=== PATIENT | female | born 1945 | race Caucasian/White ===

== ENCOUNTER 2023-10-16 15:26 | Inpatient (IN) ==
[2023-10-16] MEDS ORDERED: ONDANSETRON INJ 2 MG/ML 2 ML VIAL IV STA (15:48)
[2023-10-16] MEDS ORDERED: SODIUM CHLORIDE 0.9% 1,000 ML IV ONE (15:48)
[2023-10-16] MEDS ORDERED: MoRPHine SULFATE 4 MG/ML 1 ML CARP\\VIAL IV STA (15:48)
--- OUTSIDE RECORDS SUMMARY | 2023-10-16 15:49 | External Medical Summary | Summary of Care ---
Author Name Unknown Organization [facility] Address [address] [place] [address] Phone [phone] Care Team Providers Care Carpenter Maintenance Name Role Phone Mary Ellen Melendez DO Primary Care Provider [phone] Reason for Visit * Reason Comments Physical-Exam Yearly exam, no spec ific complaints Encounter Details Date Type Department Care Team (Late st Contact Info) Description 10/12/2023 9:20 AM EST Office Visit Family Practice [facility] [address] [place] [phone] Mary Ellen Melendez, [address] [place] [address] Well adult exam*; HTN, goal below 140/90; Hypertensive kidney disease with stage 3a chronic kidney disease (HCC); Risk and functional assessment; High risk for fracture due to osteoporosis by DEXA scan Allergies No known active allergiesdocumented as of this encounter (statuses as of 10/12/2023) Medications Medication Sig Dispensed Refills Start Date End Date Status OMEGA-3 FATTY ACIDS 1000 MG PO CAPS two daily 0 Active ASPIRIN 81 MG PO TABS 1 tablet daily 0 Active HAIR/SKIN/NAILS/BIOTIN PO TABS 1 daily 0 Active Ascorbic Acid (VITAMIN C) 500 MG CAPS Take by mouth. 0 Active Vitamin D3 125 MCG (5000 UT) Oral Tablet Chewable Take by mouth . 0 Active Multivitamin Women 50+ Oral Tablet Take by mouth . 0 Active Zoster Vac Recomb Adjuvanted 50 MCG/0.5ML Intramuscular Suspension Reconstituted (Shingrix)Indications: Need for shingles vaccine Inject 0.5 mL into a large muscle now and repeat dose in 60 to 180 days 1 Each 1 10/06/2022 Active Calcium Carb-Cholecalciferol 500-10 MG-MCG Oral Tablet Take by mouth. 0 Active Magnesium 400 MG Oral Capsule Take 1 Capsule by mouth in the morning. 0 Active amLODIPine Besylate 5 MG Oral Tablet (Norvasc)Indications:H TN, goal below 140/90 Take 1 Tablet by mouth in the morning. 90 Tablet 1 10/06/2023 Active hydroCHLOROthiazide 25 MG Oral Tablet (Hydrodiuril)Indicatio ns:HTN, goal below 140/90 Take 1 Tablet by mouth in the morning. 90 Tablet 3 10/06/2023 Active Losartan Potassium 100 MG Oral Tablet (Cozaar)Indications:HT N, goal below 140/90 Take 1 Tablet by mouth in the morning. 90 Tablet 3 10/06/2023 Active documented as of this encounter (statuses as of 10/12/2023) Active Problems Problem Noted Date Diagnosed Date High risk for fracture due to osteoporosis by DE XA scan 01/12/2023 Hypertensive kidney disease with stage 3a chronic kidney disease 08/05/2020 Overview: Per CKD protocol History of colon polyps 09/07/2019 HTN, goal below 140/90 06/04/2017 Hx of actinic keratosis 07/12/2014 ADVANCE DIRECTIVE INFORMATION 10/28/2007 Overview: Yes, Patient instructed to provide copy of advance directive for provider to review and to be scanned into Electronic Medical Record FAM HX-DIABETES MELLITUS, mother, 2 brothers, si ster 01/10/2003 documented as of this encounter (statuses as of 10/12/2023) Resolved Problems Problem Noted Date Diagnosed Date Resolved Date Hypertensive kidney disease with stage 3a chronic kidney disease 08/05/2020 09/03/2020 Overview: Per CKD protocol Hypertensive kidney disease with chronic kidney disease stage III 09/15/2019 08/08/2020 Overview: Per CKD protocol Hypertensive kidney disease with chronic kidney disease stage III 09/07/2019 08/08/2020 Overview: Per CKD protocol Kidney disease, chronic, sta ge III (GFR 30-59 ml/min) 09/05/2018 10/12/2019 Overview: Per CKD protocol #1 Benign neoplasm of colon 05/03/200908/2019 Overview: adenomatous/repeat colonoscopy in 1 yr Malignant neoplasm of corpus uteri 06/26/2008 09/09/2018 Postartificial menopausal syndrome 11/05/2007 09/08/2018 Examination following surgery 11/05/2007 09/08/2018 NONE 04/20/2002 01/10/2003 documented as of this encounter (statuses as of 10/12/2023) Immunizations Name Administration Dates Next Due COVID-19 mRNA, LNP-s, No Pre serve, 2-Dose Series (Blueleaf) 07/29/2021,12/20/2020,11/29/2020 Covid-19, Mrna, Lnp-s, Pf, B ivalent, 30 Mcg, IM, 12 yrs and above (Pfizer) 08/05/2022 Pneumococcal Conjugate Vacc, 13 Valent (Prevnar) 04/14/2016 Pneumococcal Polysaccharide PPV23 (Pneumovax) 06/03/2010 Seasonal Influenza, PF, 6 M & above, IM , (FluLaval or Fluzone) 06/15/2020,06/24/2019,07/05/2018 Seasonal Influenza, Quadriva lent Hd (Fluzone Hd) 06/23/2023,06/13/2022,06/28/2021 Seasonal Influenza, Quadriva lent, No Preserve, IM 06/11/2017,06/26/2016,07/11/2015 Seasonal Influenza, Split, I IV3, With Preserve, Inj 06/28/2014,06/10/2013,08/15/2012,07/09 TDAP (age 10 and older)(Boostrix) 04/14/2016 documented as of this encounter Social History Tobacco Use Types Packs/Day Years Used Date Smoking Tobacco: Never Smokeless Tobacco: Never Alcohol Use Standard Drinks/Week Comments Yes 0 (1 standard drink = 0.6 oz pur e alcohol) rare wine PHQ-2 Answer Date Recorded PHQ Adult Total Score 0 10/06/2022 Hunger Vital Sign Answer Date Recorded Worried About Running Out of Food in the Last Ye ar Never true 09/15/2019 Ran Out of Food in the Last Year Never true 09/15/2019 Sex and Gender Information Value Date Recorded Sex Assigned at Not on file Gender Identity Not on file Sexual Orientation Not on file Job Start Date Occupation Industry Not on file Not on file Not on file documented as of this encounter Last Filed Vital Signs Vital Sign Reading Time Taken Comments Blood Pressure 132/62 10/12/2023 9:07 AM EST Pulse 68 10/12/2023 9:07 AM EST Temperature 37 C (98.6 F) 10/12/2023 9:07 AM EST Respiratory Rate 16 10/12/2023 9:07 AM EST Oxygen Saturation - - Inhaled Oxygen Concentration - - Weight 65.8 kg (145 lb) 10/12/2023 9:07 AM EST Height 153.7 cm (5' 0.5") 10/12/2023 9:07 AM EST Body Mass Index 27.85 10/12/2023 9:07 AM EST documented in this encounter Patient Instructions * Patient Instructions* Aaliyah Floyd RN - 10/12/2023 9:07 AM EST Patient Instructions - Fall Prevention (This education is for all patients over 65 regardless of symptoms) Remember to take your current medications as prescribed. In order to prevent falls, you are encouraged to: Exercise Utilize assistive/adaptive devices Avoid multifocal lenses when walking Avoid hazards in home Maintain a regular toileting schedule Any questions please contact our office. Preventing Falls in the Home (This education is for all patients over 65 regardless of symptoms) As you get older, falls are more likely. Thats because your reaction time slows. Your muscles and joints may also get stiffer, making them less flexible. Illness, medications, and vision changes can also affect your balance. A fall could leave you unable to live on your own. To make your home safer, follow these tips: Floors Put nonskid pads under area rugs Remove throw rugs Replace worn floor coverings Tack carpets firmly to each step on carpeted stairs. Put nonskid strips on the edges of uncarpeted stairs Keep floors and stairs free of clutter and cords Arrange furniture so there are clear pathways Clean up any spills right away Bathrooms Install grab bars in the tub or shower Apply nonskid strips or put a nonskid rubber mat in the tub or shower Sit on a bath chair to bathe Use bathmats with nonskid backing Lighting Keep a flashlight in each room Put a nightlight along the pathway between the bedroom and the bathroom Leo Patient Education Copyright 2008 - 2010 Leo except where otherwise noted Preventing Falls: Exercises to Improve Balance, Flexibility, Strength, and Staying Power (This education is for all patients over 65 regardless of symptoms) Certain types of exercises may help make you less likely to fall. Try the ones below. Or do other exercises that your healthcare provider suggests. Depending on your health, you may need to start slowly. Dont let that stop you. Even small amounts of exercise can help you. Be sure to talk to yourhealthcare provider before starting any exercise program. Improve Balance Many types of exercise can help improve balance. Emile chi and yoga are good examples. Heres another one to try. You can do it anytime and almost anywhere. Stand next to a counter or solid support. Push yourself up onto your tiptoes. Hold for 5 seconds. If you start to lose your balance, hold on to the counter. Rest and repeat 5 times. Work up to holding for 20 to 30 seconds, if you can. Increase Flexibility Being more flexible makes it easier for you to move around safely. Try exercises like the seated hamstring stretch. Sit in a chair and put one foot on a stool. Straighten your leg and reach with both hands down either side of your leg. Reach as far down your leg as you can. Hold for about 20 seconds. Go back to the starting position. Then repeat 5 times. Switch legs. Build Strength Resistance exercises help build strength. You can do them without equipment. Or you can use weights, elastic bands, or special machines. One such exercise is called the biceps curl. You can hold a 1 pound weight or even a can of soup. Do this exercise at least 3 times a week. Strive for everyday. Sit up straight in a chair. Keep your elbow close to your body and your wrist straight. Bend your arm, moving your hand up to your shoulder. Then slowly lower your arm. Repeat 5 times. Switch to the other arm. Build Your Staying Power Aerobic exercises make your heart and lungs stronger so you can keep moving longer. Walking and swimming are two of the best types of exercises you can do. Using a stationary bike is great, too. Find an aerobic exercise that you enjoy. Start slowly and build up. Even 5 minutes is helpful. Aimfor a goal of 30 minutes, at least 3 times a week. You dont have to do 30 minutes in one session. Break it up and walk a little throughout the day. More Helpful Tips Start easy. Slowly work up to doing more. Talk with your healthcare provider about the best exercises for you. Call senior centers or health clubs about exercise programs. If needed, have a family member watch you walk every so often to check your stability. Exercise with a friend. Choose an activity you both enjoy. Try exercises that you can do anytime, anywhere. Here are two examples. Have someone with you when you first try these: Practice walking by placing one foot right in front of the other. Stand up and sit down 10 times. Repeat this throughout the day. Leo Patient Education Copyright 2008 - 2010 Leo except where otherwise noted. Preventing Falls: Moving Safely Using a Cane or Walker (This education is for all patients over 65 regardless of symptoms) Keep the cane away from your feet so you dont trip. A walking aid, such as a cane or walker, can help you stay more independent and avoid falls. Remember to keep your walking aid within easy reach when youre in a chair or in bed. And learn how to use it safely so you dont injure yourself. Using a Cane If you have a stronger side, hold the cane on that side. Get your balance. Move the cane and your weaker leg forward. Support your weight on both the cane and your weaker side. Step with your stronger leg. Start again from step 1. If youre using a folding walker, be sure you know how to lock it open. Check that its locked open before each use. Using a Walker Roll the walker (or lift it, if youre using one without wheels) forward about 12 inches. Step forward with your weaker leg first. Use the walker to help keep your balance. Bring your other foot forward to the center of the walker. Start again from step 1. Helpful Tips Check with your healthcare provider about the right walking aid to use. Ask about a walker with a seat attached. Check the tips of your cane or walker to make sure they have nonskid covers. Move slowly from room to room. Dont perkins. Sit down to get dressed. Use a dionne pack or backpack to keep your hands free. Get help for jobs that mean climbing, even on a stepstool. Elenaabdulaziz Patient Education Copyright 2008 - 2010 Leo except where otherwise noted. Urinary Incontinence Plan of Care Documentation: (This education is for all patients over 65 regardless of symptoms) Current medications reconciled. Patient encouraged to: Practice kegal exercises Provide education materials Use the restroom every 2 hours throughout the day Limit caffeine, alcohol, spicy foods and acidic foods Keep a bladder diary Limit fluid intake 3-4 hours before bed Lose weight Prevent constipation Take fluid pills at a time when you can get to the bathroom quickly Control sugar better if diabetic Limit fluid intake to 60 oz. per day Wear support stockings (TEDs)if you have edema Aaliyah Floyd RN 10/12/2023 Kegel Exercises Kegel exercises dont require special clothing or equipment. Theyre easy to learn and simple to do. And if you do them right, no one can tell youre doing them, so they can be done almost anywhere. Your doctor, nurse, or physical therapist can answer any questions you have and help you get started. A Weak Pelvic Floor The pelvic floor muscles may weaken due to aging, and vaginal childbirth, injury, surgery, chronic cough, or lack of exercise. If the pelvic floor is weak, your bladder and other pelvic organs may sag out of place. The urethra may also open too easily and allow urine to leak out. Kegel exercises can help you strengthen your pelvic floor muscles so they can better support the pelvic organs and control urine flow. How Kegel Exercises Are Done Try each of the Kegel exercises described below. When youre doing them, try not to move your leg, buttock, or stomach muscles. While youre urinating, try to stop the flow of urine. Start and stop it as often as you can. Contract as if you were stopping your urine stream, but do it when youre not urinating. Tighten your rectum as if trying not to pass gas. Contract your anus, but dont move your buttocks. Helpful Hints Do your Kegels as often as you can. The more you do them, the faster youll feel the results. Pick an activity you do often as a reminder. For instance, do your Kegels every time you sit down. Tighten your pelvic floor before you sneeze, get up from a chair, cough, laugh, or lift. This protects your pelvic floor from injury and can help prevent urine leakage. Try to hold each Kegel for a slow count to five. You probably wont be able to hold them for thatlong at first, but keep practicing. It will get easier as your pelvic floor gets stronger. Eventually, special weights that you place in your vagina may be recommended to help make your Kegels even more effective. Leo Patient Education Copyright 2008 - 2010 Leo except where otherwise noted. Here are some helpful tips for your urinary incontinence: (This education is for all patients over 65 regardless of symptoms) Practice Kegel exercises Use the restroom every 2 hours throughout the day Limit caffeine, alcohol, spicy foods, and acidic foods Keep a bladder diary Limit fluid intake 3-4 hours before bed Lose weight Prevent constipation Take fluid pills at a time when can get to the bathroom quickly Control sugar better if diabetic Limit fluid intake to 60 oz. per day Any questions, please feel free to contact our office. documented in this encounter Progress Notes * Mary Ellen Melendez, - 10/12/2023 9:16 AM EST Subjective: Ailin Rodrigues is a 78 year old female. Chief Complaint Patient presents with Physical-Exam Yearly exam, no specific complaints HPI: Pt presents for physical today. Doing well, no complaints. PHM: Patient Active Problem List Diagnosis Code FAM HX-DIABETES MELLITUS, mother, 2 brothers, sister Z83.3 ADVANCE DIRECTIVE INFORMATION Hx of actinic keratosis Z87.2 HTN, goal below 140/90 I10 History of colon polyps Z86.010 Hypertensive kidney disease with stage 3a chronic kidney disease I12.9, N18.31 High risk for fracture due to osteoporosis by DEXA scan M81.0 Current Outpatient Medications Medication Sig Dispense Refill OMEGA-3 FATTY ACIDS 1000 MG PO CAPS two daily ASPIRIN 81 MG PO TABS 1 tablet daily HAIR/SKIN/NAILS/BIOTIN PO TABS 1 daily Ascorbic Acid (VITAMIN C) 500 MG CAPS Take by mouth. Vitamin D3 125 MCG (5000 UT) Oral Tablet Chewable Take by mouth . Multivitamin Women 50+ Oral Tablet Take by mouth . Zoster Vac Recomb Adjuvanted 50 MCG/0.5ML Intramuscular Suspension Reconstituted (Shingrix) Inject 0.5 mL into a large muscle now and repeat dose in 60 to 180 days 1 Each 1 Calcium Carb-Cholecalciferol 500-10 MG-MCG Oral Tablet Take by mouth. Magnesium 400 MG Oral Capsule Take 1 Capsule by mouth in the morning. amLODIPine Besylate 5 MG Oral Tablet (Norvasc) Take 1 Tablet by mouth in the morning. 90 Tablet 1 hydroCHLOROthiazide 25 MG Oral Tablet (Hydrodiuril) Take 1 Tablet by mouth in the morning. 90 Tablet 3 Losartan Potassium 100 MG Oral Tablet (Cozaar) Take 1 Tablet by mouth in the morning. 90 Tablet 3 No current facility-administered medications for this visit. Past Medical History: Diagnosis Date Benign neoplasm of colon 07/13/08 adenomatous/ repeat colonoscopy in 4 months Benign neoplasm of colon 05/03/09 adenomatous/repeat colonoscopy in 1 yr Benign neoplasm of colon 05/16/10 one 4mm polyp site was APC'D--no evidence of recurrent polyp tissue repeat exam in 3 years Dyslipidemia, goal LDL below 130 at goal, on omega-3 caps Hx of actinic keratosis 07/12/2014 Malignant neoplasm of corpus uteri (HCC) 2006 Menopause age 51 Varicella without complication Past Surgical History: Procedure Laterality Date COLONOSCOPY W/ LESION REMOVAL, SNARE 07/13/2008 10 mm polyp removed/adenomatous/repeat in 4 months COLONOSCOPY W/ LESION REMOVAL, SNARE 05/16/2010 one 4mm polyp site was APC'D--no evidence of recurrent polyp tissue repeat exam in 3 years COLONOSCOPY, DIAGNOSTIC (RECTUM) 05/03/2009 adenomatous/repeat colonoscopy in 1 yr COLONOSCOPY, DIAGNOSTIC (RECTUM) 04/19/2014 diverticulosis, repeat 5 yrs/COLONOSCOPY FLEXIBLE PROXIMAL DIAGNOSTIC performed by Charlene Ochoa DO at END[facility] COLONOSCOPY, DIAGNOSTIC (RECTUM) 12/19/2020 diverticulosis / COLONOSCOPY FLEXIBLE PROXIMAL DIAGNOSTIC performed by Charlene Ochoa DO at ENDOS[facility] COLONOSCOPY/REMOVE LESION 11/30/2008 alated , tatooed, path pending DEXA SCAN/BONE MINERAL AXIAL 12/24/1999 normal repeat in 2004 LIGATE/CUT OVIDUCT(S) age 28 tubal at age 28 MISCELLANEOUS ORDER cyst removed from right ovary at age 18 TOTAL ABD HYSTERECTOMY W/WO REMOVAL OF TUBE(S) 11/05/2007 TOTAL ABDOMINAL HYSTERECTOMY WITH OR WITHOUT TUBES AND OVARIES performed by MOHSEN MARIE [place] [facility] [place] Review of patient's allergies indicates: No Known Allergies Objective: BP 132/62 (BP Site: Left Arm, BP Position: Sitting, BP Cuff Size: Regular) | Pulse 68 | Temp 37 C(98.6 F) (Tympanic) | Resp 16 | Ht 1.537 m (5' 0.5") | Wt 65.8 kg (145 lb) | BMI 27.85 kg/m | BSA 1.68 m Review of Systems: As per HPI, all other ROS neg. Physical Exam: General: alert, healthy, no distress, well nourished and well developed Head: Normocephalic, No masses, lesions, tenderness or abnormalities Ears: External ears normal, Canals clear, TM's Normal Nose: no mucosal erythema, no mucosal edema, no purulent discharge, no septal hematoma Oropharynx: no exudate, no erythema, lips, buccal mucosa, and tongue normal and mucous membranes are moist Neck: supple, no adenopathy, thyroid normal size, non-tender, without nodularity Heart: regular rate & rhythm, no murmurs and no gallops Lungs: chest symmetric with normal AP diameter, no chest deformities noted, lungs clear to auscultation Abdomen: abdomen soft, non-tender, normal bowel sounds and no masses or organomegaly Extremities: no joint deformities, effusion, or inflammation, no edema, no clubbing, no cyanosis Well adult exam (Primary) all appropriate HM items addressed Including genitourinary (pap, mammo, psa), colon cancer screening and immunizations as indicated by patient sex, age and history HTN, goal below 140/90 Bp stable, cont losrtan, hctz and amlodipine Hypertensive kidney disease with stage 3a chronic kidney disease (HCC) Stable Risk and functional assessment High risk for fracture due to osteoporosis by DEXA scan Pt declines bispohosphonate Cont Ca/vit D Follow up: In 1 year Mary Ellen Melendez DO documented in this encounter Plan of Treatment Upcoming Encounters Date Type Department Care Team (Late st Contact Info) Description 12/10/2023 10:40 AM EDT Office Visit Dermatology [facility] [address] [place] [address] Yvette Rosen PA-C [address] [place] [phone] 10/17/2024 12:30 PM EST Imaging Radiology [facility] [address] [place] [id number] 10/17/2024 1:00 PM EST Office Visit Family Practice [facility] [address] [place] [address] Mary Ellen Melendez DO [address] [place] [address] Health Maintenance Due Date Last Done Comments Zoster Vaccines (1 of 2) 1993 COVID-19 Vaccine ( season) 2023 08/05/2022, 07/29/2021, 12/20/2020, Additional history exists Depression Screening 10/06/2023 10/06/2022 GFR 04/06/2024 10/07/2023, 02/2023, 10/22/2021, Additional history exists Albumin/Creatinine Ratio 10/07/2024 10/07/2023, 02/2023 CKD HGB USE SMARTSET 86871 10/07/202410/07, 10/02/2022, 10/22/2021, Additional history exists CKD PHOS USE SMARTSET 15501 10/07/202409/27, 10/02/2022, 10/22/2021, Additional history exists DXA Scan 12/02/2024 12/02/2022, 08/27, 07/27/2011, Additional history exists DTaP,Tdap,and Td Vaccines (2 - Td or Tdap) 04/14/2026 04/14/2016 VITAMIN D LEVEL ONCE IN A LIFETIME-USE SMARTSET# [id number] Completed 04/02/2015, 04/03/2010 Pneumococcal Vaccine: 65+ Years Completed 04/14/2016, 06/03/2010 COLONOSCOPY-EVERY 5 YRS AGES 18-100 Discontinued 12/19/2020, 12/19/2020, 04/19/2014, Additional history exists Influenza Vaccine (FLU shot) Completed 06/23/2023, 06/13/2022, 06/28/2021, Additional history exists GARDASIL-HPV IMMUNIZATION SERIES Aged Out No longer eligible based on patient's age to complete this topic Hepatitis B Aged Out No longer eligi ble based on patient's age to complete this topic MENINGOCOCCAL (MENACTRA/MENVEO) Aged Out No longer eligible based on patient's age to complete this topic documented as of this encounter Medical Devices Not on filedocumented as of this encounter Visit Diagnoses Diagnosis Well adult exam- Primary Routine general medical examination at a health care facility HTN, goal below 140/90 Unspecified essential hypertension Hypertensive kidney disease with stage 3a chronic kidney disease (HCC) Risk and functional assessment Screening for unspecified condition High risk for fracture due to osteoporosis by DEXA scan Osteoporosis, unspecified documented in this encounter Advance Directives Latest Code Status on File Code Status Date Activated Date Inactivated Comments Full Code 11/05/2007 8:48 PM 11/07/2007 8:37 PM Care Teams Carpenter Maintenance Relationship Specialty Start Date End Date Mary Ellen Melendez DO [address] [place] [address] PCP - General Family Medicine 04/14/16 documented as of this encounter
--- OUTSIDE RECORDS SUMMARY | 2023-10-16 15:49 | External Medical Summary | Summary of Care ---
Author Name Unknown Organization [facility] Address [address] [place] [address] Phone [phone] Care Team Providers Care Stock Dealer Name Role Phone Mary Ellen Melendez DO Primary Care Provider [phone] Encounter Details Date Type Department Care Team (Late st Contact Info) Description 10/13/2023 Orders Only Family Practice [facility] [address] [place] [address] Mary Ellen Melendez DO [address] [place] [address] Encounter for screening mammogram for breast cancer* Allergies No known active allergiesdocumented as of this encounter (statuses as of 10/13/2023) Medications Medication Sig Dispensed Refills Start Date [...] as of this encounter (statuses as of 10/13/2023) Active Problems Problem Noted Date Diagnosed Date [...] as of this encounter (statuses as of 10/13/2023) Resolved Problems Problem Noted Date Diagnosed Date [...] as of this encounter (statuses as of 10/13/2023) Immunizations Name Administration Dates Next Due COVID-19 mRNA, LNP-s, No Pre serve, 2-Dose Series ([employer]) 07/29/2021,12/20/2020,11/29/2020 Covid-19, Mrna, Lnp-s, Pf, B ivalent, 30 Mcg, IM, 12 yrs and above ([employer]) 08/05/2022 Pneumococcal Conjugate Vacc, 13 Valent (Prevnar) [...] on file documented as of this encounter Progress Notes * Mirna Monsalve RN - 10/13/2023 1:28 PM EST Provider to address: NA Reason for Call: No chief complaint on file. Contact: Telephone Call Contact Type: Orders Outcome: Normal Mammo result letter sent by radiology. Order placed for next year Face to face time spent with Patient (minutes): 0 Total Time including non face to face (minutes): 10 documented in this encounter Plan of Treatment Upcoming Encounters Date Type Department Care Team (Late st Contact Info) Description 12/10/2023 10:40 AM EDT Office Visit Dermatology [facility] [address] [facility] [place] [address] Yvette Rosen PA-C [address] [facility] [place] [phone] 10/17/2024 12:30 PM EST Imaging Radiology [address] [place] [address] 10/17/2024 1:00 PM EST Office Visit Family Practice [facility] [address] [place] [address] Mary Ellen Melendez DO [address] [facility] [place] [address] Scheduled Orders Name Type Priority Associated Diagnoses Orde r Schedule MAMMOGRAM SCREENING KAILA BILATERAL Medical Imaging Routine Encounter for screening mammogram for breast cancer Expected: 10/13/2024, Expires: 11/13/2024 Health Maintenance Due Date Last Done Comments Zoster Vaccines (1 of 2) 1993 COVID-19 Vaccine ( season) 2023 08/05/2022, 07/29/2021, 12/20/2020, Additional history exists GFR 04/06/2024 10/07/2023, 02/2023, 10/22/2021, Additional history exists Albumin/Creatinine Ratio 10/07/2024 10/07/2023, 02/2023 CKD HGB USE SMARTSET 62381 10/07/202410/07, 10/02/2022, 10/22/2021, Additional history exists CKD PHOS USE SMARTSET 14864 10/07/202409/27, 10/02/2022, 10/22/2021, Additional history exists Depression Screening 10/12/2024 10/12/2023 DXA Scan 12/02/2024 12/02/2022, 08/27, 07/27/2011, Additional history exists DTaP,Tdap,and Td Vaccines (2 - Td or Tdap) 04/14/2026 04/14/2016 VITAMIN D LEVEL ONCE IN A LIFETIME-USE SMARTSET# [id number] Completed 04/02/2015, 04/03/2010 Pneumococcal Vaccine: 65+ Years [...] as of this encounter Visit Diagnoses Diagnosis Encounter for screening mammogram for breast cancer- Primary documented in this encounter Advance Directives Latest Code Status on File Code Status Date Activated Date Inactivated Comments Full Code 11/05/2007 8:48 PM 11/07/2007 8:37 PM Care Teams Stock Dealer Relationship Specialty Start Date End Date Mary Ellen Melendez DO [address] [place] [address] PCP - General Family Medicine 04/14/16 documented as of this encounter
--- OUTSIDE RECORDS SUMMARY | 2023-10-16 15:50 | External Medical Summary | Summary of Care ---
Author Name Unknown Organization [facility] Address [address] [place] [address] Phone [phone] Care Team Providers Care Cna Ltc Name Role Phone JanakMary Ellen noriega Suyapa DO Primary Care Provider [phone] Reason for Visit * Reason Comments Outpatient Testing Encounter Details Date Type Department Care Team (Late st Contact Info) Description 10/07/2023 9:00 AM EST Laboratory Laboratory, [place] [address] [place] [address] [place] [address] [place] [address] Chronic kidney disease, unspecified CKD stage Allergies No known active allergiesdocumented as of this encounter (statuses as of 10/07/2023) Medications Medication Sig Dispensed Refills Start Date [...] as of this encounter (statuses as of 10/07/2023) Active Problems Problem Noted Date Diagnosed Date [...] as of this encounter (statuses as of 10/07/2023) Resolved Problems Problem Noted Date Diagnosed Date [...] as of this encounter (statuses as of 10/07/2023) Immunizations Name Administration Dates Next Due COVID-19 mRNA, LNP-s, No Pre serve, 2-Dose Series ([employer]) 07/29/2021,12/20/2020,11/29/2020 Covid-19, Mrna, Lnp-s, Pf, B ivalent, 30 Mcg, IM, 12 yrs and above ([employer]) 08/05/2022 Pneumococcal Conjugate Vacc, 13 Valent (Prevnar) [...] on file documented as of this encounter Plan of Treatment Upcoming Encounters Date Type Department Care Team (Late st Contact Info) Description 10/12/2023 9:00 AM EST Imaging Radiology [facility] [address] [place] [address] 10/12/2023 9:20 AM EST Office Visit Family Practice [facility] [address] [place] [address] Mary Ellen Mleendez DO [address] [place] [address] 12/10/2023 10:40 AM EDT Office Visit Dermatology [facility] [address] [place] [address] Yvette Rosen PA-C [address] [place] [phone] Pending Results Name Type Priority Associated Diagnoses Date /Time COMPREHENSIVE METABOLIC PANEL Lab Routine Chronic kidney disease, unspecified CKD stage 10/07/2023 9:03 AM EST PHOSPHORUS Lab Routine Chronic kidney disease, unspecified CKD stage 10/07/2023 9:03 AM EST ALBUMIN / CREATININE RATIO, URINE Lab Routine Chronic kidney disease, unspecified CKD stage 10/07/2023 9:54 AM EST CBC Lab Routine Chronic kidney disease, unspecified CKD stage 10/07/2023 9:03 AM EST Health Maintenance Due Date Last Done Comments Zoster Vaccines (1 of 2) 1993 *BISPHONATE OR OTHER ACCEPTABLE MEDICATION NEEDED FOR OSTEOPOROSIS (REFER TO SMARTSET #1146) 01/15/2023 GFR 04/01/2023 10/02/2022, 09/28, 09/17/2020, Additional history exists COVID-19 Vaccine ( season) 2023 08/05/2022, 07/29/2021, 12/20/2020, Additional history exists Albumin/Creatinine Ratio 10/02/2023 10/02/2022 CKD HGB USE SMARTSET 41864 10/02/202310/02, 10/22/2021, 09/17/2020, Additional history exists CKD PHOS USE SMARTSET 86121 10/02/2023/0 02/2023, 10/22/2021, 09/17/2020, Additional history exists Depression Screening 10/06/2023 10/06/2022 DXA Scan 12/02/2024 12/02/2022, 08/27, 07/27/2011, Additional history exists DTaP,Tdap,and Td Vaccines (2 - Td or Tdap) 04/14/2026 04/14/2016 VITAMIN D LEVEL ONCE IN A LIFETIME-USE SMARTSET# [id number] Completed 04/02/2015, 04/03/2010 Pneumococcal Vaccine: 65+ Years [...] as of this encounter Visit Diagnoses Diagnosis Chronic kidney disease, unspecified CKD stage documented in this encounter Advance Directives Latest Code Status on File Code Status Date Activated Date Inactivated Comments Full Code 11/05/2007 8:48 PM 11/07/2007 8:37 PM Care Teams Cna Ltc Relationship Specialty Start Date End Date Mary Ellen Melendez DO [address] [place] [address] PCP - General Family Medicine 04/14/16 documented as of this encounter
--- OUTSIDE RECORDS SUMMARY | 2023-10-16 15:50 | External Medical Summary | Summary of Care ---
Author Name Unknown Organization [facility] Address [address] [place] [address] Phone [phone] Care Team Providers Care Personal Financial Advisor Name Role Phone JanakMary Ellen noriega Suyapa DO Primary Care Provider [phone] Reason for Visit * Reason Comments Outpatient Testing Encounter Details Date Type Department Care Team (Late st Contact Info) Description 10/07/2023 9:00 AM EST Laboratory Laboratory, [place] [address] [place] [address] [place] [address] [place] [address] Chronic kidney disease, unspecified CKD [...] mRNA, LNP-s, No Pre serve, 2-Dose Series ([employer]) 07/29/2021,12/20/2020,11/29/2020 Covid-19, Mrna, Lnp-s, Pf, B ivalent, 30 Mcg, IM, 12 yrs and above ([employer]) 08/05/2022 Pneumococcal Conjugate Vacc, 13 Valent (Prevnar) [...] Description 10/12/2023 9:00 AM EST Imaging Radiology [address] [place] [address] 10/12/2023 9:20 AM EST Office Visit Family Practice [facility] [address] [place] [address] Mary Ellen Melendez DO [address] [place] [address] 12/10/2023 10:40 AM EDT Office Visit Dermatology [facility] [address] [place] [address] Yvette Rosen PA-C [address] [place] [phone] Pending Results Name Type Priority Associated Diagnoses Date /Time COMPREHENSIVE METABOLIC PANEL Lab Routine Chronic kidney disease, unspecified CKD stage 10/07/2023 9:03 AM EST PHOSPHORUS Lab Routine Chronic kidney disease, unspecified CKD stage 10/07/2023 9:03 AM EST CBC Lab Routine Chronic kidney [...] Ratio 10/02/2023 10/02/2022 CKD HGB USE SMARTSET 56430 10/02/202310/02, 10/22/2021, 09/17/2020, Additional history exists CKD PHOS USE SMARTSET 54268 10/02/202302/2023, 10/22/2021, 09/17/2020, Additional history exists Depression Screening 10/06/2023 10/06/2022 DXA Scan 12/02/2024 12/02/2022, 08/27, 07/27/2011, Additional history exists DTaP,Tdap,and Td Vaccines (2 - Td or Tdap) 04/14/2026 04/14/2016 VITAMIN D LEVEL ONCE IN A LIFETIME-USE SMARTSET# 96180 Completed 04/02/2015, 04/03/2010 Pneumococcal Vaccine: 65+ Years [...] 8:48 PM 11/07/2007 8:37 PM Care Teams Personal Financial Advisor Relationship Specialty Start Date End Date Mary Ellen Melendez DO [address] [place] [address] PCP - General Family Medicine 04/14/16 documented as of this encounter
--- OUTSIDE RECORDS SUMMARY | 2023-10-16 15:50 | External Medical Summary | Summary of Care ---
Author Name Unknown Organization [facility] Address [address] [place] [address] Phone [phone] Care Team Providers Care Tool Checker Name Role Phone Mary Ellen Melendez DO Primary Care Provider [phone] Reason for Visit * Reason Onset Date Comments Health Maintenance 09/08/2023 Encounter Details Date Type Department Care Team (Late st Contact Info) Description 09/08/2023 Telephone Family Practice [facility] [address] [facility] [place] [address] Mary Ellen Melendez DO [address] [facility] [address] Health Maintenance Allergies No known active allergiesdocumented as of this encounter (statuses as of 09/08/2023) Medications Medication Sig Dispensed Refills Start Date [...] Tablet Take by mouth . 0 Active amLODIPine Besylate 5 MG Oral Tablet (Norvasc)Indications:H TN, goal below 140/90 Take 1 Tablet by mouth in the morning. 90 Tablet 3 10/06/2022 Active hydroCHLOROthiazide 25 MG Oral Tablet (Hydrodiuril)Indicatio ns:HTN, goal below 140/90 Take 1 Tablet by mouth in the morning. 90 Tablet 3 10/06/2022 Active Losartan Potassium 100 MG Oral Tablet (Cozaar)Indications:HT N, goal below 140/90 Take 1 Tablet by mouth in the morning. 90 Tablet 3 10/06/2022 Active Zoster Vac Recomb Adjuvanted 50 MCG/0.5ML Intramuscular Suspension Reconstituted (Shingrix)Indications: Need for shingles vaccine Inject 0.5 mL into a large muscle now and repeat dose in 60 to 180 days 1 Each 1 10/06/2022 Active Calcium Carb-Cholecalciferol 500-10 MG-MCG Oral Tablet Take by mouth. 0 Active Magnesium 400 MG Oral Capsule Take 1 Capsule by mouth in the morning. 0 Active documented as of this encounter (statuses as of 09/08/2023) Active Problems Problem Noted Date Diagnosed Date [...] as of this encounter (statuses as of 09/08/2023) Resolved Problems Problem Noted Date Diagnosed Date [...] as of this encounter (statuses as of 09/08/2023) Immunizations Name Administration Dates Next Due COVID-19 mRNA, LNP-s, No Pre serve, 2-Dose Series ([employer]) 07/29/2021,12/20/2020,11/29/2020 Covid-19, Mrna, Lnp-s, Pf, B ivalent, 30 Mcg, IM, 12 yrs and above ([employer]OW) 08/05/2022 Pneumococcal Conjugate Vacc, 13 Valent (Prevnar) [...] on file documented as of this encounter Miscellaneous Notes * Addendum Note - Evelia Schaefer LPN - 09/08/2023 3:45 PM ESTAddended by: EVELIA SCHAEFER on: 09/08/2023 03:45 PM Modules accepted: Orders * Telephone Encounter - Evelia Schaefer LPN - 09/08/2023 3:44 PM EST Spoke to patient. Labs ordered and scheduled * Telephone Encounter - Evelia Schaefer LPN - 09/08/2023 12:06 PM EST Care Gaps Comprehensive Care Outreach Last Office/Telemedicine Visit: 01/12/2023 (in office), Visit date not found (telemedicine) Next Office Visit: 10/12/2023 Hemoglobin AIC Results: No results found for: "HEMOGLOBIN A1C" Reviewed Health Maintenance below: Health Maintenance Topic Date Due Hepatitis C Screening Never done Zoster Vaccines (1 of 2) Never done *BISPHONATE OR OTHER ACCEPTABLE MEDICATION NEEDED FOR OSTEOPOROSIS (REFER TO SMARTSET #1146) Never done GFR 04/01/2023 COVID-19 Vaccine ( season) 2023 Albumin/Creatinine Ratio 10/02/2023 CKD HGB USE SMARTSET 10492 10/02/2023 CKD PHOS USE SMARTSET 94667 10/02/2023 Urine/labs Mamm already scheduled. Order placed Care Gap Outreach Action Taken: Left message 1 documented in this encounter Plan of Treatment Upcoming Encounters Date Type Department Care Team (Late st Contact Info) Description 10/07/2023 9:00 AM EST Laboratory [facility] [place] [address] [facility] [place] [address] [place] [address] [place] [address] 10/12/2023 9:00 AM EST Imaging Radiology [facility] [address] [place] [address] 10/12/2023 9:20 AM EST Office Visit Family Practice [facility] [address] [place] [address] Mary Ellen Melendez DO [address] [place] [address] 12/10/2023 10:40 AM EDT Office Visit Dermatology [facility] [address] [place] [address] Yvette Rosen PA-C [address] [place] [phone] Scheduled Orders Name Type Priority Associated Diagnoses Orde r Schedule MAMMOGRAM SCREENING KAILA BILATERAL Medical Imaging Routine Encounter for screening mammogram for malignant neoplasm of breast Expected: 09/08/2023, Expires: 10/09/2024 COMPREHENSIVE METABOLIC PANEL Lab Routine Chronic kidney disease, unspecified CKD stage Expected: 09/08/2023, Expires: 09/08/2024 PHOSPHORUS Lab Routine Chronic kidney disease, unspecified CKD stage Expected: 09/08/2023, Expires: 09/08/2024 ALBUMIN / CREATININE RATIO, URINE Lab Routine Chronic kidney disease, unspecified CKD stage Expected: 09/08/2023 (Approximate), Expires: 09/08/2024 CBC Lab Routine Chronic kidney disease, unspecified CKD stage Expected: 09/08/2023, Expires: 09/08/2024 Health Maintenance Due Date Last Done Comments Hepatitis C Screening 1963 Zoster Vaccines (1 of 2) 1993 *BISPHONATE OR OTHER ACCEPTABLE MEDICATION NEEDED FOR OSTEOPOROSIS (REFER TO SMARTSET #1146) 01/15/2023 GFR 04/01/2023 10/02/2022, 09/28, 09/17/2020, Additional history exists COVID-19 Vaccine (2022- season) 2023 08/05/2022, 07/29/2021, 12/20/2020, Additional history exists Albumin/Creatinine Ratio 10/02/2023 10/02/2022 CKD HGB USE SMARTSET 98102 10/02/202310/02, 10/22/2021, 09/17/2020, Additional history exists CKD PHOS USE SMARTSET 73669 10/02/202302/2023, 10/22/2021, 09/17/2020, Additional history exists Depression Screening 10/06/2023 10/06/2022 DXA Scan 12/02/2024 12/02/2022, 08/27, 07/27/2011, Additional history exists DTaP,Tdap,and Td Vaccines (2 - Td or Tdap) 04/14/2026 04/14/2016 VITAMIN D LEVEL ONCE IN A LIFETIME-USE SMARTSET# 70973 Completed 04/02/2015, 04/03/2010 Pneumococcal Vaccine: 65+ Years [...] Diagnoses Diagnosis Encounter for screening mammogram for malignant neoplasm of breast- Primary Other screening mammogram Chronic kidney disease, unspecified CKD stage documented in this encounter Advance Directives Latest Code Status on File Code Status Date Activated Date Inactivated Comments Full Code 11/05/2007 8:48 PM 11/07/2007 8:37 PM Care Teams Tool Checker Relationship Specialty Start Date End Date Mary Ellen Melendez DO [address] [place] [address] PCP - General Family Medicine 04/14/16 documented as of this encounter
--- OUTSIDE RECORDS SUMMARY | 2023-10-16 15:50 | External Medical Summary ---
Author Name Unknown Address Unknown Organization K01:LABORATORY [facility] - [address] [place] [address] Laboratory Report Ordering Provider Test Date Status ORLANDOCHRISTIE 10/07/2023 09:54:48 Final Normal: <30 mg/g creatinine< br/>High: 30-300 mg/g creatinine
Very High: >300 mg/g creatinine
Nephrotic: >2200 mg/g creatinine Observation Date Value Abnormality Reference (Units ) Status Albumin, Urine 10/07/2023 09:54:48 4.03 (mg/dL) Final Creatinine, Urine 10/07/2023 09:54:48 162 (mg/dL) Final Albumin/Creatinine [Mass Ratio] in Urine 10/07/2023 09:54:48 25 <30 (mg/g Creat) Final Performing Location LABORATORY [facility] - [address] [place] [address]
--- OUTSIDE RECORDS SUMMARY | 2023-10-16 15:50 | External Medical Summary | Summary of Care ---
Author Name Unknown Organization [facility] Address [address] [place] [address] Phone [phone] Care Team Providers Care Sanitation Lead Name Role Phone Mary Ellen Melendez DO Primary Care Provider [phone] Reason for Visit * Reason Onset Date Comments Health Maintenance 09/08/2023 Encounter Details Date Type Department Care Team (Late st Contact Info) Description 09/08/2023 Telephone Family Practice [facility] [address] [facility] [place] [address] Mary Ellen Melendez DO [address] [facility] [place] [address] Health Maintenance Allergies No known active allergiesdocumented [...] mRNA, LNP-s, No Pre serve, 2-Dose Series ([employer]) 07/29/2021,12/20/2020,11/29/2020 Covid-19, Mrna, Lnp-s, Pf, B ivalent, 30 Mcg, IM, 12 yrs and above ([employer]) 08/05/2022 Pneumococcal Conjugate Vacc, 13 Valent (Prevnar) [...] as of this encounter Miscellaneous Notes * Telephone Encounter - Evelia Schaefer LPN [...] Albumin/Creatinine Ratio 10/02/2023 CKD HGB USE SMARTSET 57668 10/02/2023 CKD PHOS USE SMARTSET 82556 10/02/2023 Urine/labs Mamm already scheduled. Order placed Care Gap Outreach Action Taken: Left message 1 documented in this encounter Plan of Treatment Upcoming Encounters Date Type Department Care Team (Late st Contact Info) Description 10/12/2023 9:00 AM EST Imaging Radiology [address] [place] [address] 10/12/2023 9:20 AM EST Office Visit Family Practice [facility] [address] [place] [address] Mary Ellen Melendez, [address] [place] [address] 12/10/2023 10:40 AM EDT Office Visit Dermatology [facility] [address] [place] [address] Yvette Rosen PA-C [address] [facility] [place] [phone] Scheduled Orders Name Type Priority Associated Diagnoses Orde r Schedule MAMMOGRAM SCREENING KAILA BILATERAL Medical Imaging Routine Encounter for screening mammogram for malignant neoplasm of breast Expected: 09/08/2023, Expires: 10/09/2024 Health Maintenance Due Date Last Done Comments Hepatitis C Screening 1963 Zoster Vaccines (1 of 2) 1993 *BISPHONATE OR OTHER ACCEPTABLE MEDICATION NEEDED FOR OSTEOPOROSIS (REFER TO SMARTSET #1146) 01/15/2023 GFR 04/01/2023 10/02/2022, 09/28, 09/17/2020, Additional history exists COVID-19 Vaccine ( season) 2023 08/05/2022, 07/29/2021, 12/20/2020, Additional history exists Albumin/Creatinine Ratio 10/02/2023 10/02/2022 CKD HGB USE SMARTSET 48700 10/02/202310/02, 10/22/2021, 09/17/2020, Additional history exists CKD PHOS USE SMARTSET 02188 10/02/202302/2023, 10/22/2021, 09/17/2020, Additional history exists Depression Screening 10/06/2023 10/06/2022 DXA Scan 12/02/2024 12/02/2022, 08/27, 07/27/2011, Additional history exists DTaP,Tdap,and Td Vaccines (2 - Td or Tdap) 04/14/2026 04/14/2016 VITAMIN D LEVEL ONCE IN A LIFETIME-USE SMARTSET# 56934 Completed 04/02/2015, 04/03/2010 Pneumococcal Vaccine: 65+ Years [...] neoplasm of breast- Primary Other screening mammogram documented in this encounter Advance Directives Latest Code Status on File Code Status Date Activated Date Inactivated Comments Full Code 11/05/2007 8:48 PM 11/07/2007 8:37 PM Care Teams Sanitation Lead Relationship Specialty Start Date End Date Mary Ellen Melendez DO [address] [facility] [place] [address] PCP - General Family Medicine 04/14/16 documented as of this encounter
--- OUTSIDE RECORDS SUMMARY | 2023-10-16 15:50 | External Medical Summary | Summary of Care ---
Author Name Unknown Organization [facility] Address [address] [place] [address] Phone [phone] Care Team Providers Care Language Path Name Role Phone Orlando Soriano DO Primary Care Provider [phone] Reason for Visit * Reason Onset Date Comments Medication Refill 10/04/2023 Encounter Details Date Type Department Care Team (Late st Contact Info) Description 10/04/2023 Refill Family Practice [facility] [address] [facility] [place] [address] Orlando Soriano[facility] [address] [facility] [place] [address] HTN, goal below 140/90 Allergies No known active allergiesdocumented as of this encounter (statuses as of 10/06/2023) Medications Medication Sig Dispensed Refills Start Date End Date Status OMEGA-3 FATTY ACIDS 1000 MG PO CAPS two daily 0 Active ASPIRIN 81 MG PO TABS 1 tablet daily 0 Active HAIR/SKIN/NAILS/BIO TIN PO TABS 1 daily 0 Active Ascorbic Acid (VITAMIN C) 500 MG CAPS Take by mouth. 0 Active Vitamin D3 125 MCG (5000 UT) Oral Tablet Chewable Take by mouth . 0 Active Multivitamin Women 50+ Oral Tablet Take by mouth . 0 Active Zoster Vac Recomb Adjuvanted 50 MCG/0.5ML Intramuscular Suspension Reconstituted (Shingrix)Indicatio ns:Need for shingles vaccine Inject 0.5 mL into a large muscle now and repeat dose in 60 to 180 days 1 Each 1 10/06/2022 Active Calcium Carb-Cholecalcifero l 500-10 MG-MCG Oral Tablet Take by mouth. 0 Active Magnesium 400 MG Oral Capsule Take 1 Capsule by mouth in the morning. 0 Active amLODIPine Besylate 5 MG Oral Tablet (Norvasc)Indication s:HTN, goal below 140/90 Take 1 Tablet by mouth in the morning. 90 Tablet 1 10/06/2023 Active hydroCHLOROthiazide 25 MG Oral Tablet (Hydrodiuril)Indica tions:HTN, goal below 140/90 Take 1 Tablet by mouth in the morning. 90 Tablet 3 10/06/2023 Active Losartan Potassium 100 MG Oral Tablet (Cozaar)Indications :HTN, goal below 140/90 Take 1 Tablet by mouth in the morning. 90 Tablet 3 10/06/2023 Active amLODIPine Besylate 5 MG Oral Tablet (Norvasc)Indication s:HTN, goal below 140/90 Take 1 Tablet by mouth in the morning. 90 Tablet 3 10/06/2022 10/04/2023 Discontinued (Refill) hydroCHLOROthiazide 25 MG Oral Tablet (Hydrodiuril)Indica tions:HTN, goal below 140/90 Take 1 Tablet by mouth in the morning. 90 Tablet 3 10/06/2022 10/04/2023 Discontinued (Refill) Losartan Potassium 100 MG Oral Tablet (Cozaar)Indications :HTN, goal below 140/90 Take 1 Tablet by mouth in the morning. 90 Tablet 3 10/06/2022 10/04/2023 Discontinued (Refill) documented as of this encounter (statuses as of 10/06/2023) Active Problems Problem Noted Date Diagnosed Date [...] as of this encounter (statuses as of 10/06/2023) Resolved Problems Problem Noted Date Diagnosed Date [...] as of this encounter (statuses as of 10/06/2023) Immunizations Name Administration Dates Next Due COVID-19 mRNA, LNP-s, No Pre serve, 2-Dose Series ([employer]) 07/29/2021,12/20/2020,11/29/2020 Covid-19, Mrna, Lnp-s, Pf, B ivalent, [...] encounter Miscellaneous Notes * Telephone Encounter - Orlando Soriano DO - 10/06/2023 4:34 PM ESTSigned Prescriptions: Disp Refills amLODIPine Besylate 5 MG Oral Tablet (Norv*90 Tab*1 Sig: Take 1 Tablet by mouth in the morning. Authorizing Provider: ORLANDO SORIANO Ordering User: FRANK THAKKAR hydroCHLOROthiazide 25 MG Oral Tablet (Hyd*90 Tab*3 Sig: Take 1 Tablet by mouth in the morning. Authorizing Provider: ORLANDO SORIANO Losartan Potassium 100 MG Oral Tabl et (Coz*90 Tab*3 Sig: Take 1 Tablet by mouth in the morning. Authorizing Provider: ORLANDO SORIANO * Telephone Encounter - Frank Thakkar [facility] - 10/06/2023 7:29 AM ESTPending Prescriptions: Disp Refills hydroCHLOROthiazide 25 MG Oral Tablet (Hyd*90 Tab*3 Sig: Take 1 Tablet by mouth in the morning. Losartan Potassium 100 MG Oral Tablet (Coz*90 Tab*3 Sig: Take 1 Tablet by mouth in the morning. Signed Prescriptions: Disp Refills amLODIPine Besylate 5 MG Oral Tablet (Norv*90 Tab*1 Sig: Take 1 Tablet by mouth in the morning. Authorizing Provider: ORLANDO SORIANO User: FRANK THAKKAR * Telephone Encounter - Frank Thakkar RPh - 10/06/2023 7:28 AM EST Unable to authorize medication refills for pended medication(s) at this time. Part of the protocol criteria used for refill authorization was not satisfied. Patient needs updated BMP per refill protocol. Please approve if appropriate. Thanks, Dave Thakkar, PharmD Clinical Pharmacist [facility] ([facility]) (Formerly Telepharmacy) [phone] 10/06/2023 7:28 AM documented in this encounter Plan of Treatment Upcoming Encounters Date Type Department Care Team (Late st Contact Info) Description 10/07/2023 9:00 AM EST [facility] [place] [address] [facility] [place] [phone] [place] [address] [facility] [place] [id number] 10/12/2023 9:00 AM EST Imaging Radiology [facility] [facility], [address] [place] [address] 10/12/2023 9:20 AM EST Office Visit Family Practice [facility] [address] [place] [address] Orlando Soriano DO [address] [place] [address] 12/10/2023 10:40 AM EDT Office Visit Dermatology [facility] [address] [facility] [place] [address] Yvette Rosen PA-C [address] [facility] [place] [phone] Health Maintenance Due Date Last Done Comments Zoster Vaccines (1 of 2) 1993 *BISPHONATE OR OTHER ACCEPTABLE MEDICATION NEEDED FOR OSTEOPOROSIS (REFER TO SMARTSET #1146) 01/15/2023 GFR 04/01/2023 10/02/2022, 09/28, 09/17/2020, Additional history exists COVID-19 Vaccine (2022- season) 2023 08/05/2022, 07/29/2021, 12/20/2020, Additional history exists Albumin/Creatinine Ratio 10/02/2023 10/02/2022 CKD HGB USE SMARTSET 96347 10/02/202310/02, 10/22/2021, 09/17/2020, Additional history exists CKD PHOS USE SMARTSET 16661 10/02/202302/2023, 10/22/2021, 09/17/2020, Additional history exists Depression Screening 10/06/2023 10/06/2022 DXA Scan 12/02/2024 12/02/2022, 08/27, 07/27/2011, Additional history exists DTaP,Tdap,and Td Vaccines (2 - Td or Tdap) 04/14/2026 04/14/2016 VITAMIN D LEVEL ONCE IN A LIFETIME-USE SMARTSET# 14121 Completed 04/02/2015, 04/03/2010 Pneumococcal Vaccine: 65+ Years [...] as of this encounter Visit Diagnoses Diagnosis HTN, goal below 140/90 Unspecified essential hypertension documented in this encounter Advance Directives Latest Code Status on File Code Status Date Activated Date Inactivated Comments Full Code 11/05/2007 8:48 PM 11/07/2007 8:37 PM Care Teams Language Path Relationship Specialty Start Date End Date Orlando Soriano DO [address] [place] [address] PCP - General Family Medicine 04/14/16 documented as of this encounter
--- OUTSIDE RECORDS SUMMARY | 2023-10-16 15:50 | External Medical Summary ---
Author Name Unknown Address Unknown Organization K01:LABORATORY [facility] - [facility] [address] [facility] [address] Laboratory Report Ordering Provider Test Date Status CHRISTIE PERRY 10/07/2023 09:03:23 Final Observation Date Value Abnormality Reference (Units ) Status WBC, Total 10/07/2023 09:03:23 8.72 4.00-10.80 (K/uL) Final RBC 10/07/2023 09:03:23 4.04 3.85-5.15 (M/uL) Final Hemoglobin 10/07/2023 09:03:23 13.1 12.0-15.3 (g/dL) Final HCT 10/07/2023 09:03:23 39.9 36.0-45.2 (%) Final MCV 10/07/2023 09:03:23 98.8 81.5-97.5 (fL) Final MCH 10/07/2023 09:03:23 32.4 27.0-34.0 (pg) Final MCHC 10/07/2023 09:03:23 32.8 32.0-36.0 (g/dL) Final RDW 10/07/2023 09:03:23 12.8 11.5-15.5 (%) Final Platelets 10/07/2023 09:03:23 284 140-400 (K/uL) Final MPV 10/07/2023 09:03:23 10.3 6.6-11.1 (fL) Final Nucleated erythrocytes/100 leukocytes [Ratio] in Blood by Automated count 10/07/2023 09:03:23 0 <=0 (/100 WBCs) Final Performing Location LABORATORY [facility] - [address] [place] [address]
--- OUTSIDE RECORDS SUMMARY | 2023-10-16 15:50 | External Medical Summary | Summary of Care ---
Author Name Unknown Organization [facility] Address [address] [place] [address] Phone [phone] Care Team Providers Care Ripening Room Hand Name Role Phone JanakMary Ellen noriega DO Primary Care Provider [phone] Reason for Visit * Reason Onset Date Comments Medication Administration 06/23/2023 Flu an d/or Pneumo Inj Encounter Details Date Type Department Care Team Description 06/23/[address] [facility] [address] [facility] [place] [address] [facility] [address] [place] [address] Need for prophylactic vaccination and inoculation against influenza* Allergies No known active allergiesdocumented as of this encounter (statuses as of 06/23/2023) Medications Medication Sig Dispensed Refills Start Date [...] as of this encounter (statuses as of 06/23/2023) Active Problems Problem Noted Date High risk for fracture due to osteoporos is by DEXA scan 01/12/2023 Hypertensive kidney disease with stage 3 a chronic kidney disease 08/05/2020 Overview: Per CKD protocol History of colon polyps 09/07/2019 HTN, goal below 140/90 06/04/2017 Hx of actinic keratosis 07/12/2014 ADVANCE DIRECTIVE INFORMATION 10/28/2007 Overview: Yes, Patient instructed to provide copy of advance directive for provider to review and to be scanned into Electronic Medical Record FAM HX-DIABETES MELLITUS, mother, 2 brot hers, sister 01/10/2003 documented as of this encounter (statuses as of 06/23/2023) Resolved Problems Problem Noted Date Resolved Date Hypertensive kidney disease with stage 3a chronic kidney disease 08/05/2020 09/03/2020 Overview: Per CKD protocol Hypertensive kidney disease with chronic kidney disease stage III 09/15/2019 08/08/2020 Overview: Per CKD protocol Hypertensive kidney disease with chronic kidney disease stage III 09/07/2019 08/08/2020 Overview: Per CKD protocol Kidney disease, chronic, stage III (GFR 30-59 ml /min) 09/05/2018 10/12/2019 Overview: Per CKD protocol #1 Benign neoplasm of colon 05/03/2009 019 Overview: adenomatous/repeat colonoscopy in 1 yr Malignant neoplasm of corpus uteri 06/26/2008 09/09/2018 Postartificial menopausal syndrome 11/05/2007 09/08/2018 Examination following surgery 11/05/2007 NONE 04/20/2002 01/10/2003 documented as of this encounter (statuses as of 06/23/2023) Immunizations Name Administration Dates Next Due COVID-19 mRNA, LNP-s, No Pre serve, 2-Dose Series ([employer]) 07/29/2021,12/20/2020,11/29/2020 Covid-19, Mrna, Lnp-s, Pf, B ivalent, 30 Mcg, IM, 12 yrs and above ([employer]) 08/05/2022 Pneumococcal Conjugate Vacc, 13 Valent (Prevnar) 04/14/2016 Pneumococcal Polysaccharide PPV23 (Pneumovax) 06/03/2010 Seasonal Influenza, PF, 6 mo ns & Above, IM , (Flulaval) 06/15/2020,06/24/2019,07/05/2018 Seasonal Influenza, Quadriva lent Hd (Fluzone [...] 0.6 oz pur e alcohol) rare wine Food Insecurity Answer Date Recorded Within the past 12 months, y ou worried that your food would run out before you got money to buy more. Never true 09/15/2019 Within the past 12 months, t he food you bought just didn't last and you didn't have money to get more. Never true 09/15/2019 Sex Assigned at Date Recorded Not on file Job Start Date Occupation Industry Not on file Not on file Not on file documented as of this encounter Patient Instructions * Patient Instructions* Veronica Gomez LPN - 06/23/2023 1:43 PM EDT ~~PATIENT INSTRUCTIONS FOR FLU SHOT~~ Possible side effects of influenza vaccine, (flu shot), are usually mild and include: 1. Soreness or redness at injection site 2. Low grade fever 3. Body aches You may use Tylenol/Acetaminophen as needed for these symptoms. LET YOUR DOCTOR KNOW IMMEDIATELY IF YOU HAVE DIFFICULTY BREATHING OR SWALLOWING, EXPERIENCE ITCHINGOF FEET OR HANDS, HAVE SWELLING OF EYES, FACE OR INSIDE OF NOSE. documented in this encounter Progress Notes * Veronica Gomez LPN - 06/23/2023 1:43 PM EDT PRE - ADMINISTRATION DOCUMENTATION Are you experiencing any cold symptoms or fever? No Have you had Guillain-[place] Syndrome (an illness that causes paralysis) within the last 6 weeks? No Have you had the flu shot in the past? YES Have you ever had a reaction to the flu shot? No Veronica Gomez LPN, 06/23/2023 1:43 PM Immunization Administration Documentation Time Out Procedure Performed: Yes Patient Identified (Ask Name/Date of ): Yes Does the patient have a fever greater than 101 degrees today? No Patient allergic to latex? No C Stock: No Immunization(s) verified: Yes, Immunization Name: Flu, VIS Sheet(s) given: Yes Verified Side and Site: Yes Verified Shot(s) with Parent(s)/Patient: Yes documented in this encounter Plan of Treatment Upcoming Encounters Date Type Specialty Care Team Description 10/12/2023 Imaging Radiology 10/12/2023 Office Visit Family Medicine Mary Ellen Melendez, DO [address] [place] [address] 12/10/2023 Office Visit Dermatology Yvette Rosen PA-C [address] [facility] [place] [phone] Health Maintenance Due Date Last Done Comments Hepatitis C Screening 1963 Zoster Vaccines (1 of 2) 1993 *BISPHONATE OR OTHER ACCEPTABLE MEDICATION NEEDED FOR OSTEOPOROSIS (REFER TO SMARTSET #1146) 01/15/2023 GFR 04/01/2023 10/02/2022, 09/28, 09/17/2020, Additional history exists Albumin/Creatinine Ratio 10/02/2023 10/02/2022 CKD HGB USE SMARTSET 07771 10/02/202310/02, 10/22/2021, 09/17/2020, Additional history exists CKD PHOS USE SMARTSET 52322 10/02/202302/2023, 10/22/2021, 09/17/2020, Additional history exists Depression Screening 10/06/2023 10/06/2022 DXA Scan 12/02/2024 12/02/2022, 08/27, 07/27/2011, Additional history exists DTaP,Tdap,and Td Vaccines (2 - Td or Tdap) 04/14/2026 04/14/2016 VITAMIN D LEVEL ONCE IN A LIFETIME-USE SMARTSET# 01401 Completed 04/02/2015, 04/03/2010 Pneumococcal Vaccine: 65+ Years Completed 04/14/2016, 06/03/2010 COLONOSCOPY-EVERY 5 YRS AGES 18-100 Discontinued 12/19/2020, 12/19/2020, 04/19/2014, Additional history exists COVID-19 Vaccine Completed 08/05/2022, 10/2020, 12/20/2020, Additional history exists Influenza Vaccine (FLU shot) [...] as of this encounter Visit Diagnoses Diagnosis Need for prophylactic vaccination and inoculation against influenza- Primary documented in this encounter Advance Directives Latest Code Status on File Code Status Date Activated Date Inactivated Comments Full Code 11/05/2007 8:48 PM 11/07/2007 8:37 PM Care Teams Ripening Room Hand Relationship Specialty Start Date End Date Mary Ellen Melendez, DO [address] [place] [address] PCP - General Family Medicine 04/14/16 documented as of this encounter
--- OUTSIDE RECORDS SUMMARY | 2023-10-16 15:50 | External Medical Summary | Summary of Care ---
Author Name Unknown Organization [facility] Address [address] [place] [address] Phone [phone] Care Team Providers Care Resolution Manager Name Role Phone Mary Ellen Melendez DO Primary Care Provider [phone] Reason for Visit * Reason Comments Physical-Exam Yearly exam, no spec ific complaints Encounter Details Date Type Department Care Team (Late st Contact Info) Description 10/12/2023 9:20 AM EST Office Visit Family Practice [facility] [address] [place] [address] Mary Ellen Melendez, [address] [place] [address] Well adult exam*; HTN, goal below 140/90; [...] mRNA, LNP-s, No Pre serve, 2-Dose Series ([employer]) 07/29/2021,12/20/2020,11/29/2020 Covid-19, Mrna, Lnp-s, Pf, B ivalent, [...] that mean climbing, even on a stepstool. [employer]nea[employer]dul[employer] Patient Education Copyright 2008 - 2010 Leo [...] performed by Charlene Ochoa DO at [facility]COPY [facility] COLONOSCOPY, DIAGNOSTIC (RECTUM) 12/19/2020 diverticulosis / COLONOSCOPY FLEXIBLE PROXIMAL DIAGNOSTIC performed by Charlene Ochoa DO at [facility] COLONOSCOPY/REMOVE LESION 11/30/2008 alated , tatooed, path pending DEXA SCAN/BONE MINERAL AXIAL 12/24/1999 normal repeat in 2004 LIGATE/CUT OVIDUCT(S) age 28 tubal at age 28 MISCELLANEOUS ORDER cyst removed from right ovary at age 18 TOTAL ABD HYSTERECTOMY W/WO REMOVAL OF TUBE(S) 11/05/2007 TOTAL ABDOMINAL HYSTERECTOMY WITH OR WITHOUT TUBES AND OVARIES performed by MOHSEN MARIE at OR [facility] Review of patient's allergies indicates: No Known [...] 12/10/2023 10:40 AM EDT Office Visit Dermatology [facility] [address] [place] [address] Yvette Rosen PA-C [address] [place] [phone] 10/17/2024 12:30 PM EST Imaging Radiology [facility] [facility] [address] [place] [address] 10/17/2024 1:00 PM EST Office Visit Family Practice [facility] [address] [place] [address] Mary Ellen Melendez DO [address] [place] [address] Health Maintenance Due Date Last Done Comments Zoster Vaccines (1 of 2) 1993 COVID-19 Vaccine ( season) 2023 08/05/2022, 07/29/2021, 12/20/2020, Additional history exists Depression Screening 10/06/2023 10/06/2022 GFR 04/06/2024 10/07/2023, 02/2023, 10/22/2021, Additional history exists Albumin/Creatinine Ratio 10/07/2024 10/07/2023, 02/2023 CKD HGB USE SMARTSET 29640 10/07/202410/07, 10/02/2022, 10/22/2021, Additional history exists CKD PHOS USE SMARTSET 44897 10/07/202409/27, 10/02/2022, 10/22/2021, Additional history exists DXA Scan 12/02/2024 12/02/2022, 08/27, 07/27/2011, Additional history exists DTaP,Tdap,and Td Vaccines (2 - Td or Tdap) 04/14/2026 04/14/2016 VITAMIN D LEVEL ONCE IN A LIFETIME-USE SMARTSET# 54674 Completed 04/02/2015, 04/03/2010 Pneumococcal Vaccine: 65+ Years [...] 8:48 PM 11/07/2007 8:37 PM Care Teams Resolution Manager Relationship Specialty Start Date End Date Mary Ellen Melendez DO [address] [place] [address] PCP - General Family Medicine 04/14/16 documented as of this encounter
--- OUTSIDE RECORDS SUMMARY | 2023-10-16 15:50 | External Medical Summary ---
Author Name Unknown Address Unknown Organization K01:[facility] [address] [place] [address] Laboratory Report Ordering Provider Test Date Status CHRISTIE PERRY 10/07/2023 09:03:23 Final Observation Date Value Abnormality Reference (Units ) Status Phosphate 10/07/2023 09:03:23 2.9 2.5-4.8 (m g/dL) Final Performing Location [facility] - [address] [place] [address]
[2023-10-16] MEDS ORDERED: OPTIRAY 320 500ml IV ONE (15:59)
[2023-10-16 16:01] LABS: iSTAT Hemoglobin 13.6 g/dl (12.0-16.0); iSTAT Ionized Calcium 1.23 mmol/l (1.12-1.32); iSTAT Potassium 3.5 mmol/L (3.3-5.0)
--- NOTE | 2023-10-16 16:03 | Emergency Department Note ---
Impression & Plan Perforated appendix, Abdominal pain, Leukocytosis ED Provider Note NAME: ROLA GUAMAN AGE: 78 SEX: F : 1945 ARRIVES VIA: Walk-In INFORMANT: Patient ED PROVIDER(S): Ty Mayorga DO CHIEF COMPLAINT: abdominal pain HPI: Patient is an 78-year-old female who presents to the ER for severe abdominal pain which has present for the past 2 days. Pain is focal in the right lower quadrant but now has dispersed throughout the entire abdomen she notes that she had diarrhea Wednesday and had a bowel movement on . No dysuria, urgency, or frequency. Previous abdominal surgeries include total hysterectomy. Denies any vaginal bleeding vaginal discharge. Still has gallbladder and appendix. No other exacerbating or remitting factors. Any movement makes the pain significantly worse. ADDITIONAL HISTORY OBTAINED: Per HPI Chronic Medical/Social Conditions Affecting Care: Per HPI PAST MEDICAL HISTORY:See Below PAST SURGICAL HISTORY:See Below FAMILY HISTORY:See Below SOCIAL HISTORY:See Below HOME MEDICATIONS:See Below ALLERGIES:See Below VITALS:See Below PHYSICAL EXAMINATION: GENERAL: Sitting up in bed, alert, moderate distress holding right lower quadrant EYE EXAM: normal conjunctiva. OROPHARYNX: mucous membranes are moist NECK: supple, no nuchal rigidity, no adenopathy, non-tender LUNGS: Clear to auscultation. Normal chest wall mechanics HEART: no murmurs, S1 normal and S2 normal ABDOMEN: abdomen soft, acutely tender to palpation in the right lower quadrant with rebound and guarding, positive bowel sounds UPPER EXTREMITIES: upper extremities are grossly normal. LOWER EXTREMITIES: No pitting edema. NEURO EXAM: Normal sensorium, cranial nerves II-XII grossly intact, normal speech, no gross weakness of arms, no gross weakness of legs. MEDICAL DECISION MAKING: Patient is an 78-year-old female who presents to the ER for above-stated complaint. IV was established blood work is obtained. Labs show leukocytosis of 27,000. No significant anemia. BMP along with LFTs was fairly unremarkable. T. bili was elevated at nearly 5. Lipase was normal. Patient was given IV fluids, Zosyn, and morphine. CT abdomen pelvis confirmed perforated acute appendicitis. I discussed case with the hospitalist as well as general surgery. Dr. Gunter will evaluate the patient at bedside for further treatment and management. Currently he favors nonoperative treatment for the short-term. Consults/Care Managements Discussions: Per MDM Triage Nursing notes reviewed. Limited review of prior medical records performed Vital Signs: reviewed and remarkable for no significant abnormalities Differential diagnosis: Differential diagnoses includes but is not limited to gastritis, peptic ulcer disease, GERD, gallbladder disease, pancreatitis, small bowel obstruction, appendicitis, diverticulitis, hernia, urinary tract infection, torsion, perforation, trauma, infectious. ER treatment provided: See below Diagnostics interpreted by me include EKG and cardiac monitoring as listed below: -Cardiac Monitoring: An order was placed for continuous cardiac monitoring. The monitor shows a rate of 88 with sinus rhythm. -ECG: none -Laboratory studies:Interpreted by me as stated above in MDM and shown below. Imaging studies: Xrays: As interpreted by me:none CTs show: CT abdomen pelvis per my preliminary interpretation shows significant inflammation in the right lower quadrant CT shows perforated appendix Procedures:none Critical Care: None Past Med/Surg History Medical History (Updated 10/16/23 @ 18:25 by Ty Mayorga DO) Abdominal pain HTN (hypertension) Perforated appendix Surgical History (Updated 10/16/23 @ 17:20 by DENI Rivera) S/P OTTONIEL (total abdominal hysterectomy) Family History (Updated 10/16/23 @ 17:21 by DENI Rivera) Mother Coronary heart disease Social History Smoking Status: Never smoker Feels Safe at Home: Yes Allergies Allergies Allergy/AdvReac Type Severity Reaction Status Date / Time No Known Allergies Unverified 10/16/23 16:30 Home Meds Home Medications Medication Instructions Recorded Confirmed amlodipine 5 mg tablet 5 mg PO QAM 10/16/23 10/16/23 ascorbic acid (vitamin C) 500 mg 500 mg PO DAILY 10/16/23 10/16/23 tablet (Vitamin C) ascorbic acid 7.5 mg-vit E 7.5 1 tab PO DAILY 10/16/23 10/16/23 unit-biotin 1,250 mcg chewable tablet (Hair,Skin,Nails with Biotin) aspirin 81 mg tablet 81 mg PO DAILY 10/16/23 10/16/23 calcium carbonate 500 mg-vitamin 1 tab PO DAILY 10/16/23 10/16/23 D3 10 mcg (400 unit) tablet cholecalciferol (vitamin D3) 125 125 mcg PO DAILY 10/16/23 10/16/23 mcg (5,000 unit) tablet (Vitamin D3) hydrochlorothiazide 25 mg tablet 25 mg PO QAM 10/16/23 10/16/23 losartan 100 mg tablet 100 mg PO QAM 10/16/23 10/16/23 magnesium oxide 400 mg PO QAM 10/16/23 10/16/23 [id number] 8 mg-folic 400 1 tab PO DAILY 10/16/23 10/16/23 mcg-K 50 mcg-lutein 300 mcg tablet (Multivitamin Women 50 Plus) omega-3 fatty acids 1,000 mg 2,000 mg PO DAILY 10/16/23 10/16/23 capsule Results & Data (ED) Vital Signs Vital Signs - 24 hr 10/16/23 15:27 10/16/23 15:47 10/16/23 16:15 Temperature 37 C Temperature Source Temporal Artery Scan Pulse Rate 87 Pulse Rate from SpO2 Sensor Respiratory Rate 18 Respiratory Effort / Characteristics Non-Labored Respiratory Depth Normal Respiratory Pattern Regular Blood Pressure 131/55 L 132/54 L Blood Pressure Mean 80 88 Pulse Oximetry 96 94 Oxygen Delivery Method Room Air Room Air Sepsis Recent Fever Within 48 Hours No Sepsis New/Unexplained Change in Mental Status N/A Sepsis Action Taken by Nursing No Action Required 10/16/23 16:16 10/16/23 16:22 10/16/23 16:30 Temperature Temperature Source Pulse Rate 88 86 86 Pulse Rate from SpO2 Sensor 87 Respiratory Rate 18 22 Respiratory Effort / Characteristics Respiratory Depth Respiratory Pattern Blood Pressure 132/54 L 113/52 L Blood Pressure Mean 80 72 Pulse Oximetry 93 Oxygen Delivery Method Sepsis Recent Fever Within 48 Hours Sepsis New/Unexplained Change in Mental Status Sepsis Action Taken by Nursing 10/16/23 17:00 10/16/23 17:15 10/16/23 17:15 Temperature Temperature Source Pulse Rate 93 H 91 H Pulse Rate from SpO2 Sensor 88 91 H Respiratory Rate 24 30 H Respiratory Effort / Characteristics Respiratory Depth Respiratory Pattern Blood Pressure 107/43 L 131/74 132/66 Blood Pressure Mean 64 93 83 Pulse Oximetry 94 94 Oxygen Delivery Method Room Air Sepsis Recent Fever Within 48 Hours Sepsis New/Unexplained Change in Mental Status Sepsis Action Taken by Nursing 10/16/23 17:30 Temperature Temperature Source Pulse Rate 93 H Pulse Rate from SpO2 Sensor 94 H Respiratory Rate 27 H Respiratory Effort / Characteristics Respiratory Depth Respiratory Pattern Blood Pressure 132/59 L Blood Pressure Mean 83 Pulse Oximetry 92 Oxygen Delivery Method Sepsis Recent Fever Within 48 Hours Sepsis New/Unexplained Change in Mental Status Sepsis Action Taken by Nursing Laboratory Data 10/16/23 15:45 10/16/23 15:45 Lab Results 10/16/23 10/16/23 Range/Units 15:45 15:49 WBC 27.18 H (4.8-10.8) K/ul RBC 3.99 L (4.20-5.40) M/uL Hgb 12.7 (12.0-16.0) g/dl POC Hgb 13.6 (12.0-16.0) g/dl Hct 38.0 (37.0-47.0) % POC Hct 40 (37-47) % MCV 95.2 (80.0-100.0) fL MCH 31.8 (25.0-34.0) pg MCHC 33.4 (32.0-36.0) g/dL RDW Std Deviation 43.3 (36.4-46.3) fL RDW Coeff of Nicholas 12.4 (11.5-14.5) % Plt Count 247 (130-400) K/uL MPV 10.0 (9.4-12.4) fL Immature Gran % (Auto) 1.4 % Neut % (Auto) 78.0 % Lymph % (Auto) 9.3 % Dewey % (Auto) 11.0 % Eos % (Auto) 0.0 % Baso % (Auto) 0.3 % Neut # (Auto) 21.18 H (1.40-6.50) K/uL Lymph # (Auto) 2.53 (1.20-3.40) K/uL Dewey # (Auto) 2.99 H (0.11-0.59) K/uL Eos # (Auto) 0.01 (0.00-0.50) K/uL Baso # (Auto) 0.09 (0.00-0.20) K/uL Immature Gran # (Auto) 0.38 H (0.01-0.20) K/uL POC Sodium 134 L (135-144) mmol/L Sodium 132 L (136-145) mmol/L POC Potassium 3.5 (3.3-5.0) mmol/L Potassium 3.5 (3.5-5.1) mmol/L POC Chloride 97 L (101-112) mmol/L Chloride 97 L (98-107) mmol/L Carbon Dioxide 25 (21-32) mmol/L POC Total CO2 26 (24-31) mmol/L Anion Gap 10 (3-11) POC Anion Gap 15.0 L (16-25) mmol/L POC BUN 22 H (7-18) mg/dl BUN 24 H (6-23) mg/dl Creatinine 1.02 (0.6-1.2) mg/dl POC Creatinine 1.0 (0.6-1.3) mg/dl Est Cr Clr Drug Dosing Not Reportable Est GFR ( Amer) 60.2 ml/min Est GFR (Non-Af Amer) 51.9 ml/min BUN/Creatinine Ratio 23.5 H (10-20) Glucose 150 H (70-99(Fasting)) mg/dl POC Glucose (other) 153 H (70-99) mg/dl Calcium 9.9 (8.6-10.3) mg/dl POC Ioniz Calcium Wilder 1.23 (1.12-1.32) mmol/l Total Bilirubin 4.9 H (0.2-1.0) mg/dl AST 26 (13-39) U/L ALT 28 (7-52) U/L Alkaline Phosphatase 43 (34-104) U/L Total Protein 7.8 (6.0-8.3) gm/dl Albumin 4.3 (3.4-5.0) gm/dl Globulin 3.5 (2.5-4.0) gm/dl Albumin/Globulin Ratio 1.2 (0.9-2) Lipase 14 (11-82) U/L Administered Medications Discontinued Medications Sodium Chloride (Nss) 1,000 mls @ 999 mls/hr IV .Q1H1M ONE Stop: 10/16/23 16:48 Last Infusion: 10/16/23 16:56 Dose: Infused Documented By: Admin: 10/16/23 15:51 Dose: 999 mls/hr Documented By: FINN Piperacillin Sod/Tazobactam Sod (Zosyn) 4.5 gm in 100 mls @ 200 mls/hr IV NOW ONE Stop: 10/16/23 16:41 Last Infusion: 10/16/23 16:56 Dose: Infused Documented By: Admin: 10/16/23 16:25 Dose: 200 mls/hr Documented By: FINN Ioversol (Optiray 320 500ml) 87 ml IV ONCE ONE Stop: 10/16/23 16:00 Last Admin: 10/16/23 16:00 Dose: 87 ml Documented By: EDWIN Morphine Sulfate (Morphine Sulfate 4 Mg/Ml 1 Ml Carp\Vial) 4 mg IV NOW STA Stop: 10/16/23 15:49 Last Admin: 10/16/23 15:52 Dose: 4 mg Documented By: FINN Ondansetron HCl (Ondansetron Inj 2 Mg/Ml 2 Ml Vial) 4 mg IV NOW STA Stop: 10/16/23 15:49 Last Admin: 10/16/23 15:52 Dose: 4 mg Documented By: FINN Imaging Data Radiologist's Impression: Abdomen/Pelvis CT 10/16/23 15:[address] WITH IV CONTRAST CT DOSE: 946.33 mGy.cm HISTORY: rlq abd pain TECHNIQUE: Multiaxial CT images of the abdomen and pelvis were performed following the use of intravenous contrast. A dose lowering technique was utilized adhering to the principles of ALARA. COMPARISON STUDY: None. FINDINGS: The lung bases are clear. Small amount of pneumoperitoneum posterior to the liver. This is secondary to the perforated acute appendicitis. The appendix measures up to 15 mm in diameter. There is periappendiceal fat stranding and a small amount of extraluminal gas adjacent to the appendix and cecal base. Small amount of periappendiceal fluid/edema is also noted. However, no loculated fluid collections to suggest an abscess at this time. Thickening of the cecal base is likely reactive. There is a 7 mm appendicolith within the proximal appendix. Mild thickening within the distal ileal loops is likely reactive no dilated loops of bowel to suggest an obstruction. No acute fractures. Cholelithiasis. No gallbladder wall thickening. The liver, spleen, adrenal glands, and pancreas are unremarkable. The kidneys enhance normally. There are small bilateral peripelvic renal cysts. No hydronephrosis. The main portal vein is patent. Normal caliber abdominal aorta. No retroperitoneal lymphadenopathy. There is a left retroaortic renal vein. No pelvic lymphadenopathy. Normal bladder. Prior hysterectomy. Colonic diverticulosis. No evidence for acute diverticulitis. IMPRESSION: 1. Perforated acute appendicitis as described above demonstrating a small amount of pneumoperitoneum. No abscess identified at this time. 2. Mild thickening within the distal ileal loops. This is likely reactive. 3. Colonic diverticulosis. No evidence for acute diverticulitis. 4. Cholelithiasis. 5. Additional findings as described above. ACT 112: Negative or not required by law. Electronically signed by: Bert Nunez M.D. 10/16/2023 4:12 PM Discharge Plan Visit Data Chief Complaint: Abdominal Pain Stated Complaint: RT ABD PAIN ED Provider: Ty Mayorga Discharge Problem: Perforated appendix, Abdominal pain, Leukocytosis Patient Disposition: Admitted As Inpatient Discharge Instructions Interventions: ED Discharge Assessment Last Done: 10/16/23 17:51 Forms Stand Alone Forms: [email or web address] Prescriptions Prescriptions: No Action amlodipine 5 mg tablet 5 mg PO QAM hydrochlorothiazide 25 mg tablet 25 mg PO QAM losartan 100 mg tablet 100 mg PO QAM omega-3 fatty acids 1,000 mg Capsule 2,000 mg PO DAILY ascorbic acid (vitamin C) [Vitamin C] 500 mg Tablet 500 mg PO DAILY Hair, Skin, Nails with Biotin 7.5-7.5-1,250 mg-unit-mcg Tablet,Chewable 1 tab PO DAILY aspirin 81 mg Tablet 81 mg PO DAILY calcium carbonate-vitamin D3 500 mg-10 mcg (400 unit) Tablet 1 tab PO DAILY magnesium oxide 400 mg magnesium Capsule 400 mg PO QAM cholecalciferol (vitamin D3) [Vitamin D3] 125 mcg (5,000 unit) Tablet 125 mcg PO DAILY Multivitamin Women 50 Plus 8 mg iron-400 mcg-50 mcg Tablet 1 tab PO DAILY Referrals Referrals: Brea Newberry [Outside Practitioners] - Discharge Problem: Abdominal pain Qualifiers: Abdominal location: unspecified location Qualified Code(s): R10.9 - Unspecified abdominal pain Leukocytosis Qualifiers: Leukocytosis type: unspecified Qualified Code(s): D72.829 - Elevated white blood cell count, unspecified
[2023-10-16] MEDS ORDERED: PIPERACILLIN/TAZOBACTAM 4.5 GM/100 ML BAG IV ONE (16:12)
--- NOTE | 2023-10-16 16:14 | CT Scan Report ---
ABDOMEN AND PELVIS CT WITH IV CONTRAST CT DOSE: 946.33 mGy.cm HISTORY: rlq abd pain TECHNIQUE: Multiaxial CT images of the abdomen and pelvis were performed following the use of intrave nous contrast. A dose lowering technique was utilized adhering to the principles of ALARA. COMPARISON STUDY: None. FINDINGS: The lung bases are clear. Small amount of pneumoperitoneum posterior to the liver. This is secondary to the perforated acute appendicitis. The appendix measures up to 15 mm in diameter. There is periappendiceal fat stranding and a small amount of extraluminal gas adjacent to the appendix and cecal base. Small amount of periappendiceal fluid/edema is also noted. However, no loculated fluid co llections to suggest an abscess at this time. Thickening of the cecal base is likely reactive. There is a 7 mm appendicolith within the proximal appendix. Mild thickening within the distal ileal loops i s likely reactive no dilated loops of bowel to suggest an obstruction. No acute fractures. Cholelithi asis. No gallbladder wall thickening. The liver, spleen, adrenal glands, and pancreas are unremarkabl e. The kidneys enhance normally. There are small bilateral peripelvic renal cysts. No hydronephrosis. The main portal vein is patent. Normal caliber abdominal aorta. No retroperitoneal lymphadenopathy. There is a left retroaortic renal vein. No pelvic lymphadenopathy. Normal bladder. Prior hysterectomy . Colonic diverticulosis. No evidence for acute diverticulitis. IMPRESSION: 1. Perforated acute appendicitis as described above demonstrating a small amount of pneumoperitoneum. No abscess identified at this time. 2. Mild thickening within the distal ileal loops. This is likely reactive. 3. Colonic diverticulosis. No evidence for acute diverticulitis. 4. Cholelithiasis. 5. Additional findings as described above. ACT 112: Negative or not required by law. Electronically signed by: Bert Nunez M.D. 10/16/2023 4:12 PM
[2023-10-16 16:15] LABS: Hemoglobin 12.7 g/dl (12.0-16.0); Mean Corpuscular Hemoglobin 31.8 pg (25.0-34.0); Mean Corpuscular Hgb Conc 33.4 g/dL (32.0-36.0); Mean Corpuscular Volume 95.2 fL (80.0-100.0); Platelet Count 247 K/uL (130-400); RDW Coefficient of Variation 12.4 % (11.5-14.5); RDW Standard Deviation 43.3 fL (36.4-46.3); Red Blood Count 3.99 M/uL (4.20-5.40); White Blood Count 27.18 K/ul (4.8-10.8)
[2023-10-16 16:17] LABS: Alanine Aminotransferase 28 U/L (7-52); Albumin Globulin Ratio 1.2 (0.9-2); Albumin Level 4.3 gm/dl (3.4-5.0); Alkaline Phosphatase 43 U/L (34-104); Anion Gap 10 (3-11); Aspartate Aminotransferase 26 U/L (13-39); BUN Creatinine Ratio 23.5 (10-20); Bilirubin,Total 4.9 mg/dl (0.2-1.0); Blood Urea Nitrogen 24 mg/dl (6-23); Calcium 9.9 mg/dl (8.6-10.3); Carbon Dioxide 25 mmol/L (21-32); Chloride 97 mmol/L (98-107); Est GFR (African American) 60.2 ml/min; Est GFR (Non-African American) 51.9 ml/min; Globulin 3.5 gm/dl (2.5-4.0); Glucose 150 mg/dl (70-99(Fasting)); Lipase 14 U/L (11-82); Potassium 3.5 mmol/L (3.5-5.1); Sodium 132 mmol/L (136-145); Total Protein 7.8 gm/dl (6.0-8.3)
[2023-10-16] MEDS ORDERED: ALUMINUM/MAGNESIUM SUSP 30 ML UDC PO PRN (16:32)
[2023-10-16] MEDS ORDERED: MAGNESIUM HYDROXIDE SUSP 30 ML UDC PO PRN (16:32)
[2023-10-16] MEDS ORDERED: ACETAMINOPHEN 325 MG TAB PO PRN (16:32)
[2023-10-16 16:35] LABS: Basophils # (auto) 0.09 K/uL (0.00-0.20); Basophils % (auto) 0.3 %; Eosinophils # (auto) 0.01 K/uL (0.00-0.50); Immature Granulocytes # (auto) 0.38 K/uL (0.01-0.20); Immature Granulocytes % (auto) 1.4 %; Lymphocytes # (auto) 2.53 K/uL (1.20-3.40); Lymphocytes % (auto) 9.3 %; Monocytes # (auto) 2.99 K/uL (0.11-0.59); Neutrophils # (auto) 21.18 K/uL (1.40-6.50)
--- NOTE | 2023-10-16 16:39 | History & Physical Report ---
Date of Service October 16, 2023 Assessment & Plan (1) Perforated appendix: (2) HTN (hypertension): (3) Abdominal pain: Plan Ms. Rodrigues is an 78 year old female that presented to the ED today with RLQ constant abdominal pain that has been occurring for the past two days rating up to 8/10; currently 5/10 after pain medication. She reports an episode of diarrhea that occurred on Wednesday. Abdomen/Pelvis CT: 1. Perforated acute appendicitis as described above demonstrating a small amount of pneumoperitoneum. No abscess identified at this time. 2. Mild thickening within the distal ileal loops. This is likely reactive. 3. Colonic diverticulosis. No evidence for acute diverticulitis. 4. Cholelithiasis. Other abdominal surgery has included a OTTONIEL; still has her gallbladder and appendix. She followed with her PCP on Wednesday and was feeling well. Pt denies tobacco use, occasional wine; none recently. Denies recreational drug use. She was given 1 LNSB in the ED and started empirically on Zosyn. She is normotensive and does not appear toxic. Pt denies FONSECA, dizziness, visual or auditory changes, chest pain, shortness of breath, palpitations, dysuria, hematochezia, recent falls or trauma. Patient is visibly in pain and tender to any palpitation in the RLQ. Last time reported eating an egg sandwich at 0900 today. She did take her medications this morning. Will admit for continued abx, lactate, blood cultures, IV fluids, will hold antihypertensives for now, pain control and will keep NPO pending general surgery evaluation. Perforated Acute Appendicitis: Abdominal pain: Acute Abdomen/Pelvis CT: Perforated acute appendicitis as described above demonstrating a small amount of pneumoperitoneum. No abscess identified at this time. 2. Mild thickening within the distal ileal loops. This is likely reactive. 3. Colonic diverticulosis. No evidence for acute diverticulitis. 4. Cholelithiasis. WBC 27.18, afebrile; but has reported chills Last time reported eating an egg sandwich at 0900 today. + tenderness on exam Zosyn started in ED; continue for empiric coverage Obtain lactate and blood cultures; adjust antibiotics based on cultures Continue LR @ 100mL/hr Morphine PRN for pain control General Surgery consultation; discussed over the phone with chronic disease manager gen/surg; follow conservatively for now; he did discuss directly with the patient. HTN: Chronic Takes Amlodipine, Losartan and HCTZ; continue Disposition: PCP: Dr. Melendez Code Status: Full Code VTE Prophylaxis: Teds/SCDs for now I spent a total of 87 minutes coordinating, documenting, and providing care for this patient excluding time spent in the performance of separately billed services. All of the aforementioned completed while collaborating with the assigned attending physician for a full treatment plan. Please see their addendum for further details. History of Present Illness Chief Complaint: abdominal pain Primary Care Provider: Brea Newberry Ms. Rodrigues is an 78 year old female that presented to the ED today with RLQ constant abdominal pain that has been occurring for the past two days rating up to 8/10; currently 5/10 after pain medication. She reports an episode of diarrhea that occurred on Wednesday. Abdomen/Pelvis CT: 1. Perforated acute appendicitis as described above demonstrating a small amount of pneumoperitoneum. No abscess identified at this time. 2. Mild thickening within the distal ileal loops. This is likely reactive. 3. Colonic diverticulosis. No evidence for acute diverticulitis. 4. Cholelithiasis. Other abdominal surgery has included a OTTONIEL; still has her gallbladder and appendix. She followed with her PCP on Wednesday and was feeling well at that time. Pt denies tobacco use, occasional wine; none recently. Denies recreational drug use. Independent at baseline. She was given 1 LNSB in the ED and started empirically on Zosyn. She is normotensive at this time and does not appear toxic. Pt denies FONSECA, dizziness, visual or auditory changes, chest pain, shortness of breath, palpitations, dysuria, hematochezia, recent falls or trauma. Patient is visibly in pain and tender to any palpitation in the RLQ. Last time reported eating an egg sandwich at 0900 today. She did take her medications this morning. Will admit for continued abx, lactate, blood cultures, IV fluids, will hold antihypertensives for now, pain control and will keep NPO pending general surgery evaluation. Patient will be admitted for further evaluation and management. Allergies Allergy/AdvReac Type Severity Reaction Status Date / Time No Known Allergies Unverified 10/16/23 16:30 Home Medications Medication Instructions Recorded Confirmed Type amlodipine 5 mg tablet 5 mg PO QAM 10/16/23 10/16/23 History ascorbic acid (vitamin C) 500 mg 500 mg PO DAILY 10/16/23 10/16/23 History tablet (Vitamin C) ascorbic acid 7.5 mg-vit E 7.5 1 tab PO DAILY 10/16/23 10/16/23 History unit-biotin 1,250 mcg chewable tablet (Hair,Skin,Nails with Biotin) aspirin 81 mg tablet 81 mg PO DAILY 10/16/23 10/16/23 History calcium carbonate 500 mg-vitamin 1 tab PO DAILY 10/16/23 10/16/23 History D3 10 mcg (400 unit) tablet cholecalciferol (vitamin D3) 125 125 mcg PO DAILY 10/16/23 10/16/23 History mcg (5,000 unit) tablet (Vitamin D3) hydrochlorothiazide 25 mg tablet 25 mg PO QAM 10/16/23 10/16/23 History losartan 100 mg tablet 100 mg PO QAM 10/16/23 10/16/23 History magnesium oxide 400 mg PO QAM 10/16/23 10/16/23 History vhgygmdg-lwoe-fwku 8 mg-folic 400 1 tab PO DAILY 10/16/23 10/16/23 History mcg-K 50 mcg-lutein 300 mcg tablet (Multivitamin Women 50 Plus) omega-3 fatty acids 1,000 mg 2,000 mg PO DAILY 10/16/23 10/16/23 History capsule Past Med/Surg History Medical History (Updated 10/16/23 @ 16:37 by DENI Rivera) Abdominal pain HTN (hypertension) Perforated appendix Surgical History (Updated 10/16/23 @ 17:20 by DENI Rivera) S/P OTTONIEL (total abdominal hysterectomy) Family History (Updated 10/16/23 @ 17:21 by DENI Rivera) Mother Coronary heart disease Social History Smoking Status: Never smoker Feels Safe at Home: Yes Review of Systems Review of Systems: Neuro: (-) Falls, trauma, slurred speech HEENT: (-) FONSECA, dizziness, dysphagia, visual or auditory changes CV: (-) CP, palpitations, swelling Resp: (-) SOB GI: (-) appetite changes, N/V/D, bowel changes (+) abdominal pain : (-) urinary changes Skin: (-) rashes Psych: (-) anxiety, depression Physical Exam Physical Exam: See Dr. Sam's addendum for physical examination findings Results & Data Results & Data Vital Signs (Past 12 Hours) Vital Signs Temp Pulse Resp BP Pulse Ox O2 Del Method 10/16/23 16:22 86 10/16/23 15:47 94 Room Air 10/16/23 15:27 37 C 87 18 131/55 L 96 Room Air Laboratory Results Short CBC 10/16/23 Range/Units 15:45 WBC 27.18 H (4.8-10.8) K/ul Hgb 12.7 (12.0-16.0) g/dl Hct 38.0 (37.0-47.0) % Plt Count 247 (130-400) K/uL BMP 10/16/23 15:45 Sodium 132 L Potassium 3.5 Chloride 97 L Carbon Dioxide 25 BUN 24 H Creatinine 1.02 Glucose 150 H Calcium 9.9 Liver Function 10/16/23 Range/Units 15:45 Total Bilirubin 4.9 H (0.2-1.0) mg/dl AST 26 (13-39) U/L ALT 28 (7-52) U/L Alkaline Phosphatase 43 (34-104) U/L Albumin 4.3 (3.4-5.0) gm/dl Diagnostic Findings Abdomen/Pelvis CT 10/16/23 15:[address] WITH IV CONTRAST CT DOSE: 946.33 mGy.cm HISTORY: rlq abd pain TECHNIQUE: Multiaxial CT images of the abdomen and pelvis were performed following the use of intravenous contrast. A dose lowering technique was utilized adhering to the principles of ALARA. COMPARISON STUDY: None. FINDINGS: The lung bases are clear. Small amount of pneumoperitoneum posterior to the liver. This is secondary to the perforated acute appendicitis. The appendix measures up to 15 mm in diameter. There is periappendiceal fat str anding and a small amount of extraluminal gas adjacent to the appendix and cecal base. Small amount of periappendiceal fluid/edema is also noted. However, no loculated fluid collections to suggest an abscess at this time. Thickening of the cecal base is likely reactive. There is a 7 mm appendicolith within the proximal appendix. Mild thickening within the distal ileal loops is likely reactive no dilated loops of bowel to suggest an obstruction. No acute fractures. Cholelithiasis. No gallbladder wall thickening. The liver, spleen, adrenal glands, and pancreas are unremarkable. The kidneys enhance normally. There are small bilateral peripelvic renal cysts. No hydronephrosis. The main portal vein is patent. Normal caliber abdominal aorta. No retroperitoneal lymphadenopathy. There is a left retroaortic renal vein. No pelvic lymphadenopathy. Normal bladder. Prior hysterectomy. Colonic diverticulosis. No evidence for acute diverticulitis. IMPRESSION: 1. Perforated acute appendicitis as described above demonstrating a small amount of pneumoperitoneum. No abscess identified at this time. 2. Mild thickening within the distal ileal loops. This is likely reactive. 3. Colonic diverticulosis. No evidence for acute diverticulitis. 4. Cholelithiasis. 5. Additional findings as described above. ACT 112: Negative or not required by law. Electronically signed by: Bert Nunez M.D. 10/16/2023 4:12 PM Code Status & VTE Plan Code Status Full Code in the event of cardiac or respiratory arrest VTE Prophylaxis Plan VTE Prophylaxis will be ordered: Yes Supervising Physician Co-Signing Physician Notes 78 year old woman with history of HTN who presents with RLQ abdominal pain for the past 2 days. Reported diarrhea 4 days ago prior to onset of abd pain Pain is severe, occasionally referred to LLQ Associated with chills, low grade fever Denied nausea On exam, General: In painful distress Eyes: PERRL, conjunctivae normal, not pale, anicteric sclerae, EOM intact bilaterally ENMT: External ear and nose normal, oropharynx normal Respiratory: Normal respiratory effort, no respiratory distress, lungs clear to auscultation, no crackles and no wheezes Cardiovascular: RRR S1 S2 Gastrointestinal (Abdomen): Abdomen is soft, severe RLQ tenderness, no guarding, reduced bowel sounds Musculoskeletal: No pedal edema Neurologic: Alert and oriented x 3, No focal weakness, sensation grossly intact Psychiatric: Alert and oriented x 3, euthymic affect Labs notable for leukocytosis 27K CT Abdominal/Pelvis showed perforated acute appendicitis with a small amount of pneumoperitoneum. No abscess Perforated acute appendicitis Continue zosyn NPO IVF Discussed with Surgeon Dr Gunter about patient. He recommends continuing IVF, antibiotics. He will reassess patient later to determine management/surgical options Connected him to patient/family who wanted to speak with him as well Hold all antihypertensives Blood cultures, lactate Hold pharmacological DVT ppx for now in view of possible OR. Agree with plans as detailed by Ayaka CHEEMA I spent a total of 45 minutes coordinating, documenting and providing care for this patient excluding time spent in performance of separately billed services
[2023-10-16] MEDS: MoRPHine SULFATE 2 MG/ML CARP IV PRN (18:41)
[2023-10-16] MEDS: LACTATED RINGER'S 1,000 ML IV SCH (19:39)
[2023-10-16] MEDS ORDERED: ACETAMINOPHEN 1,000 MG/100 ML VIAL IV PRN (19:46)
[2023-10-16] MEDS ORDERED: LACTATED RINGER'S 500 ML IV ONE (19:48)
[2023-10-16] MEDS ORDERED: SODIUM CHLORIDE 0.9% 500 ML IV SCH (20:00)
--- NOTE | 2023-10-16 20:18 | Surgery Consultation ---
Date of Consultation October 16, 2023 Assessment & Plan (1) Perforated appendix: The patient has been admitted on the hospitalist service. From surgical perspective we recommend proceeding as follows: Provide analgesicsprovide antiemetics Implement n.p.o. status Provide IV fluid for hydration Antibiotics have been initiated in the form of Zosyn and he should continue Serial labs should be followed Serial abdominal exams will be followed Blood cultures have been sent and these results to be followed for I discussed with the patient that she does have a perforated appendix. I discussed her that we would ideally like to try to treat her in a conservative fashion as described above with n.p.o. status, fluids, and antibiotics. I did discuss with her that if we can successfully treat in the manner described above we can perform an interval appendectomy in several weeks which would be a much less risky operation. I did discuss with her that due to the perforated appendix if we would operate on her in a more emergent nature she may require more extensive operation such as an ileocecectomy. As noted above we will attempt conservative measures but I did discuss with the patient that if she does not clinically improve a more emergent operation may be required and she expressed her understanding. At the present time the patient is febrile, but she is normotensive with only slight tachycardiawe will follow her closely. Additional recommendations were forthcoming based on her clinical course as unfolds Supervising Physician Co-Signing Physician Notes I personally saw and evaluate the patient Graham Satya GEORGE and agree with his assessment and plan. 78-year-old female with perforated appendicitis Her CT images and results were personally reviewed and interpreted by myself, she has some scattered pneumoperitoneum likely from her perforated appendix with a fair amount of inflammation present in the right lower quadrant White blood cell count is 27 She is not overtly peritoneal on exam and she is being admitted to the hospitalist team We will try to treat the patient nonoperatively n.p.o. and IV antibiotics If she were to require surgery, it would have a much higher chance of being an open procedure and a larger bowel resection and a simple appendectomy Continue to evaluate the patient for high fevers, worsening abdominal pain I did discuss this plan with the patient and her family and they are comfortable with this History of Present Illness Reason for Consultation: Perforated appendix Attending Physician: Tianna Sam MD History of Present Illness This is an 78-year-old female who presented to the emergency department [facility] secondary to abdominal pain. Patient says that she has been having pain for approximately 2 to 3 days and is primary located in the right lower quadrant initially but is now generally present throughout her abdomen. She does not note any modifying factors. She denies any nausea or vomiting. She does report she is having fevers. She notes her most recent oral intake was at approximate 9:00 AM today. Over the past 24 hours she has not had a bowel movement and has not been passing flatus. She has had prior abdominal surgeries in the form of a hysterectomy, tubal ligation, and ovarian cyst removal. Since arrival to hospital patient has had labs and imaging which independent reviewed. Patient did have a CT scan of the abdomen pelvis. This showed findings concerning for a acute appendicitis with perforation. The appendix did measure approximately 15 mm with some periappendiceal fat stranding and a small amount of extraluminal gas adjacent to the appendix and cecal base. There is also small amount of pneumoperitoneum posterior to the liver. There is also small amount of periappendiceal fluid and edema noted. There were no loculations suggestive of an abscess. Labs include a CBC her white blood cell count is elevated at 27.1. Hemoglobin, hematocrit, and platelet count are normal. Chemistry profile shows sodium is 132. Her potassium and creatinine are normal. The BUN had a slight elevation of 24. She did have an elevated lactic acid level of 3.8. At the time of my interview the patient was resting comfortably in bed and she was in no distress. Allergies Allergy/AdvReac Type Severity Reaction Status Date / Time No Known Allergies Unverified 10/16/23 16:30 Home Medications Medication Instructions Recorded Confirmed Type amlodipine 5 mg tablet 5 mg PO QAM 10/16/23 10/16/23 History ascorbic acid (vitamin C) 500 mg 500 mg PO DAILY 10/16/23 10/16/23 History tablet (Vitamin C) ascorbic acid 7.5 mg-vit E 7.5 1 tab PO DAILY 10/16/23 10/16/23 History unit-biotin 1,250 mcg chewable tablet (Hair,Skin,Nails with Biotin) aspirin 81 mg tablet 81 mg PO DAILY 10/16/23 10/16/23 History calcium carbonate 500 mg-vitamin 1 tab PO DAILY 10/16/23 10/16/23 History D3 10 mcg (400 unit) tablet cholecalciferol (vitamin D3) 125 125 mcg PO DAILY 10/16/23 10/16/23 History mcg (5,000 unit) tablet (Vitamin D3) hydrochlorothiazide 25 mg tablet 25 mg PO QAM 10/16/23 10/16/23 History losartan 100 mg tablet 100 mg PO QAM 10/16/23 10/16/23 History magnesium oxide 400 mg PO QAM 10/16/23 10/16/23 History mgqmhpql-uasa-kzcz 8 mg-folic 400 1 tab PO DAILY 10/16/23 10/16/23 History mcg-K 50 mcg-lutein 300 mcg tablet (Multivitamin Women 50 Plus) omega-3 fatty acids 1,000 mg 2,000 mg PO DAILY 10/16/23 10/16/23 History capsule Patient History Medical History Abdominal pain HTN (hypertension) Perforated appendix Surgical History S/P OTTONIEL (total abdominal hysterectomy) Family History Mother Coronary heart disease Social History Smoking Status: Never smoker Hx Alcohol Use: No Hx Substance Use: No Preferred Language: Bulgarian Poll Clerk Required: No Beliefs That Will Affect Care: None Current Living Situation: Family Other Information That Helps Us Care for You: No Feels Safe at Home: Yes Safety Concerns: Feels Safe At This Time Assistive Devices: Glasses Review of Systems Constitutional: + fever Ear, Nose, Mouth, Throat: no hearing loss Respiratory: no cough Cardiovascular: no chest pain Gastrointestinal: as per Subjective / HPI Genitourinary: no dysuria Musculoskeletal: no back pain Integumentary: no rash Neurologic: no localized weakness Physical Exam Constitutional: WD/WN, vitals as above Eyes: no conjunctival abnormality ENMT: Ears: no hearing impairment and no external ear abnormality Mouth: no oropharynx abnormality Neck: trachea midline Respiratory: normal respiratory effort; no respiratory distress and no labored breathing Cardiovascular: Rate/Rhythm: regular rate and regular rhythm Vessels: dorsalis pedis pulses present and radial pulses present Gastrointestinal (Abdomen): Abdomen has mild to moderate distention and hypoactive bowel sounds. Patient did have generalized tenderness with palpation of her abdomen but this. Be greatest in the right lower quadrant over McBurney's point. There is no guarding or rebound tenderness at this point in time. Musculoskeletal: No calf tenderness Skin: no rashes Neurologic: moves all extremities Psychiatric: A+Ox3, euthymic affect Results & Data Vital Signs (Past 12 Hours) Vital Signs Temp Pulse Pulse Resp BP BP Pulse Ox 10/16/23 19:28 38.2 C H 92 H 18 107/66 92 10/16/23 18:49 38.1 C H 24 117/53 L 94 10/16/23 17:30 93 H 27 H 132/59 L 92 10/16/23 17:15 132/66 10/16/23 17:15 91 H 30 H 131/74 94 10/16/23 17:00 93 H 24 107/43 L 94 10/16/23 16:30 86 22 113/52 L 10/16/23 16:22 86 10/16/23 16:16 88 18 132/54 L 93 10/16/23 16:15 132/54 L 10/16/23 15:47 94 10/16/23 15:27 37 C 87 18 131/55 L 96 O2 Del Method 10/16/23 19:28 Room Air 10/16/23 18:49 Room Air 10/16/23 17:30 10/16/23 17:15 10/16/23 17:15 10/16/23 17:00 Room Air 10/16/23 16:30 10/16/23 16:22 10/16/23 16:16 10/16/23 16:15 10/16/23 15:47 Room Air 10/16/23 15:27 Room Air PG Care Time/CCT Total # of Minutes Spent Total Time Spent with Patient: Total time spent is greater than 50% in coordination of care (as documented) at patient's floor/unit and/or counseling patient: Coding Level of Care Code 56186 INT INP/OBS CARE 3/75MIN Diagnoses Perforated appendix K35.32
[2023-10-16] MEDS: PIPERACILLIN/TAZOBACTAM 4.5 GM in DEXTROSE 5% MINI-B 100 ML IV SCH (21:52)
[2023-10-17 03:54] LABS: Appearance Urine Clear (Clear); Bacteria Urine Automated Negative (Negative); Bilirubin Urine Negative (Negative); Blood Urine Negative (Negative); Color Urine Orange; Epithelial Cell Urine Auto 20-30 /lpf (0-5); Glucose Urine UA Negative (Negative); Ketones Urine Trace (Negative); Leukocyte Esterase Urine Negative (Negative); Nitrite Urine Negative (Negative); Protein Urine 1+ (Negative); RBC Urine Automated 0-4 /hpf (0-4); Specific Gravity Urine > 1.045 (1.000-1.030); Urobilinogen Urine Negative (Negative); pH Urine 5.5 (4.5-7.5)
[2023-10-17] MEDS: PIPERACILLIN/TAZOBACTAM 4.5 GM in DEXTROSE 5% MINI-B 100 ML IV SCH ×3 (05:38→22:55)
[2023-10-17] MEDS: LACTATED RINGER'S 1,000 ML IV SCH ×3 (05:38→22:55)
--- NOTE | 2023-10-17 05:59 | Surgery Progress Note ---
Date of Service October 17, 2023 Assessment & Plan (1) Perforated appendix: Plan: The patient has been admitted on the hospitalist service. Continue surgical care as follows: Continue to provide analgesics as needed Continue to provide antiemetics as needed Continue n.p.o. statusI did discuss with the patient that she is at risk for developing an ileus due to her ruptured appendix. I do feel this may be present as patient has absent bowel sounds in mild to moderate abdominal distention. Consideration can be given to advancing diet beginning with clear liquids as patient begins to show clinical improvement but not at this time. Provide IV fluid for hydration Continue antibiotics in the form of Zosyn Blood cultures have been sent with results pending Check a.m. labs when available Continue to follow serial abdominal exams As noted previously we will be preferable to treat the patient in a conservative fashion with measures noted above as surgery and her present condition may require more extensive measures and merely an appendectomy (possible ileocecectomy). If conservative measures are successful in interval appendectomy in several weeks can be considered. If patient fails to clinically improve or any clinical deterioration is noted a more emergent operation may be requiredthe patient's fevers have resolved and she has reported subjective clinical improvement. She did have an episode of hypotension but was asympt omatic in this regard. We will continue to monitor closely with measures as outlined above and further recommendations to follow based on her clinical course as it unfolds Admission and Anticipated Discharge Date Admission Date: October 16, 2023 Supervising Physician Co-Signing Physician Notes I personally saw and evaluate the patient Graham Hernadez PA-C and agree with his assessment and plan. 78-year-old female with perforated appendicitis White blood cell count is down to 14 She remains with pain in the right lower quadrant, however she is not overtly peritoneal throughout her abdomen We will continue to try to treat the patient nonoperatively with n.p.o. and IV antibiotics Will give her a 1 L bolus now as her creatinine did bump slightly and nursing communicated to me that her urine was concentrated Will also increase her basal rate of IV fluids No plans for surgery at this point Subjective Patient is currently resting comfortably in bed. She has noted some clinical improvement since admissionshe notes abdominal pain is less severe and confined primarily to the right lower quadrant. At the present time she denies any shakes or chills. She denies any nausea or vomiting. She has not had any bowel movement or passed flatus since admission. Patient previously noted to be febrile and this has resolvedmost recent fever noted to be at approximately 7:30 PM on 10/16/2023. Relative tachycardia has been noted at times with heart rate in the 90s. Patient has had an episode of hypotension last night with a blood pressure of 94/58, however the patient was asymptomatic. Most recent blood pressure has improved to 101/61. Physical Exam Gastrointestinal (Abdomen): Abdomen noted to have mild to moderate distention. Bowel sounds are absent. Patient does have pain with palpation in the right lower quadrant. Results & Data Vital Signs (Past 12 Hours) Vital Signs Temp Pulse Pulse Resp BP Pulse Ox O2 Del Method 10/17/23 03:30 37.1 C 94 H 18 101/61 94 Room Air 10/16/23 23:44 37.1 C 89 18 94/58 L 92 Room Air 10/16/23 22:58 85 10/16/23 19:28 38.2 C H 92 H 18 107/66 92 Room Air 10/16/23 18:49 38.1 C H 24 117/53 L 94 Room Air PG Care Time/CCT Total # of Minutes Spent Total Time Spent with Patient: Total time spent is greater than 50% in coordination of care (as documented) at patient's floor/unit and/or counseling patient: Coding Level of Care Code 10118 SUB INP/OBS CARE 10/21MIN Diagnoses Perforated appendix K35.32
[2023-10-17 06:39] LABS: Hematocrit (blood only) 31.9 % (37.0-47.0); Hemoglobin 10.8 g/dl (12.0-16.0); Mean Corpuscular Hgb Conc 33.9 g/dL (32.0-36.0); Mean Corpuscular Volume 94.7 fL (80.0-100.0); Mean Platelet Volume 9.9 fL (9.4-12.4); Platelet Count 187 K/uL (130-400); RDW Coefficient of Variation 12.4 % (11.5-14.5); Red Blood Count 3.37 M/uL (4.20-5.40); White Blood Count 14.84 K/ul (4.8-10.8)
[2023-10-17 06:57] LABS: Albumin Globulin Ratio 1.2 (0.9-2); Albumin Level 3.2 gm/dl (3.4-5.0); BUN Creatinine Ratio 20.9 (10-20); Bilirubin,Total 4.9 mg/dl (0.2-1.0); Creatinine Clr Calc Pharmacy 30.4 ml/min; Est GFR (African American) 45.3 ml/min; Est GFR (Non-African American) 39.1 ml/min; Globulin 2.7 gm/dl (2.5-4.0); Magnesium 1.4 mg/dl (1.7-2.4); Potassium 3.9 mmol/L (3.5-5.1); Total Protein 5.9 gm/dl (6.0-8.3)
--- NOTE | 2023-10-17 07:15 | Electrocardiogram Report ---
Test Reason : Blood Pressure : / mmHG Vent. Rate : 088 BPM Atrial Rate : 088 BPM P-R Int : 154 ms QRS Dur : 072 ms QT Int : 350 ms P-R-T Axes : 046 024 071 degrees QTc Int : 423 ms Normal sinus rhythm Nonspecific ST and T wave abnormality Abnormal ECG When compared with ECG of 27-MAY-2010 07:02, Nonspecific T wave abnormality now evident in Lateral leads Confirmed by Robbi William ([id number]) on 10/17/2023 7:14:56 AM Referred By: REFERRED SELF Confirmed By:Michael William
--- NOTE | 2023-10-17 08:57 | Hospitalist Progress Note ---
Date of Service October 17, 2023 Assessment & Plan (1) Perforated appendix: (2) HTN (hypertension): (3) Abdominal pain: Plan Ms. Rodrigues is an 78 year old female that presented to the ED today with RLQ constant abdominal pain that has been occurring for the past two days rating up to 8/10; currently 5/10 after pain medication. She reports an episode of diarrhea that occurred on Wednesday. Abdomen/Pelvis CT: 1. Perforated acute appendicitis as described above demonstrating a small amount of pneumoperitoneum. No abscess identified at this time. 2. Mild thickening within the distal ileal loops. This is likely reactive. 3. Colonic diverticulosis. No evidence for acute diverticulitis. 4. Cholelithiasis. Other abdominal surgery has included a OTTONIEL; still has her gallbladder and appendix. Perforated Acute Appendicitis: Abdominal pain: Acute Abdomen/Pelvis CT: Perforated acute appendicitis as described above demonstrating a small amount of pneumoperitoneum. No abscess identified at this time. 2. Mild thickening within the distal ileal loops. This is likely reactive. 3. Colonic diverticulosis. No evidence for acute diverticulitis. 4. Cholelithiasis. WBC 27.18 K on admission, fever 38.2 evening of admission + tenderness on exam Zosyn started in ED; continue for empiric coverage lactate 3.8 blood cultures pending Continue IVF replete electrolytes as needed Morphine PRN for pain control General Surgery consulted - conservative management for now - cont. IV abx, IVF, npo HTN: Takes Amlodipine, Losartan and HCTZ; hold for now monitor BP Disposition: PCP: Dr. Melendez Code Status: Full Code VTE Prophylaxis: Teds/SCDs for now Admission and Anticipated Discharge Date Admission Date: October 16, 2023 Subjective Pt seen in follow up of perforated appendicitis Surgery consulted - currently conservative management - cont IV abx/ zosyn, npo Patient is currently laying in bed, in no acute distress. She is mildly tachycardic, tachycardia improving with increased IV fluids. ECG obtained, showing sinus tachycardia. Magnesium low, replacing electrolytes as needed. Cr up from yesterday. Has some abdominal discomfort at the right lower quadrant. No fevers chills chest pain shortness of breath. Was febrile yesterday. WBC improved from yesterday. Review of Systems Review of Systems: All systems reviewed & are unremarkable except as noted in Subjective Physical Exam Physical Exam: General: WD/WN elderly F in NAD Eyes: NC/AT, PERRL,EOM intact bilaterally ENMT: External ear and nose normal, oropharynx normal Respiratory: Normal respiratory effort, no respiratory distress, lungs clear to auscultation, no crackles and no wheezes Cardiovascular: mildly tachycardic this AM Gastrointestinal (Abdomen): Abdomen is soft, +RLQ tenderness (improved from yesterday), no guarding, reduced bowel sounds Musculoskeletal: No pedal edema Neurologic: Alert and oriented x 3, speech fluent, no facial asymmetry, answers appropriately, moves extremities Results & Data Results & Data Vital Signs (Past 12 Hours) Vital Signs Temp Pulse Pulse Resp BP Pulse Ox O2 Del Method 10/17/23 08:42 37.4 C 100 H 18 106/58 L 90 Room Air 10/17/23 03:30 37.1 C 94 H 18 101/61 94 Room Air 10/16/23 23:44 37.1 C 89 18 94/58 L 92 Room Air 10/16/23 22:58 85 Laboratory Results 10/17/23 10/17/23 10/16/23 Range/Units 06:00 03:36 19:12 WBC 14.84 H D (4.8-10.8) K/ul RBC 3.37 L (4.20-5.40) M/uL Hgb 10.8 L (12.0-16.0) g/dl POC Hgb (12.0-16.0) g/dl Hct 31.9 L (37.0-47.0) % POC Hct (37-47) % MCV 94.7 (80.0-100.0) fL MCH 32.0 (25.0-34.0) pg MCHC 33.9 (32.0-36.0) g/dL RDW Std Deviation 43.0 (36.4-46.3) fL RDW Coeff of Nicholas 12.4 (11.5-14.5) % Plt Count 187 (130-400) K/uL MPV 9.9 (9.4-12.4) fL Immature Gran % (Auto) % Neut % (Auto) % Lymph % (Auto) % Williams % (Auto) % Eos % (Auto) % Baso % (Auto) % Neut # (Auto) (1.40-6.50) K/uL Lymph # (Auto) (1.20-3.40) K/uL Williams # (Auto) (0.11-0.59) K/uL Eos # (Auto) (0.00-0.50) K/uL Baso # (Auto) (0.00-0.20) K/uL Immature Gran # (Auto) (0.01-0.20) K/uL POC Sodium (135-144) mmol/L Sodium 135 L (136-145) mmol/L POC Potassium (3.3-5.0) mmol/L Potassium 3.9 (3.5-5.1) mmol/L POC Chloride (101-112) mmol/L Chloride 101 (98-107) mmol/L Carbon Dioxide 24 (21-32) mmol/L POC Total CO2 (24-31) mmol/L Anion Gap 10 (3-11) POC Anion Gap (16-25) mmol/L POC BUN (7-18) mg/dl BUN 27 H (6-23) mg/dl Creatinine 1.29 H (0.6-1.2) mg/dl POC Creatinine (0.6-1.3) mg/dl Est Cr Clr Drug Dosing 30.4 Est GFR ( Amer) 45.3 ml/min Est GFR (Non-Af Amer) 39.1 ml/min BUN/Creatinine Ratio 20.9 H (10-20) Glucose 104 H (70-99(Fasting)) mg/dl POC Glucose (other) (70-99) mg/dl Lactate 3.8 H* (0.4-2.0) mmol/L Calcium 9.0 (8.6-10.3) mg/dl POC Ioniz Calcium Wilder (1.12-1.32) mmol/l Phosphorus 3.0 (2.5-4.9) mg/dl Magnesium 1.4 L (1.7-2.4) mg/dl Total Bilirubin 4.9 H (0.2-1.0) mg/dl AST 16 (13-39) U/L ALT 18 (7-52) U/L Alkaline Phosphatase 27 L (34-104) U/L Total Protein 5.9 L D (6.0-8.3) gm/dl Albumin 3.2 L (3.4-5.0) gm/dl Globulin 2.7 (2.5-4.0) gm/dl Albumin/Globulin Ratio 1.2 (0.9-2) Lipase (11-82) U/L Urine Color [place] Urine Appearance Clear (Clear) Urine pH 5.5 (4.5-7.5) Ur Specific [place] > 1.045 H (1.000-1.030) Urine Protein 1+ H (Negative) Urine Glucose (UA) Negative (Negative) Urine Ketones Trace H (Negative) Urine Blood Negative (Negative) Urine Nitrite Negative (Negative) Urine Bilirubin Negative (Negative) Urine Urobilinogen Negative (Negative) Ur Leukocyte Esterase Negative (Negative) Urine WBC (Auto) 5-10 H (0-5) /hpf Urine RBC (Auto) 0-4 (0-4) /hpf U Hyaline Cast (Auto) 1-5 (0-5) /lpf U Epithel Cells (Auto) 20-30 H (0-5) /lpf Urine Bacteria (Auto) Negative (Negative) 10/16/23 10/16/23 Range/Units 15:49 15:45 WBC 27.18 H (4.8-10.8) K/ul RBC 3.99 L (4.20-5.40) M/uL Hgb 12.7 (12.0-16.0) g/dl POC Hgb 13.6 (12.0-16.0) g/dl Hct 38.0 (37.0-47.0) % POC Hct 40 (37-47) % MCV 95.2 (80.0-100.0) fL MCH 31.8 (25.0-34.0) pg MCHC 33.4 (32.0-36.0) g/dL RDW Std Deviation 43.3 (36.4-46.3) fL RDW Coeff of Nicholas 12.4 (11.5-14.5) % Plt Count 247 (130-400) K/uL MPV 10.0 (9.4-12.4) fL Immature Gran % (Auto) 1.4 % Neut % (Auto) 78.0 % Lymph % (Auto) 9.3 % Williams % (Auto) 11.0 % Eos % (Auto) 0.0 % Baso % (Auto) 0.3 % Neut # (Auto) 21.18 H (1.40-6.50) K/uL Lymph # (Auto) 2.53 (1.20-3.40) K/uL Williams # (Auto) 2.99 H (0.11-0.59) K/uL Eos # (Auto) 0.01 (0.00-0.50) K/uL Baso # (Auto) 0.09 (0.00-0.20) K/uL Immature Gran # (Auto) 0.38 H (0.01-0.20) K/uL POC Sodium 134 L (135-144) mmol/L Sodium 132 L (136-145) mmol/L POC Potassium 3.5 (3.3-5.0) mmol/L Potassium 3.5 (3.5-5.1) mmol/L POC Chloride 97 L (101-112) mmol/L Chloride 97 L (98-107) mmol/L Carbon Dioxide 25 (21-32) mmol/L POC Total CO2 26 (24-31) mmol/L Anion Gap 10 (3-11) POC Anion Gap 15.0 L (16-25) mmol/L POC BUN 22 H (7-18) mg/dl BUN 24 H (6-23) mg/dl Creatinine 1.02 (0.6-1.2) mg/dl POC Creatinine 1.0 (0.6-1.3) mg/dl Est Cr Clr Drug Dosing Not Reportable Est GFR ( Amer) 60.2 ml/min Est GFR (Non-Af Amer) 51.9 ml/min BUN/Creatinine Ratio 23.5 H (10-20) Glucose 150 H (70-99(Fasting)) mg/dl POC Glucose (other) 153 H (70-99) mg/dl Lactate (0.4-2.0) mmol/L Calcium 9.9 (8.6-10.3) mg/dl POC Ioniz Calcium Wilder 1.23 (1.12-1.32) mmol/l Phosphorus (2.5-4.9) mg/dl Magnesium (1.7-2.4) mg/dl Total Bilirubin 4.9 H (0.2-1.0) mg/dl AST 26 (13-39) U/L ALT 28 (7-52) U/L Alkaline Phosphatase 43 (34-104) U/L Total Protein 7.8 (6.0-8.3) gm/dl Albumin 4.3 (3.4-5.0) gm/dl Globulin 3.5 (2.5-4.0) gm/dl Albumin/Globulin Ratio 1.2 (0.9-2) Lipase 14 (11-82) U/L Urine Color Urine Appearance (Clear) Urine pH (4.5-7.5) Ur Specific [place] (1.000-1.030) Urine Protein (Negative) Urine Glucose (UA) (Negative) Urine Ketones (Negative) Urine Blood (Negative) Urine Nitrite (Negative) Urine Bilirubin (Negative) Urine Urobilinogen (Negative) Ur Leukocyte Esterase (Negative) Urine WBC (Auto) (0-5) /hpf Urine RBC (Auto) (0-4) /hpf U Hyaline Cast (Auto) (0-5) /lpf U Epithel Cells (Auto) (0-5) /lpf Urine Bacteria (Auto) (Negative) Medications Administered Current Inpatient Medications Al Hydrox/Mg Hydrox/Simethicone (Aluminum/Magnesium Susp 30 Ml Udc) 30 ml PO Q6H PRN PRN Reason: Dyspepsia Stop: 11/15/23 16:31 Lactated Ringer's (Lr) 1,000 mls @ 150 mls/hr IV .Q6H40M IBAN Stop: 11/15/23 17:14 Last Admin: 10/17/23 05:38 Dose: 100 mls/hr Piperacillin Sod/Tazobactam (Sod 4.5 gm/ Dextrose) 100 mls @ 25 mls/hr IV Q8H [facility]; Protocol Stop: 10/18/23 21:59 Last Admin: 10/17/23 05:38 Dose: 25 mls/hr Acetaminophen (Ofirmev) 1,000 mg in 100 mls @ 400 mls/hr IV Q8H PRN PRN Reason: Pain or Fever Stop: 10/19/23 19:45 Last Infusion: 10/16/23 20:15 Dose: Infused Magnesium Hydroxide (Magnesium Hydroxide Susp 30 Ml Udc) 30 ml PO Q6H PRN PRN Reason: Constipation Stop: 11/15/23 16:31 Morphine Sulfate (Morphine Sulfate 2 Mg/Ml Carp) 2 mg IV Q4H PRN PRN Reason: Pain Stop: 10/30/23 17:07 Last Admin: 10/16/23 18:41 Dose: 2 mg (3) Abdominal pain Abdominal location: unspecified location Qualified Code(s): R10.9 - Unspecified abdominal pain
[2023-10-17] MEDS ORDERED: SODIUM CHLORIDE 0.9% 1,000 ML IV ONE (09:54)
[2023-10-17] MEDS: MAGNESIUM SULFATE / D5W 1 GM/100 ML BAG IV SCH ×2 (11:03→12:50)
[2023-10-17] MEDS: MoRPHine SULFATE 2 MG/ML CARP IV PRN (15:07)
[2023-10-17] MEDS ORDERED: ACETAMINOPHEN 1,000 MG/100 ML VIAL IV STA (16:11)
[2023-10-18] MEDS: LACTATED RINGER'S 1,000 ML IV SCH (05:21)
[2023-10-18] MEDS: PIPERACILLIN/TAZOBACTAM 4.5 GM in DEXTROSE 5% MINI-B 100 ML IV SCH ×3 (05:22→22:20)
[2023-10-18 06:33] LABS: Hematocrit (blood only) 28.9 % (37.0-47.0); Hemoglobin 9.8 g/dl (12.0-16.0); Mean Corpuscular Hemoglobin 32.1 pg (25.0-34.0); Mean Corpuscular Hgb Conc 33.9 g/dL (32.0-36.0); Mean Corpuscular Volume 94.8 fL (80.0-100.0); Mean Platelet Volume 10.3 fL (9.4-12.4); Platelet Count 175 K/uL (130-400); RDW Coefficient of Variation 12.4 % (11.5-14.5); RDW Standard Deviation 43.3 fL (36.4-46.3); Red Blood Count 3.05 M/uL (4.20-5.40); White Blood Count 18.47 K/ul (4.8-10.8)
[2023-10-18 07:05] LABS: BUN Creatinine Ratio 24.2 (10-20); Calcium 8.8 mg/dl (8.6-10.3); Creatinine Clr Calc Pharmacy 41.7 ml/min; Est GFR (African American) 62.4 ml/min; Est GFR (Non-African American) 53.8 ml/min; Magnesium 1.9 mg/dl (1.7-2.4); Phosphorus 2.2 mg/dl (2.5-4.9); Potassium 3.5 mmol/L (3.5-5.1)
[2023-10-18] MEDS ORDERED: SODIUM CHLORIDE 0.9% 1,000 ML IV SCH (07:14)
--- NOTE | 2023-10-18 07:54 | Hospitalist Progress Note ---
Date of Service October 18, 2023 Assessment & Plan (1) Perforated appendix: (2) HTN (hypertension): (3) Abdominal pain: Plan Ms. Rodrigues is an 78 year old female that presented to the ED today with RLQ constant abdominal pain that has been occurring for the past two days rating up to 8/10; currently 5/10 after pain medication. She reports an episode of diarrhea that occurred on Wednesday. Abdomen/Pelvis CT: 1. Perforated acute appendicitis as described above demonstrating a small amount of pneumoperitoneum. No abscess identified at this time. 2. Mild thickening within the distal ileal loops. This is likely reactive. 3. Colonic diverticulosis. No evidence for acute diverticulitis. 4. Cholelithiasis. Other abdominal surgery has included a OTTONIEL; still has her gallbladder and appendix. Perforated Acute Appendicitis: Abdominal pain: Acute Abdomen/Pelvis CT: Perforated acute appendicitis as described above demonstrating a small amount of pneumoperitoneum. No abscess identified at this time. 2. Mild thickening within the distal ileal loops. This is likely reactive. 3. Colonic diverticulosis. No evidence for acute diverticulitis. 4. Cholelithiasis. WBC 27.18 K on admission, fever 38.2 evening of admission + tenderness on exam Zosyn started in ED; continue for empiric coverage lactate 3.8 blood cultures pending Continue IVF replete electrolytes as needed Morphine PRN for pain control General Surgery consulted - conservative management w/ IV abx, IVF, npo 10/17 - Pt tachycardic and even now in Afib w/ rvr. WBC increased. Afebrile this AM. No increased abd. pain. Had BM this AM. Surgeon contacted - plan for stat CT abd./pelvis Cont. IVF and IV abx in the meantime, replace electrolytes, get ECG, will alsofurther discuss w/ cardiology HTN: Takes Amlodipine, Losartan and HCTZ; hold for now monitor BP Disposition: PCP: Dr. Melendez Code Status: Full Code VTE Prophylaxis: Teds/SCDs for now Admission and Anticipated Discharge Date Admission Date: October 16, 2023 Subjective Pt seen in follow up of perforated appendicitis Surgery consulted - currently conservative management w/IV abx/ zosyn, npo Patient is currently laying in bed, in no acute distress. She is tachycardic. At first tachycardia improved w/ IVF however soon after my exam pt went into Afib w/ RVR. No increased abd. pain. No fevers chills chest pain shortness of breath. WBC increased from yesterday. Pt had a BM this AM. Surgeon contacted - plan for CT abd/ pelvis. Review of Systems Review of Systems: All systems reviewed & are unremarkable except as noted in Subjective Physical Exam Physical Exam: General: WD/WN elderly F in NAD Eyes: NC/AT, PERRL,EOM intact bilaterally ENMT: External ear and nose normal, oropharynx normal Respiratory: Normal respiratory effort, no respiratory distress, lungs clear to auscultation, no crackles and no wheezes Cardiovascular: mildly tachycardic this AM Gastrointestinal (Abdomen): Abdomen is soft, +mild RLQ tenderness, no guarding, +bowel sounds Musculoskeletal: No pedal edema Neurologic: Alert and oriented x 3, speech fluent, no facial asymmetry, answers appropriately, moves extremities Results & Data Results & Data Vital Signs (Past 12 Hours) Vital Signs Temp Pulse Pulse Resp BP Pulse Ox O2 Del Method 10/18/23 07:32 36.9 C 122 H 18 126/71 94 Nasal Cannula 10/18/23 03:06 37.1 C 97 H 18 97 Nasal Cannula 10/17/23 23:44 36.9 C 101 H 107/61 91 Room Air 10/17/23 21:45 90 O2 Flow Rate 10/18/23 07:32 3 10/18/23 03:06 2 10/17/23 23:44 10/17/23 21:45 Laboratory Results 10/18/23 Range/Units 06:07 WBC 18.47 H (4.8-10.8) K/ul RBC 3.05 L (4.20-5.40) M/uL Hgb 9.8 L (12.0-16.0) g/dl Hct 28.9 L (37.0-47.0) % MCV 94.8 (80.0-100.0) fL MCH 32.1 (25.0-34.0) pg MCHC 33.9 (32.0-36.0) g/dL RDW Std Deviation 43.3 (36.4-46.3) fL RDW Coeff of Nicholas 12.4 (11.5-14.5) % Plt Count 175 (130-400) K/uL MPV 10.3 (9.4-12.4) fL Sodium 136 (136-145) mmol/L Potassium 3.5 (3.5-5.1) mmol/L Chloride 103 (98-107) mmol/L Carbon Dioxide 23 (21-32) mmol/L Anion Gap 10 (3-11) BUN 24 H (6-23) mg/dl Creatinine 0.99 D (0.6-1.2) mg/dl Est Cr Clr Drug Dosing 41.7 ml/min Est GFR ( Amer) 62.4 ml/min Est GFR (Non-Af Amer) 53.8 ml/min BUN/Creatinine Ratio 24.2 H (10-20) Glucose 87 (70-99(Fasting)) mg/dl Calcium 8.8 (8.6-10.3) mg/dl Phosphorus 2.2 L (2.5-4.9) mg/dl Magnesium 1.9 (1.7-2.4) mg/dl Medications Administered Current Inpatient Medications Al Hydrox/Mg Hydrox/Simethicone (Aluminum/Magnesium Susp 30 Ml Udc) 30 ml PO Q6H PRN PRN Reason: Dyspepsia Stop: 11/15/23 16:31 Lactated Ringer's (Lr) 1,000 mls @ 150 mls/hr IV .Q6H40M IBAN Stop: 11/15/23 17:14 Last Admin: 10/18/23 05:21 Dose: 150 mls/hr Piperacillin Sod/Tazobactam (Sod 4.5 gm/ Dextrose) 100 mls @ 25 mls/hr IV Q8H IBAN; Protocol Stop: 10/18/23 21:59 Last Admin: 10/18/23 05:22 Dose: 25 mls/hr Acetaminophen (Ofirmev) 1,000 mg in 100 mls @ 400 mls/hr IV Q8H PRN PRN Reason: Pain or Fever Stop: 10/19/23 19:45 Last Infusion: 10/16/23 20:15 Dose: Infused Sodium Chloride (Nss) 1,000 mls @ 999 mls/hr IV .Q1H1M IBAN Stop: 10/18/23 08:14 Potassium Chloride (K Mathew / Wtr) 10 meq in 100 mls @ 100 mls/hr IV Q1H IBAN Stop: 10/18/23 09:14 Magnesium Hydroxide (Magnesium Hydroxide Susp 30 Ml Udc) 30 ml PO Q6H PRN PRN Reason: Constipation Stop: 11/15/23 16:31 Morphine Sulfate (Morphine Sulfate 2 Mg/Ml Carp) 2 mg IV Q4H PRN PRN Reason: Pain Stop: 10/30/23 17:07 Last Admin: 10/17/23 15:07 Dose: 2 mg (3) Abdominal pain Abdominal location: unspecified location Qualified Code(s): R10.9 - Unspecified abdominal pain
[2023-10-18] MEDS: POTASSIUM CHLORIDE / WTR 10 MEQ/100 ML PLCT IV SCH ×4 (08:32→14:43)
--- NOTE | 2023-10-18 08:51 | Surgery Progress Note ---
Date of Service October 18, 2023 Assessment & Plan (1) Perforated appendix: Plan: Her exam is actually slightly improved today, however with her slightly increased leukocytosis as well as some more tachycardia we will rescan her with p.o. and IV contrast to look for abscess There is no drainable collection, would like to proceed with operative intervention Further treatment plan pending her CT results Admission and Anticipated Discharge Date Admission Date: October 16, 2023 Subjective Patient seen and examined. She did have a large bowel movement this morning. Afebrile. She has been flipping in and out of sustained tachycardia up to 160. States her abdominal pain is no worse than yesterday. Denies any nausea or vomiting. Review of Systems Constitutional: no fever and no chills Cardiovascular: + palpitations; no chest pain Gastrointestinal: + abdominal pain; no nausea, no vomiting and no constipation Physical Exam Constitutional: WD/WN, vitals as above Gastrointestinal (Abdomen): Inspection/Auscultation: abdomen normal to inspection; abdomen not distended Percussion/Palpation: + abdomen tender (Right abdomen), + guarding and abdomen soft; abdomen not rigid and no hernia Results & Data Vital Signs (Past 12 Hours) Vital Signs Temp Pulse Pulse Resp BP Pulse Ox O2 Del Method 10/18/23 07:32 36.9 C 122 H 18 126/71 94 Nasal Cannula 10/18/23 03:06 37.1 C 97 H 18 97 Nasal Cannula 10/17/23 23:44 36.9 C 101 H 107/61 91 Room Air 10/17/23 21:45 90 O2 Flow Rate 10/18/23 07:32 3 10/18/23 03:06 2 10/17/23 23:44 10/17/23 21:45 PG Care Time/CCT Total # of Minutes Spent Total Time Spent with Patient: Total time spent is greater than 50% in coordination of care (as documented) at patient's floor/unit and/or counseling patient: Coding Level of Care Code 29927 SUB INP/OBS CARE 10/21MIN Diagnoses Perforated appendix K35.32
[2023-10-18] MEDS ORDERED: METOPROLOL TARTRATE 1 MG/ML VIAL IV STA (09:03)
[2023-10-18] MEDS: MoRPHine SULFATE 2 MG/ML CARP IV PRN (09:50)
--- NOTE | 2023-10-18 10:21 | Cardiology Consultation ---
Date of Consultation October 18, 2023 Assessment & Plan (1) Atrial fibrillation with RVR: (2) Perforated appendix: (3) HTN (hypertension): Plan IMPRESSION: Acutely-ill 78 year old female with a ruptures appendix. Telemetry revealing frequent PAT with conversion to atrial fibrillation RVR at approximately 830 this morning. New diagnosis. Patient symptomatic with mild dyspnea. Blood pressures on the softer side. Rates as high as 180s now in the 120s to 140s. PLAN: AFIB RVR: -Mild improvement in rates with the use of IV Lopressor. -Start amiodarone, will give IV bolus and drip with hopes to convert patient back to sinus rhythm. -Will need to consider anticoagulation however patient is tentatively being worked up for possible surgery--will hold off on IV heparin at this time. -Maintain appropriate electrolyte balance. Recommended potassium goal of 4.0 and mag goal of 2.0, patient is currently being supplemented. -Echo ordered, pending Ruptured appendix: -Care and management per primary team and general surgery. Hypertension: Patient borderline hypotensive. Home dose antihypertensives remain on hold. Case discussed with Dr. Peralta. Will follow I spent a total of 40 minutes on the date of service in preparation, delivery, and documentation of the care provided to the patient excluding any time spent in the performance of separately billed services. DENI Allison Department of Cardiology, [facility] This chart was completed in part utilizing Speech Voice Recognition Software. Grammatical errors, random word insertions, pronoun errors, and incomplete sentences are an occasional consequence of this system due to software limitations, ambient noise, and hardware issues. Any formal questions or concerns about the content, text, or information contained within the body of this dictation should be directly addressed to the provider for clarification. Supervising Physician Co-Signing Physician Notes Supervising Physician Attestation: I have personally performed a history and physical examination on the patient. I agree with the physician ssn/ssbn assistant navigator's findings and plan as documented with the following additions. Subjective: At the time of my assessment at just after 12 noon, the patient was back in sinus rhythm. Her ,daughter, and granddaughter are at the bedside. Present, the patient's chief complaint is shortness of breath which has been persistent since overnight last night. It has persisted since she has converted from atrial fibrillation back to sinus rhythm. Exam: Pulmonary :decreased breath sounds bilaterally at the bases Cardiovascular: Regular, no murmurs, no edema Abdomen: Diffuse mild tenderness on palpation Data: The patient underwent a CT of the abdomen and pelvis today in follow-up of abdominal pain. Radiology report describes redemonstration of appendicitis with free fluid or pneumoperitoneum. There is possible early encapsulation of a fluid collection about the rectum however no major abscess seen per radiology report. -- My personal review of the images, small bilateral pleural effusions are present which were not present on 11/16/2023 EKG performed at 10/18/2023 at 9:10 AM and interpret independently: Atrial fibrillation with rapid ventricular spots of 145 bpm, nonspecific repolarization abnormalities. Compared to previous, atrial fibrillation had replaced sinus rhythm Telemetry: New onset atrial fibrillation observed at 8:30 AM on 10/18/2023. To sinus rhythm on 10/18/2023 at 10:56 AM without conversion pauses Assessment and Plan: Sepsis Appendicitis Paroxysmal atrial fibrillation with rapid ventricular response Volume overload with small bilateral pleural effusions and resultant shortness of breath -As noted, patient converted back to sinus rhythm after receiving a dose of IV metoprolol this morning. Sinus rhythm before the amiodarone that had been ordered by the cardiology service was initiated. IV amiodarone however started in the meantime an effort to maintain sinus rhythm in this ill patient especially with concerns of possible need for operative intervention. -Recommend placing a Daniel catheter and proceeding with furosemide 20 mg IV x 1. Per review of her intake and output, her status is markedly positive having received IV fluid resuscitation during this hospital stay while NPO. An echocardiogram has been requested and will be reviewed. Currently patient hemodynamically stable. Holding off on anticoagulation with regards to the atrial fibrillation stroke prophylaxis due to concerns of intra-abdominal process and bleeding risk. DVT prophylaxis: SCDs I spent a total of 25 minutes on the date of service in preparation, delivery, and documentation of the care provided to this patient, excluding any time spent in the performance of separately billed services. William Peralta DO History of Present Illness Reason for Consultation: AFIB RVR Requesting Physician: Pedro Dillon Attending Physician: Leo Baptiste MD History of Present Illness 78 year old female who presented to the [facility] ED on 10/16/2023 secondary to RLQ abdominal pain. CT of the abdomen confirmed a perforated acute appendicitis. Started on IVF and IV antibiotics. Evaluated by general surgery on 10/16/2023 who felt that patient would be high risk for surgery due to her likely needing an "open procedure with a large bowel resection and a simple appendectomy". Overall recommended conservative measures as already implemented however patient developed worsening leukocytosis and tachycardia, surgery is now being considered pending CT of the abdomen results. Cardiology consulted due to concerns on telemetry. Overnight she was having frequent episodes of PAT with rates into the 160s. At 08:39 this an patient converted to atrial fibrillation RVR with rates as high as 180s and maintaining. Potassium low-- supplementation ordered. Upon entrance into the room patient resting in bed. and daughter at bedside. No chest pain, but mildly dyspneic. Feeling somewhat improved since receiving IV Lopressor. Will occasionally have palpitations at home, none currently. No lightheadedness or dizziness. No evidence of volume overload. Past medical history: Hypertension CKD Heart palpitations Allergies Allergy/AdvReac Type Severity Reaction Status Date / Time No Known Allergies Unverified 10/16/23 16:30 Home Medications Medication Instructions Recorded Confirmed Type amlodipine 5 mg tablet 5 mg PO QAM 10/16/23 10/16/23 History ascorbic acid (vitamin C) 500 mg 500 mg PO DAILY 10/16/23 10/16/23 History tablet (Vitamin C) ascorbic acid 7.5 mg-vit E 7.5 1 tab PO DAILY 10/16/23 10/16/23 History unit-biotin 1,250 mcg chewable tablet (Hair,Skin,Nails with Biotin) aspirin 81 mg tablet 81 mg PO DAILY 10/16/23 10/16/23 History calcium carbonate 500 mg-vitamin 1 tab PO DAILY 10/16/23 10/16/23 History D3 10 mcg (400 unit) tablet cholecalciferol (vitamin D3) 125 125 mcg PO DAILY 10/16/23 10/16/23 History mcg (5,000 unit) tablet (Vitamin D3) hydrochlorothiazide 25 mg tablet 25 mg PO QAM 10/16/23 10/16/23 History losartan 100 mg tablet 100 mg PO QAM 10/16/23 10/16/23 History magnesium oxide 400 mg PO QAM 10/16/23 10/16/23 History [id number] 8 mg-folic 400 1 tab PO DAILY 10/16/23 10/16/23 History mcg-K 50 mcg-lutein 300 mcg tablet (Multivitamin Women 50 Plus) omega-3 fatty acids 1,000 mg 2,000 mg PO DAILY 10/16/23 10/16/23 History capsule Patient History Medical History Abdominal pain HTN (hypertension) Perforated appendix Surgical History S/P OTTONIEL (total abdominal hysterectomy) Family History Mother Coronary heart disease Social History Smoking Status: Never smoker Hx Alcohol Use: No Hx Substance Use: No Preferred Language: Setswana [employer] Machine Operator Required: No Beliefs That Will Affect Care: None Current Living Situation: Family Other Information That Helps Us Care for You: No Feels Safe at Home: Yes Safety Concerns: Feels Safe At This Time Assistive Devices: Glasses Review of Systems Review of Systems: All systems reviewed & are unremarkable except as noted in HPI & below Physical Exam Constitutional: + ill appearing; no acute distress Neck: normal visual inspection and trachea midline Respiratory: normal respiratory effort, lungs clear to auscultation Auscultation: no rales, no rhonchi and no wheezes Cardiovascular: Rate/Rhythm: + tachycardic and + irregularly irregular Heart Sounds: normal S1 and normal S2 Vessels: no JVD Extremities: no edema Skin: no rashes, warm and dry Neurologic: PERRL, EOMI, accommodation nl, no face palsy, no dysarthria Psychiatric: Orientation: alert and oriented x 3 Results & Data Vital Signs (Past 12 Hours) Vital Signs Temp Pulse Resp BP Pulse Ox O2 Del Method O2 Flow Rate 10/18/23 07:32 36.9 C 122 H 18 126/71 94 Nasal Cannula 3 10/18/23 03:06 37.1 C 97 H 18 97 Nasal Cannula 2 10/17/23 23:44 36.9 C 101 H 107/61 91 Room Air Laboratory Results CBC 10/18/23 Range/Units 06:07 WBC 18.47 H (4.8-10.8) K/ul RBC 3.05 L (4.20-5.40) M/uL Hgb 9.8 L (12.0-16.0) g/dl Hct 28.9 L (37.0-47.0) % Plt Count 175 (130-400) K/uL Comprehensive Metabolic Panel 10/18/23 Range/Units 06:07 Sodium 136 (136-145) mmol/L Potassium 3.5 (3.5-5.1) mmol/L Chloride 103 (98-107) mmol/L Carbon Dioxide 23 (21-32) mmol/L BUN 24 H (6-23) mg/dl Creatinine 0.99 D (0.6-1.2) mg/dl Glucose 87 (70-99(Fasting)) mg/dl Calcium 8.8 (8.6-10.3) mg/dl Intake and Output 10/17/23 10/18/23 10/18/23 22:59 06:59 14:59 Intake Total 2200 / 4589.167 1100 / 4589.167 1300 / 1300 Output Total 250 / 450 Balance 2200 / 4139.167 850 / 4139.167 1300 / 1300 Intake: IV 2200 / 4589.167 1100 / 4589.167 1300 / 1300 Acetaminophen 1,000 mg In 100 100 / 100 ml @ 400 mls/hr IV NOW STA Rx#: [id number] Lactated Ringer's 1,000 ml @ 2000 / 3000 1000 / 3000 150 mls/hr IV .Q6H40M IBAN Rx#: [id number] Piperacillin/Tazobactam 4.5 gm 100 / 300 100 / 300 100 / 100 In Dextrose 5% Mini-B 100 ml @ 25 mls/hr IV Q8H IBAN Rx#: [id number] Potassium Chloride / Wtr 10 meq 200 / 200 In 100 ml @ 100 mls/hr IV Q1H IBAN Rx#:[id number] Sodium Chloride 0.9% 1,000 ml @ 1000 / 1000 999 mls/hr IV .Q1H1M IBAN Rx#: [id number] Output: Urine 250 / 450 Other: Other Intake Source NPO NPO # Unmeasured Voids 1 2 Weight 77.4 kg Weight Measurement Method Built in [facility] (3) HTN (hypertension) Hypertension type: primary hypertension Qualified Code(s): I10 - Essential (primary) hypertension
[2023-10-18] MEDS ORDERED: AMIODARONE IV BOLUS & DRIP IV STA (10:35)
[2023-10-18] MEDS ORDERED: STAT IV Infusion **Titration per Protocol STA (10:35)
[2023-10-18] MEDS ORDERED: AMIODARONE / D5W 150 MG/100 ML BAG IV STA (10:35)
[2023-10-18] MEDS ORDERED: 0.2 MICRON FILTER SET 1 EACH IV STA (10:35)
[2023-10-18] MEDS ORDERED: AMIODARONE / D5W 360 MG/200 ML BAG IV ONE (10:45)
[2023-10-18] MEDS ORDERED: OPTIRAY 320 500ml IV ONE (11:30)
[2023-10-18] MEDS ORDERED: FUROSEMIDE INJ 20 MG/2 ML VIAL IV ONE (12:21)
--- NOTE | 2023-10-18 12:24 | CT Scan Report ---
CT abd pelvis oral and IV con CLINICAL HISTORY: perforated appendix TECHNIQUE: Helical axial images of the abdomen and pelvis were obtained and displayed. Automated dose lowering techniques and/or adjustment according to patient size were utilized for this exam. This e xam was performed with intravenous contrast. CT DOSE: 1331.82 mGy.cm COMPARISON: Comparison is made to CT abdomen pelvis 10/16/2023 FINDINGS: Lower chest: Small bilateral pleural effusions are seen with underlying atelectasis. Liver: Hepatic steatosis is noted. Gallbladder and biliary tree: Cholelithiasis is seen without evidence of cholecystitis. No intra- or extrahepatic biliary ductal dilation. Pancreas: Unremarkable, no focal lesions. Spleen: Unremarkable. Adrenals: Unremarkable. Kidneys and ureters: Unremarkable. Bladder: Unremarkable. Reproductive organs: Patient is status post hysterectomy. Bowel: The appendix is markedly enlarged measuring up to 11 mm in diameter with surrounding fat stran ding. Periappendiceal lymph node is noted. A few diverticula are seen without evidence of diverticuli tis. Lymph nodes Retroperitoneal: Unremarkable. Pelvic: Unremarkable. Mesenteric: Unremarkable. Peritoneum: Small free fluid is noted in the pelvis and there is mild pneumoperitoneum. There is a pe rirectal collection measuring approximately 27 x 14 mm which demonstrates partially enhancing jsoeph w hich may represent the beginnings of encapsulation. Vessels: Atherosclerotic calcifications are seen. Abdominal wall: Unremarkable. Bones: Degenerative changes in the visualized spine. IMPRESSION: Redemonstration of appendicitis with free fluid or pneumoperitoneum. There is possible early encapsul ation of a fluid collection about the rectum, however no mature abscess is seen. ACT 112: Negative or not required by law. Electronically signed by: Alexy Ndiaye M.D. 10/18/2023 12:23 PM
--- NOTE | 2023-10-18 14:06 | Electrocardiogram Report ---
Test Reason : Blood Pressure : / mmHG Vent. Rate : 101 BPM Atrial Rate : 101 BPM P-R Int : 154 ms QRS Dur : 072 ms QT Int : 318 ms P-R-T Axes : 035 019 076 degrees QTc Int : 412 ms Sinus tachycardia Nonspecific ST and T wave abnormality Abnormal ECG When compared with ECG of 16-OCT-2023 16:08, Nonspecific T wave abnormality, worse in Inferior leads Confirmed by Robbi William ([id number]) on 10/18/2023 2:05:54 PM Referred By: REFERRED SELF Confirmed By:Michael William
--- NOTE | 2023-10-18 16:33 | Electrocardiogram Report ---
Test Reason : Blood Pressure : / mmHG Vent. Rate : 113 BPM Atrial Rate : 113 BPM P-R Int : 158 ms QRS Dur : 074 ms QT Int : 324 ms P-R-T Axes : 042 020 038 degrees QTc Int : 444 ms Sinus tachycardia with Premature atrial complexes Otherwise normal ECG When compared with ECG of 17-OCT-2023 10:37, (unconfirmed) Premature atrial complexes are now Present Confirmed by Robbi William ([id number]) on 10/18/2023 4:33:07 PM Referred By: REFERRED SELF Confirmed By:Michael William
[2023-10-18] MEDS: AMIODARONE / D5W 360 MG/200 ML BAG IV SCH (16:39)
--- NOTE | 2023-10-18 16:39 | Electrocardiogram Report ---
Test Reason : Blood Pressure : / mmHG Vent. Rate : 145 BPM Atrial Rate : 214 BPM P-R Int : 000 ms QRS Dur : 076 ms QT Int : 276 ms P-R-T Axes : 000 028 241 degrees QTc Int : 428 ms Atrial fibrillation with rapid ventricular response Nonspecific ST and T wave abnormality Abnormal ECG When compared with ECG of 18-OCT-2023 07:26, (unconfirmed) Atrial fibrillation has replaced Sinus rhythm Confirmed by Robbi William ([id number]) on 10/18/2023 4:38:38 PM Referred By: REFERRED SELF Confirmed By:Michael William
[2023-10-18] MEDS ORDERED: POTASSIUM CHLORIDE / WTR 10 MEQ/100 ML PLCT IV SCH (17:15)
[2023-10-19] MEDS: AMIODARONE / D5W 360 MG/200 ML BAG IV SCH ×2 (03:39→14:59)
[2023-10-19] MEDS: PIPERACILLIN/TAZOBACTAM 4.5 GM in DEXTROSE 5% MINI-B 100 ML IV SCH ×3 (05:45→21:07)
[2023-10-19 06:57] LABS: Hematocrit (blood only) 32.8 % (37.0-47.0); Hemoglobin 11.3 g/dl (12.0-16.0); Mean Corpuscular Hgb Conc 34.5 g/dL (32.0-36.0); Mean Corpuscular Volume 92.9 fL (80.0-100.0); Mean Platelet Volume 10.2 fL (9.4-12.4); Platelet Count 233 K/uL (130-400); RDW Coefficient of Variation 12.3 % (11.5-14.5); RDW Standard Deviation 41.7 fL (36.4-46.3); Red Blood Count 3.53 M/uL (4.20-5.40); White Blood Count 24.52 K/ul (4.8-10.8)
[2023-10-19 07:18] LABS: BUN Creatinine Ratio 29.3 (10-20); Calcium 9.1 mg/dl (8.6-10.3); Creatinine Clr Calc Pharmacy 48.8 ml/min; Est GFR (African American) 78.3 ml/min; Est GFR (Non-African American) 67.6 ml/min; Magnesium 1.8 mg/dl (1.7-2.4); Phosphorus 1.8 mg/dl (2.5-4.9); Potassium 3.2 mmol/L (3.5-5.1)
[2023-10-19] MEDS ORDERED: POTASSIUM PHOS 3 MMOL/1 ML INFUSION IV STA (07:24)
--- NOTE | 2023-10-19 07:27 | Hospitalist Progress Note ---
Date of Service October 19, 2023 Assessment & Plan (1) Perforated appendix: (2) HTN (hypertension): (3) Abdominal pain: Plan Ms. Rodrigues is an 78 year old female that presented to the ED today with RLQ constant abdominal pain that has been occurring for the past two days rating up to 8/10; currently 5/10 after pain medication. She reports an episode of diarrhea that occurred on Wednesday. Abdomen/Pelvis CT: 1. Perforated acute appendicitis as described above demonstrating a small amount of pneumoperitoneum. No abscess identified at this time. 2. Mild thickening within the distal ileal loops. This is likely reactive. 3. Colonic diverticulosis. No evidence for acute diverticulitis. 4. Cholelithiasis. Other abdominal surgery has included a OTTONIEL; still has her gallbladder and appendix. Perforated Acute Appendicitis: Abdominal pain: SIRS, sepsis Acute Abdomen/Pelvis CT: Perforated acute appendicitis as described above demonstrating a small amount of pneumoperitoneum. No abscess identified at this time. 2. Mild thickening within the distal ileal loops. This is likely reactive. 3. Colonic diverticulosis. No evidence for acute diverticulitis. 4. Cholelithiasis. WBC 27.18 K on admission, fever 38.2 evening of admission + tenderness on exam Zosyn started in ED; continue for empiric coverage lactate 3.8 blood cultures negat. for 48 hrs Continue IVF replete electrolytes as needed Morphine PRN for pain control General Surgery consulted - conservative management w/ IV abx, IVF, npo 10/17 - Pt tachycardic and even now in Afib w/ rvr. WBC increased. Afebrile this AM. No increased abd. pain. Had BM this AM. Surgeon contacted - stat CT abd./pelvis Re-demonstration of appendicitis with free fluid or pneumoperitoneum. There is possible early encapsulation of a fluid collection about the rectum, however no mature abscess is seen. Afib w/ RVR received iv metoprolol initially, ecg obtained, electrolytes replete, keep K at 4, Mg at 2 Amiodarone gtt started Cardiology consulted and following closely 10/19 currently in sinus rhythm No anticoagulation at this time, alfonso. as poss. needing surgery monitor fluid status HTN: Takes Amlodipine, Losartan and HCTZ; hold for now monitor BP Disposition: PCP: Dr. Melendez Code Status: Full Code VTE Prophylaxis: Teds/SCDs for now Admission and Anticipated Discharge Date Admission Date: October 16, 2023 Subjective Pt seen in follow up of perforated appendicitis Surgery consulted - currently conservative management w/IV abx/ zosyn, npo Patient is currently laying in bed, in no acute distress. Yesterday went into afib s/ rvr, amiodarone started and pt seen by cardiology. Today has nausea/vomiting, possibly from Po contrasst she had yesterday for repeat CT images. No increased abd. pain. No fevers chills chest pain shortness of breath. WBC increased from yesterday. Pt having multiple loose stools (possibly from po contrast, c. diff is negative) Surgery following closely Review of Systems Review of Systems: All systems reviewed & are unremarkable except as noted in Subjective Physical Exam Physical Exam: General: WD/WN elderly F in NAD Eyes: NC/AT, PERRL,EOM intact bilaterally ENMT: External ear and nose normal, oropharynx normal Respiratory: Normal respiratory effort, no respiratory distress, lungs clear to auscultation, no crackles and no wheezes Cardiovascular: HR now improved in 80s, rrr Gastrointestinal (Abdomen): Abdomen is soft, +mild RLQ tenderness, no guarding, +bowel sounds Musculoskeletal: No pedal edema Neurologic: Alert and oriented x 3, speech fluent, no facial asymmetry, answers appropriately, moves extremities Results & Data Results & Data Vital Signs (Past 12 Hours) Vital Signs Temp Pulse Resp BP Pulse Ox O2 Del Method O2 Flow Rate 10/19/23 03:00 36.6 C 77 26 H 144/71 H 94 Nasal Cannula 10/18/23 23:00 37.1 C 85 18 130/68 93 Nasal Cannula 10/18/23 20:00 Nasal Cannula 1 Laboratory Results 10/19/23 10/18/23 Range/Units 06:16 18:35 WBC 24.52 H (4.8-10.8) K/ul RBC 3.53 L (4.20-5.40) M/uL Hgb 11.3 L (12.0-16.0) g/dl Hct 32.8 L (37.0-47.0) % MCV 92.9 (80.0-100.0) fL MCH 32.0 (25.0-34.0) pg MCHC 34.5 (32.0-36.0) g/dL RDW Std Deviation 41.7 (36.4-46.3) fL RDW Coeff of Nicholas 12.3 (11.5-14.5) % Plt Count 233 (130-400) K/uL MPV 10.2 (9.4-12.4) fL Sodium 132 L (136-145) mmol/L Potassium 3.2 L (3.5-5.1) mmol/L Chloride 98 (98-107) mmol/L Carbon Dioxide 26 (21-32) mmol/L Anion Gap 8 (3-11) BUN 24 H (6-23) mg/dl Creatinine 0.82 (0.6-1.2) mg/dl Est Cr Clr Drug Dosing 48.8 ml/min Est GFR ( Amer) 78.3 ml/min Est GFR (Non-Af Amer) 67.6 ml/min BUN/Creatinine Ratio 29.3 H (10-20) Glucose 121 H (70-99(Fasting)) mg/dl Calcium 9.1 (8.6-10.3) mg/dl Phosphorus 1.8 L (2.5-4.9) mg/dl Magnesium 1.8 (1.7-2.4) mg/dl Stl C. diff Tox B Gene Negative Cdiff Gene (Neg) Medications Administered Current Inpatient Medications Al Hydrox/Mg Hydrox/Simethicone (Aluminum/Magnesium Susp 30 Ml Udc) 30 ml PO Q6H PRN PRN Reason: Dyspepsia Stop: 11/15/23 16:31 Piperacillin Sod/Tazobactam (Sod 4.5 gm/ Dextrose) 100 mls @ 25 mls/hr IV Q8H IBAN; Protocol Stop: 10/22/23 21:59 Last Admin: 10/19/23 05:45 Dose: 25 mls/hr Acetaminophen (Ofirmev) 1,000 mg in 100 mls @ 400 mls/hr IV Q8H PRN PRN Reason: Pain or Fever Stop: 10/19/23 19:45 Last Infusion: 10/16/23 20:15 Dose: Infused Amiodarone HCl/Dextrose (Nexterone / D5w) 360 mg in 200 mls @ 16.667 mls/hr IV .Q12H IBAN Stop: 11/17/23 16:44 Last Infusion: 10/19/23 07:09 Dose: 0.5 mg/min, 16.7 mls/hr Potassium Chloride (K Mathew / Wtr) 10 meq in 100 mls @ 100 mls/hr IV Q1H IBAN Stop: 10/19/23 09:29 Magnesium Hydroxide (Magnesium Hydroxide Susp 30 Ml Udc) 30 ml PO Q6H PRN PRN Reason: Constipation Stop: 11/15/23 16:31 Morphine Sulfate (Morphine Sulfate 2 Mg/Ml Carp) 2 mg IV Q4H PRN PRN Reason: Pain Stop: 10/30/23 17:07 Last Admin: 10/18/23 09:50 Dose: 2 mg Potassium Phosphate (Potassium Phos 3 Mmol/1 Ml Infusion) 15 mmol IV NOW STA Stop: 10/19/23 07:25 (2) HTN (hypertension) Hypertension type: primary hypertension Qualified Code(s): I10 - Essential (primary) hypertension (3) Abdominal pain Abdominal location: unspecified location Qualified Code(s): R10.9 - Unspecified abdominal pain
--- NOTE | 2023-10-19 07:28 | Cardiology Progress Note ---
Date of Service October 19, 2023 Assessment & Plan (1) Atrial fibrillation with RVR: (2) Perforated appendix: (3) HTN (hypertension): Plan IMPRESSION: Acutely-ill 78 year old female who presented to [facility] due to abdominal pain. Found to have a ruptured appendix. Telemetry revealing frequent PAT with conversion to atrial fibrillation RVR at approximately 8:30 AM on 10/18/2023. New diagnosis. Rates as high as 180s . Patient self converted to sinus rhythm at on 10/18/2023 at 10:56 AM without conversion pauses PLAN: AFIB RVR: -Continue IV amiodarone to help maintain sinus rhythm during acute illness phase especially with concerns of possible need for operative intervention. QTC stable on today's EKG. -Holding off on anticoagulation with regards to the atrial fibrillation stroke prophylaxis due to concerns of intra-abdominal process and bleeding risk. -Maintain appropriate electrolyte balance. Recommended potassium goal of 4.0 and mag goal of 2.0, patient is currently being supplemented. If nausea/vomiting resolves this afternoon consider supplementing potassium with PO/Elix. Ruptured appendix: -Care and management per primary team and general surgery. Most recent surgery note stating that surgery is not recommended at this time. Hypertension: -Initially borderline hypotensive. Home dose antihypertensives remain on hold-- BP improving. Case discussed with Dr. Peralta. Will follow I spent a total of 30 minutes on the date of service in preparation, delivery, and documentation of the care provided to the patient excluding any time spent in the performance of separately billed services. DENI Allison Department of Cardiology, [facility] This chart was completed in part utilizing Speech Voice Recognition Software. Grammatical errors, random word insertions, pronoun errors, and incomplete sentences are an occasional consequence of this system due to software limitations, ambient noise, and hardware issues. Any formal questions or concerns about the content, text, or information contained within the body of this dictation should be directly addressed to the provider for clarification. Admission and Anticipated Discharge Date Admission Date: October 16, 2023 Supervising Physician Co-Signing Physician Notes Supervising Physician Attestation: I have personally performed a history and physical examination on the patient. I agree with the physician circulation assistant's findings and plan as documented with the following additions. Subjective: Shortness of breath improved compared to 10/18/23. Remains in SR on an amiodarone infusion. Exam: Pulmonary :decreased breath sounds bilaterally at the bases Cardiovascular: Regular, no murmurs, no edema Data: Echocardiogram performed 10/18/2023 revealed mild concentric left ventricular hypertrophy, normal LVEF in the range of 55 to 60%, grade 2 diastolic dysfunction, no significant valvular pathology Assessment and Plan: Sepsis Appendicitis Paroxysmal atrial fibrillation with rapid ventricular response Volume overload with small bilateral pleural effusions and resultant shortness of breath -As noted, patient converted back to sinus rhythm after receiving a dose of IV metoprolol am of 10/18/23 having been in AF for about 2.5 hours. -Amiodarone added on 10/18/23 to help maintian SR. -Daniel catheter in place draining clear yellow urine. -No additional diuretics today. -Replace potassium . -Continue Zosyn and observation. DVT prophylaxis: Kari I spent a total of 25 minutes on the date of service in preparation, delivery, and documentation of the care provided to this patient, excluding any time spent in the performance of separately billed services. William Peralta, DO Subjective Acutely-ill 78 year old female who presented to [facility] due to abdominal pain. Found to have a ruptured appendix. Telemetry revealing frequent PAT with conversion to atrial fibrillation RVR at approximately 8:30 AM on 10/18/2023. New diagnosis. Rates as high as 180s . Patient self converted to sinus rhythm at on 10/18/2023 at 10:56 AM without conversion pauses Patient was notably dyspneic. CT showed small bilateral pleural effusions which were new. 10/18: Frequent PAT with conversion to atrial fibrillation RVR (@0830 am) with rates as high as 180s. Self converted to sinus rhythm at 10:56 AM without conversion pauses Amiodarone started when patient was in sinus rhythm. Anticoagulation on hold due to concerns of intra-abdominal process and bleeding risk. Hypervolemic on exam with evidence of small bilateral pleural effusions on CT , new compared to prior CT. Daniel catheter placed. Was given furosemide 20 mg IV x 1. Echo: LVEF 55 to 60%, grade 2 diastolic dysfunction, no wall motion abnormalities. No significant valvular pathology. 10/19: Upon entrance into the room patient resting in bed. Feeling poorly. Vomited bile after drinking contrast from CT. Given Pepcid and pantoprazole. + Zofran. No chest pain. Breathing improved. No palpitations or lightheadedness. Telemetry: SR 70-80s with PACs and short bursts of PAT. No PAF. Labs: Hyponatremia (? dilutional), Potassium low at 3.2, Mag 1.8. I&O: +8.5L Weight: 70.2 >>77.4 >> 73.1 kg Review of Systems Review of Systems: All systems reviewed & are unremarkable except as noted in HPI & below Physical Exam Constitutional: + ill appearing; no acute distress Neck: normal visual inspection and trachea midline Respiratory: normal respiratory effort, lungs clear to auscultation Auscultation: no rales, no rhonchi and no wheezes Cardiovascular: Rate/Rhythm: + tachycardic and + irregularly irregular Heart Sounds: normal S1 and normal S2 Vessels: no JVD Extremities: no edema Skin: no rashes, warm and dry Neurologic: PERRL, EOMI, accommodation nl, no face palsy, no dysarthria Psychiatric: Orientation: alert and oriented x 3 Results & Data Vital Signs (Past 12 Hours) Vital Signs Temp Pulse Resp BP Pulse Ox O2 Del Method O2 Flow Rate 10/19/23 03:00 36.6 C 77 26 H 144/71 H 94 Nasal Cannula 10/18/23 23:00 37.1 C 85 18 130/68 93 Nasal Cannula 10/18/23 20:00 Nasal Cannula 1 Laboratory Results CBC 10/19/23 Range/Units 06:16 WBC 24.52 H (4.8-10.8) K/ul RBC 3.53 L (4.20-5.40) M/uL Hgb 11.3 L (12.0-16.0) g/dl Hct 32.8 L (37.0-47.0) % Plt Count 233 (130-400) K/uL Comprehensive Metabolic Panel 10/19/23 Range/Units 06:16 Sodium 132 L (136-145) mmol/L Potassium 3.2 L (3.5-5.1) mmol/L Chloride 98 (98-107) mmol/L Carbon Dioxide 26 (21-32) mmol/L BUN 24 H (6-23) mg/dl Creatinine 0.82 (0.6-1.2) mg/dl Glucose 121 H (70-99(Fasting)) mg/dl Calcium 9.1 (8.6-10.3) mg/dl Intake and Output 10/18/23 10/19/23 10/19/23 22:59 06:59 14:59 Intake Total 439.675 / 4066.200 237.775 / 4066.200 258.45 / 258.45 Output Total 853 / 2157 251 / 2157 Balance -413.325 / 1909.200 -13.225 / 1909.200 258.45 / 258.45 Intake: IV 439.675 / 3066.200 237.775 / 3066.200 258.45 / 258.45 Amiodarone / D5w 360 mg In 200 245.925 / 383.700 137.775 / 383.700 58.45 / 58.45 ml @ 0.5 MG/MIN 16.667 mls/hr IV .Q12H IBAN Rx#:[id number] Piperacillin/Tazobactam 4.5 gm 93.75 / 300.00 100 / 300.00 In Dextrose 5% Mini-B 100 ml @ 25 mls/hr IV Q8H IBAN Rx#: [id number] Potassium Chloride / Wtr 10 meq 100 / 200.000 200 / 200 In 100 ml @ 100 mls/hr IV Q1H IBAN Rx#:[id number] Output: Emesis 250 / 250 Urine Amount (Catheter) 600 / 1900 250 / 1900 Daniel/Indwelling 600 / 1900 250 / 1900 # Bowel Movements Other: # Emeses 1 Weight 73.1 kg 73.1 kg Patient Weight 10/20/23 06:59 Weight 73.1 kg (3) HTN (hypertension) Hypertension type: primary hypertension Qualified Code(s): I10 - Essential (primary) hypertension
[2023-10-19] MEDS: POTASSIUM CHLORIDE / WTR 10 MEQ/100 ML PLCT IV SCH ×2 (07:45→09:19)
[2023-10-19] MEDS ORDERED: POTASSIUM PHOSPHATE 15 MMOL in SODIUM CHLORIDE 0.9% 250 ML IV ONE (07:45)
--- NOTE | 2023-10-19 08:39 | Surgery Progress Note ---
Date of Service October 19, 2023 Assessment & Plan (1) Perforated appendix: Plan: Her CT images and results from yesterday were personally viewed and interpreted by myself On my read she has much less pneumoperitoneum, but some new intraabdominal fluid, nothing to drain yet at this point She remains with an increased leukocytosis, but afebrile and her tachycardia is improved now that she is out of Afib I did discuss with her that she may still need operative intervention if she does not improve clinically, or develops fevers/chills, worsening pain (2) Atrial fibrillation with RVR: Admission and Anticipated Discharge Date Admission Date: October 16, 2023 Subjective Pt seen and examined. States she is feeling slightly better than yesterday. She did have one episode of emesis yesterday evening. Afebrile. Pain slightly improved. Review of Systems Constitutional: no fever and no chills Gastrointestinal: + abdominal pain, + nausea and + vomitin g Physical Exam Constitutional: WD/WN, vitals as above Gastrointestinal (Abdomen): Inspection/Auscultation: abdomen normal to inspection and + abdomen distended Percussion/Palpation: + abdomen tender (RLQ), + guarding and abdomen soft; abdomen not rigid Results & Data Vital Signs (Past 12 Hours) Vital Signs Temp Pulse Resp BP Pulse Ox O2 Del Method O2 Flow Rate 10/19/23 07:47 Nasal Cannula 2 10/19/23 03:00 36.6 C 77 26 H 144/71 H 94 Nasal Cannula 10/18/23 23:00 37.1 C 85 18 130/68 93 Nasal Cannula PG Care Time/CCT Total # of Minutes Spent Total Time Spent with Patient: Total time spent is greater than 50% in coordination of care (as documented) at patient's floor/unit and/or counseling patient: Coding Level of Care Code 59447 SUB INP/OBS CARE 10/21MIN Diagnoses Perforated appendix K35.32 Atrial fibrillation with RVR I48.91
[2023-10-19] MEDS: PANTOprazole 40 MG in SYRINGE 0 ML IV SCH ×2 (10:19→21:03)
[2023-10-19] MEDS: FAMOTIDINE 20 MG in SYRINGE 3 ML IV SCH ×2 (10:19→21:03)
[2023-10-19] MEDS ORDERED: POTASSIUM CHLORIDE 20 MEQ/15 ML UDC PO STA (10:27)
--- NOTE | 2023-10-19 12:25 | Electrocardiogram Report ---
Test Reason : Blood Pressure : / mmHG Vent. Rate : 079 BPM Atrial Rate : 079 BPM P-R Int : 142 ms QRS Dur : 074 ms QT Int : 374 ms P-R-T Axes : 002 004 022 degrees QTc Int : 428 ms Poor data quality, interpretation may be adversely affected Normal sinus rhythm Cannot rule out Inferior infarct , age undetermined Abnormal ECG When compared with ECG of 18-OCT-2023 09:10, Sinus rhythm has replaced Atrial fibrillation Vent. rate has decreased BY 66 BPM Confirmed by Robbi William ([id number]) on 10/19/2023 12:25:03 PM Referred By: REFERRED SELF Confirmed By:Michael William
[2023-10-19] MEDS: MoRPHine SULFATE 2 MG/ML CARP IV PRN (13:27)
[2023-10-19] MEDS: ONDANSETRON INJ 2 MG/ML 2 ML VIAL IV PRN (13:28)
[2023-10-19] MEDS ORDERED: POTASSIUM CHLORIDE PWD 20 MEQ PACK PO ONE (21:04)
[2023-10-20] MEDS: AMIODARONE / D5W 360 MG/200 ML BAG IV SCH ×3 (01:11→14:45)
[2023-10-20] MEDS: ONDANSETRON INJ 2 MG/ML 2 ML VIAL IV PRN (01:47)
[2023-10-20] MEDS: PIPERACILLIN/TAZOBACTAM 4.5 GM in DEXTROSE 5% MINI-B 100 ML IV SCH ×3 (05:41→21:14)
[2023-10-20 06:43] LABS: Hematocrit (blood only) 33.8 % (37.0-47.0); Hemoglobin 11.7 g/dl (12.0-16.0); Mean Corpuscular Hgb Conc 34.6 g/dL (32.0-36.0); Mean Corpuscular Volume 92.3 fL (80.0-100.0); Mean Platelet Volume 9.8 fL (9.4-12.4); Platelet Count 277 K/uL (130-400); RDW Coefficient of Variation 12.1 % (11.5-14.5); RDW Standard Deviation 41.1 fL (36.4-46.3); Red Blood Count 3.66 M/uL (4.20-5.40); White Blood Count 20.65 K/ul (4.8-10.8)
[2023-10-20] MEDS ORDERED: PROMETHAZINE HCL 12.5 MG in SODIUM CHLORIDE 0.9% 50 ML IV ONE (06:45)
[2023-10-20 07:26] LABS: Thyroid Stimulating Hormone 4.086 uIu/ml (0.300-4.500)
[2023-10-20 07:30] LABS: Calcium 8.6 mg/dl (8.6-10.3); Magnesium 1.7 mg/dl (1.7-2.4); Potassium 3.5 mmol/L (3.5-5.1)
[2023-10-20 07:36] LABS: BUN Creatinine Ratio 29.9 (10-20); Creatinine Clr Calc Pharmacy 51.9 ml/min; Est GFR (African American) 84.5 ml/min; Est GFR (Non-African American) 72.9 ml/min; Phosphorus 1.8 mg/dl (2.5-4.9)
[2023-10-20] MEDS: PANTOprazole 40 MG in SYRINGE 0 ML IV SCH ×2 (07:37→19:57)
[2023-10-20] MEDS: FAMOTIDINE 20 MG in SYRINGE 3 ML IV SCH ×2 (07:37→19:56)
--- NOTE | 2023-10-20 07:45 | Surgery Progress Note ---
Date of Service October 20, 2023 Assessment & Plan (1) Perforated appendix: Plan: Patient with emesis this AM Reports abdominal pain and SOB improving daily but still present Denies fever, chills SR on monitor rate at 80 abdomen soft, distended, TTP WBC 20 (24) BMP pending Patient scheduled for OR this AM with Dr. Gunter for Diagnostic laparoscopy, Possible Open Laparotomy, Possible Appendectomy, Possible Bowel Resection Admission and Anticipated Discharge Date Admission Date: October 16, 2023 Supervising Physician Co-Signing Physician Notes I personally saw and evaluate the patient Gualberto CHEEMA and agree with his assessment and plan. 78-year-old female with perforated appendicitis WBC improved, but clinically it seems she has developed an ileus and has not made much progress over the last two days We will proceed with a diagnostic laparoscopy, possible laparotomy, possible appendectomy, possible bowel resection Consent was obtained and risks discussed including bleeding, infection, abscess, anastomotic leak Subjective Patient with emesis this AM Reports abdominal pain and SOB improving daily Denies fever, chills Review of Systems Constitutional: no fever and no chills Ear, Nose, Mouth, Throat: no hearing loss Respiratory: + cough (reports productive cough) and + dyspnea Cardiovascular: no chest pain and no palpitations Gastrointestinal: + abdominal pain, + nausea and + vomitin g Genitourinary: Daniel cath Integumentary: no rash Neurologic: no confusion and no memory loss Physical Exam Physical Exam: alert oriented pleasant Constitutional: cooperative and comfortable; no acute distress ENMT: external ear and nose normal, oropharynx normal Neck: trachea midline, no thyromegaly Respiratory: + cough and able to speak in complete se ntences; no respiratory distress wearing O2 via NC Cardiovascular: Rate/Rhythm: regular rate monitor shows SR rate 80 Gastrointestinal (Abdomen): Inspection/Auscultation: + abdomen distended and + abdominal surgical scar Percussion/Palpation: + abdomen tender; abdomen not rigid Musculoskeletal: no cyanosis or clubbing, extremities motor strength 5/5 Skin: no rashes, warm and dry Neurologic: awake; not confused Psychiatric: A+Ox3, euthymic affect Results & Data Vital Signs (Past 12 Hours) Vital Signs Temp Pulse Resp BP Pulse Ox O2 Del Method O2 Flow Rate 10/20/23 03:00 98.6 F 80 19 156/73 H 96 Nasal Cannula 01/23/24 23:00 98.1 F 83 21 144/53 H 98 Nasal Cannula 10/19/23 21:17 148/83 H 10/19/23 20:04 Nasal Cannula 1 PG Care Time/CCT Total # of Minutes Spent Total Time Spent with Patient: Total time spent is greater than 50% in coordination of care (as documented) at patient's floor/unit and/or counseling patient: Coding Level of Care Code 13895 SUB INP/OBS CARE 10/21MIN Diagnoses Perforated appendix K35.32
[2023-10-20] MEDS ORDERED: fentaNYL citrate PF 100 MCG/2 ML VIAL ONE ×2 (09:57→12:02)
--- NOTE | 2023-10-20 10:29 | Anesthesiology Consultation ---
Date of Service October 20, 2023 Assessment & Plan (1) Encounter for pre-operative examination: Chart Review Chart Review: Acceptable Risk for Surgery History Surgery Operation Date: 10/20/23 10:45 Proposed Procedures p Diagnostic laparoscopy, Possible Open Laparotomy, Possible Appendectomy, Possible Bowel Resection - Jasiel Gunter DO Height/Weight Height: 5 ft Weight: 72.8 kg Allergies Allergy/AdvReac Type Severity Reaction Status Date / Time No Known Allergies Unverified 10/16/23 16:30 Medications Home Medications Medication Instructions Recorded Confirmed Last Taken amlodipine 5 mg tablet 5 mg PO QAM 10/16/23 10/16/23 Unknown ascorbic acid (vitamin C) 500 mg 500 mg PO DAILY 10/16/23 10/16/23 Unknown tablet (Vitamin C) ascorbic acid 7.5 mg-vit E 7.5 1 tab PO DAILY 10/16/23 10/16/23 Unknown unit-biotin 1,250 mcg chewable tablet (Hair,Skin,Nails with Biotin) aspirin 81 mg tablet 81 mg PO DAILY 10/16/23 10/16/23 Unknown calcium carbonate 500 mg-vitamin 1 tab PO DAILY 10/16/23 10/16/23 Unknown D3 10 mcg (400 unit) tablet cholecalciferol (vitamin D3) 125 125 mcg PO DAILY 10/16/23 10/16/23 Unknown mcg (5,000 unit) tablet (Vitamin D3) hydrochlorothiazide 25 mg tablet 25 mg PO QAM 10/16/23 10/16/23 Unknown losartan 100 mg tablet 100 mg PO QAM 10/16/23 10/16/23 Unknown magnesium oxide 400 mg PO QA 10/16/23 10/16/23 Unknown [id number] 8 mg-folic 400 1 tab PO DAILY 10/16/23 10/16/23 Unknown mcg-K 50 mcg-lutein 300 mcg tablet (Multivitamin Women 50 Plus) omega-3 fatty acids 1,000 mg 2,000 mg PO DAILY 10/16/23 10/16/23 Unknown capsule Active Medications Generic Name Dose Route Start Last Admin Trade Name Freq PRN Reason Stop Dose Admin Piperacillin Sod/Tazobactam 100 mls @ 25 mls/hr 10/16/23 22:00 10/20/23 09:49 Sod 4.5 gm/ Dextrose IV 10/22/23 21:59 Infused Q8H IBAN Infusion Protocol Amiodarone HCl/Dextrose 360 mg in 200 mls @ 16.667 mls/hr 10/18/23 16:45 10/20/23 07:08 Nexterone / D5w IV 11/17/23 16:44 0.5 mg/min .Q12H IBAN 16.7 mls/hr Infusion 0.5 MG/MIN Famotidine 20 mg/ Syringe 5 mls @ 2.5 mls/min 10/19/23 10:00 10/20/23 07:37 IV 11/18/23 09:59 2.5 mls/min BID IBAN Administration Pantoprazole Sodium 40 mg/ 10 mls @ 5 mls/min 10/19/23 10:00 10/20/23 07:37 Syringe IV 11/18/23 09:59 5 mls/min BID IBAN Administration Morphine Sulfate 2 mg 10/16/23 17:08 10/19/23 13:27 Morphine Sulfate 2 Mg/Ml Carp IV 10/30/23 17:07 2 mg Q4H PRN Administration Pain Ondansetron HCl 4 mg 10/19/23 09:58 10/20/23 01:47 Ondansetron Inj 2 Mg/Ml 2 Ml Vial IV 11/18/23 09:57 4 mg Q6H PRN Administration Nausea And Vomiting NPO Date Last Intake of Fluids: 10/19/23 Time Last Intake of Fluids: 20:00 Date Last Intake of Solids: 10/16/23 Past Medical History Medical History (Updated 10/20/23 @ 10:29 by Monroe Pink MD) Atrial fibrillation with RVR Abdominal pain HTN (hypertension) Perforated appendix Past Family History Family History Mother Coronary heart disease Past Surgical History Surgical History S/P OTTONIEL (total abdominal hysterectomy) Social History Smoking Status: Never smoker Hx Alcohol Use: No Hx Substance Use: No Physical Exam Vital Signs Last Vital Signs Temp 36.8 C 10/20/23 10:00 Pulse 78 10/20/23 10:00 Resp 18 10/20/23 10:00 BP 155/75 H 10/20/23 10:00 Pulse Ox 96 10/20/23 10:00 O2 Del Method Nasal Cannula 10/20/23 10:00 O2 Flow Rate 1 10/20/23 10:00 Testing Laboratory Results 10/20/23 05:59 10/20/23 05:59 Urine Color Corry 10/17/23 03:36 Urine Appearance Clear (Clear) 10/17/23 03:36 Urine pH 5.5 (4.5-7.5) 10/17/23 03:36 Ur Specific [place] > 1.045 (1.000-1.030) H 10/17/23 03:36 Urine Protein 1+ (Negative) H 10/17/23 03:36 Urine Glucose (UA) Negative (Negative) 10/17/23 03:36 Urine Ketones Trace (Negative) H 10/17/23 03:36 Urine Nitrite Negative (Negative) 10/17/23 03:36 Ur Leukocyte Esterase Negative (Negative) 10/17/23 03:36 Urine WBC (Auto) 5-10 /hpf (0-5) H 10/17/23 03:36 Urine RBC (Auto) 0-4 /hpf (0-4) 10/17/23 03:36 U Hyaline Cast (Auto) 1-5 /lpf (0-5) 10/17/23 03:36 U Epithel Cells (Auto) 20-30 /lpf (0-5) H 10/17/23 03:36 Urine Bacteria (Auto) Negative (Negative) 10/17/23 03:36 Blood Type A Negative 10/19/23 15:15 Antibody Screen NEGATIVE 10/19/23 15:15 10/16/23 19:12 Aerobic Blood Culture - Preliminary Blood No growth in Aerobic bottle after 48 hours. Anaerobic Blood Culture - Preliminary No growth in Anaerobic bottle after 48 hours. 10/16/23 19:24 Aerobic Blood Culture - Preliminary Blood No growth in Aerobic bottle after 48 hours. Anaerobic Blood Culture - Preliminary No growth in Anaerobic bottle after 48 hours. Electrocardiogram Date: 10/19/23 Findings: + NSR @ (79) possible inf MO Echocardiogram Date: 10/18/23 EF: 55-60% LV Function: normal Other Findings: + LVH and + diastolic dysfunction Valvular Disease: + no significant valvular disease
[2023-10-20] MEDS ORDERED: BUPIVACAINE 0.25% PF 30 ML VIAL ONE (10:56)
[2023-10-20] MEDS ORDERED: BUPIVACAINE/EPINEPHRINE 0.5% MPF 1:200,000 30 ML VIAL ONE (10:58)
[2023-10-20] MEDS ORDERED: PROMETHAZINE HCL 6.25 MG in SODIUM CHLORIDE 0.9% 50 ML IV PRN (11:09)
[2023-10-20] MEDS ORDERED: ATROPINE SULFATE 0.1 MG/ML 10ML SYR IV PRN (11:09)
[2023-10-20] MEDS ORDERED: ETOMIDATE 2 MG/ML 20 ML VIAL IV ONE (12:02)
[2023-10-20] MEDS ORDERED: SUCCINYLCHOLINE CHLORIDE 20 MG/ML 10 ML VIAL IV ONE (12:02)
[2023-10-20] MEDS ORDERED: ROCURONIUM BROMIDE 10 MG/ML 5 ML VIAL IV ONE (12:02)
[2023-10-20] MEDS ORDERED: PROPOFOL IV EMULSION 10 MG/ML 20 ML VIAL IV ONE (12:02)
[2023-10-20] MEDS ORDERED: ONDANSETRON INJ 2 MG/ML 2 ML VIAL ONE (12:02)
[2023-10-20] MEDS ORDERED: DEXAMETHASONE SOD INJ 4 MG/ML VIAL ONE (12:02)
--- NOTE | 2023-10-20 13:14 | Post Operative Brief Note ---
PG Immediate Post Op with CF Date of Surgery October 20, 2023 Pre & Post Diagnosis Operation Date: 10/20/23 10:45 Pre-Op Diagnosis: Perforated appendix Post-Op Diagnosis: Perforated appendix, Intra-abdominal abscess, Midline abdominal adhesions I identified the patient and participated in the time-out.: Yes Procedure Operation Date: 10/20/23 10:45 Actual Procedures p Diagnostic laparoscopy, Appendectomy, Drainage of intra-abdominal abscess, Extensive Lysis of Adhesions(Not Applicable) - Jasiel Gunter DO Surgeon Jasiel Gunter DO Event Planning Manager Gualberto CHEEMA Estimated Blood Loss 50 Findings See Below Perforated appendix just distal to the appendiceal base Intra-abdominal abscess in RLQ and right paracolic gutter Extensive intraabdominal adhesions to previous midline incision Specimens Specimen Description: A. appendix Drains Jasiel Drain and Daniel Catheter Anesthesia Type General Complications none Disposition Disposition: Recovery Room
--- NOTE | 2023-10-20 13:31 | Operative Report ---
PG Post Operative Report Pre & Post Diagnosis Operation Date: 10/20/23 10:45 Pre-Op Diagnosis: Perforated appendix Post-Op Diagnosis: Perforated appendix, intra-abdominal abscess, extensive abdominal adhesions I identified the patient and participated in the time-out.: Yes Procedure Operation Date: 10/20/23 10:45 Actual Procedures p Diagnostic laparoscopy,Appendectomy, Drainage of intra-abdominal abscess, Extensive Lysis of Adhesions(Not Applicable) - Jasiel Gunter DO Surgeon Jasiel Gunter DO [employer] Wireman Gualberto CHEEMA, Frank Che DO Estimated Blood Loss 50 Findings See Below Perforated appendix just distal to the appendiceal base Intra-abdominal abscess in RLQ and right paracolic gutter Extensive intraabdominal adhesions to previous midline incision Specimens Appendix to pathology Drains 19 Fr Jasiel drain in RLQ and paracolic gutter Anesthesia Type General Complications none Disposition Disposition: Recovery Room Indications 78 yo female with perforated appendix who failed non-operative management of her appendicitis Description of Procedure The patient was brought to the OR and placed in the supine position and SCD's placed. At this time she underwent general endotracheal anesthesia without incident. Daniel catheter was already inplace. Her abdomen was prepped and draped in the usual sterile fashion. She was given appropriate pre-operative antibiotics. A timeout was called, the procedure was verified as Diagnostic laparoscopy, possible appendectomy, possible open, possible bowel resection. Surgical, anesthesia and nursing teams agreed and the procedure was begun. After injection of 0.25% Marcaine with epinephrine, a LUQ incision was made using a #11 blade scalpel and carried down to the fascia with a hemostat. The abdomen was then elevated with towel clamps and entered using the Veress needle confirming position using the saline drop test. Pneumoperitoneum was established and 5mm trocar was placed. Laparoscope was introduced. No injury was seen from our entrance to the abdomen. At this time a two 5mm ports were placed under direct visualization flank and left lower quadrant. There were dense midline adhesions that were lysed using a combination of sharp and blunt dissection as well as using the harmonic scalpel. We freed these in the epigastrium down to the pelvis. At this time the patient was placed in Trendelenburg and rotated to the left. There was small bowel adhered to the lateral peritoneum that was freed up bluntly in the RLQ. Purulent fluid was encountered and drained. Omentum was also adhered to the right lateral peritoneum and this was also bluntly and purulent fluid encountered and drained. The right colon was then able to be identified and we followed this inferiorly where there seemed to be most of the inflammation. At this time the appendix was visualized and the tip was freed and elevated toward the abdominal wall. The appendix did have a perforation just distal to the base. The mesoappendix was completely obliterated. We then upsized the LLQ abdominal port to a 12mm port and a 45mm samuel load stapler was then fired across the base of the appendix which appeared healthy. The appendix was then placed in an Endocatch bag and removed through the LLQ port site. Staple line was inspected and was intact. Hemostasis was complete. A 19Fr Jasiel drain was introduced through the 12mm port and placed in the RLQ and right paracolic gutter and brought out through the suprapubic incision. The 12 mm port was then closed at the fascial level using a 0 Vicryl suture using the suture passer. All ports were removed under direct visualization and no bleeding was noted. The abdomen was desufflated and the skin was closed using 4-0 Monocryl in a subcuticular fashion. Sterile dressings were applied. Daniel catheter was removed. The patient was then awakened from anesthesia having remained stable throughout the entire case and transported to PACU. All needle and sponge counts were correct x 2. The nurse practitioner was present and scrubbed for the entire case. She was essential in positioning, prepping and draping the patient, retraction and exposure, driving the laparoscope, closure of the incisions and placement of the dressings. I attest to the content of the Intraoperative Record and any orders documented therein. Any exceptions are noted below.
[2023-10-20] MEDS: HYDROmorphone INJ 1 MG/ML SYRINGE IV PRN ×2 (13:42→13:47)
--- NOTE | 2023-10-20 14:05 | Anesthesiology Progress Note ---
Date of Service October 20, 2023 Anesthesia Post Procedure Vital Signs Vital Signs: Temp Pulse Pulse Pulse Resp BP BP 10/20/23 13:55 79 16 123/63 10/20/23 13:45 80 20 148/66 H 10/20/23 13:35 76 23 150/66 H 10/20/23 13:25 84 24 155/72 H 10/20/23 13:17 36.1 C L 93 H 24 160/66 H 10/20/23 10:00 36.8 C 78 18 155/75 H 10/20/23 09:37 80 10/20/23 09:08 10/20/23 08:39 37.0 C 78 17 154/77 H 10/20/23 03:00 37.0 C 80 19 156/73 H 10/19/23 23:00 36.7 C 83 21 144/53 H 10/19/23 21:17 148/83 H 10/19/23 20:04 10/19/23 19:29 36.4 C L 83 18 113/77 10/19/23 16:14 82 10/19/23 15:22 36.8 C 72 18 125/70 Pulse Ox O2 Del Method O2 Flow Rate 10/20/23 13:55 93 Oxymask 4 10/20/23 13:45 93 Oxymask 4 10/20/23 13:35 93 Oxymask 6 10/20/23 13:25 93 Oxymask 6 10/20/23 13:17 95 Oxymask 8 10/20/23 10:00 96 Nasal Cannula 1 10/20/23 09:37 10/20/23 09:08 Nasal Cannula 1 10/20/23 08:39 95 Nasal Cannula 2.0 10/20/23 03:00 96 Nasal Cannula 10/19/23 23:00 98 Nasal Cannula 10/19/23 21:17 10/19/23 20:04 Nasal Cannula 1 10/19/23 19:29 97 Nasal Cannula 1 10/19/23 16:14 10/19/23 15:22 96 Room Air Pain Intensity Right Abdomen: Pain Intensity: 4 Medial Back: Pain Intensity: 2 Transfer of Care Handoff Completed per policy Notes Mental Status: alert / awake / arousable Patient Amnestic to Procedure: Yes Nausea / Vomiting: adequately controlled Pain: adequately controlled Airway Patency, RR, SpO2: stable & adequate BP & HR: stable & adequate Hydration State: stable & adequate Anesthetic Complications: no major complications apparent
[2023-10-20] MEDS ORDERED: MoRPHine SULFATE 4 MG/ML 1 ML CARP\\VIAL IV PRN (14:28)
--- NOTE | 2023-10-20 16:31 | Hospitalist Progress Note ---
Date of Service October 20, 2023 Assessment & Plan (1) Perforated appendix: (2) HTN (hypertension): (3) Abdominal pain: Plan per Dr. Baptiste's notes with addendum: Ms. Rodrigues is an 78 year old female that presented to the ED today with RLQ constant abdominal pain that has been occurring for the past two days rating up to 8/10; currently 5/10 after pain medication. She reports an episode of diarrhea that occurred on Wednesday. Abdomen/Pelvis CT: 1. Perforated acute appendicitis as described above demonstrating a small amount of pneumoperitoneum. No abscess identified at this time. 2. Mild thickening within the distal ileal loops. This is likely reactive. 3. Colonic diverticulosis. No evidence for acute diverticulitis. 4. Cholelithiasis. Other abdominal surgery has included a OTTONIEL; still has her gallbladder and appendix. Perforated Acute Appendicitis: Abdominal pain: SIRS, sepsis Acute Abdomen/Pelvis CT: Perforated acute appendicitis as described above demonstrating a small amount of pneumoperitoneum. No abscess identified at this time. 2. Mild thickening within the distal ileal loops. This is likely reactive. 3. Colonic diverticulosis. No evidence for acute diverticulitis. 4. Cholelithiasis. WBC 27.18 K on admission, fever 38.2 evening of admission + tenderness on exam Zosyn started in ED; continue for empiric coverage lactate 3.8 blood cultures negat. for 48 hrs Continue IVF replete electrolytes as needed Morphine PRN for pain control General Surgery consulted - conservative management w/ IV abx, IVF, npo 10/17 - Pt tachycardic and even now in Afib w/ rvr. WBC increased. Afebrile this AM. No increased abd. pain. Had BM this AM. Surgeon contacted - stat CT abd./pelvis Re-demonstration of appendicitis with free fluid or pneumoperitoneum. There is possible early encapsulation of a fluid collection about the rectum, however no mature abscess is seen. 10/20 Diagnostic laparoscopy,Appendectomy, Extensive Lysis of Adhesions Stable overall Continue IV Zosyn Protonix, famotidine Advance diet per general surgery Afib w/ RVR received iv metoprolol initially, ecg obtained, electrolytes replete, keep K at 4, Mg at 2 Amiodarone gtt started Cardiology consulted and following closely 10/19 currently in sinus rhythm No anticoagulation at this time, alfonso. as poss. needing surgery monitor fluid status 10/20 In sinus rhythm Continue amiodarone drip HTN: Takes Amlodipine, Losartan and HCTZ; hold for now to prevent hypotension monitor BP Disposition: PCP: Dr. Melendez Code Status: Full Code VTE Prophylaxis: Teds/SCDs for now, Lovenox/heparin when okay with general surgery Admission and Anticipated Discharge Date Admission Date: October 16, 2023 Subjective ff up for acute appendicitis, etc. Status post surgery States she feels okay overall Surgical site sore but manageable no chest pain, dyspnea, palpitations, dizziness No nausea or vomiting, fevers or chills No other new symptoms Review of Systems Review of Systems: all noted and negative except for above Physical Exam Physical Exam: General- oriented x 3, not in distress, speaks in sentences with no effort or accessory muscle use Eyes- anicteric Neck- no JVD Lungs- clear breath sounds bilaterally, no rales/wheezes Heart- normal rate, regular rhythm; no murmurs Abdomen- normal bowel sounds, nondistended, soft, nontender Extremities- no pretibial edema, no calf tenderness Neuro- alert, oriented x 3; no gross focal neurologic deficits Skin- warm & dry Results & Data Results & Data Vital Signs (Past 12 Hours) Vital Signs Temp Pulse Pulse Pulse Resp BP BP 10/20/23 15:28 36.7 C 77 19 117/61 10/20/23 15:04 36.6 C 73 13 126/63 10/20/23 14:15 76 15 120/59 L 10/20/23 14:05 36.4 C L 78 18 128/82 10/20/23 13:55 79 16 123/63 10/20/23 13:45 80 20 148/66 H 10/20/23 13:35 76 23 150/66 H 10/20/23 13:25 84 24 155/72 H 10/20/23 13:17 36.1 C L 93 H 24 160/66 H 10/20/23 10:00 36.8 C 78 18 155/75 H 10/20/23 09:37 80 10/20/23 09:08 10/20/23 08:39 37.0 C 78 17 154/77 H Pulse Ox O2 Del Method O2 Flow Rate 10/20/23 15:28 95 Oxymask 3.0 10/20/23 15:04 93 Oxymask 3 10/20/23 14:15 94 Oxymask 3 10/20/23 14:05 94 Oxymask 3 10/20/23 13:55 93 Oxymask 4 10/20/23 13:45 93 Oxymask 4 10/20/23 13:35 93 Oxymask 6 10/20/23 13:25 93 Oxymask 6 10/20/23 13:17 95 Oxymask 8 10/20/23 10:00 96 Nasal Cannula 1 10/20/23 09:37 10/20/23 09:08 Nasal Cannula 1 10/20/23 08:39 95 Nasal Cannula 2.0 all noted and reviewed including below (2) HTN (hypertension) Hypertension type: primary hypertension Qualified Code(s): I10 - Essential (primary) hypertension (3) Abdominal pain Abdominal location: unspecified location Qualified Code(s): R10.9 - Unspecified abdominal pain
--- NOTE | 2023-10-20 16:37 | Cardiology Progress Note ---
Date of Service October 20, 2023 Assessment & Plan (1) Atrial fibrillation with RVR: Plan: Paroxysmal (2) Perforated appendix: (3) HTN (hypertension): Plan IMPRESSION: Acutely-ill 78 year old female who presented to [facility] due to abdominal pain. Found to have a ruptured appendix. Telemetry revealing frequent PAT with conversion to atrial fibrillation RVR at approximately 8:30 AM on 10/18/2023. New diagnosis. Rates as high as 180s . Patient self converted to sinus rhythm at on 10/18/2023 at 10:56 AM without conversion pauses PLAN: 1. Paroxysmal atrial fibrillation with rapid ventricular response: Maintaining sinus rhythm with IV amiodarone. Tolerated surgical procedure well. Will continue amiodarone drip. EKG in a.m. Convert to oral amiodarone once taking p.o. likely treat for 30 days as episode appears to be precipitated by acute illness Will follow Admission and Anticipated Discharge Date Admission Date: October 16, 2023 Subjective Patient seen and examined postoperatively. Recovering in hospital room Denies any current complaints. No nausea or vomiting. No chest pain or shortness of breath. No dizziness or lightheadedness. Tolerated surgical procedure well hemodynamically. No arrhythmia Review of Systems Review of Systems: All systems reviewed & are unremarkable except as noted in Subjective Physical Exam Constitutional: no acute distress Neck: normal visual inspection and trachea midline Respiratory: normal respiratory effort, lungs clear to auscultation Auscultation: no rales, no rhonchi and no wheezes Cardiovascular: Rate/Rhythm: regular rate and regular rhythm Heart Sounds: normal S1 and normal S2 Vessels: no JVD Extremities: no edema Skin: no rashes, warm and dry Neurologic: PERRL, EOMI, accommodation nl, no face palsy, no dysarthria Psychiatric: Orientation: alert and oriented x 3 Results & Data Vital Signs (Past 12 Hours) Vital Signs Temp Pulse Pulse Pulse Resp BP BP 10/20/23 16:34 71 10/20/23 15:28 36.7 C 77 19 117/61 10/20/23 15:04 36.6 C 73 13 126/63 10/20/23 14:15 76 15 120/59 L 10/20/23 14:05 36.4 C L 78 18 128/82 10/20/23 13:55 79 16 123/63 10/20/23 13:45 80 20 148/66 H 01/24/24 13:35 76 23 150/66 H 10/20/23 13:25 84 24 155/72 H 10/20/23 13:17 36.1 C L 93 H 24 160/66 H 10/20/23 10:00 36.8 C 78 18 155/75 H 10/20/23 09:37 80 10/20/23 09:08 10/20/23 08:39 37.0 C 78 17 154/77 H Pulse Ox O2 Del Method O2 Flow Rate 10/20/23 16:34 10/20/23 15:28 95 Oxymask 3.0 10/20/23 15:04 93 Oxymask 3 10/20/23 14:15 94 Oxymask 3 10/20/23 14:05 94 Oxymask 3 10/20/23 13:55 93 Oxymask 4 10/20/23 13:45 93 Oxymask 4 10/20/23 13:35 93 Oxymask 6 10/20/23 13:25 93 Oxymask 6 10/20/23 13:17 95 Oxymask 8 10/20/23 10:00 96 Nasal Cannula 1 10/20/23 09:37 10/20/23 09:08 Nasal Cannula 1 10/20/23 08:39 95 Nasal Cannula 2.0 (3) HTN (hypertension) Hypertension type: primary hypertension Qualified Code(s): I10 - Essential (primary) hypertension
[2023-10-20] MEDS: MoRPHine SULFATE 2 MG/ML CARP IV PRN ×2 (18:03→22:37)
[2023-10-21] MEDS: AMIODARONE / D5W 360 MG/200 ML BAG IV SCH ×2 (01:11→14:35)
[2023-10-21] MEDS: PIPERACILLIN/TAZOBACTAM 4.5 GM in DEXTROSE 5% MINI-B 100 ML IV SCH ×3 (05:47→21:33)
[2023-10-21 07:17] LABS: Basophils # (auto) 0.05 K/uL (0.00-0.20); Basophils % (auto) 0.3 %; Eosinophils # (auto) 0.09 K/uL (0.00-0.50); Eosinophils % (auto) 0.5 %; Immature Granulocytes # (auto) 0.53 K/uL (0.01-0.20); Lymphocytes # (auto) 1.56 K/uL (1.20-3.40); Lymphocytes % (auto) 8.9 %; Mean Corpuscular Hemoglobin 32.4 pg (25.0-34.0); Mean Corpuscular Hgb Conc 34.4 g/dL (32.0-36.0); Mean Corpuscular Volume 94.1 fL (80.0-100.0); Mean Platelet Volume 9.6 fL (9.4-12.4); Monocytes # (auto) 2.12 K/uL (0.11-0.59); Monocytes % (auto) 12.1 %; Neutrophils # (auto) 13.22 K/uL (1.40-6.50); Neutrophils % (auto) 75.2 %; Platelet Count 293 K/uL (130-400); RDW Coefficient of Variation 12.6 % (11.5-14.5); White Blood Count 17.57 K/ul (4.8-10.8)
[2023-10-21 07:35] LABS: BUN Creatinine Ratio 29.9 (10-20); Calcium 8.3 mg/dl (8.6-10.3); Creatinine Clr Calc Pharmacy 51.8 ml/min; Est GFR (African American) 84.5 ml/min; Est GFR (Non-African American) 72.9 ml/min; Potassium 3.6 mmol/L (3.5-5.1)
--- NOTE | 2023-10-21 08:47 | Cardiology Progress Note ---
Date of Service October 21, 2023 Assessment & Plan (1) Atrial fibrillation with RVR: Plan: Paroxysmal (2) Perforated appendix: (3) HTN (hypertension): Plan IMPRESSION: Acutely-ill 78 year old female who presented to [facility] due to abdominal pain. Found to have a ruptured appendix. S/p appendectomy 10/20/2023. Prior telemetry revealing frequent PAT with conversion to atrial fibrillation RVR at approximately 8:30 AM on 10/18/2023. New diagnosis. Rates as high as 180s . Patient self converted to sinus rhythm at on 10/18/2023 at 10:56 AM without conversion pauses. Maintaining NSR on tele without evidence of atrial arrythmias PLAN: 1. Paroxysmal atrial fibrillation with rapid ventricular response: Maintaining sinus rhythm with IV amiodarone. Tolerated surgical procedure well. Will continue amiodarone drip. EKG in a.m. PENDING. Convert to oral amiodarone once taking p.o. likely treat for 30 days as episode appears to be precipitated by acute illness. Case discussed with Dr. Santana. I spent a total of 30 minutes on the date of service in preparation, delivery, and documentation of the care provided to the patient excluding any time spent in the performance of separately billed services. DENI Allison Department of Cardiology, [facility] This chart was completed in part utilizing Speech Voice Recognition Software. Grammatical errors, random word insertions, pronoun errors, and incomplete sentences are an occasional consequence of this system due to software limitations, ambient noise, and hardware issues. Any formal questions or concerns about the content, text, or information contained within the body of this dictation should be directly addressed to the provider for clarification. Admission and Anticipated Discharge Date Admission Date: October 16, 2023 Supervising Physician Co-Signing Physician Notes Patient was seen and personally examined. Patient ambulatory in room Tolerated surgical procedure well. NG tube remains in place at time of exam No further arrhythmias on telemetry with IV amiodarone infusion Plan as outlined above. Paroxysmal atrial fibrillation likely exacerbated by acute illness. Will plan on transitioning to oral amiodarone once able to take p.o. Expect may be able to discontinue medication post hospital discharge. Discussed in detail with patient Subjective Acutely-ill 78 year old female who presented to [facility] due to abdominal pain. Found to have a ruptured appendix. S/p appendectomy 10/20/2023. Prior telemetry revealing frequent PAT with conversion to atrial fibrillation RVR at approximately 8:30 AM on 10/18/2023. New diagnosis. Rates as high as 180s . Patient self converted to sinus rhythm at on 10/18/2023 at 10:56 AM without conversion pauses Now maintaining NSR with IV amiodarone. EKG this am PENDING* Patient seen and examined. Recovering in hospital room-- no acute concerns. Sitting up in the chair. Still NPO-- has an NG tube. Denies any current complaints. No nausea or vomiting. No chest pain or shortness of breath. No dizziness or lightheadedness. Tolerated surgical procedure well hemodynamically. No arrhythmia on telemetry over night Telemetry: SR 60-70s. No PAF Labs: Renal function electrolytes stable. Review of Systems Review of Systems: All systems reviewed & are unremarkable except as noted in HPI & below Physical Exam Constitutional: no acute distress Neck: normal visual inspection and trachea midline Respiratory: normal respiratory effort, lungs clear to auscultation Auscultation: no rales, no rhonchi and no wheezes Cardiovascular: Rate/Rhythm: regular rate and regular rhythm Heart Sounds: normal S1 and normal S2 Vessels: no JVD Extremities: no edema Gastrointestinal (Abdomen): Inspection/Auscultation: + hypoactive bowel sounds Percussion/Palpation: abdomen soft; abdomen nontender Skin: no rashes, warm and dry Neurologic: PERRL, EOMI, accommodation nl, no face palsy, no dysarthria Psychiatric: Orientation: alert and oriented x 3 Results & Data Vital Signs (Past 12 Hours) Vital Signs Temp Pulse Pulse Resp BP Pulse Ox O2 Del Method 10/21/23 08:00 36.5 C 88 16 131/74 97 Nasal Cannula 10/21/23 03:00 36.6 C 75 18 127/68 96 Nasal Cannula 10/20/23 23:00 37.1 C 80 19 149/75 H 93 Nasal Cannula 10/20/23 21:58 74 O2 Flow Rate 10/21/23 08:00 3 10/21/23 03:00 10/20/23 23:00 10/20/23 21:58 Laboratory Results CBC 10/21/23 Range/Units 06:51 WBC 17.57 H (4.8-10.8) K/ul RBC 3.40 L (4.20-5.40) M/uL Hgb 11.0 L (12.0-16.0) g/dl Hct 32.0 L (37.0-47.0) % Plt Count 293 (130-400) K/uL Neut # (Auto) 13.22 H (1.40-6.50) K/uL Lymph # (Auto) 1.56 (1.20-3.40) K/uL [place] # (Auto) 2.12 H (0.11-0.59) K/uL Eos # (Auto) 0.09 (0.00-0.50) K/uL Baso # (Auto) 0.05 (0.00-0.20) K/uL Comprehensive Metabolic Panel 10/21/23 Range/Units 06:51 Sodium 136 (136-145) mmol/L Potassium 3.6 (3.5-5.1) mmol/L Chloride 102 (98-107) mmol/L Carbon Dioxide 28 (21-32) mmol/L BUN 23 (6-23) mg/dl Creatinine 0.77 (0.6-1.2) mg/dl Glucose 107 H (70-99(Fasting)) mg/dl Calcium 8.3 L (8.6-10.3) mg/dl Intake and Output 10/20/23 10/21/23 10/21/23 22:59 06:59 14:59 Intake Total 100 / 1292.328 292.328 / 1292.328 99.643 / 99.643 Output Total 265 / 695 150 / 695 Balance -165 / 597.328 142.328 / 597.328 99.643 / 99.643 Intake: IV 100 / 692.328 292.328 / 692.328 99.643 / 99.643 Amiodarone / D5w 360 mg In 200 192.328 / 392.328 99.643 / 99.643 ml @ 0.5 MG/MIN 16.667 mls/hr IV .Q12H IBAN Rx#:[id number] Piperacillin/Tazobactam 4.5 gm 100 / 300 100 / 300 In Dextrose 5% Mini-B 100 ml @ 25 mls/hr IV Q8H IBAN Rx#: [id number] Output: Urine Amount (Catheter) 200 / 300 Daniel/Indwelling 200 / 300 Drain Output 65 / 345 150 / 345 Lower Abdomen SHANNAN 65 / 345 150 / 345 Other: Weight 72.5 kg (3) HTN (hypertension) Hypertension type: primary hypertension Qualified Code(s): I10 - Essential (primary) hypertension
[2023-10-21] MEDS: PANTOprazole 40 MG in SYRINGE 0 ML IV SCH ×2 (08:49→21:33)
[2023-10-21] MEDS: FAMOTIDINE 20 MG in SYRINGE 3 ML IV SCH ×2 (08:49→21:33)
[2023-10-21] MEDS ORDERED: ACETAMINOPHEN 1,000 MG/100 ML VIAL IV PRN (09:54)
--- NOTE | 2023-10-21 09:54 | Surgery Progress Note ---
Date of Service October 21, 2023 Assessment & Plan (1) Perforated appendix: Plan: POD#1 lap appendectomy, lysis of adhesions, washout WBC 17, Cr 0.7 Vitals stable, pt afebrile Pt reports feeling much better after surgical intervention NGT with minimal output, SHANNAN drain serosang (150cc documented last 12 hours), daniel in place Abd soft, mild distention, expected david incisional discomfort IV zosyn ordered, prn pain meds Continue current management for now, will check on later today with surgeon Encourage OOB with assistance and pulmonary toilet Admission and Anticipated Discharge Date Admission Date: October 16, 2023 Supervising Physician Co-Signing Physician Notes I personally saw and evaluate the patient Heather Grewal PA-C and agree with his assessment and plan. 78-year-old female with perforated appendicitis, s/p diagnostic laparoscopy, extensive lysis of adhesions, appendectomy, drainage of intra-abdominal abscess She is doing well POD#1 Remove Daniel and NGT Sips/Chips only for today Continue IVF ABX and abdominal drain Encourage ambulation/IS Start DVT prophylaxis with Lovenox starting tomorrow Subjective Patient states she feels much better. Reports not requiring any pain meds since midnight. Denies nausea/vomiting. No flatus/BM yet but feels some rumblings. Physical Exam Physical Exam: awake/alert, no distress Respiratory: normal respiratory effort Gastrointestinal (Abdomen): Inspection/Auscultation: + abdomen distended (mild), + abdominal surgical incision (c/d/i) and + abdominal surgical drain present (serosang.) Percussion/Palpation: + abdomen tender (david incisional discomfort to palpation) and abdomen soft NGT with small brown output Results & Data Vital Signs (Past 12 Hours) Vital Signs Temp Pulse Pulse Resp BP Pulse Ox O2 Del Method 10/21/23 08:00 36.5 C 88 16 131/74 97 Nasal Cannula 10/21/23 03:00 36.6 C 75 18 127/68 96 Nasal Cannula 10/20/23 23:00 37.1 C 80 19 149/75 H 93 Nasal Cannula 10/20/23 21:58 74 O2 Flow Rate 10/21/23 08:00 3 10/21/23 03:00 10/20/23 23:00 10/20/23 21:58 PG Care Time/CCT Total # of Minutes Spent Total Time Spent with Patient: Total time spent is greater than 50% in coordination of care (as documented) at patient's floor/unit and/or counseling patient: Coding Level of Care Code 34107 Post Operative Follow-Up Diagnoses Perforated appendix K35.32
--- NOTE | 2023-10-21 13:04 | Hospitalist Progress Note ---
Date of Service October 21, 2023 Assessment & Plan (1) Perforated appendix: (2) HTN (hypertension): (3) Abdominal pain: Plan per Dr. Baptiste's notes with addendum: Ms. Rodrigues is an 78 year old female that presented to the ED today with RLQ constant abdominal pain that has been occurring for the past two days rating up to 8/10; currently 5/10 after pain medication. She reports an episode of diarrhea that occurred on Wednesday. Abdomen/Pelvis CT: 1. Perforated acute appendicitis as described above demonstrating a small amount of pneumoperitoneum. No abscess identified at this time. 2. Mild thickening within the distal ileal loops. This is likely reactive. 3. Colonic diverticulosis. No evidence for acute diverticulitis. 4. Cholelithiasis. Other abdominal surgery has included a OTTONIEL; still has her gallbladder and appendix. Perforated Acute Appendicitis: Abdominal pain: SIRS, sepsis Acute Abdomen/Pelvis CT: Perforated acute appendicitis as described above demonstrating a small amount of pneumoperitoneum. No abscess identified at this time. 2. Mild thickening within the distal ileal loops. This is likely reactive. 3. Colonic diverticulosis. No evidence for acute diverticulitis. 4. Cholelithiasis. WBC 27.18 K on admission, fever 38.2 evening of admission + tenderness on exam Zosyn started in ED; continue for empiric coverage lactate 3.8 blood cultures negat. for 48 hrs Continue IVF replete electrolytes as needed Morphine PRN for pain control General Surgery consulted - conservative management w/ IV abx, IVF, npo 10/17 - Pt tachycardic and even now in Afib w/ rvr. WBC increased. Afebrile this AM. No increased abd. pain. Had BM this AM. Surgeon contacted - stat CT abd./pelvis Re-demonstration of appendicitis with free fluid or pneumoperitoneum. There is possible early encapsulation of a fluid collection about the rectum, however no mature abscess is seen. 10/20 Diagnostic laparoscopy,Appendectomy, Extensive Lysis of Adhesions Stable overall Continue IV Zosyn Protonix, famotidine Advance diet per general surgery 10/21 remains stable continue IV ZOsyn Day 6 sip/chips per Gen Surg Afib w/ RVR received iv metoprolol initially, ecg obtained, electrolytes replete, keep K at 4, Mg at 2 Amiodarone gtt started Cardiology consulted and following closely 10/19 currently in sinus rhythm No anticoagulation at this time, alfonso. as poss. needing surgery monitor fluid status 10/21 In sinus rhythm Continue amiodarone drip, transition to PO when oral intake allowed by Gen Surg HTN: Takes Amlodipine, Losartan and HCTZ; hold for now to prevent hypotension monitor BP Disposition: PCP: Dr. Melendez Code Status: Full Code VTE Prophylaxis: Teds/SCDs for now, Lovenox/heparin when okay with general surgery Admission and Anticipated Discharge Date Admission Date: October 16, 2023 Subjective ff up for acute appendicitis with perforation, etc seen resting in chair, comfortable states she feels fine overall minimal discomfort over the surgical site no nausea/vomiting, fever/chills no flatus or BM yet no chest pain, dyspnea, palpitations, dizziness no other new symptoms Review of Systems Review of Systems: all noted and negative except for above Physical Exam Physical Exam: General- oriented x 3, not in distress, speaks in sentences with no effort or accessory muscle use Eyes- anicteric Neck- no JVD Lungs- clear breath sounds bilaterally, no crackles/wheezing Heart- normal rate, regular rhythm; no murmurs Abdomen- normal bowel sounds, nondistended, soft, nontender drain in place: sero sanguinous output Extremities- no pretibial edema, no calf tenderness Neuro- alert, oriented x 3; no gross focal neurologic deficits Skin- warm & dry Results & Data Results & Data Vital Signs (Past 12 Hours) Vital Signs Temp Pulse Resp BP Pulse Ox O2 Del Method O2 Flow Rate 10/21/23 08:00 36.5 C 88 16 131/74 97 Nasal Cannula 3 10/21/23 03:00 36.6 C 75 18 127/68 96 Nasal Cannula all noted and reviewed including below (2) HTN (hypertension) Hypertension type: primary hypertension Qualified Code(s): I10 - Essential (primary) hypertension (3) Abdominal pain Abdominal location: unspecified location Qualified Code(s): R10.9 - Unspecified abdominal pain
--- NOTE | 2023-10-21 19:59 | Electrocardiogram Report ---
Test Reason : Blood Pressure : / mmHG Vent. Rate : 074 BPM Atrial Rate : 074 BPM P-R Int : 150 ms QRS Dur : 080 ms QT Int : 410 ms P-R-T Axes : 009 011 039 degrees QTc Int : 455 ms Normal sinus rhythm Low voltage QRS Nonspecific ST abnormality Borderline ECG When compared with ECG of 19-OCT-2023 10:23, Minimal criteria for Inferior infarct are no longer Present Nonspecific T wave abnormality no longer evident in Lateral leads Confirmed by Robbi William ([id number]) on 10/21/2023 7:58:47 PM Referred By: REFERRED SELF Confirmed By:Michael William
[2023-10-22] MEDS: AMIODARONE / D5W 360 MG/200 ML BAG IV SCH ×2 (01:18→14:52)
[2023-10-22] MEDS: PIPERACILLIN/TAZOBACTAM 4.5 GM in DEXTROSE 5% MINI-B 100 ML IV SCH ×2 (05:24→14:40)
[2023-10-22 06:35] LABS: Hematocrit (blood only) 33.4 % (37.0-47.0); Hemoglobin 11.3 g/dl (12.0-16.0); Mean Corpuscular Hemoglobin 31.7 pg (25.0-34.0); Mean Corpuscular Hgb Conc 33.8 g/dL (32.0-36.0); Mean Corpuscular Volume 93.6 fL (80.0-100.0); Mean Platelet Volume 9.5 fL (9.4-12.4); Platelet Count 334 K/uL (130-400); RDW Coefficient of Variation 12.6 % (11.5-14.5); RDW Standard Deviation 43.6 fL (36.4-46.3); Red Blood Count 3.57 M/uL (4.20-5.40); White Blood Count 19.96 K/ul (4.8-10.8)
[2023-10-22 06:55] LABS: BUN Creatinine Ratio 27.8 (10-20); Calcium 8.3 mg/dl (8.6-10.3); Est GFR (African American) 81.9 ml/min; Est GFR (Non-African American) 70.7 ml/min
--- NOTE | 2023-10-22 07:26 | Cardiology Progress Note ---
Date of Service October 22, 2023 Assessment & Plan (1) Atrial fibrillation with RVR: Plan: Paroxysmal (2) Perforated appendix: (3) HTN (hypertension): Plan IMPRESSION: Acutely-ill 78 year old female who presented to [facility] due to abdominal pain. Found to have a ruptured appendix. S/p appendectomy 10/20/2023. Prior telemetry revealing frequent PAT with conversion to atrial fibrillation RVR at approximately 8:30 AM on 10/18/2023. New diagnosis. Rates as high as 180s . Patient self converted to sinus rhythm at on 10/18/2023 at 10:56 AM without conversion pauses. Maintaining NSR on tele without evidence of atrial arrhythmias PLAN: 1. Paroxysmal atrial fibrillation with rapid ventricular response: Maintaining sinus rhythm with IV amiodarone. Tolerated surgical procedure well. Will continue amiodarone drip. Repeat EKG PENDING. -Convert to oral amiodarone once taking p.o. likely treat for 30 days as episode appears to be precipitated by acute illness. -Hypokalemia noted on Tokays blood work (3.0)-- supplemented with 40 meq of KCL IV, consider oral supplementation when patient is able to take PO. Mag goal of 2.0. 2. Hypertension:Mildly hypertensive -Consider restarting Losartan when patient is able to take PO. 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 Santana. I spent a total of 30 minutes on the date of service in preparation, delivery, and documentation of the care provided to the patient excluding any time spent in the performance of separately billed services. DENI Allison Department of Cardiology, [facility] This chart was completed in part utilizing Speech Voice Recognition Software. Grammatical errors, random word insertions, pronoun errors, and incomplete sentences are an occasional consequence of this system due to software limitations, ambient noise, and hardware issues. Any formal questions or concerns about the content, text, or information contained within the body of this dictation should be directly addressed to the provider for clarification. Admission and Anticipated Discharge Date Admission Date: October 16, 2023 Supervising Physician Co-Signing Physician Notes Patient was seen and examined personally, chart, medications, telemetry reviewed. Assessment and plan as outlined above. Patient doing well postsurgery out of bed in chair ambulatory in room. NG removed No further atrial fibrillation Plan as above: Once able to take p.o. discontinue IV amiodarone begin amiodarone 200 mg twice per day follow-up cardiology 1 month post discharge Subjective Acutely-ill 78 year old female who presented to [facility] due to abdominal pain. Found to have a ruptured appendix. S/p appendectomy 10/20/2023. Prior telemetry revealing frequent PAT with conversion to atrial fibrillation RVR at approximately 8:30 AM on 10/18/2023. New diagnosis. Rates as high as 180s . Patient self converted to sinus rhythm at on 10/18/2023 at 10:56 AM without conversion pauses Now maintaining NSR with IV amiodarone. EKGs have showed stable QTc. Patient seen and examined. No acute concerns. Sitting up in the chair. NG tube removed, but patient remains NPO. Denies any current complaints. No nausea or vomiting. No chest pain or shortness of breath. No dizziness or lightheadedness. No arrhythmia on telemetry over night Telemetry: SR 70-80s No PAF Labs: Renal function stable. Hypokalemia noted (3.0)-- supplemented this am. Review of Systems Review of Systems: All systems reviewed & are unremarkable except as noted in HPI & below Physical Exam Constitutional: no acute distress Neck: normal visual inspection and trachea midline Respiratory: normal respiratory effort, lungs clear to auscultation Auscultation: no rales, no rhonchi and no wheezes Cardiovascular: Rate/Rhythm: regular rate and regular rhythm Heart Sounds: normal S1 and normal S2 Vessels: no JVD Extremities: no edema Gastrointestinal (Abdomen): Inspection/Auscultation: + hypoactive bowel sounds Percussion/Palpation: abdomen soft; abdomen nontender Skin: no rashes, warm and dry Neurologic: PERRL, EOMI, accommodation nl, no face palsy, no dysarthria Psychiatric: Orientation: alert and oriented x 3 Results & Data Vital Signs (Past 12 Hours) Vital Signs Temp Pulse Resp BP Pulse Ox O2 Del Method O2 Flow Rate 10/22/23 03:44 37.5 C 73 18 159/78 H 95 Nasal Cannula 1 10/21/23 22:26 37.6 C H 71 20 145/65 H 92 Nasal Cannula 1 10/21/23 20:37 36.8 C 83 18 152/70 H 91 Room Air, Nasal Cannula 1 10/21/23 20:00 Nasal Cannula 1 Laboratory Results CBC 10/22/23 Range/Units 05:58 WBC 19.96 H (4.8-10.8) K/ul RBC 3.57 L (4.20-5.40) M/uL Hgb 11.3 L (12.0-16.0) g/dl Hct 33.4 L (37.0-47.0) % Plt Count 334 (130-400) K/uL Neut # (Auto) 14.32 H (1.40-6.50) K/uL Lymph # (Auto) 1.85 (1.20-3.40) K/uL [place] # (Auto) 1.98 H (0.11-0.59) K/uL Eos # (Auto) 0.30 (0.00-0.50) K/uL Baso # (Auto) 0.11 (0.00-0.20) K/uL Comprehensive Metabolic Panel 10/22/23 Range/Units 05:58 Sodium 136 (136-145) mmol/L Potassium 3.0 L (3.5-5.1) mmol/L Chloride 100 (98-107) mmol/L Carbon Dioxide 28 (21-32) mmol/L BUN 22 (6-23) mg/dl Creatinine 0.79 (0.6-1.2) mg/dl Glucose 106 H (70-99(Fasting)) mg/dl Calcium 8.3 L (8.6-10.3) mg/dl Intake and Output 10/21/23 10/22/23 10/22/23 22:59 06:59 14:59 Intake Total 320 / 898.968 278.968 / 898.968 300 / 300 Output Total 350 / 900 125 / 125 Balance -30 / -1.032 278.968 / -1.032 175 / 175 Intake: IV 100 / 678.968 278.968 / 678.968 200 / 200 Amiodarone / D5w 360 mg In 200 178.968 / 378.968 ml @ 0.5 MG/MIN 16.667 mls/hr IV .Q12H [facility] Rx#:[id number] Piperacillin/Tazobactam 4.5 gm 100 / 300 100 / 300 100 / 100 In Dextrose 5% Mini-B 100 ml @ 25 mls/hr IV Q8H [facility] Rx#: [id number] Potassium Chloride / Wtr 10 meq 100 / 100 In 100 ml @ 100 mls/hr IV Q1H [facility] Rx#:[id number] Oral 220 / 220 100 / 100 Output: Urine Amount (Catheter) 200 / 550 Daniel/Indwelling 200 / 550 Drain Output 150 / 350 125 / 125 Lower Abdomen SHANNAN 150 / 350 125 / 125 Other: # Unmeasured Voids 1 Weight 74 kg Weight Measurement Method Built in [facility] (3) HTN (hypertension) Hypertension type: primary hypertension Qualified Code(s): I10 - Essential (primary) hypertension
[2023-10-22 07:51] LABS: Magnesium 1.8 mg/dl (1.7-2.4)
[2023-10-22] MEDS ORDERED: POTASSIUM CHLORIDE / WTR 10 MEQ/100 ML PLCT IV SCH (08:00)
[2023-10-22 08:08] LABS: Basophils # (auto) 0.11 K/uL (0.00-0.20); Basophils % (auto) 0.6 %; Eosinophils % (auto) 1.5 %; Lymphocytes # (auto) 1.85 K/uL (1.20-3.40); Lymphocytes % (auto) 9.3 %; Monocytes # (auto) 1.98 K/uL (0.11-0.59); Monocytes % (auto) 9.9 %; Neutrophils # (auto) 14.32 K/uL (1.40-6.50); Neutrophils % (auto) 71.7 %
--- NOTE | 2023-10-22 08:11 | Surgery Progress Note ---
Date of Service October 22, 2023 Assessment & Plan (1) Perforated appendix: Plan: POD#2 lap appendectomy, lysis of adhesions, washout WBC 19(17), Hbg 11 (11), Cr 0.7 Vitals stable, pt afebrile. On IV zosyn. SHANNAN serosang. Pt reports feeling overall well, pain controlled, no n/v. Awaiting return of bowel function NGT was removed yesterday, she is now on sips/chips. may consider clears possibly later today if continues to feel well Encourage OOB with assistance and pulmonary toilet [facility] covering the wknd Admission and Anticipated Discharge Date Admission Date: October 16, 2023 Supervising Physician Co-Signing Physician Notes I personally saw and evaluate the patient Heather Grewal PA-C and agree with his assessment and plan. 78-year-old female with perforated appendicitis, s/p diagnostic laparoscopy, extensive lysis of adhesions, appendectomy, drainage of intra-abdominal abscess Start clears Trend WBC Continue IVF ABX and abdominal drain Encourage ambulation/IS She is slowly improving Subjective Patient reports feeling well and a bit improved from yesterday. She denies any nausea/vomiting. Reports pain is well controlled. She has voided this AM. No flatus/BM thus far since surgery. Feels hungry. Physical Exam Physical Exam: awake/alert, no distress, sitting in chair Gastrointestinal (Abdomen): Inspection/Auscultation: + abdominal surgical incision (c/d/i with skin glue) and + abdominal surgical drain present (serosang. 125cc documented over last 12 hrs) Percussion/Palpation: abdomen soft; abdomen nontender Results & Data Vital Signs (Past 12 Hours) Vital Signs Temp Pulse Resp BP Pulse Ox O2 Del Method O2 Flow Rate 10/22/23 03:44 37.5 C 73 18 159/78 H 95 Nasal Cannula 1 10/21/23 22:26 37.6 C H 71 20 145/65 H 92 Nasal Cannula 1 10/21/23 20:37 36.8 C 83 18 152/70 H 91 Room Air, Nasal Cannula 1 PG Care Time/CCT Total # of Minutes Spent Total Time Spent with Patient: Total time spent is greater than 50% in coordination of care (as documented) at patient's floor/unit and/or counseling patient: Coding Level of Care Code 59358 Post Operative Follow-Up Diagnoses Perforated appendix K35.32
[2023-10-22] MEDS: ENOXAPARIN INJ 40 MG/0.4 ML SYR SQ SCH (08:13)
[2023-10-22] MEDS: POTASSIUM CHLORIDE / WTR 10 MEQ/100 ML PLCT IV SCH ×4 (08:13→12:40)
[2023-10-22] MEDS: PANTOprazole 40 MG in SYRINGE 0 ML IV SCH ×2 (08:14→21:07)
[2023-10-22] MEDS: FAMOTIDINE 20 MG in SYRINGE 3 ML IV SCH ×2 (09:25→21:09)
[2023-10-22] MEDS: NSS + 20MEQ KCL 20 MEQ/1,000 ML BAG IV SCH ×2 (12:45→22:55)
[2023-10-22] MEDS: AMIODARONE 200 MG TAB PO SCH (14:46)
--- NOTE | 2023-10-22 15:00 | Hospitalist Progress Note ---
Date of Service October 22, 2023 Assessment & Plan (1) Perforated appendix: (2) HTN (hypertension): (3) Abdominal pain: Plan per Dr. Baptiste's notes with addendum: Ms. Rodrigues is an 78 year old female that presented to the ED today with RLQ constant abdominal pain that has been occurring for the past two days rating up to 8/10; currently 5/10 after pain medication. She reports an episode of diarrhea that occurred on Wednesday. Abdomen/Pelvis CT: 1. Perforated acute appendicitis as described above demonstrating a small amount of pneumoperitoneum. No abscess identified at this time. 2. Mild thickening within the distal ileal loops. This is likely reactive. 3. Colonic diverticulosis. No evidence for acute diverticulitis. 4. Cholelithiasis. Other abdominal surgery has included a OTTONIEL; still has her gallbladder and appendix. Perforated Acute Appendicitis: Abdominal pain: SIRS, sepsis Acute Abdomen/Pelvis CT: Perforated acute appendicitis as described above demonstrating a small amount of pneumoperitoneum. No abscess identified at this time. 2. Mild thickening within the distal ileal loops. This is likely reactive. 3. Colonic diverticulosis. No evidence for acute diverticulitis. 4. Cholelithiasis. WBC 27.18 K on admission, fever 38.2 evening of admission + tenderness on exam Zosyn started in ED; continue for empiric coverage lactate 3.8 blood cultures negat. for 48 hrs Continue IVF replete electrolytes as needed Morphine PRN for pain control General Surgery consulted - conservative management w/ IV abx, IVF, npo 10/17 - Pt tachycardic and even now in Afib w/ rvr. WBC increased. Afebrile this AM. No increased abd. pain. Had BM this AM. Surgeon contacted - stat CT abd./pelvis Re-demonstration of appendicitis with free fluid or pneumoperitoneum. There is possible early encapsulation of a fluid collection about the rectum, however no mature abscess is seen. 10/20 Diagnostic laparoscopy,Appendectomy, Extensive Lysis of Adhesions Stable overall Continue IV Zosyn Protonix, famotidine Advance diet per general surgery 10/21 remains stable continue IV ZOsyn Day 6 sip/chips per Gen Surg Afib w/ RVR received iv metoprolol initially, ecg obtained, electrolytes replete, keep K at 4, Mg at 2 Amiodarone gtt started Cardiology consulted and following closely 10/19 currently in sinus rhythm No anticoagulation at this time, alfonso. as poss. needing surgery monitor fluid status 10/21 In sinus rhythm Continue amiodarone drip, transition to PO when oral intake allowed by Gen Surg Acute diastolic (congestive) heart failure, resolved Noted on October 18, 2019 Given IV Lasix Resolved HTN: Takes Amlodipine, Losartan and HCTZ; hold for now to prevent hypotension monitor BP Disposition: PCP: Dr. Melendez Code Status: Full Code VTE Prophylaxis: Teds/SCDs for now, Lovenox/heparin when okay with general surgery Admission and Anticipated Discharge Date Admission Date: October 16, 2023 Results & Data Results & Data Vital Signs (Past 12 Hours) Vital Signs Temp Pulse Pulse Resp BP Pulse Ox O2 Del Method 10/22/23 10:00 75 10/22/23 08:51 Room Air 10/22/23 08:00 37.3 C 75 92 H 139/69 93 Nasal Cannula 10/22/23 03:44 37.5 C 73 18 159/78 H 95 Nasal Cannula O2 Flow Rate 10/22/23 10:00 10/22/23 08:51 10/22/23 08:00 1 10/22/23 03:44 1 (2) HTN (hypertension) Hypertension type: primary hypertension Qualified Code(s): I10 - Essential (primary) hypertension (3) Abdominal pain Abdominal location: unspecified location Qualified Code(s): R10.9 - Unspecified abdominal pain
--- NOTE | 2023-10-22 16:06 | Hospitalist Progress Note ---
Date of Service October 22, 2023 Assessment & Plan (1) Perforated appendix: (2) HTN (hypertension): (3) Abdominal pain: Plan per Dr. Baptiste's notes with addendum: Ms. Rodrigues is an 78 year old female that presented to the ED today with RLQ constant abdominal pain that has been occurring for the past two days rating up to 8/10; currently 5/10 after pain medication. She reports an episode of diarrhea that occurred on Wednesday. Abdomen/Pelvis CT: 1. Perforated acute appendicitis as described above demonstrating a small amount of pneumoperitoneum. No abscess identified at this time. 2. Mild thickening within the distal ileal loops. This is likely reactive. 3. Colonic diverticulosis. No evidence for acute diverticulitis. 4. Cholelithiasis. Other abdominal surgery has included a OTTONIEL; still has her gallbladder and appendix. Perforated Acute Appendicitis: Abdominal pain: SIRS, sepsis Acute Abdomen/Pelvis CT: Perforated acute appendicitis as described above demonstrating a small amount of pneumoperitoneum. No abscess identified at this time. 2. Mild thickening within the distal ileal loops. This is likely reactive. 3. Colonic diverticulosis. No evidence for acute diverticulitis. 4. Cholelithiasis. WBC 27.18 K on admission, fever 38.2 evening of admission + tenderness on exam Zosyn started in ED; continue for empiric coverage lactate 3.8 blood cultures negat. for 48 hrs Continue IVF replete electrolytes as needed Morphine PRN for pain control General Surgery consulted - conservative management w/ IV abx, IVF, npo 10/17 - Pt tachycardic and even now in Afib w/ rvr. WBC increased. Afebrile this AM. No increased abd. pain. Had BM this AM. Surgeon contacted - stat CT abd./pelvis Re-demonstration of appendicitis with free fluid or pneumoperitoneum. There is possible early encapsulation of a fluid collection about the rectum, however no mature abscess is seen. 10/20 Diagnostic laparoscopy,Appendectomy, Extensive Lysis of Adhesions Stable overall Continue IV Zosyn Protonix, famotidine Advance diet per general surgery 10/21 remains stable continue IV ZOsyn Day 6 sip/chips per Gen Surg 10/22 stable overall continue IV Zosyn Day 7 continue above abx while admitted after discussion with ID Afib w/ RVR received iv metoprolol initially, ecg obtained, electrolytes replete, keep K at 4, Mg at 2 Amiodarone gtt started Cardiology consulted and following closely 10/19 currently in sinus rhythm No anticoagulation at this time, alfonso. as poss. needing surgery monitor fluid status 10/21 In sinus rhythm Continue amiodarone drip, transition to PO when oral intake allowed by Gen Surg 10/22 transitioned to PO Amiodarone Acute diastolic (congestive) heart failure, resolved Noted on October 18, 2019 Given IV Lasix Resolved HTN: Takes Amlodipine, Losartan and HCTZ; hold for now to prevent hypotension monitor BP Disposition: PCP: Dr. Melendez Code Status: Full Code VTE Prophylaxis: Teds/SCDs for now, Lovenox/heparin when okay with general surgery Admission and Anticipated Discharge Date Admission Date: October 16, 2023 Subjective ff up for perforated appendicitis, etc seen resting in bed, comfortable states she feels fine overall no abdominal pain tolerating clears well no chest pain, dyspnea, palpitations, dizziness no other new symptoms Review of Systems Review of Systems: all noted and negative except for above Physical Exam Physical Exam: General- oriented x 3, not in distress, speaks in sentences with no effort or accessory muscle use Eyes- anicteric Neck- no JVD Lungs- clear breath sounds bilaterally, no crackles/wheezing Heart- normal rate, regular rhythm; no murmurs Abdomen- normal bowel sounds, nondistended, soft, no tenderness Extremities- no pretibial edema, no calf tenderness Neuro- alert, oriented x 3; no gross focal neurologic deficits Skin- warm & dry Results & Data Results & Data Vital Signs (Past 12 Hours) Vital Signs Temp Pulse Pulse Resp BP Pulse Ox O2 Del Method 10/22/23 12:30 36.8 C 82 18 141/79 H 94 Nasal Cannula 10/22/23 10:00 75 10/22/23 08:51 Room Air 10/22/23 08:00 37.3 C 75 18 139/69 93 Nasal Cannula O2 Flow Rate 10/22/23 12:30 1 10/22/23 10:00 10/22/23 08:51 10/22/23 08:00 1 all noted and reviewed including below (2) HTN (hypertension) Hypertension type: primary hypertension Qualified Code(s): I10 - Essential (primary) hypertension (3) Abdominal pain Abdominal location: unspecified location Qualified Code(s): R10.9 - Unspecified abdominal pain
--- NOTE | 2023-10-23 06:32 | Cardiology Progress Note ---
Date of Service October 23, 2023 Assessment & Plan (1) Atrial fibrillation with RVR: Plan: Paroxysmal (2) Perforated appendix: (3) HTN (hypertension): Plan IMPRESSION: Acutely-ill 78 year old female who presented to [facility] due to abdominal pain. Found to have a ruptured appendix. S/p appendectomy 10/20/2023. Prior telemetry revealing frequent PAT with conversion to atrial fibrillation RVR at approximately 8:30 AM on 10/18/2023. New diagnosis. Rates as high as 180s . Patient self converted to sinus rhythm at on 10/18/2023 at 10:56 AM without conversion pauses. Maintaining NSR on tele without evidence of atrial arrhythmias. PLAN: 1. Paroxysmal atrial fibrillation with rapid ventricular response: Maintaining sinus rhythm with amiodarone, transitioned to oral on 10/22/2023. -EKG this morning showing sinus rhythm with a first-degree AV block, 80 bpm with a QTc of 477 ms, stable. Continue amiodarone 200 mg twice daily at discharge. Likely treat for 30 days as episode appears to be precipitated by acute illness. -No anticoagulation recommended at this time, Will plan on an outpatient ZIO monitor to assess for any recurrent PAF. Should A-fib be seen low threshold to initiate anticoagulation at that time. -Hypokalemia improved on today's blood work, 3.7 recommended goal of 4.0. Will give 40 mill equivalents of KCl this morning and start her on 20 mill equivalents daily tomorrow. As her appetite improves and she takes an more oral food hypokalemia issues may resolve. 2. Hypertension: Ongoing mild hypertension. -Restart losartan 25 mg daily, previously was on 100 mg daily at home. Titrate as appropriate. 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 Peralta. I spent a total of 30 minutes on the date of service in preparation, delivery, and documentation of the care provided to the patient excluding any time spent in the performance of separately billed services. DENI Allison Department of Cardiology, [facility] This chart was completed in part utilizing Speech Voice Recognition Software. Grammatical errors, random word insertions, pronoun errors, and incomplete sentences are an occasional consequence of this system due to software limitations, ambient noise, and hardware issues. Any formal questions or concerns about the content, text, or information contained within the body of this dictation should be directly addressed to the provider for clarification. Admission and Anticipated Discharge Date Admission Date: October 16, 2023 Supervising Physician Co-Signing Physician Notes Attending attestation: I have reviewed the advanced practitioner's documentation, and agree with, and take responsibility for the plan of care. Subjective: Patient much improved compared to when I had examined her earlier in the week. SR in the 70s to 80s present. Nausea noted per nursing. Exam: CV: regular rhythm, no murmurs, no edema Data: EKG performed 10/13/23: SR at 80 bpm , QTc 477 ms. Impression/ Plan: Episode of pAF in the setting of sepsis HTN -oral medications held this am due to nausea. Nursing is reaching out to general surgery for input before administering. Pt on liquid diet. Resume oral amiodarone and losartan when she tolerates. If necessary, can administer IV metoprolol for BP and heart rate in the interim. Outpt follow up to be arrnaged. I spent a total of 20 minutes coordinating, documenting, and providing care for this patient excluding time spent in the performance of separately billed services or time spent by another provider. William Peralta, DO Subjective 78 year old female who presented to [facility] due to abdominal pain. Found to have a ruptured appendix. S/p appendectomy 10/20/2023. Prior telemetry revealing frequent PAT with conversion to atrial fibrillation RVR at approximately 8:30 AM on 10/18/2023. New diagnosis. Rates as high as 180s . Patient self converted to sinus rhythm at on 10/18/2023 at 10:56 AM without conversion pauses Now maintaining NSR with IV amiodarone. Transitioned to PO 200 mg BID 10/22/2023. EKGs have showed stable QTc. Patient seen and examined. No acute concerns. Asleep in bed. Woke easily. No longer NPO- tolerated oral amio yesterday. Denies any current complaints. No nausea or vomiting. No chest pain or shortness of breath. No dizziness or lightheadedness. +gas, low appetite. No arrhythmia on telemetry over night Telemetry: SR 70-80s No PAF EKG 10/23: Normal sinus rhythm, 80 bpm, QTc 477 ms Labs: Renal function stable. Potassium 3.7 BP Hypertensive. Review of Systems Review of Systems: All systems reviewed & are unremarkable except as noted in HPI & below Physical Exam Constitutional: no acute distress Neck: normal visual inspection and trachea midline Respiratory: normal respiratory effort, lungs clear to auscultation Auscultation: no rales, no rhonchi and no wheezes Cardiovascular: Rate/Rhythm: regular rate and regular rhythm Heart Sounds: normal S1 and normal S2 Vessels: no JVD Extremities: no edema Gastrointestinal (Abdomen): Inspection/Auscultation: + hypoactive bowel sounds Percussion/Palpation: abdomen soft; abdomen nontender Skin: no rashes, warm and dry Neurologic: PERRL, EOMI, accommodation nl, no face palsy, no dysarthria Psychiatric: Orientation: alert and oriented x 3 Results & Data Vital Signs (Past 12 Hours) Vital Signs Temp Pulse Pulse Resp BP BP Pulse Ox 10/23/23 04:00 76 10/23/23 03:34 36.8 C 84 16 161/72 H 93 10/22/23 23:19 36.9 C 84 20 158/76 H 92 10/22/23 20:00 36.8 C 83 20 164/76 H 93 O2 Del Method 10/23/23 04:00 10/23/23 03:34 Room Air 10/22/23 23:19 Room Air 10/22/23 20:00 Room Air Laboratory Results CBC 10/22/23 10/23/23 Range/Units 05:58 06:30 WBC 20.19 H (4.8-10.8) K/ul RBC 3.42 L (4.20-5.40) M/uL Hgb 11.1 L (12.0-16.0) g/dl Hct 31.6 L (37.0-47.0) % Plt Count 384 (130-400) K/uL Neut # (Auto) 14.32 H (1.40-6.50) K/uL Lymph # (Auto) 1.85 (1.20-3.40) K/uL [place] # (Auto) 1.98 H (0.11-0.59) K/uL Eos # (Auto) 0.30 (0.00-0.50) K/uL Baso # (Auto) 0.11 (0.00-0.20) K/uL Intake and Output 10/22/23 10/23/2324 22:59 06:59 14:59 Intake Total 1340 / 2430 50 / 2430 Output Total 375 / 1070 420 / 1070 Balance 965 / 1360 -370 / 1360 Intake: IV 1100 / 1800 Nss + 20Meq KCl 20 meq In 1,000 1000 / 1000 ml @ 100 mls/hr IV .Q10H [facility] Rx#:[id number] Piperacillin/Tazobactam 4.5 gm 100 / 200 In Dextrose 5% Mini-B 100 ml @ 25 mls/hr IV Q8H [facility] Rx#: [id number] Oral 240 / 630 50 / 630 Output: Urine 300 / 500 200 / 500 Drain Output 75 / 570 220 / 570 Lower Abdomen SHANNAN 75 / 570 220 / 570 Other: Other Intake Source SIPS Weight 73.2 kg Weight Measurement Method Built in [facility] (3) HTN (hypertension) Hypertension type: primary hypertension Qualified Code(s): I10 - Essential (primary) hypertension
[2023-10-23 07:04] LABS: Hematocrit (blood only) 31.6 % (37.0-47.0); Hemoglobin 11.1 g/dl (12.0-16.0); Mean Corpuscular Hemoglobin 32.5 pg (25.0-34.0); Mean Corpuscular Hgb Conc 35.1 g/dL (32.0-36.0); Mean Corpuscular Volume 92.4 fL (80.0-100.0); Mean Platelet Volume 9.3 fL (9.4-12.4); Platelet Count 384 K/uL (130-400); RDW Coefficient of Variation 12.8 % (11.5-14.5); RDW Standard Deviation 43.3 fL (36.4-46.3); Red Blood Count 3.42 M/uL (4.20-5.40); White Blood Count 20.19 K/ul (4.8-10.8)
[2023-10-23 07:34] LABS: BUN Creatinine Ratio 27.1 (10-20); Calcium 8.1 mg/dl (8.6-10.3); Creatinine Clr Calc Pharmacy 57.3 ml/min; Est GFR (African American) 94.8 ml/min; Est GFR (Non-African American) 81.8 ml/min; Magnesium 1.8 mg/dl (1.7-2.4); Potassium 3.7 mmol/L (3.5-5.1)
[2023-10-23] MEDS ORDERED: POTASSIUM CHLORIDE CRTAB 20 MEQ TABCR PO STA (07:54)
[2023-10-23 07:59] LABS: Basophils # (auto) 0.12 K/uL (0.00-0.20); Basophils % (auto) 0.6 %; Eosinophils # (auto) 0.26 K/uL (0.00-0.50); Eosinophils % (auto) 1.3 %; Immature Granulocytes # (auto) 1.46 K/uL (0.01-0.20); Immature Granulocytes % (auto) 7.2 %; Lymphocytes # (auto) 1.84 K/uL (1.20-3.40); Lymphocytes % (auto) 9.1 %; Monocytes # (auto) 1.46 K/uL (0.11-0.59); Monocytes % (auto) 7.2 %; Neutrophils # (auto) 15.05 K/uL (1.40-6.50); Neutrophils % (auto) 74.6 %; Polychromasia 1+
[2023-10-23] MEDS: ONDANSETRON INJ 2 MG/ML 2 ML VIAL IV PRN (08:01)
[2023-10-23] MEDS: FAMOTIDINE 20 MG in SYRINGE 3 ML IV SCH ×2 (08:01→22:20)
[2023-10-23] MEDS: PANTOprazole 40 MG in SYRINGE 0 ML IV SCH ×2 (08:01→22:17)
[2023-10-23] MEDS ORDERED: PIPER/TAZO 4.5g in D5W MINI-B 100 ML IV ONE (08:45)
[2023-10-23] MEDS ORDERED: LOSARTAN POTASSIUM 25 MG TAB PO SCH (09:00)
[2023-10-23] MEDS: NSS + 20MEQ KCL 20 MEQ/1,000 ML BAG IV SCH ×2 (09:39→22:18)
[2023-10-23] MEDS: ENOXAPARIN INJ 40 MG/0.4 ML SYR SQ SCH (09:40)
[2023-10-23] MEDS: AMIODARONE 200 MG TAB PO SCH (10:05)
--- NOTE | 2023-10-23 10:24 | Electrocardiogram Report ---
Test Reason : Blood Pressure : / mmHG Vent. Rate : 080 BPM Atrial Rate : 080 BPM P-R Int : 148 ms QRS Dur : 072 ms QT Int : 414 ms P-R-T Axes : 047 017 078 degrees QTc Int : 477 ms Normal sinus rhythm Low voltage QRS Nonspecific T wave abnormality Abnormal ECG When compared with ECG of 21-OCT-2023 09:37, No significant change was found Confirmed by Washington Pineda ([id number]) on 10/23/2023 10:24:37 AM Referred By: REFERRED SELF Confirmed By:Washington Pineda
--- NOTE | 2023-10-23 13:08 | XRay Report ---
XR KUB/Abdomen 1 view CLINICAL HISTORY: s/p appendectomy, r/o ileus, obstruction TECHNIQUE: 1 view of the abdomen was obtained. Comparison: Comparison is made to CT abdomen pelvis 10/18/2023 FINDINGS: Lung bases are unremarkable. Degenerative changes are seen in the visualized skeleton. Multiple dilat ed loops of small bowel measure up to 50 mm. A moderate amount of stool is noted within the large bow el. IMPRESSION: Dilated loops of small bowel compatible with small bowel obstruction or ileus. ACT 112: Negative or not required by law. Electronically signed by: Alexy Ndiaye M.D. 10/23/2023 1:07 PM
--- NOTE | 2023-10-23 13:15 | Surgery Progress Note ---
Date of Service October 23, 2023 Assessment & Plan (1) Perforated appendix: Plan: POD#3 lap appendectomy, lysis of adhesions, washout WBC 20(19) Vitals stable, pt afebrile. On IV zosyn. SHANNAN serosang. still awaiting return of bowel function back to sips/chips due to nausea Encourage OOB with assistance and pulmonary toilet Admission and Anticipated Discharge Date Admission Date: October 16, 2023 Subjective More bloating this morning. Did have an episode of emesis. Denies flatus. Physical Exam Gastrointestinal (Abdomen): Inspection/Auscultation: + abdominal surgical incision (c/d/i with skin glue) and + abdominal surgical drain present (serosang. 125cc documented over last 12 hrs) Percussion/Palpation: abdomen soft; abdomen nontender Results & Data Vital Signs (Past 12 Hours) Vital Signs Temp Pulse Pulse Resp BP BP Pulse Ox 10/23/23 12:27 36.8 C 81 19 155/70 H 95 10/23/23 10:00 77 10/23/23 08:34 36.8 C 89 18 152/77 H 92 10/23/23 08:30 10/23/23 04:00 76 10/23/23 03:34 36.8 C 84 16 161/72 H 93 O2 Del Method 10/23/23 12:27 Room Air 10/23/23 10:00 10/23/23 08:34 Room Air 10/23/23 08:30 Room Air 10/23/23 04:00 10/23/23 03:34 Room Air
[2023-10-23] MEDS ORDERED: METOPROLOL TARTRATE 1 MG/ML VIAL IV STA (14:43)
[2023-10-23] MEDS: PIPERACILLIN/TAZOBACTAM 4.5 GM in DEXTROSE 5% MINI-B 100 ML IV SCH (15:28)
[2023-10-23] MEDS ORDERED: Nursing to Pharmacy Communication SCH (16:15)
--- NOTE | 2023-10-23 16:40 | Hospitalist Progress Note ---
Date of Service October 23, 2023 Assessment & Plan (1) Perforated appendix: (2) HTN (hypertension): (3) Abdominal pain: Plan per Dr. Baptiste's notes with addendum: Ms. Rodrigues is an 78 year old female that presented to the ED today with RLQ constant abdominal pain that has been occurring for the past two days rating up to 8/10; currently 5/10 after pain medication. She reports an episode of diarrhea that occurred on Wednesday. Abdomen/Pelvis CT: 1. Perforated acute appendicitis as described above demonstrating a small amount of pneumoperitoneum. No abscess identified at this time. 2. Mild thickening within the distal ileal loops. This is likely reactive. 3. Colonic diverticulosis. No evidence for acute diverticulitis. 4. Cholelithiasis. Other abdominal surgery has included a OTTONIEL; still has her gallbladder and appendix. Perforated Acute Appendicitis: Abdominal pain: SIRS, sepsis Acute Abdomen/Pelvis CT: Perforated acute appendicitis as described above demonstrating a small amount of pneumoperitoneum. No abscess identified at this time. 2. Mild thickening within the distal ileal loops. This is likely reactive. 3. Colonic diverticulosis. No evidence for acute diverticulitis. 4. Cholelithiasis. WBC 27.18 K on admission, fever 38.2 evening of admission + tenderness on exam Zosyn started in ED; continue for empiric coverage lactate 3.8 blood cultures negat. for 48 hrs Continue IVF replete electrolytes as needed Morphine PRN for pain control General Surgery consulted - conservative management w/ IV abx, IVF, npo 10/17 - Pt tachycardic and even now in Afib w/ rvr. WBC increased. Afebrile this AM. No increased abd. pain. Had BM this AM. Surgeon contacted - stat CT abd./pelvis Re-demonstration of appendicitis with free fluid or pneumoperitoneum. There is possible early encapsulation of a fluid collection about the rectum, however no mature abscess is seen. 10/20 Diagnostic laparoscopy,Appendectomy, Extensive Lysis of Adhesions Stable overall Continue IV Zosyn Protonix, famotidine Advance diet per general surgery 10/21 remains stable continue IV ZOsyn Day 6 sip/chips per Gen Surg 10/22 stable overall continue IV Zosyn Day 7 continue above abx while admitted after discussion with ID 10/23 KUB: Ileus versus small bowel obstruction N.p.o. for now IV fluids Continue IV Zosyn Monitor closely Afib w/ RVR received iv metoprolol initially, ecg obtained, electrolytes replete, keep K at 4, Mg at 2 Amiodarone gtt started Cardiology consulted and following closely 10/19 currently in sinus rhythm No anticoagulation at this time, alfonso. as poss. needing surgery monitor fluid status 10/21 In sinus rhythm Continue amiodarone drip, transition to PO when oral intake allowed by Gen Surg 10/22 transitioned to PO Amiodarone 10/23 N.p.o. at this time Amiodarone, losartan on hold IV metoprolol 2.5 mg every 6 hours for now Acute diastolic (congestive) heart failure, resolved Noted on October 18, 2019 Given IV Lasix Resolved HTN: Takes Amlodipine, Losartan and HCTZ; hold for now to prevent hypotension monitor BP Disposition: PCP: Dr. Melendez Code Status: Full Code VTE Prophylaxis: On Lovenox 40 mg subcu daily Admission and Anticipated Discharge Date Admission Date: October 16, 2023 Subjective ff up for acute appendicitis, etc seen resting in bedside chair, comfortable not in distress states she had nausea earlier No abdominal pain No fevers or chills No other new symptoms Review of Systems Review of Systems: all noted and negative except for above Physical Exam Physical Exam: General- oriented x 3, not in distress, speaks in sentences with no effort or accessory muscle use Eyes- anicteric Neck- no JVD Lungs- clear breath sounds bilaterally, no rales/wheezes Heart- normal rate, regular rhythm; no murmurs Abdomen-hypoactive bowel sounds, nondistended, dressing in place, no bleeding or discharge Extremities- no pretibial edema, no calf tenderness Neuro- alert, oriented x 3; no gross focal neurologic deficits Skin- warm & dry Results & Data Results & Data Vital Signs (Past 12 Hours) Vital Signs Temp Pulse Pulse Resp BP Pulse Ox O2 Del Method 10/23/23 15:42 73 10/23/23 12:27 36.8 C 81 19 155/70 H 95 Room Air 10/23/23 10:00 77 10/23/23 08:34 36.8 C 89 18 152/77 H 92 Room Air 10/23/23 08:30 Room Air all noted and reviewed including below (2) HTN (hypertension) Hypertension type: primary hypertension Qualified Code(s): I10 - Essential (primary) hypertension (3) Abdominal pain Abdominal location: unspecified location Qualified Code(s): R10.9 - Unspecified abdominal pain
[2023-10-23] MEDS ORDERED: METOPROLOL TARTRATE 1 MG/ML VIAL IV SCH (18:00)
[2023-10-23] MEDS: METOPROLOL TARTRATE 1 MG/ML VIAL IV SCH (22:20)
[2023-10-24] MEDS: PIPERACILLIN/TAZOBACTAM 4.5 GM in DEXTROSE 5% MINI-B 100 ML IV SCH ×3 (00:26→16:21)
[2023-10-24] MEDS: METOPROLOL TARTRATE 1 MG/ML VIAL IV SCH ×4 (03:23→20:24)
[2023-10-24 07:19] LABS: Hematocrit (blood only) 30.2 % (37.0-47.0); Hemoglobin 10.1 g/dl (12.0-16.0); Mean Corpuscular Hgb Conc 33.4 g/dL (32.0-36.0); Mean Corpuscular Volume 95.6 fL (80.0-100.0); Mean Platelet Volume 9.3 fL (9.4-12.4); Platelet Count 403 K/uL (130-400); RDW Coefficient of Variation 13.1 % (11.5-14.5); RDW Standard Deviation 45.6 fL (36.4-46.3); Red Blood Count 3.16 M/uL (4.20-5.40); White Blood Count 18.32 K/ul (4.8-10.8)
[2023-10-24 07:48] LABS: BUN Creatinine Ratio 23.9 (10-20); Calcium 7.8 mg/dl (8.6-10.3); Creatinine Clr Calc Pharmacy 56.5 ml/min; Est GFR (African American) 93.2 ml/min; Est GFR (Non-African American) 80.4 ml/min
[2023-10-24 08:02] LABS: Basophils # (auto) 0.08 K/uL (0.00-0.20); Basophils % (auto) 0.4 %; Eosinophils # (auto) 0.43 K/uL (0.00-0.50); Eosinophils % (auto) 2.3 %; Immature Granulocytes % (auto) 5.5 %; Lymphocytes # (auto) 1.51 K/uL (1.20-3.40); Lymphocytes % (auto) 8.2 %; Monocytes # (auto) 1.06 K/uL (0.11-0.59); Monocytes % (auto) 5.8 %; Neutrophils # (auto) 14.24 K/uL (1.40-6.50); Neutrophils % (auto) 77.8 %
[2023-10-24] MEDS: FAMOTIDINE 20 MG in SYRINGE 3 ML IV SCH ×2 (08:21→20:24)
[2023-10-24] MEDS: PANTOprazole 40 MG in SYRINGE 0 ML IV SCH ×2 (08:21→20:24)
[2023-10-24] MEDS: ENOXAPARIN INJ 40 MG/0.4 ML SYR SQ SCH (08:22)
[2023-10-24] MEDS ORDERED: POTASSIUM CHLORIDE CRTAB 20 MEQ TABCR PO SCH (09:00)
--- NOTE | 2023-10-24 10:06 | Electrocardiogram Report ---
Test Reason : Blood Pressure : / mmHG Vent. Rate : 072 BPM Atrial Rate : 072 BPM P-R Int : 150 ms QRS Dur : 074 ms QT Int : 438 ms P-R-T Axes : 036 012 047 degrees QTc Int : 479 ms Normal sinus rhythm Low voltage QRS Borderline ECG When compared with ECG of 23-OCT-2023 05:21, No significant change was found Confirmed by Washington Pineda ([id number]) on 10/24/2023 10:06:26 AM Referred By: REFERRED SELF Confirmed By:Washington Pineda
[2023-10-24] MEDS: NSS + 20MEQ KCL 20 MEQ/1,000 ML BAG IV SCH (11:54)
--- NOTE | 2023-10-24 12:13 | Cardiology Progress Note ---
Date of Service October 24, 2023 Assessment & Plan (1) Atrial fibrillation with RVR: Plan: Paroxysmal (2) Perforated appendix: (3) HTN (hypertension): Plan IMPRESSION: Acutely-ill 78 year old female who presented to [facility] due to abdominal pain. Found to have a ruptured appendix. S/p appendectomy 10/20/2023. Prior telemetry revealing frequent PAT with conversion to atrial fibrillation RVR at approximately 8:30 AM on 10/18/2023. New diagnosis. Rates as high as 180s . Patient self converted to sinus rhythm at on 10/18/2023 at 10:56 AM without conversion pauses. Maintaining NSR on tele without evidence of atrial arrhythmias. PLAN: Given n.p.o. status, continue IV metoprolol. Dose increased to 5 mg IV every 6 hours. Would recommend cutting back or discontinuing supplemental IV fluids. She currently has normal saline with 20 mill equivalents potassium chloride infusing at 100 mL/h. Previously during this hospital stay she had been on supplemental fluids at 150 mL an hour plus IV antibiotics and became volume overloaded. Oral losartan and amiodarone on hold. Continue Lovenox 40 mg subcu daily for DVT prophylaxis. This chart was completed in part utilizing Speech Voice Recognition Software. Grammatical errors, random word insertions, pronoun errors, and incomplete sentences are an occasional consequence of this system due to software limitations, ambient noise, and hardware issues. Any formal questions or concerns about the content, text, or information contained within the body of this dictation should be directly addressed to the provider for clarification. Admission and Anticipated Discharge Date Admission Date: October 16, 2023 Subjective Patient seen in cardiology follow-up. Bowel rest was initiated yesterday due to concerns of an ileus noted clinically and by KUB x-ray. She was actually performing exercises with her upper arms standing in her room when I walked in today. She states that she had a small bowel movement but does not feel that she has passed any gas. Telemetry reveals sinus rhythm in the 80s to 90s. Physical Exam Constitutional: + ill appearing; no acute distress Neck: normal visual inspection and trachea midline Respiratory: normal respiratory effort, lungs clear to auscultation Auscultation: no rales, no rhonchi and no wheezes Cardiovascular: Rate/Rhythm: regular rate, regular rhythm, + tachycardic and + irregularly irregular Heart Sounds: normal S1 and normal S2 Vessels: no JVD Extremities: no edema Gastrointestinal (Abdomen): Inspection/Auscultation: + hypoactive bowel sounds Percussion/Palpation: abdomen soft; abdomen nontender Skin: no rashes, warm and dry Neurologic: PERRL, EOMI, accommodation nl, no face palsy, no dysarthria Psychiatric: Orientation: alert and oriented x 3 Results & Data Vital Signs (Past 12 Hours) Vital Signs Temp Pulse Pulse Resp BP BP Pulse Ox 10/24/23 12:05 36.3 C L 77 19 156/72 H 95 10/24/23 08:43 83 10/24/23 08:28 76 10/24/23 08:10 36.5 C 76 19 148/68 H 94 10/24/23 07:00 71 10/24/23 04:20 36.8 C 71 16 142/69 H 94 10/24/23 03:38 69 146/65 H 10/24/23 03:23 73 139/82 10/24/23 03:00 69 O2 Del Method 10/24/23 12:05 Room Air 10/24/23 08:43 10/24/23 08:28 10/24/23 08:10 Room Air 10/24/23 07:00 10/24/23 04:20 Room Air 10/24/23 03:38 10/24/23 03:23 10/24/23 03:00 Laboratory Results CBC 10/24/23 Range/Units 06:52 WBC 18.32 H (4.8-10.8) K/ul RBC 3.16 L (4.20-5.40) M/uL Hgb 10.1 L (12.0-16.0) g/dl Hct 30.2 L (37.0-47.0) % Plt Count 403 H (130-400) K/uL Neut # (Auto) 14.24 H (1.40-6.50) K/uL Lymph # (Auto) 1.51 (1.20-3.40) K/uL [place] # (Auto) 1.06 H (0.11-0.59) K/uL Eos # (Auto) 0.43 (0.00-0.50) K/uL Baso # (Auto) 0.08 (0.00-0.20) K/uL Comprehensive Metabolic Panel 10/24/23 Range/Units 06:52 Sodium 136 (136-145) mmol/L Potassium 4.0 (3.5-5.1) mmol/L Chloride 108 H (98-107) mmol/L Carbon Dioxide 22 (21-32) mmol/L BUN 17 (6-23) mg/dl Creatinine 0.71 (0.6-1.2) mg/dl Glucose 85 (70-99(Fasting)) mg/dl Calcium 7.8 L (8.6-10.3) mg/dl (3) HTN (hypertension) Hypertension type: primary hypertension Qualified Code(s): I10 - Essential (primary) hypertension
--- NOTE | 2023-10-24 13:16 | Hospitalist Progress Note ---
Date of Service October 24, 2023 Assessment & Plan (1) Perforated appendix: (2) HTN (hypertension): (3) Abdominal pain: Plan per Dr. Baptiste's notes with addendum: Ms. Rodrigues is an 78 year old female that presented to the ED today with RLQ constant abdominal pain that has been occurring for the past two days rating up to 8/10; currently 5/10 after pain medication. She reports an episode of diarrhea that occurred on Wednesday. Abdomen/Pelvis CT: 1. Perforated acute appendicitis as described above demonstrating a small amount of pneumoperitoneum. No abscess identified at this time. 2. Mild thickening within the distal ileal loops. This is likely reactive. 3. Colonic diverticulosis. No evidence for acute diverticulitis. 4. Cholelithiasis. Other abdominal surgery has included a OTTONIEL; still has her gallbladder and appendix. Perforated Acute Appendicitis: Abdominal pain: SIRS, sepsis Acute Abdomen/Pelvis CT: Perforated acute appendicitis as described above demonstrating a small amount of pneumoperitoneum. No abscess identified at this time. 2. Mild thickening within the distal ileal loops. This is likely reactive. 3. Colonic diverticulosis. No evidence for acute diverticulitis. 4. Cholelithiasis. WBC 27.18 K on admission, fever 38.2 evening of admission + tenderness on exam Zosyn started in ED; continue for empiric coverage lactate 3.8 blood cultures negat. for 48 hrs Continue IVF replete electrolytes as needed Morphine PRN for pain control General Surgery consulted - conservative management w/ IV abx, IVF, npo 10/17 - Pt tachycardic and even now in Afib w/ rvr. WBC increased. Afebrile this AM. No increased abd. pain. Had BM this AM. Surgeon contacted - stat CT abd./pelvis Re-demonstration of appendicitis with free fluid or pneumoperitoneum. There is possible early encapsulation of a fluid collection about the rectum, however no mature abscess is seen. 10/20 Diagnostic laparoscopy,Appendectomy, Extensive Lysis of Adhesions Stable overall Continue IV Zosyn Protonix, famotidine Advance diet per general surgery 10/21 remains stable continue IV ZOsyn Day 6 sip/chips per Gen Surg 10/22 stable overall continue IV Zosyn Day 7 continue above abx while admitted after discussion with ID 10/23 KUB: Ileus versus small bowel obstruction N.p.o. for now IV fluids Continue IV Zosyn Monitor closely 10/24 Clear liquids diet started today Continue IV Zosyn day 7 out of 10 Monitor closely Afib w/ RVR received iv metoprolol initially, ecg obtained, electrolytes replete, keep K at 4, Mg at 2 Amiodarone gtt started Cardiology consulted and following closely 10/19 currently in sinus rhythm No anticoagulation at this time, alfonso. as poss. needing surgery monitor fluid status 10/21 In sinus rhythm Continue amiodarone drip, transition to PO when oral intake allowed by Gen Surg 10/22 transitioned to PO Amiodarone 10/23 N.p.o. at this time Amiodarone, losartan on hold IV metoprolol 2.5 mg every 6 hours for now 10/24 Increase IV metoprolol 5 mg every 6 hours Amiodarone, losartan on hold Acute diastolic (congestive) heart failure, resolved Noted on October 18, 2019 Given IV Lasix Resolved HTN: Takes Amlodipine, Losartan and HCTZ; hold for now to prevent hypotension monitor BP Disposition: PCP: Dr. Melendez Code Status: Full Code VTE Prophylaxis: On Lovenox 40 mg subcu daily Admission and Anticipated Discharge Date Admission Date: October 16, 2023 Subjective Follow-up status post surgery, perforated appendicitis, etc. Seen resting in bedside chair, comfortable -Clear liquid diet for lunch States she feels improved today No abdominal pain Positive BM this morning Tolerating clear liquid diet so far no chest pain, dyspnea, palpitations, dizziness No fevers or chills No other new symptom Review of Systems Review of Systems: all noted and negative except for above Physical Exam Physical Exam: General- oriented x 3, not in distress, speaks in sentences with no effort or accessory muscle use Eyes- anicteric Neck- no JVD Lungs- clear breath sounds bilaterally, no rales or Heart- normal rate, regular rhythm; no murmurs Abdomen- normal bowel sounds, nondistended, soft, no tenderness Extremities- no pretibial edema, no calf tenderness Neuro- alert, oriented x 3; no gross focal neurologic deficits Skin- warm & dry Results & Data Results & Data Vital Signs (Past 12 Hours) Vital Signs Temp Pulse Pulse Resp BP BP Pulse Ox 10/24/23 12:05 36.3 C L 77 19 156/72 H 95 10/24/23 08:43 83 10/24/23 08:28 76 10/24/23 08:10 36.5 C 76 19 148/68 H 94 10/24/23 07:00 71 10/24/23 04:20 36.8 C 71 16 142/69 H 94 10/24/23 03:38 69 146/65 H 10/24/23 03:23 73 139/82 10/24/23 03:00 69 O2 Del Method 10/24/23 12:05 Room Air 10/24/23 08:43 10/24/23 08:28 10/24/23 08:10 Room Air 10/24/23 07:00 10/24/23 04:20 Room Air 10/24/23 03:38 10/24/23 03:23 10/24/23 03:00 all noted and reviewed including below (2) HTN (hypertension) Hypertension type: primary hypertension Qualified Code(s): I10 - Essential (primary) hypertension (3) Abdominal pain Abdominal location: unspecified location Qualified Code(s): R10.9 - Unspecified abdominal pain
--- NOTE | 2023-10-24 13:38 | Surgery Progress Note ---
Date of Service October 24, 2023 Assessment & Plan (1) Perforated appendix: Plan: POD#4 lap appendectomy, lysis of adhesions, washout WBC 18(20) Vitals stable, pt afebrile. On IV zosyn. SHANNAN serosang. Positive BM, readvance diet to clears Encourage OOB with assistance and pulmonary toilet Admission and Anticipated Discharge Date Admission Date: October 16, 2023 Subjective Feeling somewhat better this morning. She did have a bowel movement. No nausea or vomiting. Still slightly bloated. Physical Exam Gastrointestinal (Abdomen): Inspection/Auscultation: + abdominal surgical incision (c/d/i with skin glue) and + abdominal surgical drain present (serosang. 125cc documented over last 12 hrs) Percussion/Palpation: abdomen soft; abdomen nontender Results & Data Vital Signs (Past 12 Hours) Vital Signs Temp Pulse Pulse Resp BP BP Pulse Ox 10/24/23 12:05 36.3 C L 77 19 156/72 H 95 10/24/23 08:43 83 10/24/23 08:28 76 10/24/23 08:10 36.5 C 76 19 148/68 H 94 10/24/23 07:00 71 10/24/23 04:20 36.8 C 71 16 142/69 H 94 10/24/23 03:38 69 146/65 H 10/24/23 03:23 73 139/82 10/24/23 03:00 69 O2 Del Method 10/24/23 12:05 Room Air 10/24/23 08:43 10/24/23 08:28 10/24/23 08:10 Room Air 10/24/23 07:00 10/24/23 04:20 Room Air 10/24/23 03:38 10/24/23 03:23 10/24/23 03:00 Laboratory Results 10/24/23 Range/Units 06:52 WBC 18.32 H (4.8-10.8) K/ul RBC 3.16 L (4.20-5.40) M/uL Hgb 10.1 L (12.0-16.0) g/dl Hct 30.2 L (37.0-47.0) % MCV 95.6 (80.0-100.0) fL MCH 32.0 (25.0-34.0) pg MCHC 33.4 (32.0-36.0) g/dL RDW Std Deviation 45.6 (36.4-46.3) fL RDW Coeff of Nicholas 13.1 (11.5-14.5) % Plt Count 403 H (130-400) K/uL MPV 9.3 L (9.4-12.4) fL Immature Gran % (Auto) 5.5 % Neut % (Auto) 77.8 % Lymph % (Auto) 8.2 % [place] % (Auto) 5.8 % Eos % (Auto) 2.3 % Baso % (Auto) 0.4 % Neut # (Auto) 14.24 H (1.40-6.50) K/uL Lymph # (Auto) 1.51 (1.20-3.40) K/uL [place] # (Auto) 1.06 H (0.11-0.59) K/uL Eos # (Auto) 0.43 (0.00-0.50) K/uL Baso # (Auto) 0.08 (0.00-0.20) K/uL Immature Gran # (Auto) 1.00 H (0.01-0.20) K/uL Sodium 136 (136-145) mmol/L Potassium 4.0 (3.5-5.1) mmol/L Chloride 108 H (98-107) mmol/L Carbon Dioxide 22 (21-32) mmol/L Anion Gap 6 (3-11) BUN 17 (6-23) mg/dl Creatinine 0.71 (0.6-1.2) mg/dl Est Cr Clr Drug Dosing 56.5 ml/min Est GFR ( Amer) 93.2 ml/min Est GFR (Non-Af Amer) 80.4 ml/min BUN/Creatinine Ratio 23.9 H (10-20) Glucose 85 (70-99(Fasting)) mg/dl Calcium 7.8 L (8.6-10.3) mg/dl
[2023-10-25] MEDS: PIPERACILLIN/TAZOBACTAM 4.5 GM in DEXTROSE 5% MINI-B 100 ML IV SCH ×4 (00:07→23:24)
[2023-10-25] MEDS: METOPROLOL TARTRATE 1 MG/ML VIAL IV SCH ×4 (03:13→20:48)
[2023-10-25] MEDS: ENOXAPARIN INJ 40 MG/0.4 ML SYR SQ SCH (08:48)
[2023-10-25] MEDS: PANTOprazole 40 MG in SYRINGE 0 ML IV SCH ×2 (08:48→20:48)
[2023-10-25] MEDS: FAMOTIDINE 20 MG in SYRINGE 3 ML IV SCH ×2 (08:50→20:48)
[2023-10-25 09:15] LABS: Basophils # (auto) 0.08 K/uL (0.00-0.20); Basophils % (auto) 0.4 %; Eosinophils # (auto) 0.41 K/uL (0.00-0.50); Eosinophils % (auto) 2.2 %; Hematocrit (blood only) 33.7 % (37.0-47.0); Hemoglobin 11.1 g/dl (12.0-16.0); Immature Granulocytes % (auto) 3.7 %; Lymphocytes # (auto) 1.23 K/uL (1.20-3.40); Lymphocytes % (auto) 6.5 %; Mean Corpuscular Hemoglobin 31.7 pg (25.0-34.0); Mean Corpuscular Hgb Conc 32.9 g/dL (32.0-36.0); Mean Corpuscular Volume 96.3 fL (80.0-100.0); Monocytes # (auto) 0.79 K/uL (0.11-0.59); Monocytes % (auto) 4.1 %; Neutrophils # (auto) 15.83 K/uL (1.40-6.50); Neutrophils % (auto) 83.1 %; Platelet Count 442 K/uL (130-400); RDW Coefficient of Variation 13.1 % (11.5-14.5); White Blood Count 19.04 K/ul (4.8-10.8)
[2023-10-25 09:25] LABS: Calcium 8.1 mg/dl (8.6-10.3); Creatinine Clr Calc Pharmacy 50.1 ml/min; Est GFR (African American) 80.7 ml/min; Est GFR (Non-African American) 69.6 ml/min; Potassium 3.3 mmol/L (3.5-5.1)
--- NOTE | 2023-10-25 11:05 | Surgery Progress Note ---
Date of Service October 25, 2023 Assessment & Plan (1) Perforated appendix: Plan: POD#5 lap appendectomy, lysis of adhesions, washout WBC 19 (18). Vitals stable and patient afebrile. will continue to trend SHANNAN drain serous Abd soft, incisions c/d/i. Denies pain or any nausea/vomiting since wknd + gas and BM today Will advance to full liquids recheck labs sarah. continues on IV zosyn encourage OOB and activity as tolerates Admission and Anticipated Discharge Date Admission Date: October 16, 2023 Subjective Patient reports feeling better since the wknd. Denies any nausea/vomiting/pain this AM. Tolerating clears. + gas and BM this AM. Physical Exam Physical Exam: awake/alert, no distress, sitting in chair Respiratory: normal respiratory effort Gastrointestinal (Abdomen): Inspection/Auscultation: + abdomen distended (mild), + abdominal surgical incision (c/d/i with skin glue) and + abdominal surgical drain present (serosang. 310cc documented over last 12 hrs) Percussion/Palpation: abdomen soft; abdomen nontender Results & Data Vital Signs (Past 12 Hours) Vital Signs Temp Pulse Pulse Resp BP BP Pulse Ox 10/25/23 09:03 70 10/25/23 08:48 83 138/58 L 10/25/23 07:54 36.9 C 83 18 138/78 97 10/25/23 03:25 63 139/67 10/25/23 03:13 74 139/66 10/25/23 02:48 36.8 C 72 18 139/66 96 O2 Del Method 10/25/23 09:03 10/25/23 08:48 10/25/23 07:54 Room Air 10/25/23 03:25 10/25/23 03:13 10/25/23 02:48 Room Air PG Care Time/CCT Total # of Minutes Spent Total Time Spent with Patient: Total time spent is greater than 50% in coordination of care (as documented) at patient's floor/unit and/or counseling patient: Coding Level of Care Code 86363 Post Operative Follow-Up Diagnoses Perforated appendix K35.32
--- NOTE | 2023-10-25 11:54 | Hospitalist Progress Note ---
Date of Service October 25, 2023 Assessment & Plan (1) Perforated appendix: (2) HTN (hypertension): (3) Abdominal pain: Plan per Dr. Baptiste's notes with addendum: Ms. Rodrigues is an 78 year old female that presented to the ED today with RLQ constant abdominal pain that has been occurring for the past two days rating up to 8/10; currently 5/10 after pain medication. She reports an episode of diarrhea that occurred on Wednesday. Abdomen/Pelvis CT: 1. Perforated acute appendicitis as described above demonstrating a small amount of pneumoperitoneum. No abscess identified at this time. 2. Mild thickening within the distal ileal loops. This is likely reactive. 3. Colonic diverticulosis. No evidence for acute diverticulitis. 4. Cholelithiasis. Other abdominal surgery has included a OTTONIEL; still has her gallbladder and appendix. Perforated Acute Appendicitis: Abdominal pain: SIRS, sepsis Acute Abdomen/Pelvis CT: Perforated acute appendicitis as described above demonstrating a small amount of pneumoperitoneum. No abscess identified at this time. 2. Mild thickening within the distal ileal loops. This is likely reactive. 3. Colonic diverticulosis. No evidence for acute diverticulitis. 4. Cholelithiasis. WBC 27.18 K on admission, fever 38.2 evening of admission + tenderness on exam Zosyn started in ED; continue for empiric coverage lactate 3.8 blood cultures negat. for 48 hrs Continue IVF replete electrolytes as needed Morphine PRN for pain control General Surgery consulted - conservative management w/ IV abx, IVF, npo 10/17 - Pt tachycardic and even now in Afib w/ rvr. WBC increased. Afebrile this AM. No increased abd. pain. Had BM this AM. Surgeon contacted - stat CT abd./pelvis Re-demonstration of appendicitis with free fluid or pneumoperitoneum. There is possible early encapsulation of a fluid collection about the rectum, however no mature abscess is seen. 10/20 Diagnostic laparoscopy,Appendectomy, Extensive Lysis of Adhesions Stable overall Continue IV Zosyn Protonix, famotidine Advance diet per general surgery 10/21 remains stable continue IV ZOsyn Day 6 sip/chips per Gen Surg 10/22 stable overall continue IV Zosyn Day 7 continue above abx while admitted after discussion with ID 10/23 KUB: Ileus versus small bowel obstruction N.p.o. for now IV fluids Continue IV Zosyn Monitor closely 10/24 Clear liquids diet started today Continue IV Zosyn day 7 out of 10 Monitor closely 10/25 Full liquid diet today Clinically improving but still having leukocytosis Continue IV Zosyn day 8 out of 10 Advance diet per general surgery recommendations Afib w/ RVR received iv metoprolol initially, ecg obtained, electrolytes replete, keep K at 4, Mg at 2 Amiodarone gtt started Cardiology consulted and following closely 10/19 currently in sinus rhythm No anticoagulation at this time, alfonso. as poss. needing surgery monitor fluid status 10/21 In sinus rhythm Continue amiodarone drip, transition to PO when oral intake allowed by Gen Surg 10/22 transitioned to PO Amiodarone 10/23 N.p.o. at this time Amiodarone, losartan on hold IV metoprolol 2.5 mg every 6 hours for now 10/24 Increase IV metoprolol 5 mg every 6 hours Amiodarone, losartan on hold 10/25 Heart rate controlled Currently on IV metoprolol until diet further advanced to solid Acute diastolic (congestive) heart failure, resolved Noted on October 18, 2019 Given IV Lasix Resolved HTN: Takes Amlodipine, Losartan and HCTZ; hold for now to prevent hypotension monitor BP Disposition: PCP: Dr. Melendez Code Status: Full Code VTE Prophylaxis: On Lovenox 40 mg subcu daily Disposition PT and OT evaluation: Recommend return home when medically stable Admission and Anticipated Discharge Date Admission Date: October 16, 2023 Subjective ff up for status post surgery secondary to peripheral appendicitis, etc. Seen resting in chair, talking on the phone with her friend, good spirits Comfortable States she feels fine overall No shortness of breath, chest pain, abrasions, dizziness Abdominal pain, nausea vomiting No fevers or chills Tolerating clear liquids well No other new symptoms Review of Systems Review of Systems: all noted and negative except for above Physical Exam Physical Exam: General- oriented x 3, not in distress, speaks in sentences with no effort or accessory muscle use Eyes- anicteric Neck- no JVD Lungs- clear breath sounds bilaterally, no rales/wheezes Heart- normal rate, regular rhythm; no murmurs Abdomen- normal bowel sounds, nondistended, soft, nontender Drain in place: Seros serosanguineous output Extremities-mild lower extremity edema bilateral, no erythema/tenderness Neuro- alert, oriented x 3; no gross focal neurologic deficits Skin- warm & dry Results & Data Results & Data Vital Signs (Past 12 Hours) Vital Signs Temp Pulse Pulse Resp BP BP Pulse Ox 10/25/23 09:03 70 10/25/23 08:48 83 138/58 L 10/25/23 07:54 36.9 C 83 18 138/78 97 10/25/23 03:25 63 139/67 10/25/23 03:13 74 139/66 10/25/23 02:48 36.8 C 72 18 139/66 96 O2 Del Method 10/25/23 09:03 10/25/23 08:48 10/25/23 07:54 Room Air 10/25/23 03:25 10/25/23 03:13 10/25/23 02:48 Room Air all noted and reviewed including below (2) HTN (hypertension) Hypertension type: primary hypertension Qualified Code(s): I10 - Essential (primary) hypertension (3) Abdominal pain Abdominal location: unspecified location Qualified Code(s): R10.9 - Unspecified abdominal pain
[2023-10-25] MEDS ORDERED: POTASSIUM CHLORIDE 20 MEQ/15 ML UDC PO STA (13:34)
[2023-10-25] MEDS ORDERED: FUROSEMIDE INJ 20 MG/2 ML VIAL IV ONE (13:35)
--- NOTE | 2023-10-25 13:35 | Cardiology Progress Note ---
Date of Service October 25, 2023 Assessment & Plan (1) Atrial fibrillation with RVR: Plan: Paroxysmal (2) Perforated appendix: (3) HTN (hypertension): Plan IMPRESSION: Acutely-ill 78 year old female who presented to [facility] due to abdominal pain. Found to have a ruptured appendix. S/p appendectomy 10/20/2023. Prior telemetry revealing frequent PAT with conversion to atrial fibrillation RVR at approximately 8:30 AM on 10/18/2023. New diagnosis. Rates as high as 180s . Patient self converted to sinus rhythm at on 10/18/2023 at 10:56 AM without conversion pauses. Maintaining NSR on tele without evidence of atrial arrhythmias. PLAN: Ongoing leukocytosis noted. Afebrile. Clinically feeling well.Remains on Zosyn. Oral losartan and amiodarone on hold. Continue metoprolol 5 mg IV every 6 hours. Supplement potassium with potassium elixir, 40 mill colons now and another dose at 1800 Proceed with the Lasix 10 mg IV x 1. Repeat CBC, BMP in AM. Continue Lovenox 40 mg subcu daily for DVT prophylaxis. This chart was completed in part utilizing Speech Voice Recognition Software. Grammatical errors, random word insertions, pronoun errors, and incomplete sentences are an occasional consequence of this system due to software limitations, ambient noise, and hardware issues. Any formal questions or concerns about the content, text, or information contained within the body of this dictation should be directly addressed to the provider for clarification. Admission and Anticipated Discharge Date Admission Date: October 16, 2023 Subjective Patient seen in follow-up of hypertension and an episode of atrial fibrillation. She had been on bowel rest for the last 2 days for postoperative ileus. She had liquids today at lunchtime and tolerated them well and had a bowel movement this morning. Telemetry reveals sinus rhythm in the 70s to 80s. Blood pressure under good control. Mild lower extremity edema noted. Physical Exam Constitutional: + ill appearing; no acute distress Neck: normal visual inspection and trachea midline Respiratory: normal respiratory effort, lungs clear to auscultation Auscultation: no rales, no rhonchi and no wheezes Cardiovascular: Rate/Rhythm: regular rate, regular rhythm, + tachycardic and + irregularly irregular Heart Sounds: normal S1 and normal S2 Vessels: no JVD Extremities: + edema (1+ bilateral LE edema ) Gastrointestinal (Abdomen): Inspection/Auscultation: + hypoactive bowel sounds Percussion/Palpation: abdomen soft; abdomen nontender Skin: no rashes, warm and dry Neurologic: PERRL, EOMI, accommodation nl, no face palsy, no dysarthria Psychiatric: Orientation: alert and oriented x 3 Results & Data Vital Signs (Past 12 Hours) Vital Signs Temp Pulse Pulse Resp BP BP Pulse Ox 10/25/23 11:00 36.8 C 72 16 130/68 98 10/25/23 09:03 70 10/25/23 08:48 83 138/58 L 10/25/23 08:00 68 10/25/23 07:54 36.9 C 83 18 138/78 97 10/25/23 03:25 63 139/67 10/25/23 03:13 74 139/66 10/25/23 02:48 36.8 C 72 18 139/66 96 O2 Del Method 10/25/23 11:00 Room Air 10/25/23 09:03 10/25/23 08:48 10/25/23 08:00 10/25/23 07:54 Room Air 10/25/23 03:25 10/25/23 03:13 10/25/23 02:48 Room Air Laboratory Results CBC 10/25/23 Range/Units 08:53 WBC 19.04 H (4.8-10.8) K/ul RBC 3.50 L (4.20-5.40) M/uL Hgb 11.1 L (12.0-16.0) g/dl Hct 33.7 L (37.0-47.0) % Plt Count 442 H (130-400) K/uL Neut # (Auto) 15.83 H (1.40-6.50) K/uL Lymph # (Auto) 1.23 (1.20-3.40) K/uL [place] # (Auto) 0.79 H (0.11-0.59) K/uL Eos # (Auto) 0.41 (0.00-0.50) K/uL Baso # (Auto) 0.08 (0.00-0.20) K/uL Comprehensive Metabolic Panel 10/25/23 Range/Units 08:53 Sodium 135 L (136-145) mmol/L Potassium 3.3 L (3.5-5.1) mmol/L Chloride 107 (98-107) mmol/L Carbon Dioxide 20 L (21-32) mmol/L BUN 16 (6-23) mg/dl Creatinine 0.80 (0.6-1.2) mg/dl Glucose 158 H (70-99(Fasting)) mg/dl Calcium 8.1 L (8.6-10.3) mg/dl Intake and Output 10/24/23 10/25/23 10/25/23 22:59 06:59 14:59 Intake Total 460 / 2810 250 / 2810 200 / 200 Output Total 270 / 1071 400 / 1071 80 / 80 Balance 190 / 1739 -150 / 1739 120 / 120 Intake: IV 100 / 2200 200 / 200 Piperacillin/Tazobactam 4.5 gm 100 / 200 200 / 200 In Dextrose 5% Mini-B 100 ml @ 25 mls/hr IV Q8H [facility] Rx#: [id number] Oral 360 / 610 250 / 610 Output: Urine 200 / 500 Drain Output 270 / 570 200 / 570 80 / 80 Lower Abdomen SHANNAN 270 / 570 200 / 570 80 / 80 Other: # Unmeasured Voids 2 Diagnostic Findings CBC 10/25/23 Range/Units 08:53 WBC 19.04 H (4.8-10.8) K/ul RBC 3.50 L (4.20-5.40) M/uL Hgb 11.1 L (12.0-16.0) g/dl Hct 33.7 L (37.0-47.0) % Plt Count 442 H (130-400) K/uL Neut # (Auto) 15.83 H (1.40-6.50) K/uL Lymph # (Auto) 1.23 (1.20-3.40) K/uL [place] # (Auto) 0.79 H (0.11-0.59) K/uL Eos # (Auto) 0.41 (0.00-0.50) K/uL Baso # (Auto) 0.08 (0.00-0.20) K/uL Comprehensive Metabolic Panel 10/25/23 Range/Units 08:53 Sodium 135 L (136-145) mmol/L Potassium 3.3 L (3.5-5.1) mmol/L Chloride 107 (98-107) mmol/L Carbon Dioxide 20 L (21-32) mmol/L BUN 16 (6-23) mg/dl Creatinine 0.80 (0.6-1.2) mg/dl Glucose 158 H (70-99(Fasting)) mg/dl Calcium 8.1 L (8.6-10.3) mg/dl (3) HTN (hypertension) Hypertension type: primary hypertension Qualified Code(s): I10 - Essential (primary) hypertension
--- NOTE | 2023-10-25 14:40 | Infectious Disease Consult ---
Date of Service October 25, 2023 Telehealth Information I performed this visit using a real-time telehealth connection between my location and the patients location ([facility]). After connecting through interactive tele-video, patient was identified by name and date of and/or wristband check.Patient (or authorized healthcare premium service representative) was informed that this was a telemedicine visit and it was being conducted confidentially over secure lines. My office door was closed and no one else was present in the room with me.Patient (or authorized healthcare premium service representative) provided consent to proceed with the visit, expressed an understanding of privacy and security of the telemedicine visit, and gave permission to have a hospital premium service representative in the room in order to assist with the visit and to conduct portions of the visit, as needed. I informed the patient (or authorized healthcare premium service representative) that I reviewed their record and presented the opportunity for them to ask any questions regarding the visit today. The patient agreed to participate. Assessment & Plan (1) Perforated appendix: Plan: 1. Continue Zosyn pending repeat imaging. Final plan TBD. The above recommendations are not final. ID coverage changes frequently. Use the on-call schedule to find out who is covering your facility. Then, contact ID for updated recommendations. History of Present Illness History of Present Illness The patient was admitted for abdominal pain. Workup revealed perforated appen dicitis. She was taken to the OR on 10/20 (findings included an abscess). Since the OR, the patient reports feeling better. WBC has not normalized, however. Allergies Allergy/AdvReac Type Severity Reaction Status Date / Time No Known Allergies Unverified 10/16/23 16:30 Home Medications Medication Instructions Recorded Confirmed Type amlodipine 5 mg tablet 5 mg PO QA 10/16/23 10/16/23 History ascorbic acid (vitamin C) 500 mg 500 mg PO DAILY 10/16/23 10/16/23 History tablet (Vitamin C) ascorbic acid 7.5 mg-vit E 7.5 1 tab PO DAILY 10/16/23 10/16/23 History unit-biotin 1,250 mcg chewable tablet (Hair,Skin,Nails with Biotin) aspirin 81 mg tablet 81 mg PO DAILY 10/16/23 10/16/23 History calcium carbonate 500 mg-vitamin 1 tab PO DAILY 10/16/23 10/16/23 History D3 10 mcg (400 unit) tablet cholecalciferol (vitamin D3) 125 125 mcg PO DAILY 10/16/23 10/16/23 History mcg (5,000 unit) tablet (Vitamin D3) hydrochlorothiazide 25 mg tablet 25 mg PO QAM 10/16/23 10/16/23 History losartan 100 mg tablet 100 mg PO QAM 10/16/23 10/16/23 History magnesium oxide 400 mg PO QAM 10/16/23 10/16/23 History [id number]-ogkj-dsli 8 mg-folic 400 1 tab PO DAILY 10/16/23 10/16/23 History mcg-K 50 mcg-lutein 300 mcg tablet (Multivitamin Women 50 Plus) omega-3 fatty acids 1,000 mg 2,000 mg PO DAILY 10/16/23 10/16/23 History capsule Patient History Medical History (Updated 10/20/23 @ 10:29 by Monroe Pink MD) Atrial fibrillation with RVR Abdominal pain HTN (hypertension) Perforated appendix Surgical History (Updated 10/21/23 @ 13:45 by Christal Fernandez RN) H/O abdominal surgery (10/20/23) Diagnostic laparoscopy,Appendectomy, Drainage of intra-abdominal abscess, Extensive Lysis of Adhesions(Not Applicable) - Jasiel Gunter DO S/P OTTONIEL (total abdominal hysterectomy) Family History Mother Coronary heart disease Social History Smoking Status: Never smoker Hx Alcohol Use: No Hx Substance Use: No Preferred Language: Urdu Communication Ability: Effective [employer] Required: No Beliefs That Will Affect Care: None Current Living Situation: Family Other Information That Helps Us Care for You: No Feels Safe at Home: Yes Safety Concerns: Feels Safe At This Time Assistive Devices: None Review of Systems As reviewed in HPI; a complete ROS was otherwise negative Physical Exam Vitals: see EMR Exam limited due to constraints of telemedicine Gen/Constitutional: appears at stated age, NAD, nontoxic Head: AT, NC Eyes: sclera anicteric, no conjunctival injection ENT: trachea midline Card: appears to be well-perfused Resp: not tachypneic, nml effort, symmetric chest rise, no accessory muscle useDerm: no visible diaphoresis, no visible rash, no visible jaundice Results & Data Vital Signs (Past 12 Hours) Vital Signs Temp Pulse Pulse Resp BP BP Pulse Ox 10/25/23 11:00 36.8 C 72 16 130/68 98 10/25/23 09:03 70 10/25/23 08:48 83 138/58 L 10/25/23 08:00 68 10/25/23 07:54 36.9 C 83 18 138/78 97 10/25/23 03:25 63 139/67 10/25/23 03:13 74 139/66 10/25/23 02:48 36.8 C 72 18 139/66 96 O2 Del Method 10/25/23 11:00 Room Air 10/25/23 09:03 10/25/23 08:48 10/25/23 08:00 10/25/23 07:54 Room Air 10/25/23 03:25 10/25/23 03:13 10/25/23 02:48 Room Air Laboratory Results Reviewed; see EMR Diagnostic Findings Reviewed; see EMR (no OR cultures)
[2023-10-25] MEDS ORDERED: POTASSIUM CHLORIDE 20 MEQ/15 ML UDC PO ONE (18:00)
[2023-10-26] MEDS: METOPROLOL TARTRATE 1 MG/ML VIAL IV SCH ×2 (03:30→09:13)
[2023-10-26 06:41] LABS: Basophils # (auto) 0.06 K/uL (0.00-0.20); Basophils % (auto) 0.4 %; Eosinophils # (auto) 0.46 K/uL (0.00-0.50); Eosinophils % (auto) 2.9 %; Hematocrit (blood only) 30.1 % (37.0-47.0); Hemoglobin 10.3 g/dl (12.0-16.0); Immature Granulocytes # (auto) 0.37 K/uL (0.01-0.20); Immature Granulocytes % (auto) 2.3 %; Lymphocytes # (auto) 1.81 K/uL (1.20-3.40); Lymphocytes % (auto) 11.4 %; Mean Corpuscular Hemoglobin 32.3 pg (25.0-34.0); Mean Corpuscular Hgb Conc 34.2 g/dL (32.0-36.0); Mean Corpuscular Volume 94.4 fL (80.0-100.0); Mean Platelet Volume 9.2 fL (9.4-12.4); Monocytes # (auto) 0.96 K/uL (0.11-0.59); Neutrophils # (auto) 12.21 K/uL (1.40-6.50); Platelet Count 398 K/uL (130-400); RDW Standard Deviation 44.5 fL (36.4-46.3); Red Blood Count 3.19 M/uL (4.20-5.40); White Blood Count 15.87 K/ul (4.8-10.8)
[2023-10-26 06:42] LABS: BUN Creatinine Ratio 13.8 (10-20); Calcium 7.8 mg/dl (8.6-10.3); Creatinine Clr Calc Pharmacy 46.7 ml/min; Est GFR (African American) 72.9 ml/min; Est GFR (Non-African American) 62.9 ml/min; Potassium 3.7 mmol/L (3.5-5.1)
--- NOTE | 2023-10-26 07:45 | Surgery Progress Note ---
Date of Service October 26, 2023 Assessment & Plan (1) Perforated appendix: Plan: POD#6 lap appendectomy, lysis of adhesions, washout WBC downtrending today 15(18). Vitals stable and patient afebrile Continue on Zosyn Abd soft, SHANNAN drain remains serous. Incisions c/d/i Denies pain or any nausea/vomiting. + gas and BM's Tolerating fulls. Will advance to low fiber encourage OOB and activity as tolerates Admission and Anticipated Discharge Date Admission Date: October 16, 2023 Supervising Physician Co-Signing Physician Notes I personally saw and evaluate the patient Heather Grewal PA-C and agree with his assessment and plan. 78-year-old female with perforated appendicitis, s/p diagnostic laparoscopy, extensive lysis of adhesions, appendectomy, drainage of intra-abdominal abscess She is clinically improved without fevers Her ileus has resolved, advance to low fiber diet Keep drain in place, she will go home with this As long as she tolerates her diet and continues to improve she will be stable for discharge home tomorrow Would give her two weeks of PO ABX upon discharge and I can see her next week fo r drain removal Subjective Patient reports feeling well. Denies abdominal pain/nausea/vomiting. She continues to pass flatus and is having some loose stools. Tolerating full liquids, hungry for more. Believes her bloating is improving some. Physical Exam Physical Exam: awake/alert, no distress. ambulating well in room Gastrointestinal (Abdomen): Inspection/Auscultation: + abdomen distended (mild), + abdominal surgical incision (c/d/i with skin glue, no signs of infection) and + abdominal surgical drain present (serous, 110cc documented over last 12 hrs) Percussion/Palpation: abdomen soft; abdomen nontender Results & Data Vital Signs (Past 12 Hours) Vital Signs Temp Pulse Pulse Resp BP BP BP 10/26/23 07:30 64 10/26/23 07:15 36.7 C 70 17 142/70 H 10/26/23 03:30 60 10/26/23 03:20 36.7 C 69 18 144/66 H 10/25/23 23:47 36.8 C 72 18 146/71 H 10/25/23 21:06 72 125/69 10/25/23 20:48 77 126/69 Pulse Ox O2 Del Method 10/26/23 07:30 10/26/23 07:15 96 Room Air 10/26/23 03:30 10/26/23 03:20 96 Room Air 10/25/23 23:47 95 Room Air 10/25/23 21:06 10/25/23 20:48 PG Care Time/CCT Total # of Minutes Spent Total Time Spent with Patient: Total time spent is greater than 50% in coordination of care (as documented) at patient's floor/unit and/or counseling patient: Coding Level of Care Code 75530 Post Operative Follow-Up Diagnoses Perforated appendix K35.32
[2023-10-26] MEDS: ENOXAPARIN INJ 40 MG/0.4 ML SYR SQ SCH (09:11)
[2023-10-26] MEDS: PANTOprazole 40 MG in SYRINGE 0 ML IV SCH ×2 (09:12→20:18)
[2023-10-26] MEDS: FAMOTIDINE 20 MG in SYRINGE 3 ML IV SCH ×2 (09:15→20:18)
[2023-10-26] MEDS: PIPERACILLIN/TAZOBACTAM 4.5 GM in DEXTROSE 5% MINI-B 100 ML IV SCH ×3 (09:16→23:02)
--- NOTE | 2023-10-26 11:25 | Cardiology Progress Note ---
Date of Service October 26, 2023 Assessment & Plan (1) Atrial fibrillation with RVR: Plan: Paroxysmal (2) Perforated appendix: (3) HTN (hypertension): Plan IMPRESSION: Acutely-ill 78 year old female who presented to [facility] due to abdominal pain. Found to have a ruptured appendix. S/p appendectomy 10/20/2023. Prior telemetry revealing frequent PAT with conversion to atrial fibrillation RVR at approximately 8:30 AM on 10/18/2023. New diagnosis. Rates as high as 180s . Patient self converted to sinus rhythm at on 10/18/2023 at 10:56 AM without conversion pauses. Maintaining NSR on tele without evidence of atrial arrhythmias. PLAN: Ongoing leukocytosis noted but improving. Afebrile. Clinically feeling well.Remains on Zosyn. Pt is now to receive regular diet. DC IV metoprolol. Start oral metoprolol. Lasix 10 mg IV x 1 for LE edema, along with KCL 10 mequ DC losartan for now. Will determine if she requires it for BP control. DC amiodarone, favoring metoprolol. SQ lovenox for DVT prophylaxis. Admission and Anticipated Discharge Date Admission Date: October 16, 2023 eBhzad Rodrigues is seen in cardiology follow up of atrial fibrillation and hypertension. Physical Exam Constitutional: + ill appearing; no acute distress Neck: normal visual inspection and trachea midline Respiratory: normal respiratory effort, lungs clear to auscultation Auscultation: no rales, no rhonchi and no wheezes Cardiovascular: Rate/Rhythm: regular rate, regular rhythm, + tachycardic and + irregularly irregular Heart Sounds: normal S1 and normal S2 Vessels: no JVD Extremities: + edema (1+ bilateral LE edema ) Gastrointestinal (Abdomen): Inspection/Auscultation: + hypoactive bowel sounds Percussion/Palpation: abdomen soft; abdomen nontender Skin: no rashes, warm and dry Neurologic: PERRL, EOMI, accommodation nl, no face palsy, no dysarthria Psychiatric: Orientation: alert and oriented x 3 Results & Data Vital Signs (Past 12 Hours) Vital Signs Temp Pulse Pulse Resp BP BP BP 10/26/23 11:08 36.6 C 78 18 139/69 10/26/23 09:13 80 142/70 H 10/26/23 07:30 64 10/26/23 07:15 36.7 C 70 17 142/70 H 10/26/23 03:30 60 10/26/23 03:20 36.7 C 69 18 144/66 H 10/25/23 23:47 36.8 C 72 18 146/71 H Pulse Ox O2 Del Method 10/26/23 11:08 99 Room Air 10/26/23 09:13 10/26/23 07:30 10/26/23 07:15 96 Room Air 10/26/23 03:30 10/26/23 03:20 96 Room Air 10/25/23 23:47 95 Room Air Laboratory Results CBC 10/26/23 Range/Units 05:46 WBC 15.87 H (4.8-10.8) K/ul RBC 3.19 L (4.20-5.40) M/uL Hgb 10.3 L (12.0-16.0) g/dl Hct 30.1 L (37.0-47.0) % Plt Count 398 (130-400) K/uL Neut # (Auto) 12.21 H (1.40-6.50) K/uL Lymph # (Auto) 1.81 (1.20-3.40) K/uL [place] # (Auto) 0.96 H (0.11-0.59) K/uL Eos # (Auto) 0.46 (0.00-0.50) K/uL Baso # (Auto) 0.06 (0.00-0.20) K/uL Comprehensive Metabolic Panel 10/26/23 Range/Units 05:46 Sodium 134 L (136-145) mmol/L Potassium 3.7 (3.5-5.1) mmol/L Chloride 105 (98-107) mmol/L Carbon Dioxide 23 (21-32) mmol/L BUN 12 (6-23) mg/dl Creatinine 0.87 (0.6-1.2) mg/dl Glucose 99 (70-99(Fasting)) mg/dl Calcium 7.8 L (8.6-10.3) mg/dl (3) HTN (hypertension) Hypertension type: primary hypertension Qualified Code(s): I10 - Essential (primary) hypertension
[2023-10-26] MEDS ORDERED: METOPROLOL TARTRATE 25 MG TAB PO ONE (11:26)
[2023-10-26] MEDS ORDERED: FUROSEMIDE INJ 20 MG/2 ML VIAL IV ONE (11:27)
[2023-10-26] MEDS ORDERED: POTASSIUM CHLORIDE 10 MEQ TABCR PO STA (11:27)
--- NOTE | 2023-10-26 14:34 | Hospitalist Progress Note ---
Date of Service October 26, 2023 Assessment & Plan (1) Perforated appendix: (2) HTN (hypertension): (3) Abdominal pain: Plan Ms. Rodrigues is an 78 year old female that presented to the ED today with RLQ constant abdominal pain that has been occurring for the past two days rating up to 8/10; currently 5/10 after pain medication. She reports an episode of diarrhea that occurred on Wednesday. Abdomen/Pelvis CT: 1. Perforated acute appendicitis as described above demonstrating a small amount of pneumoperitoneum. No abscess identified at this time. 2. Mild thickening within the distal ileal loops. This is likely reactive. 3. Colonic diverticulosis. No evidence for acute diverticulitis. 4. Cholelithiasis. Perforated Acute Appendicitis: Abdominal pain: SIRS, sepsis Acute Abdomen/Pelvis CT: Perforated acute appendicitis as described above demonstrating a small amount of pneumoperitoneum. No abscess identified at this time. 2. Mild thickening within the distal ileal loops. This is likely reactive. 3. Colonic diverticulosis. No evidence for acute diverticulitis. 4. Cholelithiasis. 10/20/23 Diagnostic laparoscopy,Appendectomy, Extensive Lysis of Adhesions Slowly improving after procedure Afebrile, leukocytosis improving Diet gradually advanced, today started on soft diet Maintained on IV Zosyn every 6 hours per ID recommendations-day 9 out of 10 Afib w/ RVR Cardiology consulted Initially placed on amiodarone drip, transition to p.o. amiodarone Heart rate has remained controlled Cardiology recommendations today: Start oral metoprolol. Lasix 10 mg IV x 1 for LE edema, along with KCL 10 mequ DC losartan for now. Will determine if she requires it for BP control. DC amiodarone, favoring metoprolol. Acute diastolic (congestive) heart failure, resolved Noted on October 18, 2019 Lasix 10 mg IV given today for lower extremity edema Monitor closely HTN: Takes Amlodipine, Losartan and HCTZ; hold for now to prevent hypotension monitor BP Disposition: PCP: Dr. Melendez Code Status: Full Code VTE Prophylaxis: On Lovenox 40 mg subcu daily Disposition PT and OT evaluation: Recommend return home when medically stable anticipate d/c home when medically stable Admission and Anticipated Discharge Date Admission Date: October 16, 2023 Subjective ff up for perforated acute appendicitis, status post surgery, etc. Seen sitting up in chair, comfortable, not in distress States she feels better overall Tolerating soft diet well so far Positive BM No nausea, abdominal pain no chest pain, dyspnea, palpitations, dizziness No other new symptoms Review of Systems Review of Systems: all noted and negative except for above Physical Exam Physical Exam: General- oriented x 3, not in distress, speaks in sentences with no effort or a ccessory muscle use Eyes- anicteric Neck- no JVD Lungs- clear breath sounds bilaterally, no rales/wheezes Heart- normal rate, regular rhythm; no murmurs Abdomen- normal bowel sounds, nondistended, soft, nontender Dressing in place, no bleeding or discharge Extremities- mild lower extremity edema Neuro- alert, oriented x 3; no gross focal neurologic deficits Skin- warm & dry Results & Data Results & Data Vital Signs (Past 12 Hours) Vital Signs Temp Pulse Pulse Resp BP BP BP 10/26/23 11:10 78 139/69 10/26/23 11:08 36.6 C 78 18 139/69 10/26/23 09:13 80 142/70 H 10/26/23 07:30 64 10/26/23 07:15 36.7 C 70 17 142/70 H 10/26/23 03:30 60 10/26/23 03:20 36.7 C 69 18 144/66 H Pulse Ox O2 Del Method 10/26/23 11:10 10/26/23 11:08 99 Room Air 10/26/23 09:13 10/26/23 07:30 10/26/23 07:15 96 Room Air 10/26/23 03:30 10/26/23 03:20 96 Room Air all noted and reviewed including below (2) HTN (hypertension) Hypertension type: primary hypertension Qualified Code(s): I10 - Essential (primary) hypertension (3) Abdominal pain Abdominal location: unspecified location Qualified Code(s): R10.9 - Unspecified abdominal pain
[2023-10-26] MEDS ORDERED: CHOLESTYRAMINE LIGHT 4 GM PKT PO SCH (16:55)
[2023-10-26] MEDS: METOPROLOL TARTRATE 25 MG TAB PO SCH (20:18)
[2023-10-27 06:58] LABS: Basophils # (auto) 0.06 K/uL (0.00-0.20); Basophils % (auto) 0.4 %; Eosinophils # (auto) 0.44 K/uL (0.00-0.50); Eosinophils % (auto) 3.2 %; Hematocrit (blood only) 29.2 % (37.0-47.0); Hemoglobin 9.5 g/dl (12.0-16.0); Immature Granulocytes # (auto) 0.26 K/uL (0.01-0.20); Immature Granulocytes % (auto) 1.9 %; Lymphocytes # (auto) 1.59 K/uL (1.20-3.40); Lymphocytes % (auto) 11.4 %; Mean Corpuscular Hemoglobin 31.5 pg (25.0-34.0); Mean Corpuscular Hgb Conc 32.5 g/dL (32.0-36.0); Mean Corpuscular Volume 96.7 fL (80.0-100.0); Mean Platelet Volume 9.3 fL (9.4-12.4); Monocytes # (auto) 1.08 K/uL (0.11-0.59); Monocytes % (auto) 7.8 %; Neutrophils # (auto) 10.48 K/uL (1.40-6.50); Neutrophils % (auto) 75.3 %; Platelet Count 364 K/uL (130-400); RDW Standard Deviation 45.1 fL (36.4-46.3); Red Blood Count 3.02 M/uL (4.20-5.40); White Blood Count 13.91 K/ul (4.8-10.8)
[2023-10-27 07:04] LABS: BUN Creatinine Ratio 16.7 (10-20); Calcium 7.8 mg/dl (8.6-10.3); Creatinine Clr Calc Pharmacy 43.4 ml/min; Est GFR (Non-African American) 60.4 ml/min; Potassium 3.5 mmol/L (3.5-5.1)
[2023-10-27] MEDS: ENOXAPARIN INJ 40 MG/0.4 ML SYR SQ SCH (08:11)
[2023-10-27] MEDS: PIPERACILLIN/TAZOBACTAM 4.5 GM in DEXTROSE 5% MINI-B 100 ML IV SCH (08:11)
[2023-10-27] MEDS: PANTOprazole 40 MG in SYRINGE 0 ML IV SCH (08:13)
[2023-10-27] MEDS: METOPROLOL TARTRATE 25 MG TAB PO SCH (08:13)
[2023-10-27] MEDS: FAMOTIDINE 20 MG in SYRINGE 3 ML IV SCH (08:15)
--- NOTE | 2023-10-27 08:57 | Surgery Progress Note ---
Date of Service October 27, 2023 Assessment & Plan (1) Perforated appendix: Plan: POD#7 lap appendectomy, lysis of adhesions, washout WBC downtrending today 13(15). Vitals stable and patient afebrile On IV Zosyn Abd soft, SHANNAN drain remains serous. Incisions c/d/i Denies pain or any nausea/vomiting. + gas and BM's Tolerating a low fiber diet From our standpoint patient is stable for discharge to home today pending medicine clearance. will dispo w/ SHANNAN drain and ask RN to provide teaching Please send home on 2wk course of PO abx to complete F/u in clinic with Dr. Gunter within 1 weeks time Admission and Anticipated Discharge Date Admission Date: October 16, 2023 Supervising Physician Co-Signing Physician Notes I personally saw and evaluate the patient Heather Grewal PA-C and agree with his assessment and plan. 78-year-old female with perforated appendicitis, s/p diagnostic laparoscopy, extensive lysis of adhesions, appendectomy, drainage of intra-abdominal abscess She is clinically improved without fevers Continue low fiber diet Keep drain in place, she will go home with this She is stable discharge home today Would give her two weeks of PO ABX upon discharge and I can see her next week for drain removal Subjective Patient reports feeling well. tolerating a diet, no pain/n/v. bloating improved. she is having + bowel function Physical Exam Physical Exam: awake/alert, no distress. ambulating well in room Respiratory: normal respiratory effort Gastrointestinal (Abdomen): Inspection/Auscultation: + abdomen distended (mild), + abdominal surgical incision (c/d/i with skin glue, no signs of infection) and + abdominal surgical drain present (serous, 170cc documented over last 12 hrs) Percussion/Palpation: abdomen soft; abdomen nontender Results & Data Vital Signs (Past 12 Hours) Vital Signs Temp Pulse Pulse Resp BP Pulse Ox O2 Del Method 10/27/23 07:54 36.6 C 77 18 128/56 L 98 Room Air 10/27/23 07:24 72 10/27/23 03:00 36.3 C L 73 18 131/60 96 Room Air 10/26/23 22:55 36.8 C 64 20 121/62 96 Room Air 10/26/23 21:57 73 PG Care Time/CCT Total # of Minutes Spent Total Time Spent with Patient: Total time spent is greater than 50% in coordination of care (as documented) at patient's floor/unit and/or counseling patient: Coding Level of Care Code 63270 Post Operative Follow-Up Diagnoses Perforated appendix K35.32
--- NOTE | 2023-10-27 12:39 | Hospitalist Progress Note ---
Date of Service October 27, 2023 Assessment & Plan (1) Perforated appendix: (2) HTN (hypertension): (3) Abdominal pain: Plan Ms. Rodrigues is an 78 year old female that presented to the 10/16 with RLQ constant abdominal pain that has been occurring for the past two days rating up to 8/10; currently 5/10 after pain medication. She reports an episode of diarrhea that occurred on Wednesday. Abdomen/Pelvis CT: 1. Perforated acute appendicitis as described above demonstrating a small amount of pneumoperitoneum. No abscess identified at this time. 2. Mild thickening within the distal ileal loops. This is likely reactive. 3. Colonic diverticulosis. No evidence for acute diverticulitis. 4. Cholelithiasis. #Perforated Acute Appendicitis s/p appendectomy #Abdominal pain: resolved #SIRS, possible sepsis: resolved Acute Abdomen/Pelvis CT: Perforated acute appendicitis as described above demonstrating a small amount of pneumoperitoneum. No abscess identified at this time. 2. Mild thickening within the distal ileal loops. This is likely reactive. 3. Colonic diverticulosis. No evidence for acute diverticulitis. 4. Cholelithiasis -10/20/23 Diagnostic laparoscopy,Appendectomy, Extensive Lysis of Adhesions POD#7 lap appendectomy, lysis of adhesions, washout WBC downtrending, Vitals stable, afebrile On IV Zosyn, EOT 10/28 Continue low fiber diet Per surgery: -will dispo w/ DENICE drain and ask RN to provide teaching -please send home on 2wk course of PO abx to complete -F/u in clinic with Dr. Gunter within 1 weeks time #Afib w/ RVR, resolved Cardiology consulted Initially placed on amiodarone drip, transition to p.o. amiodarone Heart rate has remained controlled Cardiology recommendations today: Start oral metoprolol. Lasix 10 mg IV x 1 for LE edema, along with KCL 10 mequ DC losartan for now. Will determine if she requires it for BP control. DC amiodarone, favoring metoprolol. #Acute diastolic (congestive) heart failure, resolved Noted on October 18, 2019 Lasix 10 mg IV given today for lower extremity edema Monitor closely HTN: Takes Amlodipine, Losartan and HCTZ; hold for now to prevent hypotension monitor BP Disposition: PCP: Dr. Melendez Code Status: Full Code VTE Prophylaxis: On Lovenox 40 mg subcu daily Disposition PT and OT evaluation: Recommend return home when medically stable anticipate d/c home when medically stable Admission and Anticipated Discharge Date Admission Date: October 16, 2023 Subjective Reports feeling great today, eating well, ambulating in room, denies any acute concerns including and chest pain, abdominal pain, fevers/chills Physical Exam Constitutional: WD/WN, vitals as above Respiratory: normal respiratory effort, lungs clear to auscultation Cardiovascular: RRR, no murmur, no edema Gastrointestinal (Abdomen): NTND, denice with serous output Musculoskeletal: no cyanosis or clubbing, extremities motor strength 5/5 Results & Data Results & Data Vital Signs (Past 12 Hours) Vital Signs Temp Pulse Pulse Resp BP Pulse Ox O2 Del Method 10/27/23 11:59 36.6 C 74 18 148/70 H 100 Room Air 10/27/23 07:54 36.6 C 77 18 128/56 L 98 Room Air 10/27/23 07:24 72 10/27/23 03:00 36.3 C L 73 18 131/60 96 Room Air Laboratory Results Short CBC 10/27/23 Range/Units 05:32 WBC 13.91 H (4.8-10.8) K/ul Hgb 9.5 L (12.0-16.0) g/dl Hct 29.2 L (37.0-47.0) % Plt Count 364 (130-400) K/uL BMP 10/27/23 05:32 Sodium 134 L Potassium 3.5 Chloride 104 Carbon Dioxide 24 BUN 15 Creatinine 0.90 Glucose 99 Calcium 7.8 L Medications Administered Home Medications Medication Instructions Recorded Confirmed Last Taken amlodipine 5 mg tablet 5 mg PO QAM 10/16/23 10/16/23 Unknown ascorbic acid (vitamin C) 500 mg 500 mg PO DAILY 10/16/23 10/16/23 Unknown tablet (Vitamin C) ascorbic acid 7.5 mg-vit E 7.5 1 tab PO DAILY 10/16/23 10/16/23 Unknown unit-biotin 1,250 mcg chewable tablet (Hair,Skin,Nails with Biotin) aspirin 81 mg tablet 81 mg PO DAILY 10/16/23 10/16/23 Unknown calcium carbonate 500 mg-vitamin 1 tab PO DAILY 10/16/23 10/16/23 Unknown D3 10 mcg (400 unit) tablet cholecalciferol (vitamin D3) 125 125 mcg PO DAILY 10/16/23 10/16/23 Unknown mcg (5,000 unit) tablet (Vitamin D3) hydrochlorothiazide 25 mg tablet 25 mg PO QAM 10/16/23 10/16/23 Unknown losartan 100 mg tablet 100 mg PO QAM 10/16/23 10/16/23 Unknown magnesium oxide 400 mg PO QAM 10/16/23 10/16/23 Unknown hucmbmyz-ymuc-cvtm 8 mg-folic 400 1 tab PO DAILY 10/16/23 10/16/23 Unknown mcg-K 50 mcg-lutein 300 mcg tablet (Multivitamin Women 50 Plus) omega-3 fatty acids 1,000 mg 2,000 mg PO DAILY 10/16/23 10/16/23 Unknown capsule Active Medications Generic Name Dose Route Start Last Admin Trade Name Freq PRN Reason Stop Dose Admin Enoxaparin Sodium 40 mg 10/22/23 09:00 10/27/23 08:11 Enoxaparin Inj 40 Mg/0.4 Ml Syr SQ 11/21/23 08:59 40 mg QAM IBAN Administration Famotidine 20 mg/ Syringe 5 mls @ 2.5 mls/min 10/19/23 10:00 10/27/23 08:15 IV 11/18/23 09:59 2.5 mls/min BID IBAN Administration Pantoprazole Sodium 40 mg/ 10 mls @ 5 mls/min 10/19/23 10:00 10/27/23 08:13 Syringe IV 11/18/23 09:59 5 mls/min BID IBAN Administration Piperacillin Sod/Tazobactam 100 mls @ 25 mls/hr 10/23/23 16:00 10/27/23 08:11 Sod 4.5 gm/ Dextrose IV 11/02/23 15:59 25 mls/hr Q8H IBAN Administration Protocol Metoprolol Tartrate 25 mg 10/26/23 21:00 10/27/23 08:13 Metoprolol Tartrate 25 Mg Tab PO 11/25/23 20:59 25 mg BID IBAN Administration Morphine Sulfate 2 mg 10/20/23 14:28 10/20/23 22:37 Morphine Sulfate 2 Mg/Ml Carp IV 11/03/23 14:27 2 mg Q3H PRN Administration Mild-Mod Pain (Scale 1-6) Ondansetron HCl 4 mg 10/19/23 09:58 10/23/23 08:01 Ondansetron Inj 2 Mg/Ml 2 Ml Vial IV 11/18/23 09:57 4 mg Q6H PRN Administration Nausea And Vomiting (2) HTN (hypertension) Hypertension type: primary hypertension Qualified Code(s): I10 - Essential (primary) hypertension (3) Abdominal pain Abdominal location: unspecified location Qualified Code(s): R10.9 - Unspecified abdominal pain
--- NOTE | 2023-10-27 14:37 | Discharge Summary ---
Discharge Summary Date of Service October 27, 2023 Notes For Next Care Provider Medication Changes From Visit Discontinued Losartan Discontinued HCTZ Discontinued Amlodipine Started Metorpolol 25mg BID Plan for 2 week course: Cipro 500mg BID, Flagyl 500mg BID Admission HPI Per Admitting Provider Ms. Rodrigues is an 78 year old female that presented to the ED today with RLQ constant abdominal pain that has been occurring for the past two days rating up to 8/10; currently 5/10 after pain medication. She reports an episode of diarrhea that occurred on Wednesday. Abdomen/Pelvis CT: 1. Perforated acute appendicitis as described above demonstrating a small amount of pneumoperitoneum. No abscess identified at this time. 2. Mild thickening within the distal ileal loops. This is likely reactive. 3. Colonic diverticulosis. No evidence for acute diverticulitis. 4. Cholelithiasis. Other abdominal surgery has included a OTTONIEL; still has her gallbladder and appendix. She followed with her PCP on Wednesday and was feeling well at that time. Pt denies tobacco use, occasional wine; none recently. Denies recreational drug use. Independent at baseline. She was given 1 LNSB in the ED and started empirically on Zosyn. She is normotensive at this time and does not appear toxic. Pt denies FONSECA, dizziness, visual or auditory changes, chest pain, shortness of breath, palpitations, dysuria, hematochezia, recent falls or trauma. Patient is visibly in pain and tender to any palpitation in the RLQ. Last time reported eating an egg sandwich at 0900 today. She did take her medications this morning. Will admit for continued abx, lactate, blood cultures, IV fluids, will hold antihypertensives for now, pain control and will keep NPO pending general surgery evaluation. Patient will be admitted for further evaluation and management. Admission Exam Per Admitting Provider General: In painful distress Eyes: PERRL, conjunctivae normal, not pale, anicteric sclerae, EOM intact bilaterally ENMT: External ear and nose normal, oropharynx normal Respiratory: Normal respiratory effort, no respiratory distress, lungs clear to auscultation, no crackles and no wheezes Cardiovascular: RRR S1 S2 Gastrointestinal (Abdomen): Abdomen is soft, severe RLQ tenderness, no guarding, reduced bowel sounds Musculoskeletal: No pedal edema Neurologic: Alert and oriented x 3, No focal weakness, sensation grossly intact Psychiatric: Alert and oriented x 3, euthymic affect Principal Dx & Hospital Course #1 = Principal Diagnosis (1) Perforated appendix: (2) HTN (hypertension): (3) Abdominal pain: Plan Ms. Rodrigues is an 78 year old female that presented to the 10/16 with RLQ constant abdominal pain that has been occurring for the past two days rating up to 8/10; currently 5/10 after pain medication. She reports an episode of diarrhea that occurred on Wednesday. Abdomen/Pelvis CT: 1. Perforated acute appendicitis as described above demonstrating a small amount of pneumoperitoneum. No abscess identified at this time. 2. Mild thickening within the distal ileal loops. This is likely reactive. 3. Colonic diverticulosis. No evidence for acute diverticulitis. 4. Cholelithiasis. In addition to perforated appendix, patient was found to have PAT with conversion to atrial fibrillation with RVR on 10/18, with spontaneous conversion to NSR. Cardiology consulted at that time. Patient underwent appendectomy on 10/20. Patient's post-operative course complicated by ileus. PAT/A fib controlled with IV metoprolol. Patient began passing flatus and stool, as well as tolerating appetite. On day of discharge, patient passed stool, eating well, and denying any pain. #Perforated Acute Appendicitis s/p appendectomy #Abdominal pain: resolved #SIRS, possible sepsis: resolved Acute Abdomen/Pelvis CT: Perforated acute appendicitis as described above demonstrating a small amount of pneumoperitoneum. No abscess identified at this time. 2. Mild thickening within the distal ileal loops. This is likely reactive. 3. Colonic diverticulosis. No evidence for acute diverticulitis. 4. Cholelithiasis -10/20/23 Diagnostic laparoscopy,Appendectomy, Extensive Lysis of Adhesions POD#7 lap appendectomy, lysis of adhesions, washout WBC downtrending, Vitals stable, afebrile On IV Zosyn, EOT 10/28 Continue low fiber diet Per surgery: -will dispo w/ SHANNAN drain and ask RN to provide teaching -please send home on 2wk course of PO abx to complete -F/u in clinic with Dr. Gunter within 1 weeks time #Afib w/ RVR, resolved Cardiology consulted Initially placed on amiodarone drip, transition to p.o. amiodarone Heart rate has remained controlled Cardiology recommendations today: Start oral metoprolol. Lasix 10 mg IV x 1 for LE edema, along with KCL 10 mequ DC losartan for now. Will determine if she requires it for BP control. DC amiodarone, favoring metoprolol. #Acute diastolic (congestive) heart failure, resolved Noted on October 18, 2019 Lasix 10 mg IV x1 Monitor closely No further lasix administered #HTN: Takes Amlodipine, Losartan and HCTZ; discontinued 2/2 hypotension monitor BP, plan for OP BP follow up Discharge Exam Constitutional WD/WN, vitals as above Respiratory normal respiratory effort, lungs clear to auscultation Cardiovascular RRR, no murmur, no edema Gastrointestinal (Abdomen) normal bowel sounds, soft, nontender, no hepatosplenomegaly SHANNAN in place, serous output Musculoskeletal no cyanosis or clubbing, extremities motor strength 5/5 Updated Medication List Medication Instructions Recorded Confirmed Type ascorbic acid (vitamin C) 500 mg 500 mg PO DAILY 10/16/23 10/16/23 History tablet (Vitamin C) ascorbic acid 7.5 mg-vit E 7.5 1 tab PO DAILY 10/16/23 10/16/23 History unit-biotin 1,250 mcg chewable tablet (Hair,Skin,Nails with Biotin) aspirin 81 mg tablet 81 mg PO DAILY 10/16/23 10/16/23 History calcium carbonate 500 mg-vitamin 1 tab PO DAILY 10/16/23 10/16/23 History D3 10 mcg (400 unit) tablet cholecalciferol (vitamin D3) 125 125 mcg PO DAILY 10/16/23 10/16/23 History mcg (5,000 unit) tablet (Vitamin D3) magnesium oxide 400 mg PO QAM 10/16/23 10/16/23 History ecngyrxy-ljys-rhue 8 mg-folic 400 1 tab PO DAILY 10/16/23 10/16/23 History mcg-K 50 mcg-lutein 300 mcg tablet (Multivitamin Women 50 Plus) omega-3 fatty acids 1,000 mg 2,000 mg PO DAILY 10/16/23 10/16/23 History capsule ciprofloxacin HCl 500 mg tablet 500 mg PO BID #28 tabs 10/27/23 Rx metoprolol tartrate 25 mg tablet 25 mg PO BID 30 days #60 tabs 10/27/23 Rx metronidazole 500 mg tablet 500 mg PO BID 14 days #28 tabs 10/27/23 Rx Hospital Stay Data Consultations 10/16/23 16:18 Consult General Surgery Stat ED Decision to Admit Stat 10/18/23 09:02 Consult Cardiology Routine 10/22/23 09:09 Consult Infectious Diseases Routine Procedures Performed Operation Date: 10/20/23 10:45 Actual Procedures p Diagnostic laparoscopy,Appendectomy, Extensive Lysis of Adhesions(Not Applicable) - Jasiel Gunter, DO Diagnostic Imagining Performed 10/16/23 15:39 CT Abd and Pelvis [CT abd pelvis IV con only] Stat 10/18/23 11:30 CT Abd and Pelvis [CT abd pelvis oral and IV con] Stat Pending Results Patient Have Any Pending Studies at Discharge: Yes Discharge Instructions Given to Patient (Per Discharging Provider) You have skin glue over your incisions called dermabond. you may shower with thi s on. It will tend to dissolve and fall off within a couple weeks. Do not pick at the skin glue You will be sent home with a surgical drain. Please care for drain as you have been instructed prior to discharge. Empty drain 2-3x/daily and record output, bring log to the office. Call to schedule follow up in clinic next week for drain removal . You may change the dressing around your drain daily with dry gauze and medical tape. Total Time Total Time Spent Total Time Spent (In Minutes): 45
[2023-10-27] MEDS ORDERED: FAMOTIDINE 20 MG TAB PO SCH (21:00)
[2023-10-27] MEDS ORDERED: PANTOprazole 40 MG TAB PO SCH (21:00)
== END 2023-10-27 15:25 | disposition home or self-care (01) | DRG 853 ==
LOC: ED 15:26 → SUATTDRO 16:32 → 2E 16:32
DX: I50.31 Acute diastolic (congestive) heart failure; I48.0 Paroxysmal atrial fibrillation; K80.20 Calculus of gallbladder without cholecystitis without obstruction; I11.0 Hypertensive heart disease with heart failure; K66.0 Peritoneal adhesions (postprocedural) (postinfection); K57.30 Diverticulosis of large intestine without perforation or abscess without bleeding; K35.33 Acute appendicitis with perforation, localized peritonitis, and gangrene, with abscess; E87.6 Hypokalemia; A41.9 Sepsis, unspecified organism

== ENCOUNTER 2025-04-10 11:58 | Inpatient (IN) ==
--- NOTE | 2025-04-10 12:35 | Emergency Department Note ---
Impression & Plan At high risk for tick borne illness, Fatigue, Atypical chest pain ED Provider Note Provider: Cleveland Marquez MD CHIEF COMPLAINT: Abnormal blood work, fatigue and weakness, shoulder pain HISTORY OF PRESENT ILLNESS: Patient is a 79-year-old female past medical history of hypertension, history of A-fib not on anticoagulation presenting here today referred by the outpatient clinic. Patient is reported be quite active normally. Over the past week is noted been more fatigued and sleeping a lot and still waking fatigued. States when she has been trying to mow the lawn or weed reducing she is been getting some pains in the upper shoulders and the back. Does not have this currently. Is transient. No anterior chest pain or abdominal pain reported. Denies any bladder or bowel issues to me. Maybe a slight cough according to family but patient denies any shortness of breath to me. No syncope or dizziness. No history of stents before. Patient evidently contacted by the clinic from blood work obtained yesterday afternoon referred here for further testing. No significant leg swelling reported. Has had a little bit of fullness of the right ear but was advised to start Flonase yesterday. PAST MEDICAL HISTORY: As noted above MEDICATIONS: Reviewed no medication list. SOCIAL HISTORY: Non-smoker PHYSICAL EXAM: GENERAL: alert and oriented in no acute distress on stretcher Head: normocephalic and atraumatic EYES: No injection, discharge or icterus. PERRL, EOMI. NECK: Trachea midline. Supple. ENT: Mucous membranes pink and moist. Pharynx without erythema or exudate. TMs clear bilaterally LUNGS: Airway patent. No retractions. Breath sounds clear with good air entry bilaterally. HEART: Regular rate and rhythm. No chest wall tenderness ABDOMEN: Soft and non-tender, without guarding or rebound. SKIN: Acyanotic, warm, dry, without rashes EXTREMITIES: Without tenderness or deformity with perhaps trace edema NEUROLOGICAL: No focal deficits. No aphasia. No facial droop or slurred speech. Normal strength and tone in the extremities. Sensation to gross touch normal. Ambulatory. EK bpm normal sinus rhythm. No PVC or PAC. No acute ST segment elevation or depression with QTc of 417. CONTINUOUS CARDIAC MONITORING: was ordered and showed a heart rate of 70s to 80s bpm in normal sinus rhythm Patient's laboratory studies and imaging reviewed. Differential includes Infection, dehydration, metabolic abnormality, hypo/hyperglycemia, electrolyte disturbance, anemia, hypoxia, cardiac sources including ACS, intracerebral event, toxicologic, neurologic, as well as other pathologies. IMPRESSION/MEDICAL DECISION MAKING: Case management assisted obtaining outpatient records. Blood work was concerning for new anemia and low platelets as well as kidney dysfunction, liver dysfunction, and a minimally elevated troponin of 20 in the outpatient labs and thus was referred here for evaluation. Patient again has been experiencing some shoulder discomfort that could be a cardiac mimic. Not having active pain currently. Not hypoxic. Lower suspicion this represents PE as she is not feeling short of breath. COVID and flu test is send. Basic blood work is repeated here as well to see levels today. Does have evidence of some elevated creatinine 1.5 today from baseline around 1. AST is 60 and ALT of 40 yesterday within bilirubin 2.5 are noted but she is not having significant abdominal pain or discomfort. Lower suspicion for cholecystitis. Patient did have elevated BNP in the outpatient setting as well. Does not seem significantly fluid overloaded lower extremities at this time. Lyme and anaplasmosis screen sent given the thrombocytopenia noted and slight transaminitis. Has had tick bites in the past and treated for Lyme disease she believes last year. Chest x-ray completed without evidence of fluid overload or pneumonia. Is somewhat anemic at 9.9 but no leukocytosis. Thrombocytopenia confirmed. Slight AST elevation and mildly elevated bilirubin but 9 abdomen. Positive Lyme screen and do question while the smear is negative if this represents anaplasmosis. Procalcitonin minimally elevated at 0.56. Given her constellation of symptoms will cover with a dose of ceftriaxone and start on doxycycline. Negative flu COVID and RSV. Troponin here 5.7 compared to 20 in the outpatient [facility] assay. Has had some exertional shoulder discomfort; no significant cardiac history or evidence of STEMI but question if this is a cardiac equivalent. Discussed with her and family in feel it is reasonable to observe her while starting antibiotic therapy to ensure no further developing cardiac symptoms occur and to ensure improvement. Again not having chest pain or shortness of breath and doubt PE/dissection. In discussion with family they are in agreement with this plan. Did order a single blood culture given no definite source at this time although again strong suspicion for tickborne illness. DIAGNOSIS: Fatigue, tickborne illness, atypical chest pain DISPOSITION: Hospitalist will evaluate Patient was agreeable with this plan. Past Med/Surg History Problem List (Updated 04/10/25 @ 14:49 by Pari Gonzalez PA-C) Hyponatremia Anemia Thrombocytopenia Positive Lyme disease serology Atypical chest pain (Acute) Fatigue (Acute) At high risk for tick borne illness (Acute) Atrial fibrillation with RVR HTN (hypertension) Medical History Encounter for pre-operative examination Leukocytosis Abdominal pain Perforated appendix Surgical History H/O abdominal surgery (10/20/23) Diagnostic laparoscopy,Appendectomy, Drainage of intra-abdominal abscess, Extensive Lysis of Adhesions(Not Applicable) - Jasiel Gunter DO S/P OTTONIEL (total abdominal hysterectomy) Family History Mother Coronary heart disease Social History Smoking Status: Never smoker Hx Alcohol Use: No Hx Substance Use: No Preferred Language: Swedish Communication Ability: Effective [employer] Representative Required: No Beliefs That Will Affect Care: None Current Living Situation: Family Feels Safe at Home: Yes Assistive Devices: None Allergies Allergies Allergy/AdvReac Type Severity Reaction Status Date / Time No Known Allergies Unverified 04/10/25 14:39 Home Meds Home Medications Medication Instructions Recorded Confirmed ascorbic acid (vitamin C) 500 mg 500 mg PO QAM 10/16/23 04/10/25 tablet (Vitamin C) aspirin 81 mg tablet 81 mg PO QAM 10/16/23 04/10/25 omega-3 fatty acids 1,000 mg 2,000 mg PO QAM 10/16/23 04/10/25 capsule amlodipine 5 mg tablet 5 mg PO QAM 04/10/25 04/10/25 fish, borage, flaxseed oils-omega 1,200 cap PO QAM 04/10/25 04/10/25 3,6,9 comb no.1 1,200 mg capsule (Ingram 3-6-9) losartan 100 mg tablet 100 mg PO QAM 04/10/25 04/10/25 metoprolol succinate 50 mg 50 mg PO QAM 04/10/25 04/10/25 tablet,extended release 24 hr Results & Data (ED) Vital Signs Vital Signs - 24 hr 04/10/25 12:00 04/10/25 12:13 04/10/25 12:59 Temperature 36.4 C L Temperature Source Temporal Artery Scan Pulse Rate 88 78 Pulse Rate [Apical] 78 Pulse Rate from SpO2 Sensor Respiratory Rate 20 20 Respiratory Effort / Characteristics Non-Labored Spontaneous Non-Labored Spontaneous Respiratory Depth Normal Normal Respiratory Pattern Regular Blood Pressure 95/54 L Blood Pressure [Right Arm] 138/61 Blood Pressure Mean 67 Blood Pressure Mean [Right Arm] 86 Blood Pressure Position [Right Arm] Semi-fowlers Pulse Oximetry 96 97 Oxygen Delivery Method Room Air Room Air Sepsis Recent Fever Within 48 Hours No Sepsis New/Unexplained Change in Mental Status N/A Sepsis Action Taken by Nursing No Action Required 04/10/25 13:00 04/10/25 13:09 04/10/25 13:12 Temperature Temperature Source Pulse Rate 74 76 Pulse Rate [Apical] Pulse Rate from SpO2 Sensor 74 77 Respiratory Rate 17 17 Respiratory Effort / Characteristics Respiratory Depth Respiratory Pattern Blood Pressure Blood Pressure [Right Arm] Blood Pressure Mean Blood Pressure Mean [Right Arm] Blood Pressure Position [Right Arm] Pulse Oximetry 97 96 97 Oxygen Delivery Method Room Air Sepsis Recent Fever Within 48 Hours Sepsis New/Unexplained Change in Mental Status Sepsis Action Taken by Nursing 04/10/25 13:24 04/10/25 13:39 04/10/25 13:45 Temperature Temperature Source Pulse Rate 79 78 78 Pulse Rate [Apical] Pulse Rate from SpO2 Sensor 77 78 78 Respiratory Rate 21 22 26 H Respiratory Effort / Characteristics Respiratory Depth Respiratory Pattern Blood Pressure Blood Pressure [Right Arm] Blood Pressure Mean Blood Pressure Mean [Right Arm] Blood Pressure Position [Right Arm] Pulse Oximetry 97 96 96 Oxygen Delivery Method Sepsis Recent Fever Within 48 Hours Sepsis New/Unexplained Change in Mental Status Sepsis Action Taken by Nursing 04/10/25 13:51 04/10/25 14:15 04/10/25 14:30 Temperature Temperature Source Pulse Rate 79 80 78 Pulse Rate [Apical] Pulse Rate from SpO2 Sensor 78 82 77 Respiratory Rate 30 H 29 H 24 Respiratory Effort / Characteristics Respiratory Depth Respiratory Pattern Blood Pressure Blood Pressure [Right Arm] Blood Pressure Mean Blood Pressure Mean [Right Arm] Blood Pressure Position [Right Arm] Pulse Oximetry 97 98 97 Oxygen Delivery Method Sepsis Recent Fever Within 48 Hours Sepsis New/Unexplained Change in Mental Status Sepsis Action Taken by Nursing 04/10/25 14:30 04/10/25 14:31 04/10/25 15:00 Temperature Temperature Source Pulse Rate Pulse Rate [Apical] 77 Pulse Rate from SpO2 Sensor Respiratory Rate 29 H Respiratory Effort / Characteristics Non-Labored Spontaneous Respiratory Depth Normal Respiratory Pattern Blood Pressure 126/55 L 127/60 Blood Pressure [Right Arm] 126/55 L Blood Pressure Mean 87 89 Blood Pressure Mean [Right Arm] 78 Blood Pressure Position [Right Arm] Semi-fowlers Pulse Oximetry 96 Oxygen Delivery Method Room Air Sepsis Recent Fever Within 48 Hours Sepsis New/Unexplained Change in Mental Status Sepsis Action Taken by Nursing 04/10/25 15:00 04/10/25 15:00 04/10/25 15:18 Temperature Temperature Source Pulse Rate 79 80 Pulse Rate [Apical] Pulse Rate from SpO2 Sensor 76 80 Respiratory Rate 24 24 Respiratory Effort / Characteristics Respiratory Depth Respiratory Pattern Blood Pressure 127/60 127/60 Blood Pressure [Right Arm] Blood Pressure Mean 89 82 Blood Pressure Mean [Right Arm] Blood Pressure Position [Right Arm] Pulse Oximetry 98 96 Oxygen Delivery Method Sepsis Recent Fever Within 48 Hours Sepsis New/Unexplained Change in Mental Status Sepsis Action Taken by Nursing 04/10/25 15:33 Temperature Temperature Source Pulse Rate 79 Pulse Rate [Apical] Pulse Rate from SpO2 Sensor Respiratory Rate 22 Respiratory Effort / Characteristics Respiratory Depth Respiratory Pattern Blood Pressure 139/65 Blood Pressure [Right Arm] Blood Pressure Mean 89 Blood Pressure Mean [Right Arm] Blood Pressure Position [Right Arm] Pulse Oximetry 97 Oxygen Delivery Method Sepsis Recent Fever Within 48 Hours Sepsis New/Unexplained Change in Mental Status Sepsis Action Taken by Nursing Laboratory Data 04/10/25 12:37 04/10/25 12:37 Lab Results 04/10/25 04/10/25 04/10/25 Range/Units 12:37 14:44 15:36 WBC 5.59 (4.8-10.8) K/ul RBC 3.18 L (4.20-5.40) M/uL Hgb 9.9 L (12.0-16.0) g/dl Hct 28.7 L (37.0-47.0) % MCV 90.3 (80.0-100.0) fL MCH 31.1 (25.0-34.0) pg MCHC 34.5 (32.0-36.0) g/dL RDW Std Deviation 45.4 (36.4-46.3) fL RDW Coeff of Nicholas 13.7 (11.5-14.5) % Plt Count 79 L (130-400) K/uL MPV 11.1 (9.4-12.4) fL Immature Gran % (Auto) 1.1 % Neut % (Auto) 54.2 % Lymph % (Auto) 24.2 % [place] % (Auto) 19.9 % Eos % (Auto) 0.2 % Baso % (Auto) 0.4 % Neut # (Auto) 3.04 (1.40-6.50) K/uL Lymph # (Auto) 1.35 (1.20-3.40) K/uL [place] # (Auto) 1.11 H (0.11-0.59) K/uL Eos # (Auto) 0.01 (0.00-0.50) K/uL Baso # (Auto) 0.02 (0.00-0.20) K/uL Immature Gran # (Auto) 0.06 (0.01-0.20) K/uL RBC Morphology Unremarkable PT 11.8 (9.0-12.0) Seconds INR 1.1 (0.9-1.1) APTT 28 (21-31) Seconds PTT Ratio 1.0 Sodium 131 L (136-145) mmol/L Potassium 4.3 (3.5-5.1) mmol/L Chloride 100 (98-107) mmol/L Carbon Dioxide 24 (21-32) mmol/L Anion Gap 7 (3-11) BUN 34 H (6-23) mg/dl Creatinine 1.18 (0.6-1.2) mg/dl Est Cr Clr Drug Dosing 32.9 ml/min eGFR 46.40 BUN/Creatinine Ratio 28.8 H (10-20) Glucose 99 (70-99(Fasting)) mg/dl Calcium 8.7 (8.6-10.3) mg/dl Magnesium 1.9 (1.7-2.4) mg/dl Iron 19 L (35-150) mcg/dl TIBC 252 (250-450) mcg/dl Transferrin 180 L (200-360) mg/dl Transferrin % Sat 8 L (15-50) % Ferritin 867.0 H (8-388) ng/ml Total Bilirubin 2.8 H (0.2-1.0) mg/dl AST 52 H (13-39) U/L ALT 34 (7-52) U/L Alkaline Phosphatase 54 (34-104) U/L Troponin I High Sens 5.7 (0-14) pg/ml Total Protein 7.0 (6.0-8.3) gm/dl Albumin 3.2 L (3.4-5.0) gm/dl Globulin 3.8 (2.5-4.0) gm/dl Albumin/Globulin Ratio 0.8 L (0.9-2) Lipase 35 (11-82) U/L Vitamin B12 569 (180-914) pg/ml Folate > 22.30 (>5.38) ng/ml Procalcitonin 0.56 H (0-0.5) ng/ml TSH 2.451 (0.300-4.500) uIu/ml Urine Color Dark Yellow Urine Appearance Clear (Clear) Urine pH 6.0 (4.5-7.5) Ur Specific [place] 1.019 (1.000-1.030) Urine Protein 1+ H (Negative) Urine Glucose (UA) Negative (Negative) Urine Ketones 1+ H (Negative) Urine Blood Negative (Negative) Urine Nitrite Negative (Negative) Urine Bilirubin Negative (Negative) Urine Urobilinogen Negative (Negative) Ur Leukocyte Esterase Negative (Negative) Urine WBC (Auto) 0-5 (0-5) /hpf Urine RBC (Auto) 0-2 (0-2) /hpf U Hyaline Cast (Auto) 0-2 (0-2) /lpf U Epithel Cells (Auto) 0-2 (0-2) /hpf Urine Bacteria (Auto) None Seen (None Seen) Urine Comment Anaplasma Smear See Comment [place] Smear See Comment Lyme Disease Screen Positive H (Negative) SARS-CoV-2 (PCR) NEGATIVE (Negative) Influenza Type A (PCR) Negative (Neg) Influenza Type B (PCR) Negative (Neg) RSV (RT-PCR) Negative (Neg) Administered Medications Ceftriaxone Sodium (Rocephin) 2,000 mg in 50 mls @ 100 mls/hr IV Q24H IBAN Stop: 04/12/25 14:14 Last Admin: 04/10/25 15:10 Dose: 100 mls/hr Documented By: NEELA Discontinued Medications Doxycycline Hyclate (Doxycycline Hyclate 100 Mg Cap) 100 mg PO NOW STA Stop: 04/10/25 14:12 Last Admin: 04/10/25 15:10 Dose: 100 mg Documented By: NEELA Imaging Data Radiologist's Impression: Chest X-Ray 04/10/25 12:24 XR chest 1V portable CLINICAL HISTORY: shoulder pain, nonspecific COMPARISON STUDY: 05/27/2010 FINDINGS: Heart size and pulmonary vasculature are normal. No consolidation or pleural effusion. No pneumothorax. IMPRESSION: No acute findings. ACT 112: Negative or not required by law. Electronically signed by: Harlan Muniz M.D. 04/10/2025 12:54 PM Discharge Plan Visit Data Chief Complaint: Abnormal Labs/Diagnostic Testing Stated Complaint: LETHARGIC, ABN BLOOD TEST ED Provider: Cleveland Marquez Discharge Problem: At high risk for tick borne illness, Fatigue, Atypical chest pain Patient Disposition: Being Evaluated by Hospitalist Condition: Fair Forms Stand Alone Forms: My [facility] Prescriptions Prescriptions: No Action omega-3 fatty acids 1,000 mg Capsule 2,000 mg PO QAM ascorbic acid (vitamin C) [Vitamin C] 500 mg Tablet 500 mg PO QAM aspirin 81 mg Tablet 81 mg PO QAM metoprolol succinate 50 mg tablet extended release 24 hr 50 mg PO QAM amlodipine 5 mg tablet 5 mg PO QAM losartan 100 mg tablet 100 mg PO QAM Ingram 3-6-9 1,200 mg Capsule 1,200 cap PO QAM Referrals Referrals: Mary Ellen Melendez DO [Primary Care Provider] - Discharge Problem: Fatigue Qualifiers: Fatigue type: unspecified Qualified Code(s): R53.83 - Other fatigue
--- NOTE | 2025-04-10 12:56 | XRay Report ---
XR chest 1V portable CLINICAL HISTORY: shoulder pain, nonspecific COMPARISON STUDY: 05/27/2010 FINDINGS: Heart size and pulmonary vasculature are normal. No consolidation or pleural effusion. No p neumothorax. IMPRESSION: No acute findings. ACT 112: Negative or not required by law. Electronically signed by: Harlan Muniz M.D. 04/10/2025 12:54 PM
[2025-04-10 13:30] LABS: Alanine Aminotransferase 34.0 U/L (7-52); Albumin Globulin Ratio 0.8 (0.9-2); Alkaline Phosphatase 54.0 U/L (34-104); Anion Gap 7.0 (3-11); Bilirubin,Total 2.8 mg/dl (0.2-1.0); Blood Urea Nitrogen 34.0 mg/dl (6-23); Calcium 8.7 mg/dl (8.6-10.3); Carbon Dioxide 24.0 mmol/L (21-32); Chloride 100.0 mmol/L (98-107); Creatinine Clr Calc Pharmacy 32.9 ml/min; Globulin 3.8 gm/dl (2.5-4.0); Glucose 99.0 mg/dl (70-99(Fasting)); Lipase 35.0 U/L (11-82); Magnesium 1.9 mg/dl (1.7-2.4); Potassium 4.3 mmol/L (3.5-5.1); Sodium 131.0 mmol/L (136-145); Total Protein 7.0 gm/dl (6.0-8.3)
[2025-04-10 13:33] LABS: Hematocrit (blood only) 28.7 % (37.0-47.0); Hemoglobin 9.9 g/dl (12.0-16.0); Mean Corpuscular Hemoglobin 31.1 pg (25.0-34.0); Mean Corpuscular Volume 90.3 fL (80.0-100.0); Platelet Count 79 K/uL (130-400); RDW Standard Deviation 45.4 fL (36.4-46.3); Red Blood Count 3.18 M/uL (4.20-5.40); White Blood Count 5.59 K/ul (4.8-10.8)
[2025-04-10 13:35] LABS: Procalcitonin 0.56 ng/ml (0-0.5)
[2025-04-10 13:38] LABS: Immature Granulocytes # (auto) 0.06 K/uL (0.01-0.20); Immature Granulocytes % (auto) 1.1 %
[2025-04-10 13:44] LABS: Thyroid Stimulating Hormone 2.451 uIu/ml (0.300-4.500)
[2025-04-10 13:50] LABS: Influenza A virus by PCR Negative (Neg); Influenza B virus by PCR Negative (Neg); SARS CoV2 RNA(COVID-19) Ceph NEGATIVE (Negative)
[2025-04-10 14:00] LABS: Lyme Screen Rflx Confirmation Positive (Negative)
[2025-04-10 14:12] LABS: INR 1.1 (0.9-1.1); Partial Thromboplastin Time 28 Seconds (21-31); Prothrombin Time 11.8 Seconds (9.0-12.0)
--- NOTE | 2025-04-10 14:38 | History & Physical Report ---
Date of Service April 10, 2025 Assessment & Plan (1) Fatigue: (2) Positive Lyme disease serology: (3) Anemia: (4) Thrombocytopenia: (5) Hyponatremia: (6) Elevated LFTs: Plan Patient is an 79-year-old female with past medical history significant for PAF [single provoked episode lasting 2.5hr ISO sepsis related to appendicitis in September 2023; not on chemical AC - f/u Zio patch monitoring in October 2023 with no evidence of recurrent atrial fibrillation], HTN, heart palpitations, CKD stage IIIa, diverticulosis, fatty liver, history of colonic polyps and other problems listed below who presented to the ED with complaint of worsening fatigue over the past week and a half. Was seen and evaluated by PCP yesterday for this same complaint and had lab work completed which revealed anemia with Hgb 10.2, elevated BNP of 612, elevated Cr of 1.5 and elevated troponin of 20. Given her abnormal lab work and ongoing complaint of worsening fatigue, her PCP referred her to the ED for further evaluation. Will repeat BNP Trop x 1 WNL today, pt denies any cardiac complaints --> EKG appears benign, EKG w/ CP PRN -TTE, 09/2023: LVEF 55-60%, mild concentric LVH, grade II DD, no significant valvular pathology -Appears euvolemic on exam -Will hold off on TTE for now unless pt develops cardiac sxs #Progressive fatigue #Positive Lyme disease screen -->Lyme confirmatory testing pending Anaplasma, Babesia smears both negative Babesia DNA PCR pending A. phagocytophilum DNA testing pending RVP negative TSH WNL Procal slightly elevated at 0.56, WBC WNL UA grossly unremarkable IV Rocephin started in ED --> will continue Follow blood cx #Anemia Hgb 9.9 on admission No s/sx of bleeding per d/w pt Prior Hgb 13.6 as of 10/10/24 per outpt chart review Likely contributing to fatigue as well Check iron panel/ferritin/vit B12/folate Follow CBC trend #Thrombocytopenia Plt ct 79k on admission --> no prior hx per outpt chart review ? related to Lyme Fall precautions, continue to monitor #Hyponatremia Na 131 on admission Likely 2/2 poor po intake ISO poor appetite >1wk Check serum osm, urine osm, urine Na Continue to monitor #Elevated LFTs #H/o fatty liver disease T bili 2.8, AST 52 ALT, alk phos WNL T bili appears somewhat chronically elevated ~1-3 per outpt chart review Prior h/o elevated AST, ALT per outpt chart review -Possibly related to underlying fatty liver/gallbladder disease -Check RUQ US, follow LFT trend #CKD stage IIIa Cr appears stable Baseline Cr 0.8-1.1 per outpt chart review Avoid nephrotoxic agents as able Continue to monitor #HTN Hold amlodipine, losartan for now 2/2 marginal BP --> resume when able Routine BP monitoring #H/o palpitations Will resume BB for now w/ hold parameters Routine BP monitoring DVT Prophylaxis: SCDs/TEDs only given anemia, thrombocytopenia Disposition: Admit to med/tele Patient seen in collaboration with Dr. Rodas. Please see addendum. I spent a total of 50 minutes coordinating, documenting, and providing care for this patient excluding time spent in the performance of separately billed services or time spent by another provider/QHP. This included personally reviewing all current laboratories and imaging studies, medical reconciliation, outpatient chart review and discussion with specialists. This chart was completed in part utilizing Speech Voice Recognition Software. Grammatical errors, random word insertions, pronoun errors, and incomplete se ntences are an occasional consequence of this system due to software limitations, ambient noise, and hardware issues. Any formal questions or concerns about the content, text, or information contained within the body of this dictation should be directly addressed to the provider for clarification. History of Present Illness Chief Complaint: Worsening fatigue Primary Care Provider: Mary Ellen Melendez DO Patient is an 79-year-old female with past medical history significant for PAF [single provoked episode lasting 2.5hr ISO sepsis related to appendicitis in September 2023; not on chemical AC - f/u Zio patch monitoring in October 2023 with no evidence of recurrent atrial fibrillation], HTN, heart palpitations, CKD stage IIIa [baseline Cr 0.8-1.1], diverticulosis, fatty liver, history of colonic polyps and other problems listed below who presented to the ED with complaint of worsening fatigue. History obtained from the patient, discussion with ED provider and associated chart review. Patient endorses worsening fatigue over the past week and a half. Was seen and evaluated by PCP yesterday for this same complaint and had lab work completed which revealed anemia with Hgb 10.2, elevated BNP of 612, elevated Cr of 1.5 and elevated troponin of 20. Given her abnormal lab work and ongoing complaint of worsening fatigue, her PCP referred her to the ED for further evaluation. Patient endorses somewhat of a poor appetite in addition to her fatigue. No falls or trauma reported. No fevers at home. Denies any myalgias however did experience some pain in her shoulders a few days ago while completing chores outside - this now has subsided. Denies any headaches or lightheadedness/dizziness. Initial laboratory evaluation notable for anemia, thrombocytopenia, hyponatremia, elevated BUN and elevated total bilirubin/AST. Lyme disease screening came back positive, confirmatory testing pending. RVP negative. CXR without any acute findings. No known tick bites per patient; however, she is frequently outside and [place]. Mentions she was previously diagnosed with Lyme disease a few years ago and treated with oral doxycycline. Allergies Allergy/AdvReac Type Severity Reaction Status Date / Time No Known Allergies Unverified 04/10/25 14:39 Home Medications Medication Instructions Recorded Confirmed Type ascorbic acid (vitamin C) 500 mg 500 mg PO QAM 10/16/23 04/10/25 History tablet (Vitamin C) aspirin 81 mg tablet 81 mg PO QAM 10/16/23 04/10/25 History omega-3 fatty acids 1,000 mg 2,000 mg PO QAM 10/16/23 04/10/25 History capsule amlodipine 5 mg tablet 5 mg PO QAM 04/10/25 04/10/25 History fish, borage, flaxseed oils-omega 1,200 cap PO QAM 04/10/25 04/10/25 History 3,6,9 comb no.1 1,200 mg capsule ([place] 3-6-9) losartan 100 mg tablet 100 mg PO QAM 04/10/25 04/10/25 History metoprolol succinate 50 mg 50 mg PO QAM 04/10/25 04/10/25 History tablet,extended release 24 hr Past Med/Surg History Problem List Elevated LFTs Hyponatremia Anemia Thrombocytopenia Positive Lyme disease serology Atypical chest pain (Acute) Fatigue (Acute) At high risk for tick borne illness (Acute) Atrial fibrillation with RVR HTN (hypertension) Medical History Encounter for pre-operative examination Leukocytosis Abdominal pain Perforated appendix Surgical History H/O abdominal surgery (10/20/23) Diagnostic laparoscopy,Appendectomy, Drainage of intra-abdominal abscess, Extensive Lysis of Adhesions(Not Applicable) - Jasiel Gunter, S/P OTTONIEL (total abdominal hysterectomy) Family History Mother Coronary heart disease Social History Smoking Status: Never smoker Hx Alcohol Use: No Hx Substance Use: No Preferred Language: Nepali Communication Ability: Effective Yard Cleaner Required: No Beliefs That Will Affect Care: None Current Living Situation: Family Feels Safe at Home: Yes Assistive Devices: None Review of Systems Review of Systems: At least ten systems reviewed and negative, except as noted in the HPI. Physical Exam Physical Exam: General: WD/WN, elderly F, NAD, sitting up in bed, pleasant, conversing appropriately, A+Ox3, daughter at bedside HEENT: Normocephalic, atraumatic, external ear and nose normal, oropharynx normal Respiratory: Normal respiratory effort, lungs clear to auscultation bilaterally Cardiovascular: Regular rate/rhythm, normal peripheral pulses, trace LLE edema Abdomen/GI: Normal bowel sounds, soft, nontender to palpation in all quadrants Extremities/Musculoskeletal: No cyanosis or clubbing, extremities motor strength intact, moves all extremities Neurologic: No overt focal deficits, CN's II-XI not formally tested but appear grossly intact bilaterally Results & Data Results & Data Vital Signs (Past 12 Hours) Vital Signs Temp Pulse Pulse Resp BP BP Pulse Ox 04/10/25 13:09 96 04/10/25 12:59 78 04/10/25 12:13 78 20 138/61 97 04/10/25 12:00 36.4 C L 88 20 95/54 L 96 O2 Del Method 04/10/25 13:09 Room Air 04/10/25 12:59 04/10/25 12:13 Room Air 04/10/25 12:00 Room Air Laboratory Results Short CBC 04/10/25 Range/Units 12:37 WBC 5.59 (4.8-10.8) K/ul Hgb 9.9 L (12.0-16.0) g/dl Hct 28.7 L (37.0-47.0) % Plt Count 79 L (130-400) K/uL BMP 04/10/25 12:37 Sodium 131 L Potassium 4.3 Chloride 100 Carbon Dioxide 24 BUN 34 H Creatinine 1.18 Glucose 99 Calcium 8.7 Liver Function 04/10/25 Range/Units 12:37 Total Bilirubin 2.8 H (0.2-1.0) mg/dl AST 52 H (13-39) U/L ALT 34 (7-52) U/L Alkaline Phosphatase 54 (34-104) U/L Albumin 3.2 L (3.4-5.0) gm/dl Diagnostic Findings Chest X-Ray 04/10/25 12:24 XR chest 1V portable CLINICAL HISTORY: shoulder pain, nonspecific COMPARISON STUDY: 05/27/2010 FINDINGS: Heart size and pulmonary vasculature are normal. No consolidation or pleural effusion. No pneumothorax. IMPRESSION: No acute findings. ACT 112: Negative or not required by law. Electronically signed by: Harlan Muniz M.D. 04/10/2025 12:54 PM Code Status & VTE Plan Code Status FULL CODE Supervising Physician Co-Signing Physician Notes Attending addendum: The patient was seen and examined in the emergency room in presence of the daughter She has been complaining of fatigue for the last 1 week without any fever and/or chills and no cough and no shortness of breath Denies any abdominal pain, nausea and/or vomiting no problem with urine or bowel habit On examination Lying in bed without any acute distress Hemodynamically stable and is afebrile Chest was clear to auscultate bilaterally HeartS1-S2, regular Abdomenbenign Extremitiestrace edema of the left Her admission labs, EKG and imaging studies reviewed Assessment and plan Generalized weakness likely secondary to tickborne disease with Lyme positive # Thrombocytopenia and mildly abnormal LFTs Anaplasma smear has been negative but awaiting definitive test Mildly anemic but hemoglobin remains stable compared with September 2023 Iron level is low and that will be supplemented Agree with assessment and plan as outlined above by Pari Moss PA-C and take the full responsibility of care in the hospital Dr Suyapa Rodas (1) Fatigue Fatigue type: unspecified Qualified Code(s): R53.83 - Other fatigue (3) Anemia Anemia type: unspecified type Qualified Code(s): D64.9 - Anemia, unspecified
--- NOTE | 2025-04-10 15:01 | Electrocardiogram Report ---
Test Reason : Blood Pressure : */* mmHG Vent. Rate : 79 BPM Atrial Rate : 79 BPM P-R Int : 152 ms QRS Dur : 68 ms QT Int : 364 ms P-R-T Axes : * -12 -22 degrees QTcB Int : 417 ms Normal sinus rhythm Inferior infarct , age undetermined Cannot rule out Anterior infarct , age undetermined Abnormal ECG When compared with ECG of 24-Oct-2023 06:47, Inferior infarct is now Present Inverted T waves have replaced nonspecific T wave abnormality in Inferior leads QT has shortened Confirmed by Washington Pineda ([id number]) on 04/10/2025 3:01:16 PM Referred By: REFERRED SELF Confirmed By: Washington Pineda
[2025-04-10] MEDS: DOXYCYCLINE HYCLATE 100 MG CAP PO STA (15:10)
[2025-04-10] MEDS: cefTRIAXone SODIUM 2,000 MG/50 ML BAG IV SCH (15:10)
[2025-04-10 15:20] LABS: Iron 19.0 mcg/dl (35-150); Total Iron Binding Cap Calc 252.0 mcg/dl (250-450); Transferrin 180.0 mg/dl (200-360); Transferrin (FE) Percent Satur 8.0 % (15-50)
[2025-04-10 15:40] LABS: Ferritin 867.0 ng/ml (8-388)
[2025-04-10 15:45] LABS: Folate (Folic Acid),Ser orPlas > 22.30 ng/ml (>5.38)
[2025-04-10 15:46] LABS: Vitamin B12 569 pg/ml (180-914)
[2025-04-10 15:52] LABS: Appearance Urine Clear (Clear); Bacteria Urine Automated None Seen (None Seen); Cast Urine Automated 0-2 /lpf (0-2); Epithelial Cell Urine Auto 0-2 /hpf (0-2); Glucose Urine UA Negative (Negative); RBC Urine Automated 0-2 /hpf (0-2); WBC Urine Automated 0-5 /hpf (0-5)
[2025-04-10] MEDS ORDERED: PROMETHAZINE 6.25 MG/50.25 ML BAG IV PRN (18:25)
[2025-04-10] MEDS ORDERED: ACETAMINOPHEN 325 MG TAB PO PRN (18:25)
[2025-04-10] MEDS ORDERED: POLYETHYLENE (MIRALAX) 17 GM PACK PO PRN (18:25)
[2025-04-10] MEDS ORDERED: MAGNESIUM HYDROXIDE SUSP 30 ML UDC PO PRN (18:25)
[2025-04-10 18:29] LABS: Lyme Ab IgG 2nd Tier Confirm Positive (Negative)
[2025-04-10 18:30] LABS: Lyme Ab IgM 2nd Tier Confirm Positive (Negative)
--- NOTE | 2025-04-11 05:10 | Ultrasound Report ---
EXAM: US liver CLINICAL HISTORY: Elevated LFTs. TECHNIQUE: Ultrasound examination of the RUQ was performed using a [high-frequency transducer]. Scanning was performed with the patient in supine position. The following structures were specifically evaluated: COMPARISON: None available. FINDINGS: Liver: Liver size: 156 mm. Liver appears normal in size. There is diffuse increase in echotexture, denoting grade II steatosis. No evidence of focal lesions, cysts, or masses. Hepatic vasculature appears normal. Gallbladder: Gallbladder size: 75 x 25 x 24 mm. There is diffuse thickening of the wall of the gallbladder, measuring 3.5 mm. There is increased trabeculation of the gallbladder joseph. No pericholecystic free fluid. No increased vascularization at and around the gallbladder. These findings are suggestive of adenomyomatosis of the gallbladder. There is a 2 cm stone in the gallbladder lumen. Biliary Tree: Common bile duct diameter: 4.9 mm. Common bile duct is within normal limits in caliber and not dilated. No evidence of choledocholithiasis or biliary obstruction. Pancreas: The tail of the pancreas is not seen due to gas superposition. The remaining pancreas is normal in size and echogenicity. No focal lesion. Right Kidney: Right kidney size: 96 x 45 x 40 mm. The parenchymal thickness: 11 mm. Right kidney appears normal in size with preserved corticomedullary differentiation. No evidence of hydronephrosis or masses. No stone. There is a 6 mm cortical cyst in the middle zone of the right kidney. There is an elongated hypoechoic structure, measuring 1.1 x 1x1 x 2.3 mm, in the sinus fat tissue of the right kidney, which is compatible with a mildly prominent collecting system, likely pelvis. Right Adrenal Gland: Right adrenal gland: No sizable mass at the adrenal gland location. Additional Findings: None. IMPRESSION: 1. Grade 2 hepatosteatosis. 2. Cholecystolithiasis without a sign of cholecystitis. 3. Adenomyomatosis of the gallbladder wall. 4. Simple right renal cortical cyst. RECOMMENDATIONS: Clinical correlation with symptoms and further evaluation as indicated. Electronically signed by Luis Ayala 04-11-2025 05:09 AM
[2025-04-11 07:51] LABS: Hematocrit (blood only) 26.7 % (37.0-47.0); Hemoglobin 9.2 g/dl (12.0-16.0); Mean Corpuscular Hemoglobin 31.2 pg (25.0-34.0); Mean Corpuscular Volume 90.5 fL (80.0-100.0); Platelet Count 71 K/uL (130-400); RDW Standard Deviation 45.4 fL (36.4-46.3); Red Blood Count 2.95 M/uL (4.20-5.40); White Blood Count 4.72 K/ul (4.8-10.8)
[2025-04-11 08:12] LABS: Alanine Aminotransferase 30.0 U/L (7-52); Albumin Globulin Ratio 0.8 (0.9-2); Alkaline Phosphatase 47.0 U/L (34-104); Anion Gap 4.0 (3-11); Bilirubin,Total 1.9 mg/dl (0.2-1.0); Blood Urea Nitrogen 27.0 mg/dl (6-23); Calcium 8.2 mg/dl (8.6-10.3); Carbon Dioxide 24.0 mmol/L (21-32); Chloride 102.0 mmol/L (98-107); Creatinine Clr Calc Pharmacy 39.2 ml/min; Globulin 3.6 gm/dl (2.5-4.0); Glucose 94.0 mg/dl (70-99(Fasting)); Magnesium 1.8 mg/dl (1.7-2.4); Potassium 4.4 mmol/L (3.5-5.1); Sodium 130.0 mmol/L (136-145); Total Protein 6.5 gm/dl (6.0-8.3)
[2025-04-11] MEDS: ASPIRIN 81 MG ECTAB PO SCH (08:50)
[2025-04-11] MEDS: METOPROLOL SUCC 50MG EXT REL TAB PO SCH (08:50)
[2025-04-11] MEDS: ASCORBIC ACID 500 MG TAB PO SCH (08:51)
--- NOTE | 2025-04-11 09:30 | Hospitalist Progress Note ---
Date of Service April 11, 2025 Assessment & Plan (1) Fatigue: (2) Positive Lyme disease serology: (3) Anemia: (4) Thrombocytopenia: (5) Hyponatremia: (6) Elevated LFTs: Plan Patient is an 79-year-old female with past medical history significant for PAF [single provoked episode lasting 2.5hr ISO sepsis related to appendicitis in September 2023; not on chemical AC - f/u Zio patch monitoring in October 2023 with no evidence of recurrent atrial fibrillation], HTN, heart palpitations, CKD stage IIIa, diverticulosis, fatty liver, history of colonic polyps and other problems listed below who presented to the ED with complaint of worsening fatigue over the past week and a half. Was seen and evaluated by PCP yesterday for this same complaint and had lab work completed which revealed anemia with Hgb 10.2, elevated BNP of 612, elevated Cr of 1.5 and elevated troponin of 20. Given her abnormal lab work and ongoing complaint of worsening fatigue, her PCP referred her to the ED for further evaluation. BNP 60 in ED Trop x 1 WNL on admission, pt denies any cardiac complaints --> EKG appears benign, EKG w/ CP PRN -TTE, 09/2023: LVEF 55-60%, mild concentric LVH, grade II DD, no significant valvular pathology -Appears euvolemic on exam -Will hold off on TTE for now unless pt develops cardiac sxs #Progressive fatigue #Positive Lyme disease screen -- IgG and IgM for Lyme positive Anaplasma, Babesia smears both negative Babesia DNA PCR pending Anaplasma. phagocytophilum DNA testing pending RVP negative TSH WNL Procal slightly elevated at 0.56, WBC WNL UA grossly unremarkable IV Rocephin started in ED --> will continue Follow blood cx #Anemia Hgb 9.9 on admission No s/sx of bleeding per d/w pt Prior Hgb 13.6 as of 10/10/24 per outpt chart review Likely contributing to fatigue as well Checked iron panel/ferritin/vit B12/folate, iron level found low at 19, transferrin sat 8% Follow CBC trend #Thrombocytopenia Plt ct 79k on admission --> no prior hx per outpt chart review ? related to Lyme Fall precautions, continue to monitor #Hyponatremia Na 131 on admission Likely 2/2 poor po intake ISO poor appetite >1wk serum osm, urine osm, urine Na Continue to monitor #Elevated LFTs #H/o fatty liver disease T bili 2.8, AST 52 ALT, alk phos WNL T bili appears somewhat chronically elevated ~1-3 per outpt chart review Prior h/o elevated AST, ALT per outpt chart review -Possibly related to underlying fatty liver/gallbladder disease -Check RUQ US, follow LFT trend US liver - 1. Grade 2 hepatosteatosis. 2. Cholecystolithiasis without a sign of cholecystitis. 3. Adenomyomatosis of the gallbladder wall. 4. Simple right renal cortical cyst. - current Tbili down to 1.9 (2.8), AST 50 (52), ALT 30 (34) - pt also denies any RUQ pain or any abd. pain #CKD stage IIIa Cr appears stable Baseline Cr 0.8-1.1 per outpt chart review Avoid nephrotoxic agents as able Continue to monitor #HTN Hold amlodipine, losartan for now 2/2 marginal BP --> resume when able Routine BP monitoring #H/o palpitations Continue BB for now w/ hold parameters Routine BP monitoring DVT Prophylaxis: SCDs/TEDs only given anemia, thrombocytopenia Disposition: med/tele Admission and Anticipated Discharge Date Admission Date: April 10, 2025 Subjective Pt seen in follow up of weakness/ fatigue + Lyme + thrombocytopenia + anemia, w/ low iron + elev. LFTs Currently lying in bed in NAD but does not feel improved from yesterday No fever, chills, chest pain, shortness of breath, no abd. pain, n/v. Also specifically denies any RUQ pain Review of Systems Review of Systems: All systems reviewed & are unremarkable except as noted in Subjective Physical Exam Physical Exam: General: WD/WN, elderly F, NAD, sitting up in bed, pleasant, conversing appropriately, A+Ox3 HEENT: Normocephalic, atraumatic, external ear and nose normal, oropharynx normal Respiratory: Normal respiratory effort, lungs clear to auscultation bilaterally Cardiovascular: Regular rate/rhythm Abdomen/GI: Normal bowel sounds, soft, nontender to palpation in all quadrants Extremities/Musculoskeletal: No cyanosis or clubbing, extremities motor strength intact, moves all extremities Neurologic: Awake, alert, answers appropriately, no facial asymmetry, speech fluent, moves extremities Results & Data Results & Data Vital Signs (Past 12 Hours) Vital Signs Temp Pulse Pulse Pulse Resp BP Pulse Ox 04/11/25 07:46 36.6 C 90 20 113/70 96 04/11/25 07:04 73 04/11/25 03:10 37.1 C 79 20 109/60 94 04/10/25 23:43 36.5 C 80 18 100/51 L 92 04/10/25 21:59 75 04/10/25 21:31 36.8 C 85 20 127/67 98 O2 Del Method 04/11/25 07:46 Room Air 04/11/25 07:04 04/11/25 03:10 Room Air 04/10/25 23:43 Room Air 04/10/25 21:59 04/10/25 21:31 Room Air Laboratory Results 04/11/25 04/11/25 04/10/25 Range/Units Unknown 07: 20:15 WBC 4.72 L (4.8-10.8) K/ul RBC 2.95 L (4.20-5.40) M/uL Hgb 9.2 L (12.0-16.0) g/dl Hct 26.7 L (37.0-47.0) % MCV 90.5 (80.0-100.0) fL MCH 31.2 (25.0-34.0) pg MCHC 34.5 (32.0-36.0) g/dL RDW Std Deviation 45.4 (36.4-46.3) fL RDW Coeff of Nicholas 13.8 (11.5-14.5) % Plt Count 71 L (130-400) K/uL MPV 10.6 (9.4-12.4) fL Immature Gran % (Auto) % Neut % (Auto) % Lymph % (Auto) % [place] % (Auto) % Eos % (Auto) % Baso % (Auto) % Neut # (Auto) (1.40-6.50) K/uL Lymph # (Auto) (1.20-3.40) K/uL [place] # (Auto) (0.11-0.59) K/uL Eos # (Auto) (0.00-0.50) K/uL Baso # (Auto) (0.00-0.20) K/uL Immature Gran # (Auto) (0.01-0.20) K/uL RBC Morphology PT (9.0-12.0) Seconds INR (0.9-1.1) APTT (21-31) Seconds PTT Ratio Sodium 130 L (136-145) mmol/L Potassium 4.4 (3.5-5.1) mmol/L Chloride 102 (98-107) mmol/L Carbon Dioxide 24 (21-32) mmol/L Anion Gap 4 (3-11) BUN 27 H (6-23) mg/dl Creatinine 0.97 (0.6-1.2) mg/dl Est Cr Clr Drug Dosing 39.2 ml/min eGFR 58.71 BUN/Creatinine Ratio 27.8 H (10-20) Glucose 94 (70-99(Fasting)) mg/dl Osmolality (280-300) mOsm/kg Calcium 8.2 L (8.6-10.3) mg/dl Phosphorus 2.7 (2.5-4.9) mg/dl Magnesium 1.8 (1.7-2.4) mg/dl Iron (35-150) mcg/dl TIBC (250-450) mcg/dl Transferrin (200-360) mg/dl Transferrin % Sat (15-50) % Ferritin (8-388) ng/ml Total Bilirubin 1.9 H (0.2-1.0) mg/dl AST 50 H (13-39) U/L ALT 30 (7-52) U/L Alkaline Phosphatase 47 (34-104) U/L Troponin I High Sens (0-14) pg/ml B-Natriuretic Peptide 60 (0-100) pg/ml Total Protein 6.5 (6.0-8.3) gm/dl Albumin 2.9 L (3.4-5.0) gm/dl Globulin 3.6 (2.5-4.0) gm/dl Albumin/Globulin Ratio 0.8 L (0.9-2) Lipase (11-82) U/L Vitamin B12 (180-914) pg/ml Folate (>5.38) ng/ml Procalcitonin (0-0.5) ng/ml TSH (0.300-4.500) uIu/ml Urine Color Urine Appearance (Clear) Urine pH (4.5-7.5) Ur Specific [place] (1.000-1.030) Urine Protein (Negative) Urine Glucose (UA) (Negative) Urine Ketones (Negative) Urine Blood (Negative) Urine Nitrite (Negative) Urine Bilirubin (Negative) Urine Urobilinogen (Negative) Ur Leukocyte Esterase (Negative) Urine WBC (Auto) (0-5) /hpf Urine RBC (Auto) (0-2) /hpf U Hyaline Cast (Auto) (0-2) /lpf U Epithel Cells (Auto) (0-2) /hpf Urine Bacteria (Auto) (None Seen) Urine Osmolality 630 (500-800) mOsm/kg Ur Random Sodium 45 mmol/L Urine Comment Anaplasma Smear A. phagocytophilum DNA Babesia Smear Babesia microti DNA PCR Lyme Disease Screen (Negative) Lyme Tier 2 IgG Confirm (Negative) Lyme Tier 2 IgM Confirm (Negative) SARS-CoV-2 (PCR) (Negative) Influenza Type A (PCR) (Neg) Influenza Type B (PCR) (Neg) RSV (RT-PCR) (Neg) 04/10/25 04/10/25 04/10/25 Range/Units 15:36 14:48 14:44 WBC (4.8-10.8) K/ul RBC (4.20-5.40) M/uL Hgb (12.0-16.0) g/dl Hct (37.0-47.0) % MCV (80.0-100.0) fL MCH (25.0-34.0) pg MCHC (32.0-36.0) g/dL RDW Std Deviation (36.4-46.3) fL RDW Coeff of Nicholas (11.5-14.5) % Plt Count (130-400) K/uL MPV (9.4-12.4) fL Immature Gran % (Auto) % Neut % (Auto) % Lymph % (Auto) % [place] % (Auto) % Eos % (Auto) % Baso % (Auto) % Neut # (Auto) (1.40-6.50) K/uL Lymph # (Auto) (1.20-3.40) K/uL [place] # (Auto) (0.11-0.59) K/uL Eos # (Auto) (0.00-0.50) K/uL Baso # (Auto) (0.00-0.20) K/uL Immature Gran # (Auto) (0.01-0.20) K/uL RBC Morphology PT (9.0-12.0) Seconds INR (0.9-1.1) APTT (21-31) Seconds PTT Ratio Sodium (136-145) mmol/L Potassium (3.5-5.1) mmol/L Chloride (98-107) mmol/L Carbon Dioxide (21-32) mmol/L Anion Gap (3-11) BUN (6-23) mg/dl Creatinine (0.6-1.2) mg/dl Est Cr Clr Drug Dosing ml/min eGFR BUN/Creatinine Ratio (10-20) Glucose (70-99(Fasting)) mg/dl Osmolality 279 L (280-300) mOsm/kg Calcium (8.6-10.3) mg/dl Phosphorus (2.5-4.9) mg/dl Magnesium (1.7-2.4) mg/dl Iron 19 L (35-150) mcg/dl TIBC 252 (250-450) mcg/dl Transferrin 180 L (200-360) mg/dl Transferrin % Sat 8 L (15-50) % Ferritin 867.0 H (8-388) ng/ml Total Bilirubin (0.2-1.0) mg/dl AST (13-39) U/L ALT (7-52) U/L Alkaline Phosphatase (34-104) U/L Troponin I High Sens (0-14) pg/ml B-Natriuretic Peptide (0-100) pg/ml Total Protein (6.0-8.3) gm/dl Albumin (3.4-5.0) gm/dl Globulin (2.5-4.0) gm/dl Albumin/Globulin Ratio (0.9-2) Lipase (11-82) U/L Vitamin B12 569 (180-914) pg/ml Folate > 22.30 (>5.38) ng/ml Procalcitonin (0-0.5) ng/ml TSH (0.300-4.500) uIu/ml Urine Color Dark Yellow Urine Appearance Clear (Clear) Urine pH 6.0 (4.5-7.5) Ur Specific [place] 1.019 (1.000-1.030) Urine Protein 1+ H (Negative) Urine Glucose (UA) Negative (Negative) Urine Ketones 1+ H (Negative) Urine Blood Negative (Negative) Urine Nitrite Negative (Negative) Urine Bilirubin Negative (Negative) Urine Urobilinogen Negative (Negative) Ur Leukocyte Esterase Negative (Negative) Urine WBC (Auto) 0-5 (0-5) /hpf Urine RBC (Auto) 0-2 (0-2) /hpf U Hyaline Cast (Auto) 0-2 (0-2) /lpf U Epithel Cells (Auto) 0-2 (0-2) /hpf Urine Bacteria (Auto) None Seen (None Seen) Urine Osmolality (500-800) mOsm/kg Ur Random Sodium mmol/L Urine Comment Anaplasma Smear A. phagocytophilum DNA Pending Babesia Smear Babesia microti DNA PCR Lyme Disease Screen (Negative) Lyme Tier 2 IgG Confirm (Negative) Lyme Tier 2 IgM Confirm (Negative) SARS-CoV-2 (PCR) (Negative) Influenza Type A (PCR) (Neg) Influenza Type B (PCR) (Neg) RSV (RT-PCR) (Neg) 04/10/25 Range/Units 12:37 WBC 5.59 (4.8-10.8) K/ul RBC 3.18 L (4.20-5.40) M/uL Hgb 9.9 L (12.0-16.0) g/dl Hct 28.7 L (37.0-47.0) % MCV 90.3 (80.0-100.0) fL MCH 31.1 (25.0-34.0) pg MCHC 34.5 (32.0-36.0) g/dL RDW Std Deviation 45.4 (36.4-46.3) fL RDW Coeff of Nicholas 13.7 (11.5-14.5) % Plt Count 79 L (130-400) K/uL MPV 11.1 (9.4-12.4) fL Immature Gran % (Auto) 1.1 % Neut % (Auto) 54.2 % Lymph % (Auto) 24.2 % [place] % (Auto) 19.9 % Eos % (Auto) 0.2 % Baso % (Auto) 0.4 % Neut # (Auto) 3.04 (1.40-6.50) K/uL Lymph # (Auto) 1.35 (1.20-3.40) K/uL [place] # (Auto) 1.11 H (0.11-0.59) K/uL Eos # (Auto) 0.01 (0.00-0.50) K/uL Baso # (Auto) 0.02 (0.00-0.20) K/uL Immature Gran # (Auto) 0.06 (0.01-0.20) K/uL RBC Morphology Unremarkable PT 11.8 (9.0-12.0) Seconds INR 1.1 (0.9-1.1) APTT 28 (21-31) Seconds PTT Ratio 1.0 Sodium 131 L (136-145) mmol/L Potassium 4.3 (3.5-5.1) mmol/L Chloride 100 (98-107) mmol/L Carbon Dioxide 24 (21-32) mmol/L Anion Gap 7 (3-11) BUN 34 H (6-23) mg/dl Creatinine 1.18 (0.6-1.2) mg/dl Est Cr Clr Drug Dosing 32.9 ml/min eGFR 46.40 BUN/Creatinine Ratio 28.8 H (10-20) Glucose 99 (70-99(Fasting)) mg/dl Osmolality (280-300) mOsm/kg Calcium 8.7 (8.6-10.3) mg/dl Phosphorus (2.5-4.9) mg/dl Magnesium 1.9 (1.7-2.4) mg/dl Iron (35-150) mcg/dl TIBC (250-450) mcg/dl Transferrin (200-360) mg/dl Transferrin % Sat (15-50) % Ferritin (8-388) ng/ml Total Bilirubin 2.8 H (0.2-1.0) mg/dl AST 52 H (13-39) U/L ALT 34 (7-52) U/L Alkaline Phosphatase 54 (34-104) U/L Troponin I High Sens 5.7 (0-14) pg/ml B-Natriuretic Peptide (0-100) pg/ml Total Protein 7.0 (6.0-8.3) gm/dl Albumin 3.2 L (3.4-5.0) gm/dl Globulin 3.8 (2.5-4.0) gm/dl Albumin/Globulin Ratio 0.8 L (0.9-2) Lipase 35 (11-82) U/L Vitamin B12 (180-914) pg/ml Folate (>5.38) ng/ml Procalcitonin 0.56 H (0-0.5) ng/ml TSH 2.451 (0.300-4.500) uIu/ml Urine Color Urine Appearance (Clear) Urine pH (4.5-7.5) Ur Specific [place] (1.000-1.030) Urine Protein (Negative) Urine Glucose (UA) (Negative) Urine Ketones (Negative) Urine Blood (Negative) Urine Nitrite (Negative) Urine Bilirubin (Negative) Urine Urobilinogen (Negative) Ur Leukocyte Esterase (Negative) Urine WBC (Auto) (0-5) /hpf Urine RBC (Auto) (0-2) /hpf U Hyaline Cast (Auto) (0-2) /lpf U Epithel Cells (Auto) (0-2) /hpf Urine Bacteria (Auto) (None Seen) Urine Osmolality (500-800) mOsm/kg Ur Random Sodium mmol/L Urine Comment Anaplasma Smear See Comment A. phagocytophilum DNA Babesia Smear See Comment Babesia microti DNA PCR Pending Lyme Disease Screen Positive H (Negative) Lyme Tier 2 IgG Confirm Positive H (Negative) Lyme Tier 2 IgM Confirm Positive H (Negative) SARS-CoV-2 (PCR) NEGATIVE (Negative) Influenza Type A (PCR) Negative (Neg) Influenza Type B (PCR) Negative (Neg) RSV (RT-PCR) Negative (Neg) Medications Administered Current Inpatient Medications Acetaminophen (Acetaminophen 325 Mg Tab) 650 mg PO Q4H PRN PRN Reason: Pain or Fever Stop: 05/10/25 18:24 Ascorbic Acid (Ascorbic Acid 500 Mg Tab) [facility] Stop: 05/11/25 08:59 Last Admin: 04/11/25 08:51 Dose: 500 mg Aspirin (Aspirin 81 Mg Ectab) 81 [facility] [place] [facility] [place] Stop: 05/11/25 08:59 Last Admin: 04/11/25 08:50 Dose: 81 mg Ceftriaxone Sodium (Rocephin) 2,000 mg in 50 mls @ 100 mls/hr IV Q24H [facility] Stop: 04/12/25 14:14 Last Infusion: 04/10/25 17:23 Dose: Infused Promethazine HCl (Phenergan) 6.25 mg in 50.25 mls @ 201 mls/hr IV Q6H PRN PRN Reason: Nausea And Vomiting Stop: 05/10/25 18:24 Magnesium Hydroxide (Magnesium Hydroxide Susp 30 Ml Udc) 30 ml PO Q12H PRN PRN Reason: Constipation Stop: 05/10/25 18:24 Metoprolol Succinate (Metoprolol Succ 50mg Ext Rel Tab) 50 mg PO QAM [facility] Stop: 05/11/25 08:59 Last Admin: 04/11/25 08:50 Dose: 50 mg Polyethylene Glycol (Polyethylene (Miralax) 17 Gm Pack) 17 gm PO DAILY PRN PRN Reason: Constipation Stop: 05/10/25 18:24 (1) Fatigue Fatigue type: unspecified Qualified Code(s): R53.83 - Other fatigue (3) Anemia Anemia type: unspecified type Qualified Code(s): D64.9 - Anemia, unspecified
[2025-04-11 09:31] LABS: Immature Granulocytes # (auto) 0.04 K/uL (0.01-0.20); Immature Granulocytes % (auto) 0.8 %
[2025-04-11 09:57] LABS: Anisocytosis Present; Polychromasia 1+
[2025-04-12 05:53] LABS: Hematocrit (blood only) 24.0 % (37.0-47.0); Hemoglobin 8.3 g/dl (12.0-16.0); Mean Corpuscular Hemoglobin 31.0 pg (25.0-34.0); Mean Corpuscular Volume 89.6 fL (80.0-100.0); Platelet Count 69 K/uL (130-400); RDW Standard Deviation 45.2 fL (36.4-46.3); Red Blood Count 2.68 M/uL (4.20-5.40); White Blood Count 5.23 K/ul (4.8-10.8)
[2025-04-12 06:10] LABS: Alanine Aminotransferase 26.0 U/L (7-52); Albumin Globulin Ratio 0.8 (0.9-2); Alkaline Phosphatase 46.0 U/L (34-104); Anion Gap 5.0 (3-11); Bilirubin,Total 1.6 mg/dl (0.2-1.0); Blood Urea Nitrogen 22.0 mg/dl (6-23); Calcium 7.8 mg/dl (8.6-10.3); Carbon Dioxide 22.0 mmol/L (21-32); Chloride 102.0 mmol/L (98-107); Creatinine Clr Calc Pharmacy 40.0 ml/min; Globulin 3.2 gm/dl (2.5-4.0); Glucose 99.0 mg/dl (70-99(Fasting)); Magnesium 1.8 mg/dl (1.7-2.4); Potassium 4.0 mmol/L (3.5-5.1); Sodium 129.0 mmol/L (136-145); Total Protein 5.8 gm/dl (6.0-8.3)
[2025-04-12 06:48] LABS: Immature Granulocytes # (auto) 0.06 K/uL (0.01-0.20); Immature Granulocytes % (auto) 1.1 %
--- NOTE | 2025-04-12 08:19 | Hospitalist Progress Note ---
Date of Service April 12, 2025 Assessment & Plan (1) Fatigue: (2) Positive Lyme disease serology: (3) Anemia: (4) Thrombocytopenia: (5) Hyponatremia: (6) Elevated LFTs: Plan Patient is an 79-year-old female with past medical history significant for PAF [single provoked episode lasting 2.5hr ISO sepsis related to appendicitis in September 2023; not on chemical AC - f/u Zio patch monitoring in October 2023 with no evidence of recurrent atrial fibrillation], HTN, heart palpitations, CKD stage IIIa, diverticulosis, fatty liver, history of colonic polyps and other problems listed below who presented to the ED with complaint of worsening fatigue over the past week and a half. Was seen and evaluated by PCP yesterday for this same complaint and had lab work completed which revealed anemia with Hgb 10.2, elevated BNP of 612, elevated Cr of 1.5 and elevated troponin of 20. Given her abnormal lab work and ongoing complaint of worsening fatigue, her PCP referred her to the ED for further evaluation. BNP 60 in ED Trop x 1 WNL on admission, pt denies any cardiac complaints --> EKG appears benign, EKG w/ CP PRN -TTE, 09/2023: LVEF 55-60%, mild concentric LVH, grade II DD, no significant valvular pathology -Appears euvolemic on exam -Will hold off on TTE for now unless pt develops cardiac sxs #Progressive fatigue #Positive Lyme disease screen -- IgG and IgM for Lyme positive Anaplasma, Babesia smears initially read as negative however now poss. Babesia - will start atovaquone and azithromycin, will consult w/ ID Babesia DNA PCR pending Anaplasma. phagocytophilum DNA testing pending RVP negative TSH WNL Procal slightly elevated at 0.56, WBC WNL UA grossly unremarkable IV Rocephin started in ED --> will continue Follow blood cx #Anemia Hgb 9.9 on admission No s/sx of bleeding per d/w pt Prior Hgb 13.6 as of 10/10/24 per outpt chart review Likely contributing to fatigue as well Checked iron panel/ferritin/vit B12/folate, iron level found low at 19, transferrin sat 8% Follow CBC trend #Thrombocytopenia Plt ct 79k on admission --> no prior hx per outpt chart review ? related to Lyme / tickborne dz Fall precautions, continue to monitor #Hyponatremia Na 131 on admission Likely 2/2 poor po intake ISO poor appetite >1wk serum osm, urine osm, urine Na Continue to monitor #Elevated LFTs #H/o fatty liver disease T bili 2.8, AST 52 ALT, alk phos WNL T bili appears somewhat chronically elevated ~1-3 per outpt chart review Prior h/o elevated AST, ALT per outpt chart review -Possibly related to underlying fatty liver/gallbladder disease -Check RUQ US, follow LFT trend US liver - 1. Grade 2 hepatosteatosis. 2. Cholecystolithiasis without a sign of cholecystitis. 3. Adenomyomatosis of the gallbladder wall. 4. Simple right renal cortical cyst. - current Tbili down to 1.6 (1.9 < 2.8), AST 51 (50, 52), ALT 26 (30<34) - pt also denies any RUQ pain or any abd. pain #CKD stage IIIa Cr appears stable Baseline Cr 0.8-1.1 per outpt chart review Avoid nephrotoxic agents as able Continue to monitor #HTN Hold amlodipine, losartan for now 2/2 marginal BP --> resume when able Routine BP monitoring #H/o palpitations Continue BB for now w/ hold parameters Routine BP monitoring DVT Prophylaxis: SCDs/TEDs only given anemia, thrombocytopenia Disposition: med/tele Admission and Anticipated Discharge Date Admission Date: April 10, 2025 Subjective Pt seen in follow up of weakness/ fatigue + Lyme + thrombocytopenia + anemia, w/ low iron + elev. LFTs Currently sitting up in bed in NAD, eating breakfast, says she has better appetite today and feels little more energy Febrile overnight No chest pain, shortness of breath, no abd. pain, n/v. Also specifically denies any RUQ pain Poss. Babesia in addition to Lyme Pt's daughter updated over the phone Review of Systems Review of Systems: All systems reviewed & are unremarkable except as noted in Subjective Physical Exam Physical Exam: General: WD/WN, elderly F, NAD, sitting up in bed, pleasant, conversing appropriately, A+Ox3 HEENT: Normocephalic, atraumatic, external ear and nose normal, oropharynx normal Respiratory: Normal respiratory effort, lungs clear to auscultation bilaterally Cardiovascular: Regular rate/rhythm Abdomen/GI: Normal bowel sounds, soft, nontender to palpation in all quadrants Extremities/Musculoskeletal: extremities motor strength intact, moves all extremities Neurologic: Awake, alert, answers appropriately, no facial asymmetry, speech f luent, moves extremities Results & Data Results & Data Vital Signs (Past 12 Hours) Vital Signs Temp Pulse Pulse Resp BP Pulse Ox O2 Del Method 04/12/25 07:09 66 04/12/25 03:12 37.2 C 74 20 105/64 93 Room Air 04/11/25 23:58 38.1 C H 83 20 106/59 L 94 Room Air 04/11/25 21:45 74 Laboratory Results 04/12/25 04/11/25 04/11/25 Range/Units 05:35 Unknown 07:23 WBC 5.23 (4.8-10.8) K/ul RBC 2.68 L (4.20-5.40) M/uL Hgb 8.3 L (12.0-16.0) g/dl Hct 24.0 L (37.0-47.0) % MCV 89.6 (80.0-100.0) fL MCH 31.0 (25.0-34.0) pg MCHC 34.6 (32.0-36.0) g/dL RDW Std Deviation 45.2 (36.4-46.3) fL RDW Coeff of Nicholas 13.8 (11.5-14.5) % Plt Count 69 L (130-400) K/uL MPV 10.4 (9.4-12.4) fL Immature Gran % (Auto) 1.1 0.8 % Neut % (Auto) 41.8 45.5 % Lymph % (Auto) 31.0 32.4 % [place] % (Auto) 24.7 20.3 % Eos % (Auto) 1.0 0.6 % Baso % (Auto) 0.4 0.4 % Neut # (Auto) 2.19 2.14 (1.40-6.50) K/uL Lymph # (Auto) 1.62 1.53 (1.20-3.40) K/uL [place] # (Auto) 1.29 H 0.96 H (0.11-0.59) K/uL Eos # (Auto) 0.05 0.03 (0.00-0.50) K/uL Baso # (Auto) 0.02 0.02 (0.00-0.20) K/uL Immature Gran # (Auto) 0.06 0.04 (0.01-0.20) K/uL Blood Smear Review RBC Morphology Polychromasia 1+ Anisocytosis Present Peripher Smr Path Cons Sodium 129 L 130 L (136-145) mmol/L Potassium 4.0 4.4 (3.5-5.1) mmol/L Chloride 102 102 (98-107) mmol/L Carbon Dioxide 22 24 (21-32) mmol/L Anion Gap 5 4 (3-11) BUN 22 27 H (6-23) mg/dl Creatinine 0.95 0.97 (0.6-1.2) mg/dl Est Cr Clr Drug Dosing 40.0 39.2 ml/min eGFR 60.19 58.71 BUN/Creatinine Ratio 23.2 H 27.8 H (10-20) Glucose 99 94 (70-99(Fasting)) mg/dl Calcium 7.8 L 8.2 L (8.6-10.3) mg/dl Phosphorus 2.5 2.7 (2.5-4.9) mg/dl Magnesium 1.8 1.8 (1.7-2.4) mg/dl Total Bilirubin 1.6 H 1.9 H (0.2-1.0) mg/dl AST 51 H 50 H (13-39) U/L ALT 26 30 (7-52) U/L Alkaline Phosphatase 46 47 (34-104) U/L Total Protein 5.8 L 6.5 (6.0-8.3) gm/dl Albumin 2.6 L 2.9 L (3.4-5.0) gm/dl Globulin 3.2 3.6 (2.5-4.0) gm/dl Albumin/Globulin Ratio 0.8 L 0.8 L (0.9-2) Urine Osmolality 630 (500-800) mOsm/kg Ur Random Sodium 45 mmol/L Babesia Smear Blood Parasites ID Present 04/10/25 Range/Units 12:37 WBC (4.8-10.8) K/ul RBC (4.20-5.40) M/uL Hgb (12.0-16.0) g/dl Hct (37.0-47.0) % MCV (80.0-100.0) fL MCH (25.0-34.0) pg MCHC (32.0-36.0) g/dL RDW Std Deviation (36.4-46.3) fL RDW Coeff of Nicholas (11.5-14.5) % Plt Count (130-400) K/uL MPV (9.4-12.4) fL Immature Gran % (Auto) % Neut % (Auto) % Lymph % (Auto) % [place] % (Auto) % Eos % (Auto) % Baso % (Auto) % Neut # (Auto) (1.40-6.50) K/uL Lymph # (Auto) (1.20-3.40) K/uL [place] # (Auto) (0.11-0.59) K/uL Eos # (Auto) (0.00-0.50) K/uL Baso # (Auto) (0.00-0.20) K/uL Immature Gran # (Auto) (0.01-0.20) K/uL Blood Smear Review RBC Morphology Polychromasia Anisocytosis Peripher Smr Path Cons Sodium (136-145) mmol/L Potassium (3.5-5.1) mmol/L Chloride (98-107) mmol/L Carbon Dioxide (21-32) mmol/L Anion Gap (3-11) BUN (6-23) mg/dl Creatinine (0.6-1.2) mg/dl Est Cr Clr Drug Dosing ml/min eGFR BUN/Creatinine Ratio (10-20) Glucose (70-99(Fasting)) mg/dl Calcium (8.6-10.3) mg/dl Phosphorus (2.5-4.9) mg/dl Magnesium (1.7-2.4) mg/dl Total Bilirubin (0.2-1.0) mg/dl AST (13-39) U/L ALT (7-52) U/L Alkaline Phosphatase (34-104) U/L Total Protein (6.0-8.3) gm/dl Albumin (3.4-5.0) gm/dl Globulin (2.5-4.0) gm/dl Albumin/Globulin Ratio (0.9-2) Urine Osmolality (500-800) mOsm/kg Ur Random Sodium mmol/L Babesia Smear See Comment Blood Parasites ID Present Medications Administered Current Inpatient Medications Acetaminophen (Acetaminophen 325 Mg Tab) 650 mg PO Q4H PRN PRN Reason: Pain or Fever Stop: 05/10/25 18:24 Ascorbic Acid (Ascorbic Acid 500 Mg Tab) [facility] [place] Stop: 05/11/25 08:59 Last Admin: 04/11/25 08:51 Dose: 500 mg Aspirin (Aspirin 81 Mg Ectab) 81 [facility] [place] Stop: 05/11/25 08:59 Last Admin: 04/11/25 08:50 Dose: 81 mg Atovaquone (Atovaquone 750 Mg/5 Ml Udc) 750 mg PO Q12H [facility] Stop: 05/12/25 08:14 Ceftriaxone Sodium (Rocephin) 2,000 mg in 50 mls @ 100 mls/hr IV Q24H [facility] Stop: 04/12/25 14:14 Last Infusion: 04/11/25 14:58 Dose: Infused Promethazine HCl (Phenergan) 6.25 mg in 50.25 mls @ 201 mls/hr IV Q6H PRN PRN Reason: Nausea And Vomiting Stop: 05/10/25 18:24 Azithromycin (Zithromax) 500 mg in 255 mls @ 127.5 mls/hr IV Q24H [facility] Stop: 04/19/25 08:14 Sodium Chloride (Nss) 500 mls @ 80 mls/hr IV .[id number] [facility] Stop: 04/12/25 14:25 Magnesium Hydroxide (Magnesium Hydroxide Susp 30 Ml Udc) 30 ml PO Q12H PRN PRN Reason: Constipation Stop: 05/10/25 18:24 Metoprolol Succinate (Metoprolol Succ 50mg Ext Rel Tab) 50 mg PO [facility] Stop: 05/11/25 08:59 Last Admin: 04/11/25 08:50 Dose: 50 mg Polyethylene Glycol (Polyethylene (Miralax) 17 Gm Pack) 17 gm PO DAILY PRN PRN Reason: Constipation Stop: 05/10/25 18:24 (1) Fatigue Fatigue type: unspecified Qualified Code(s): R53.83 - Other fatigue (3) Anemia Anemia type: unspecified type Qualified Code(s): D64.9 - Anemia, unspecified
[2025-04-12] MEDS: AZITHROMYCIN 500 MG/255 ML BAG IV SCH (09:18)
[2025-04-12] MEDS: SODIUM CHLORIDE 0.9% 500 ML IV ONE ×2 (09:19→19:15)
[2025-04-12] MEDS: ATOVAQUONE 750 MG/5 ML UDC PO SCH (09:19)
[2025-04-12] MEDS: MAGNESIUM SULFATE / D5W 1 GM/100 ML BAG IV ONE (09:27)
[2025-04-12] MEDS: DOXYCYCLINE HYCLATE 100 MG in DEXTROSE 5% MINI-B 100 ML IV SCH (14:19)
--- NOTE | 2025-04-12 18:04 | Infectious Disease Consult ---
Date of Service April 12, 2025 Telehealth Information I performed this visit using a real-time telehealth connection between my location and the patients location ([facility]). After connecting through interactive tele-video, patient was identified by name and date of and/or wristband check.Patient (or authorized healthcare sales representative raw fibers) was informed that this was a telemedicine visit and it was being conducted confidentially over secure lines. My office door was closed and no one else was present in the room with me.Patient (or authorized healthcare sales representative raw fibers) provided consent to proceed with the visit, expressed an understanding of privacy and security of the telemedicine visit, and gave permission to have a hospital sales representative raw fibers in the room in order to assist with the visit and to conduct portions of the visit, as needed. I informed the patient (or authorized healthcare sales representative raw fibers) that I reviewed their record and presented the opportunity for them to ask any questions regarding the visit today. The patient agreed to participate. Assessment & Plan (1) Babesiosis: (2) Acute Lyme disease: (3) Thrombocytopenia: Plan I agree with oral atovaquone 750 mg twice daily and azithromycin 500 mg IV daily. If not done yet, please send for hemolysis workup. If the patient remained afebrile until tomorrow and hemoglobin stabilized, consider stepping down IV azithromycin to oral azithromycin 250 mg once daily. Please discontinue IV ceftriaxone and start on oral doxycycline 100 mg twice daily. Thank you for consulting Infectious Disease. History of Present Illness History of Present Illness Ms. Rodrigues is a pleasant 79-year-old woman with medical history of HTN, type 2 diabetes, atrial fibrillation, CKD stage IIIA, and fatty liver who was admitted to [facility] on 04/10/2025 because of generalized fatigue and fever for around 10 days prior to presentation. On admission, she was afebrile; however, the next day she spiked a fever of 38.2. The rest of the vitals were within normal limits. Initial workup showed normocytic anemia of 9.9 with a thrombocytopenia of 79, hyponatremia of 131, mildly elevated AST of 52 and elevated bilirubin of 2.8, Lyme screen with IgM and IgG were positive, and blood smear showing ring shaped inclusions within the erythrocytes (around 1 - 2%) compatible with Babesia. ID team was consulted for further recommendations and to help guide antibiotic treatment. Allergies Allergy/AdvReac Type Severity Reaction Status Date / Time No Known Allergies Unverified 04/10/25 14:39 Home Medications Medication Instructions Recorded Confirmed Type ascorbic acid (vitamin C) 500 mg 500 mg PO QAM 10/16/23 04/10/25 History tablet (Vitamin C) aspirin 81 mg tablet 81 mg PO QAM 10/16/23 04/10/25 History omega-3 fatty acids 1,000 mg 2,000 mg PO QAM 10/16/23 04/10/25 History capsule amlodipine 5 mg tablet 5 mg PO QAM 04/10/25 04/10/25 History fish, borage, flaxseed oils-omega 1,200 cap PO QAM 04/10/25 04/10/25 History 3,6,9 comb no.1 1,200 mg capsule ([place] 3-6-9) losartan 100 mg tablet 100 mg PO QAM 04/10/25 04/10/25 History metoprolol succinate 50 mg 50 mg PO QAM 04/10/25 04/10/25 History tablet,extended release 24 hr Patient History Medical History Encounter for pre-operative examination Leukocytosis Abdominal pain Perforated appendix Surgical History H/O abdominal surgery (10/20/23) Diagnostic laparoscopy,Appendectomy, Drainage of intra-abdominal abscess, Extensive Lysis of Adhesions(Not Applicable) - Jasiel Gunter, S/P OTTONIEL (total abdominal hysterectomy) Family History Mother Coronary heart disease Social History Smoking Status: Never smoker Hx Alcohol Use: No Hx Substance Use: No Preferred Language: [place] Communication Ability: Effective Sewing Line Baler Required: No Beliefs That Will Affect Care: None Current Living Situation: Spouse Feels Safe at Home: Yes Safety Concerns: Feels Safe At This Time Assistive Devices: None Review of Systems Negative except for what was mentioned in the H&P. Physical Exam Could not be performed given that the encounter was conducted via TeleMed. Results & Data Vital Signs (Past 12 Hours) Vital Signs Temp Pulse Pulse Resp BP Pulse Ox O2 Del Method 04/12/25 15:53 36.7 C 80 20 117/63 98 Room Air 04/12/25 12:01 36.7 C 79 20 103/56 L 95 Room Air 04/12/25 08:21 37.3 C 78 16 113/53 L 94 Room Air 04/12/25 07:09 66 Laboratory Results Microbiology: 04/10: 1 set of blood culture negative to date
[2025-04-13 06:54] LABS: Hematocrit (blood only) 23.2 % (37.0-47.0); Hemoglobin 8.1 g/dl (12.0-16.0); Mean Corpuscular Hemoglobin 31.4 pg (25.0-34.0); Mean Corpuscular Volume 89.9 fL (80.0-100.0); Platelet Count 71 K/uL (130-400); RDW Standard Deviation 45.6 fL (36.4-46.3); Red Blood Count 2.58 M/uL (4.20-5.40); White Blood Count 4.78 K/ul (4.8-10.8)
[2025-04-13 07:25] LABS: Alanine Aminotransferase 24.0 U/L (7-52); Albumin Globulin Ratio 0.8 (0.9-2); Alkaline Phosphatase 44.0 U/L (34-104); Anion Gap 4.0 (3-11); Bilirubin,Total 1.9 mg/dl (0.2-1.0); Blood Urea Nitrogen 17.0 mg/dl (6-23); Calcium 7.5 mg/dl (8.6-10.3); Carbon Dioxide 22.0 mmol/L (21-32); Chloride 104.0 mmol/L (98-107); Creatinine Clr Calc Pharmacy 46.5 ml/min; Globulin 3.2 gm/dl (2.5-4.0); Glucose 100.0 mg/dl (70-99(Fasting)); Magnesium 1.8 mg/dl (1.7-2.4); Potassium 4.1 mmol/L (3.5-5.1); Sodium 130.0 mmol/L (136-145); Total Protein 5.8 gm/dl (6.0-8.3)
--- NOTE | 2025-04-13 07:49 | Hospitalist Progress Note ---
Date of Service April 13, 2025 Assessment & Plan (1) Fatigue: (2) Positive Lyme disease serology: (3) Anemia: (4) Thrombocytopenia: (5) Hyponatremia: (6) Elevated LFTs: Plan Patient is an 79-year-old female with past medical history significant for PAF [single provoked episode lasting 2.5hr ISO sepsis related to appendicitis in September 2023; not on chemical AC - f/u Zio patch monitoring in October 2023 with no evidence of recurrent atrial fibrillation], HTN, heart palpitations, CKD stage IIIa, diverticulosis, fatty liver, history of colonic polyps and other problems listed below who presented to the ED with complaint of worsening fatigue over the past week and a half. Was seen and evaluated by PCP yesterday for this same complaint and had lab work completed which revealed anemia with Hgb 10.2, elevated BNP of 612, elevated Cr of 1.5 and elevated troponin of 20. Given her abnormal lab work and ongoing complaint of worsening fatigue, her PCP referred her to the ED for further evaluation. BNP 60 in ED Trop x 1 WNL on admission, pt denies any cardiac complaints --> EKG appears benign, EKG w/ CP PRN -TTE, 09/2023: LVEF 55-60%, mild concentric LVH, grade II DD, no significant valvular pathology -Appears euvolemic on exam -Will hold off on TTE for now unless pt develops cardiac sxs #Progressive fatigue #Positive Lyme disease screen -- IgG and IgM for Lyme positive Anaplasma, Babesia smears initially read as negative however now poss. Babesia - started atovaquone and azithromycin, consult w/ ID -> cont. on doxy, azithro, atovaquone Babesia DNA PCR pending Anaplasma. phagocytophilum DNA testing pending RVP negative TSH WNL Procal slightly elevated at 0.56, WBC WNL UA grossly unremarkable IV Rocephin started in ED --> continued, now switched to doxy, as above Follow blood cx #Anemia Hgb 9.9 on admission, now down to ~8 No s/sx of bleeding per d/w pt Prior Hgb 13.6 as of 10/10/24 per outpt chart review Likely contributing to fatigue as well Checked iron panel/ferritin/vit B12/folate, iron level found low at 19, transferrin sat 8% Follow CBC trend #Thrombocytopenia Plt ct 79k on admission --> no prior hx per outpt chart review ? related to Lyme / tickborne dz Fall precautions, continue to monitor #Hyponatremia Na 131 on admission Likely 2/2 poor po intake ISO poor appetite >1wk serum osm, urine osm, urine Na Continue to monitor #Elevated LFTs #H/o fatty liver disease T bili 2.8, AST 52 ALT, alk phos WNL T bili appears somewhat chronically elevated ~1-3 per outpt chart review Prior h/o elevated AST, ALT per outpt chart review -Possibly related to underlying fatty liver/gallbladder disease -Check RUQ US, follow LFT trend US liver - 1. Grade 2 hepatosteatosis. 2. Cholecystolithiasis without a sign of cholecystitis. 3. Adenomyomatosis of the gallbladder wall. 4. Simple right renal cortical cyst. - current Tbili (1.9 < 2.8), AST 51 (50, 52), ALT 26 (30<34) - pt also denies any RUQ pain or any abd. pain #CKD stage IIIa Cr appears stable Baseline Cr 0.8-1.1 per outpt chart review Avoid nephrotoxic agents as able Continue to monitor #HTN Hold amlodipine, losartan for now 2/2 marginal BP --> resume when able Routine BP monitoring #H/o palpitations Continue BB for now w/ hold parameters Routine BP monitoring DVT Prophylaxis: SCDs/TEDs only given anemia, thrombocytopenia Disposition: med/tele Admission and Anticipated Discharge Date Admission Date: April 10, 2025 Subjective Pt seen in follow up of weakness/ fatigue + Lyme + thrombocytopenia + anemia, w/ low iron + elev. LFTs Currently sitting up in chair in NAD No longer febrile No chest pain, shortness of breath, no abd. pain, n/v. Also specifically denies any RUQ pain Poss. Babesia in addition to Lyme Seen by ID yesterday as well Review of Systems Review of Systems: All systems reviewed & are unremarkable except as noted in Subjective Physical Exam Physical Exam: General: WD/WN, elderly F, NAD, sitting up in chair, pleasant, conversing appropriately, A+Ox3 HEENT: Normocephalic, atraumatic, external ear and nose brie Respiratory: Normal respiratory effort, lungs clear to auscultation bilaterally Cardiovascular: Regular rate/rhythm Abdomen/GI: Normal bowel sounds, soft, nontender to palpation in all quadrants Extremities/Musculoskeletal: extremities motor strength intact, moves all extremities Neurologic: Awake, alert, answers appropriately, no facial asymmetry, speech fluent, moves extremities Results & Data Results & Data Vital Signs (Past 12 Hours) Vital Signs Temp Pulse Pulse Resp BP Pulse Ox O2 Del Method 04/13/25 07:37 37.3 C 76 18 103/60 95 Room Air 04/13/25 07:36 71 04/13/25 02:21 36.9 C 75 16 107/58 L 96 Room Air 04/12/25 22:47 36.9 C 72 18 117/53 L 95 Room Air 04/12/25 22:04 76 Laboratory Results 04/13/25 Range/Units 06:04 WBC 4.78 L (4.8-10.8) K/ul RBC 2.58 L (4.20-5.40) M/uL Hgb 8.1 L (12.0-16.0) g/dl Hct 23.2 L (37.0-47.0) % MCV 89.9 (80.0-100.0) fL MCH 31.4 (25.0-34.0) pg MCHC 34.9 (32.0-36.0) g/dL RDW Std Deviation 45.6 (36.4-46.3) fL RDW Coeff of Nicholas 14.1 (11.5-14.5) % Plt Count 71 L (130-400) K/uL MPV 10.8 (9.4-12.4) fL Sodium 130 L (136-145) mmol/L Potassium 4.1 (3.5-5.1) mmol/L Chloride 104 (98-107) mmol/L Carbon Dioxide 22 (21-32) mmol/L Anion Gap 4 (3-11) BUN 17 (6-23) mg/dl Creatinine 0.82 (0.6-1.2) mg/dl Est Cr Clr Drug Dosing 46.5 ml/min eGFR 71.82 BUN/Creatinine Ratio 20.7 H (10-20) Glucose 100 H (70-99(Fasting)) mg/dl Calcium 7.5 L (8.6-10.3) mg/dl Phosphorus 1.9 L (2.5-4.9) mg/dl Magnesium 1.8 (1.7-2.4) mg/dl Total Bilirubin 1.9 H (0.2-1.0) mg/dl AST 48 H (13-39) U/L ALT 24 (7-52) U/L Alkaline Phosphatase 44 (34-104) U/L Total Protein 5.8 L (6.0-8.3) gm/dl Albumin 2.6 L (3.4-5.0) gm/dl Globulin 3.2 (2.5-4.0) gm/dl Albumin/Globulin Ratio 0.8 L (0.9-2) Medications Administered Current Inpatient Medications Acetaminophen (Acetaminophen 325 Mg Tab) 650 mg PO Q4H PRN PRN Reason: Pain or Fever Stop: 05/10/25 18:24 Ascorbic Acid (Ascorbic Acid 500 Mg Tab) 500 mg PO [facility] Stop: 05/11/25 08:59 Last Admin: 04/12/25 09:19 Dose: 500 mg Aspirin (Aspirin 81 Mg Ectab) 81 mg PO [facility] Stop: 05/11/25 08:59 Last Admin: 04/12/25 09:19 Dose: 81 mg Atovaquone (Atovaquone 750 Mg/5 Ml Udc) [facility] Stop: 05/12/25 08:29 Last Admin: 04/12/25 17:32 Dose: 750 mg Promethazine HCl (Phenergan) 6.25 mg in 50.25 mls @ 201 mls/hr IV Q6H PRN PRN Reason: Nausea And Vomiting Stop: 05/10/25 18:24 Azithromycin (Zithromax) 500 mg in 255 mls @ 127.5 mls/hr IV Q24H [facility] Stop: 04/19/25 08:59 Last Infusion: 04/12/25 11:25 Dose: Infused Doxycycline Hyclate 100 mg/ (Dextrose) 100 mls @ 50 mls/hr IV Q12H [facility] Stop: 04/22/25 13:29 Last Infusion: 04/13/25 03:40 Dose: Infused Magnesium Hydroxide (Magnesium Hydroxide Susp 30 Ml Udc) 30 ml PO Q12H PRN PRN Reason: Constipation Stop: 05/10/25 18:24 Metoprolol Succinate (Metoprolol Succ 50mg Ext Rel Tab) 50 mg PO [facility] Stop: 05/11/25 08:59 Last Admin: 04/12/25 09:19 Dose: 50 mg Polyethylene Glycol (Polyethylene (Miralax) 17 Gm Pack) 17 gm PO DAILY PRN PRN Reason: Constipation Stop: 05/10/25 18:24 (1) Fatigue Fatigue type: unspecified Qualified Code(s): R53.83 - Other fatigue (3) Anemia Anemia type: unspecified type Qualified Code(s): D64.9 - Anemia, unspecified
[2025-04-13 08:10] LABS: Immature Granulocytes # (auto) 0.07 K/uL (0.01-0.20); Immature Granulocytes % (auto) 1.5 %
[2025-04-13] MEDS ORDERED: SODIUM PHOSPHATE 3 MMOL/1 ML INFUSION IV STA (16:54)
[2025-04-13] MEDS: SODIUM PHOSPHATE 6 MMOL in SODIUM CHLORIDE 0.9% 100 ML IV ONE (17:41)
[2025-04-14 07:26] LABS: Hematocrit (blood only) 22.9 % (37.0-47.0); Hemoglobin 8.1 g/dl (12.0-16.0); Mean Corpuscular Hemoglobin 31.9 pg (25.0-34.0); Mean Corpuscular Volume 90.2 fL (80.0-100.0); Platelet Count 104 K/uL (130-400); RDW Standard Deviation 46.3 fL (36.4-46.3); Red Blood Count 2.54 M/uL (4.20-5.40); White Blood Count 5.27 K/ul (4.8-10.8)
[2025-04-14 08:05] LABS: Alanine Aminotransferase 26.0 U/L (7-52); Albumin Globulin Ratio 0.8 (0.9-2); Alkaline Phosphatase 46.0 U/L (34-104); Anion Gap 4.0 (3-11); Bilirubin,Total 1.7 mg/dl (0.2-1.0); Blood Urea Nitrogen 17.0 mg/dl (6-23); Calcium 7.7 mg/dl (8.6-10.3); Carbon Dioxide 22.0 mmol/L (21-32); Chloride 106.0 mmol/L (98-107); Creatinine Clr Calc Pharmacy 49.4 ml/min; Globulin 3.1 gm/dl (2.5-4.0); Glucose 99.0 mg/dl (70-99(Fasting)); Magnesium 1.9 mg/dl (1.7-2.4); Potassium 4.1 mmol/L (3.5-5.1); Sodium 132.0 mmol/L (136-145); Total Protein 5.7 gm/dl (6.0-8.3)
[2025-04-14] MEDS: ADVANCED PROBIOTIC 625 MG CAPSULE PO SCH (11:03)
--- NOTE | 2025-04-14 14:09 | Hospitalist Progress Note ---
Date of Service April 14, 2025 Assessment & Plan (1) Fatigue: (2) Positive Lyme disease serology: (3) Anemia: (4) Thrombocytopenia: (5) Hyponatremia: (6) Elevated LFTs: Plan Patient is an 79-year-old female with past medical history significant for PAF [single provoked episode lasting 2.5hr ISO sepsis related to appendicitis in September 2023; not on chemical AC - f/u Zio patch monitoring in October 2023 with no evidence of recurrent atrial fibrillation], HTN, heart palpitations, CKD stage IIIa, diverticulosis, fatty liver, history of colonic polyps and other problems listed below who presented to the ED with complaint of worsening fatigue over the past week and a half. Was seen and evaluated by PCP yesterday for this same complaint and had lab work completed which revealed anemia with Hgb 10.2, elevated BNP of 612, elevated Cr of 1.5 and elevated troponin of 20. Given her abnormal lab work and ongoing complaint of worsening fatigue, her PCP referred her to the ED for further evaluation. BNP 60 in ED Trop x 1 WNL on admission, pt denies any cardiac complaints --> EKG appears benign, EKG w/ CP PRN -TTE, 09/2023: LVEF 55-60%, mild concentric LVH, grade II DD, no significant valvular pathology -Appears euvolemic on exam -Will hold off on TTE for now unless pt develops cardiac sxs #Progressive fatigue #Positive Lyme disease screen -- IgG and IgM for Lyme positive Anaplasma, Babesia smears initially read as negative however now poss. Babesia - started atovaquone and azithromycin, consulted w/ ID -> cont. on doxy, azithro, atovaquone Babesia DNA PCR pending Anaplasma. phagocytophilum DNA testing pending RVP negative TSH WNL Procal slightly elevated at 0.56, WBC WNL UA grossly unremarkable IV Rocephin started in ED --> continued, now switched to doxy, as above Follow blood cx - negat. for 48 hrs 04/14 Pt reports feeling better, stronger today #Anemia Hgb 9.9 on admission, now down to ~8 No s/sx of bleeding per d/w pt Prior Hgb 13.6 as of 10/10/24 per outpt chart review Likely contributing to fatigue as well Checked iron panel/ferritin/vit B12/folate, iron level found low at 19, transferrin sat 8% Follow CBC trend #Thrombocytopenia Plt ct 79k on admission --> no prior hx per outpt chart review ? related to Lyme / tickborne dz Fall precautions, continue to monitor Plt now improved - 104 #Hyponatremia Na 131 on admission Likely 2/2 poor po intake ISO poor appetite >1wk serum osm, urine osm, urine Na Continue to monitor #Elevated LFTs #H/o fatty liver disease T bili 2.8, AST 52 ALT, alk phos WNL T bili appears somewhat chronically elevated ~1-3 per outpt chart review Prior h/o elevated AST, ALT per outpt chart review -Possibly related to underlying fatty liver/gallbladder disease -Check RUQ US, follow LFT trend US liver - 1. Grade 2 hepatosteatosis. 2. Cholecystolithiasis without a sign of cholecystitis. 3. Adenomyomatosis of the gallbladder wall. 4. Simple right renal cortical cyst. - current Tbili (1.9 < 2.8), AST 51 (50, 52), ALT 26 (30<34) - pt also denies any RUQ pain or any abd. pain #CKD stage IIIa Cr appears stable Baseline Cr 0.8-1.1 per outpt chart review Avoid nephrotoxic agents as able Continue to monitor #HTN Hold amlodipine, losartan for now 2/2 marginal BP --> resume when able Routine BP monitoring #H/o palpitations Continue BB for now w/ hold parameters Routine BP monitoring DVT Prophylaxis: SCDs/TEDs only given anemia, thrombocytopenia Disposition: med/tele Admission and Anticipated Discharge Date Admission Date: April 10, 2025 Subjective Pt seen in follow up of weakness/ fatigue + Lyme + thrombocytopenia + anemia, w/ low iron + elev. LFTs Currently sitting up in chair in NAD, says she is feeling better. also no longer febrile No chest pain, shortness of breath, no abd. pain, n/v. Also specifically denies any RUQ pain Poss. Babesia in addition to Lyme Seen by ID Review of Systems Review of Systems: All systems reviewed & are unremarkable except as noted in Subjective Physical Exam Physical Exam: General: WD/WN, elderly F, NAD, sitting up in chair, pleasant, conversing appropriately, A+Ox3 HEENT: Normocephalic, atraumatic, external ear and nose brie Respiratory: Normal respiratory effort, lungs clear to auscultation bilaterally Cardiovascular: Regular rate/rhythm Abdomen/GI: Normal bowel sounds, soft, nontender to palpation in all quadrants Extremities/Musculoskeletal: extremities motor strength intact, moves all extremities Neurologic: Awake, alert, answers appropriately, no facial asymmetry, speech fluent, moves extremities Results & Data Results & Data Vital Signs (Past 12 Hours) Vital Signs Temp Pulse Pulse Resp BP Pulse Ox O2 Del Method 04/14/25 11:41 36.4 C L 74 18 100/59 L 96 Room Air 04/14/25 07:29 36.6 C 76 18 105/57 L 97 Room Air 04/14/25 07:08 64 04/14/25 03:45 36.7 C 97 H 18 110/54 L 97 Room Air Laboratory Results 04/14/25 Range/Units 06:34 WBC 5.27 (4.8-10.8) K/ul RBC 2.54 L (4.20-5.40) M/uL Hgb 8.1 L (12.0-16.0) g/dl Hct 22.9 L (37.0-47.0) % MCV 90.2 (80.0-100.0) fL MCH 31.9 (25.0-34.0) pg MCHC 35.4 (32.0-36.0) g/dL RDW Std Deviation 46.3 (36.4-46.3) fL RDW Coeff of Nicholas 14.4 (11.5-14.5) % Plt Count 104 L (130-400) K/uL MPV 10.7 (9.4-12.4) fL Sodium 132 L (136-145) mmol/L Potassium 4.1 (3.5-5.1) mmol/L Chloride 106 (98-107) mmol/L Carbon Dioxide 22 (21-32) mmol/L Anion Gap 4 (3-11) BUN 17 (6-23) mg/dl Creatinine 0.77 (0.6-1.2) mg/dl Est Cr Clr Drug Dosing 49.4 ml/min eGFR 77.45 BUN/Creatinine Ratio 22.1 H (10-20) Glucose 99 (70-99(Fasting)) mg/dl Calcium 7.7 L (8.6-10.3) mg/dl Phosphorus 2.4 L (2.5-4.9) mg/dl Magnesium 1.9 (1.7-2.4) mg/dl Total Bilirubin 1.7 H (0.2-1.0) mg/dl AST 46 H (13-39) U/L ALT 26 (7-52) U/L Alkaline Phosphatase 46 (34-104) U/L Total Protein 5.7 L (6.0-8.3) gm/dl Albumin 2.6 L (3.4-5.0) gm/dl Globulin 3.1 (2.5-4.0) gm/dl Albumin/Globulin Ratio 0.8 L (0.9-2) Medications Administered Current Inpatient Medications Acetaminophen (Acetaminophen 325 Mg Tab) 650 mg PO Q4H PRN PRN Reason: Pain or Fever Stop: 05/10/25 18:24 Ascorbic Acid (Ascorbic Acid 500 Mg Tab) [address] [facility] Stop: 05/11/25 08:59 Last Admin: 04/14/25 08:14 Dose: 500 mg Aspirin (Aspirin 81 Mg Ectab) [address] [facility] Stop: 05/11/25 08:59 Last Admin: 04/14/25 08:14 Dose: 81 mg Atovaquone (Atovaquone 750 Mg/5 Ml Udc) 750 mg [facility] Stop: 05/12/25 08:29 Last Admin: 04/14/25 08:14 Dose: 750 mg Promethazine HCl (Phenergan) 6.25 mg in 50.25 mls @ 201 mls/hr IV Q6H PRN PRN Reason: Nausea And Vomiting Stop: 05/10/25 18:24 Azithromycin (Zithromax) 500 mg in 255 mls @ 127.5 mls/hr IV Q24H [facility] Stop: 04/19/25 08:59 Last Infusion: 04/14/25 11:04 Dose: Infused Doxycycline Hyclate 100 mg/ (Dextrose) 100 mls @ 50 mls/hr IV Q12H [facility] Stop: 04/22/25 13:29 Last Admin: 04/14/25 13:08 Dose: 50 mls/hr Lactobacillus Acidophilus (Advanced Probiotic 625 Mg Capsule) 1,250 mg PO DAILY [facility] Stop: 05/14/25 08:59 Last Admin: 04/14/25 11:03 Dose: 1,250 mg Magnesium Hydroxide (Magnesium Hydroxide Susp 30 Ml Udc) 30 ml PO Q12H PRN PRN Reason: Constipation Stop: 05/10/25 18:24 Metoprolol Succinate (Metoprolol Succ 50mg Ext Rel Tab) 50 mg PO QAM [facility] Stop: 05/11/25 08:59 Last Admin: 04/14/25 08:14 Dose: 50 mg Polyethylene Glycol (Polyethylene (Miralax) 17 Gm Pack) 17 gm PO DAILY PRN PRN Reason: Constipation Stop: 05/10/25 18:24 (1) Fatigue Fatigue type: unspecified Qualified Code(s): R53.83 - Other fatigue (3) Anemia Anemia type: unspecified type Qualified Code(s): D64.9 - Anemia, unspecified
[2025-04-14] MEDS: SODIUM CHLORIDE 0.9% 500 ML IV ONE (14:42)
[2025-04-15 06:18] LABS: Hematocrit (blood only) 23.9 % (37.0-47.0); Hemoglobin 8.0 g/dl (12.0-16.0); Mean Corpuscular Hemoglobin 31.1 pg (25.0-34.0); Mean Corpuscular Volume 93.0 fL (80.0-100.0); Platelet Count 112 K/uL (130-400); RDW Standard Deviation 48.3 fL (36.4-46.3); Red Blood Count 2.57 M/uL (4.20-5.40); White Blood Count 6.19 K/ul (4.8-10.8)
[2025-04-15 07:10] LABS: Alanine Aminotransferase 27.0 U/L (7-52); Albumin Globulin Ratio 0.8 (0.9-2); Alkaline Phosphatase 49.0 U/L (34-104); Anion Gap 4.0 (3-11); Bilirubin,Total 1.4 mg/dl (0.2-1.0); Blood Urea Nitrogen 17.0 mg/dl (6-23); Calcium 7.9 mg/dl (8.6-10.3); Carbon Dioxide 22.0 mmol/L (21-32); Chloride 108.0 mmol/L (98-107); Creatinine Clr Calc Pharmacy 50.7 ml/min; Globulin 3.2 gm/dl (2.5-4.0); Glucose 99.0 mg/dl (70-99(Fasting)); Magnesium 1.8 mg/dl (1.7-2.4); Potassium 4.3 mmol/L (3.5-5.1); Sodium 134.0 mmol/L (136-145); Total Protein 5.7 gm/dl (6.0-8.3)
[2025-04-15] MEDS: SODIUM CHLORIDE 0.9% 500 ML IV ONE (10:46)
--- NOTE | 2025-04-15 12:34 | Hospitalist Progress Note ---
Date of Service April 15, 2025 Assessment & Plan (1) Fatigue: (2) Positive Lyme disease serology: (3) Anemia: (4) Thrombocytopenia: (5) Hyponatremia: (6) Elevated LFTs: Plan Patient is an 79-year-old female with past medical history significant for PAF [single provoked episode lasting 2.5hr ISO sepsis related to appendicitis in September 2023; not on chemical AC - f/u Zio patch monitoring in October 2023 with no evidence of recurrent atrial fibrillation], HTN, heart palpitations, CKD stage IIIa, diverticulosis, fatty liver, history of colonic polyps and other problems listed below who presented to the ED with complaint of worsening fatigue over the past week and a half. Was seen and evaluated by PCP yesterday for this same complaint and had lab work completed which revealed anemia with Hgb 10.2, elevated BNP of 612, elevated Cr of 1.5 and elevated troponin of 20. Given her abnormal lab work and ongoing complaint of worsening fatigue, her PCP referred her to the ED for further evaluation. BNP 60 in ED Trop x 1 WNL on admission, pt denies any cardiac complaints --> EKG appears benign, EKG w/ CP PRN -TTE, 09/2023: LVEF 55-60%, mild concentric LVH, grade II DD, no significant valvular pathology -Appears euvolemic on exam -Will hold off on TTE for now unless pt develops cardiac sxs #Progressive fatigue #Positive Lyme disease screen -- IgG and IgM for Lyme positive Anaplasma, Babesia smears initially read as negative however Babesia then confirmed with PCR and smear - started atovaquone and azithromycin, consulted w/ ID -> cont. on doxy, azithro, atovaquone Babesia DNA PCR positive Anaplasma phagocytophilum DNA testing pending RVP negative TSH WNL Procal slightly elevated at 0.56, WBC WNL UA grossly unremarkable IV Rocephin started in ED --> continued, now switched to doxy, as above Follow blood cx - negat. for 48 hrs 04/14 Pt reports feeling better, stronger today 04/15 Pt reports feeling better but continues to have BP on low side despite ho lding her home amlodipine and losartan, will cont. to provide IVF #Anemia Hgb 9.9 on admission, now down to ~8 No s/sx of bleeding per d/w pt Prior Hgb 13.6 as of 10/10/24 per outpt chart review Likely contributing to fatigue as well Checked iron panel/ferritin/vit B12/folate, iron level found low at 19, transferrin sat 8% Follow CBC trend #Thrombocytopenia Plt ct 79k on admission --> no prior hx per outpt chart review ? related to Lyme / tickborne dz Fall precautions, continue to monitor Plt now improved - 112 #Hyponatremia Na 131 on admission Likely 2/2 poor po intake ISO poor appetite >1wk serum osm, urine osm, urine Na Continue to monitor #Elevated LFTs #H/o fatty liver disease T bili 2.8, AST 52 ALT, alk phos WNL T bili appears somewhat chronically elevated ~1-3 per outpt chart review Prior h/o elevated AST, ALT per outpt chart review -Possibly related to underlying fatty liver/gallbladder disease -Check RUQ US, follow LFT trend US liver - 1. Grade 2 hepatosteatosis. 2. Cholecystolithiasis without a sign of cholecystitis. 3. Adenomyomatosis of the gallbladder wall. 4. Simple right renal cortical cyst. - current Tbili (1.9 < 2.8), AST 51 (50, 52), ALT 26 (30<34) - pt also denies any RUQ pain or any abd. pain #CKD stage IIIa Cr appears stable Baseline Cr 0.8-1.1 per outpt chart review Avoid nephrotoxic agents as able Continue to monitor #HTN Hold amlodipine, losartan for now 2/2 marginal BP --> resume when able Monitor BP, as continues to be on lower side , will give IVF #H/o palpitations Continue BB for now w/ hold parameters Routine BP monitoring Disposition: med/tele Admission and Anticipated Discharge Date Admission Date: April 10, 2025 Subjective Pt seen in follow up of weakness/ fatigue + Lyme + thrombocytopenia -> improving + anemia, w/ low iron, anemia stable + elev. LFTs, elev. Tbili Currently sitting up in chair in NAD, says she is feeling better overall, feels she has more energy, able to walk in hallways. also no longer febrile No chest pain, shortness of breath, no abd. pain, n/v. Also specifically denies any RUQ pain Babesia PCR positive in addition to Lyme, anaplasma pending Seen by ID Review of Systems Review of Systems: All systems reviewed & are unremarkable except as noted in Subjective Physical Exam Physical Exam: General: WD/WN, elderly F, NAD, sitting up in chair, pleasant, conversing appropriately, A+Ox3 HEENT: Normocephalic, atraumatic, external ear and nose brie Respiratory: Normal respiratory effort, lungs clear to auscultation bilaterally Cardiovascular: Regular rate/rhythm Abdomen/GI: Normal bowel sounds, soft, nontender to palpation in all quadrants Extremities/Musculoskeletal: extremities motor strength intact, moves all extremities Neurologic: Awake, alert, answers appropriately, no facial asymmetry, speech fluent, moves extremities Results & Data Results & Data Vital Signs (Past 12 Hours) Vital Signs Temp Pulse Pulse Resp BP BP Pulse Ox 04/15/25 07:55 36.6 C 73 20 95/52 L 98 04/15/25 07:12 63 04/15/25 03:33 36.9 C 70 18 122/74 96 O2 Del Method 04/15/25 07:55 Room Air 04/15/25 07:12 04/15/25 03:33 Room Air Laboratory Results 04/15/25 04/10/25 Range/Units 05:42 12:37 WBC 6.19 (4.8-10.8) K/ul RBC 2.57 L (4.20-5.40) M/uL Hgb 8.0 L (12.0-16.0) g/dl Hct 23.9 L (37.0-47.0) % MCV 93.0 (80.0-100.0) fL MCH 31.1 (25.0-34.0) pg MCHC 33.5 (32.0-36.0) g/dL RDW Std Deviation 48.3 H (36.4-46.3) fL RDW Coeff of Nicholas 14.7 H (11.5-14.5) % Plt Count 112 L (130-400) K/uL MPV 9.9 (9.4-12.4) fL Sodium 134 L (136-145) mmol/L Potassium 4.3 (3.5-5.1) mmol/L Chloride 108 H (98-107) mmol/L Carbon Dioxide 22 (21-32) mmol/L Anion Gap 4 (3-11) BUN 17 (6-23) mg/dl Creatinine 0.75 (0.6-1.2) mg/dl Est Cr Clr Drug Dosing 50.7 ml/min eGFR 79.93 BUN/Creatinine Ratio 22.7 H (10-20) Glucose 99 (70-99(Fasting)) mg/dl Calcium 7.9 L (8.6-10.3) mg/dl Phosphorus 2.5 (2.5-4.9) mg/dl Magnesium 1.8 (1.7-2.4) mg/dl Total Bilirubin 1.4 H (0.2-1.0) mg/dl AST 47 H (13-39) U/L ALT 27 (7-52) U/L Alkaline Phosphatase 49 (34-104) U/L Total Protein 5.7 L (6.0-8.3) gm/dl Albumin 2.5 L (3.4-5.0) gm/dl Globulin 3.2 (2.5-4.0) gm/dl Albumin/Globulin Ratio 0.8 L (0.9-2) Babesia microti DNA PCR Detected A (Not Detected) Medications Administered Current Inpatient Medications Acetaminophen (Acetaminophen 325 Mg Tab) 650 mg PO Q4H PRN PRN Reason: Pain or Fever Stop: 05/10/25 18:24 Ascorbic Acid (Ascorbic Acid 500 Mg Tab) 500 mg PO [facility] Stop: 05/11/25 08:59 Last Admin: 04/15/25 08:11 Dose: 500 mg Aspirin (Aspirin 81 Mg Ectab) [facility] Stop: 05/11/25 08:59 Last Admin: 04/15/25 08:10 Dose: 81 mg Atovaquone (Atovaquone 750 Mg/5 Ml Udc) 750 mg PO BIDM REPLACED BY [facility] Stop: 05/12/25 08:29 Last Admin: 04/15/25 08:10 Dose: 750 mg Promethazine HCl (Phenergan) 6.25 mg in 50.25 mls @ 201 mls/hr IV Q6H PRN PRN Reason: Nausea And Vomiting Stop: 05/10/25 18:24 Azithromycin (Zithromax) 500 mg in 255 mls @ 127.5 mls/hr IV Q24H REPLACED BY [facility] Stop: 04/19/25 08:59 Last Infusion: 04/15/25 10:33 Dose: Infused Doxycycline Hyclate 100 mg/ (Dextrose) 100 mls @ 50 mls/hr IV Q12H IBAN Stop: 04/22/25 13:29 Last Infusion: 04/15/25 04:00 Dose: Infused Lactobacillus Acidophilus (Advanced Probiotic 625 Mg Capsule) 1,250 mg PO DAILY IBAN Stop: 05/14/25 08:59 Last Admin: 04/15/25 08:10 Dose: 1,250 mg Magnesium Hydroxide (Magnesium Hydroxide Susp 30 Ml Udc) 30 ml PO Q12H PRN PRN Reason: Constipation Stop: 05/10/25 18:24 Metoprolol Succinate (Metoprolol Succ 50mg Ext Rel Tab) 50 mg PO QAM IBAN Stop: 05/11/25 08:59 Last Admin: 04/15/25 08:11 Dose: Not Given Polyethylene Glycol (Polyethylene (Miralax) 17 Gm Pack) 17 gm PO DAILY PRN PRN Reason: Constipation Stop: 05/10/25 18:24 (1) Fatigue Fatigue type: unspecified Qualified Code(s): R53.83 - Other fatigue (3) Anemia Anemia type: unspecified type Qualified Code(s): D64.9 - Anemia, unspecified
[2025-04-16 04:12] VITALS: RESP 18
[2025-04-16 07:20] LABS: Hematocrit (blood only) 23.7 % (37.0-47.0); Hemoglobin 8.1 g/dl (12.0-16.0); Mean Corpuscular Hemoglobin 32.0 pg (25.0-34.0); Mean Corpuscular Volume 93.7 fL (80.0-100.0); Platelet Count 141 K/uL (130-400); RDW Standard Deviation 48.7 fL (36.4-46.3); Red Blood Count 2.53 M/uL (4.20-5.40); White Blood Count 7.91 K/ul (4.8-10.8)
[2025-04-16 07:48] LABS: Alanine Aminotransferase 28.0 U/L (7-52); Albumin Globulin Ratio 0.8 (0.9-2); Alkaline Phosphatase 50.0 U/L (34-104); Anion Gap 4.0 (3-11); Bilirubin,Total 1.4 mg/dl (0.2-1.0); Blood Urea Nitrogen 16.0 mg/dl (6-23); Calcium 8.1 mg/dl (8.6-10.3); Carbon Dioxide 22.0 mmol/L (21-32); Chloride 109.0 mmol/L (98-107); Creatinine Clr Calc Pharmacy 52.0 ml/min; Globulin 3.1 gm/dl (2.5-4.0); Glucose 102.0 mg/dl (70-99(Fasting)); Magnesium 1.7 mg/dl (1.7-2.4); Potassium 4.5 mmol/L (3.5-5.1); Sodium 135.0 mmol/L (136-145); Total Protein 5.6 gm/dl (6.0-8.3)
[2025-04-16 08:35] VITALS: BP 118/65; PULSE 85; TEMP 97.6; O2SAT 99
[2025-04-16] MEDS: DOXYCYCLINE HYCLATE 100 MG CAP PO SCH (09:13)
--- NOTE | 2025-04-16 10:44 | Discharge Summary ---
Date of Service April 16, 2025 Admission HPI Per Admitting Provider Patient is an 79-year-old female with past medical history significant for PAF [single provoked episode lasting 2.5hr ISO sepsis related to appendicitis in September 2023; not on chemical AC - f/u Zio patch monitoring in October 2023 with no evidence of recurrent atrial fibrillation], HTN, heart palpitations, CKD stage IIIa [baseline Cr 0.8-1.1], diverticulosis, fatty liver, history of colonic polyps and other problems listed below who presented to the ED with complaint of worsening fatigue. History obtained from the patient, discussion with ED provider and associated chart review. Patient endorses worsening fatigue over the past week and a half. Was seen and evaluated by PCP yesterday for this same complaint and had lab work completed which revealed anemia with Hgb 10.2, elevated BNP of 612, elevated Cr of 1.5 and elevated troponin of 20. Given her abnormal lab work and ongoing complaint of worsening fatigue, her PCP referred her to the ED for further evaluation. Patient endorses somewhat of a poor appetite in addition to her fatigue. No falls or trauma reported. No fevers at home. Denies any myalgias however did experience some pain in her shoulders a few days ago while completing chores outside - this now has subsided. Denies any headaches or lightheadedness/dizziness. Initial laboratory evaluation notable for anemia, thrombocytopenia, hyponatremia, elevated BUN and elevated total bilirubin/AST. Lyme disease screening came back positive, confirmatory testing pending. RVP negative. CXR without any acute findings. No known tick bites per patient; however, she is frequently outside and [place]. Mentions she was previously diagnosed with Lyme disease a few years ago and treated with oral doxycycline. Admission Exam Per Admitting Provider General: WD/WN, elderly F, NAD, sitting up in bed, pleasant, conversing appropriately, A+Ox3, daughter at bedside HEENT: Normocephalic, atraumatic, external ear and nose normal, oropharynx normal Respiratory: Normal respiratory effort, lungs clear to auscultation bilaterally Cardiovascular: Regular rate/rhythm, normal peripheral pulses, trace LLE edema Abdomen/GI: Normal bowel sounds, soft, nontender to palpation in all quadrants Extremities/Musculoskeletal: No cyanosis or clubbing, extremities motor strength intact, moves all extremities Neurologic: No overt focal deficits, CN's II-XI not formally tested but appear grossly intact bilaterally Principal Diagnosis Lyme disease and Babesiosis Discharge Exam General: WD/WN, elderly F, NAD, pleasant, conversing appropriately, A+Ox3 HEENT: Normocephalic, atraumatic, external ear and nose brie Respiratory: Normal respiratory effort, lungs clear to auscultation bilaterally Cardiovascular: Regular rate/rhythm Abdomen/GI: Normal bowel sounds, soft, nontender to palpation in all quadrants Extremities/Musculoskeletal: extremities motor strength intact, moves all extremities Neurologic: Awake, alert, answers appropriately, no facial asymmetry, speech fluent, moves extremities Discharge Data Allergies Allergy/AdvReac Type Severity Reaction Status Date / Time No Known Allergies Unverified 04/10/25 14:39 Consultations 04/10/25 14:37 ED Decision to Admit Stat 04/12/25 08:08 Consult Infectious Diseases Routine Ordered Studies 04/10/25 18:38 US liver Routine IMPRESSION: 1. Grade 2 hepatosteatosis. 2. Cholecystolithiasis without a sign of cholecystitis. 3. Adenomyomatosis of the gallbladder wall. 4. Simple right renal cortical cyst. Hospital Course (1) Fatigue: (2) Positive Lyme disease serology: (3) Anemia: (4) Thrombocytopenia: (5) Hyponatremia: (6) Elevated LFTs: Plan Patient is an 79-year-old female with past medical history significant for PAF [single provoked episode lasting 2.5hr ISO sepsis related to appendicitis in September 2023; not on chemical AC - f/u Zio patch monitoring in October 2023 with no evidence of recurrent atrial fibrillation], HTN, heart palpitations, CKD stage IIIa, diverticulosis, fatty liver, history of colonic polyps and other problems listed below who presented to the ED with complaint of worsening fatigue over the past week and a half. Was seen and evaluated by PCP yesterday for this same complaint and had lab work completed which revealed anemia with Hgb 10.2, elevated BNP of 612, elevated Cr of 1.5 and elevated troponin of 20. Given her abnormal lab work and ongoing complaint of worsening fatigue, her PCP referred her to the ED for further evaluation. BNP 60 in ED Trop x 1 WNL on admission, pt denies any cardiac complaints --> EKG appears benign, EKG w/ CP PRN -TTE, 09/2023: LVEF 55-60%, mild concentric LVH, grade II DD, no significant valvular pathology -Appears euvolemic on exam -Will hold off on TTE for now unless pt develops cardiac sxs #Progressive fatigue #Positive Lyme disease screen -- IgG and IgM for Lyme positive Anaplasma, Babesia smears initially read as negative however Babesia then confirmed with PCR and smear - started atovaquone and azithromycin, consulted w/ ID -> cont. on doxy, azithro, atovaquone Babesia DNA PCR positive Anaplasma phagocytophilum DNA testing pending RVP negative TSH WNL Procal slightly elevated at 0.56, WBC WNL UA grossly unremarkable IV Rocephin started in ED --> continued, now switched to doxy, as above Follow blood cx - negative 04/14 Pt reports feeling better, stronger today 04/15 Pt reports feeling better but continues to have BP on low side despite holding her home amlodipine and losartan, will cont. to provide IVF 04/16 overall feels improved, BP improved, plan to DC home w/ close pcp follow up #Anemia Hgb 9.9 on admission, now down to ~8 (been stable) No s/sx of bleeding per d/w pt Prior Hgb 13.6 as of 10/10/24 per outpt chart review Likely contributing to fatigue as well Checked iron panel/ferritin/vit B12/folate, iron level found low at 19, transferrin sat 8% Follow CBC trend #Thrombocytopenia Plt ct 79k on admission --> no prior hx per outpt chart review ? related to Lyme / tickborne dz Fall precautions, continue to monitor Plt now improved and normal - at 141 #Hyponatremia Na 131 on admission Likely 2/2 poor po intake ISO poor appetite >1wk serum osm, urine osm, urine Na Continue to monitor #Elevated LFTs #H/o fatty liver disease T bili 2.8, AST 52 ALT, alk phos WNL T bili appears somewhat chronically elevated ~1-3 per outpt chart review Prior h/o elevated AST, ALT per outpt chart review -Possibly related to underlying fatty liver/gallbladder disease -Check RUQ US, follow LFT trend US liver - 1. Grade 2 hepatosteatosis. 2. Cholecystolithiasis without a sign of cholecystitis. 3. Adenomyomatosis of the gallbladder wall. 4. Simple right renal cortical cyst. - current Tbili (1.9 < 2.8), AST 51 (50, 52), ALT 26 (30<34) - pt also denies any RUQ pain or any abd. pain #CKD stage IIIa Cr appears stable Baseline Cr 0.8-1.1 per outpt chart review Avoid nephrotoxic agents as able Continue to monitor #HTN Hold amlodipine, losartan for now 2/2 marginal BP --> resume when able as outpt #H/o palpitations Continue BB for now w/ hold parameters Routine BP monitoring Total Time Total Time Spent Total Time Spent (In Minutes): 40 Discharge Plan Discharge Items Patient Disposition: Home - Self-Care Reason For Visit: WORSENING FATIGUE, POSITIVE LYME SCREEN Discharge Diagnosis: Lyme disease and Babesiosis Condition on Discharge: Fair Activity: Per Instructions section Non-emergency contact: Primary Care Provider Call non-emergency contact if: you have any medication questions and your symptoms worsen Follow-up/Referrals: Mary Ellen Melendez DO [Primary Care Provider] - (Date & Time 04/20/2025 2:00 PM Provider: Sofia Ruiz DO [facility]) Diet: Regular Addtl Attending Provider Instructions: Follow up with primary care physician within 1 week. The appointment was scheduled for you for 04/20/2025. Finish antibiotic treatment as prescribed. Do not take your amlodipine or losartan until you see your primary care doctor and discuss with them. If you can , monitor your blood pressure at home. Pending Studies at Discharge: Yes Studies:: anaplasma pcr Stand-Alone Forms: My [employer], Smoking Cessation Medications and DC Order Prescriptions: New Advanced Probiotic 625 mg (10 billion cell) Capsule 1 cap PO DAILY Qty: 10 0RF atovaquone [Mepron] 750 mg/5 mL Suspension 750 mg PO BIDM 5 Days Qty: 50 0RF azithromycin 250 mg tablet 250 mg PO DAILY 5 Days Qty: 5 0RF doxycycline hyclate 100 mg capsule 100 mg PO BID 8 Days Qty: 16 0RF Continued ascorbic acid (vitamin C) [Vitamin C] 500 mg Tablet 500 mg PO QAM aspirin 81 mg Tablet 81 mg PO QAM metoprolol succinate 50 mg tablet extended release 24 hr 50 mg PO QAM Held omega-3 fatty acids 1,000 mg Capsule 2,000 mg PO QAM Hold Instructions: Resume on 04/20/25. discuss with your primary care doctor if/when to resume amlodipine 5 mg tablet 5 mg PO QAM Hold Instructions: Resume on 04/20/25. discuss with your primary care doctor if/when to resume losartan 100 mg tablet 100 mg PO QAM Hold Instructions: Resume on 04/20/25. discuss with your primary care doctor if /when to resume [place] 3-6-9 1,200 mg Capsule 1,200 cap PO QAM Hold Instructions: Resume on 04/20/25. discuss with your primary care physician if/when to resume Discharge Orders: Discharge Order (Routine); Ordered 04/16/25 Ordered By: Leo Baptiste Admission Data Admit Date/Time: 04/10/25 14:45 Attending Provider: Leo Baptiste Admit Provider: August Rodas Primary Care Provider: Mary Ellen Melendez Other Providers: August Rodas; Chavez Price; Heron Pierre; Misha Stringer I.; Aneesh Dawkins II; Annamaria Holman; Donal Vivar; Soren Enriquez; Aki Melissa
== END 2025-04-16 11:08 | disposition home or self-care (01) | DRG 868 ==
LOC: ED 11:58 → 2W 14:45 → SUATTDRO 14:45 → 2W 17:56